=== PATIENT | female | born 1940 | race Caucasian/White ===

== ENCOUNTER → 2019-07-26 09:55 | Outpatient (BNVA) | payer MEDICARE, OTHER, SELFPAY | PROVIDERS: Family Provider Nurse Practitioner; PCP Nurse Practitioner; Visit Provider Internal Medicine Cardiovascular Disease | DX: I10 Essential (primary) hypertension (principal); E78.2 Mixed hyperlipidemia; Z95.0 Presence of cardiac pacemaker; M05.741 Rheumatoid arthritis with rheumatoid factor of right hand without organ or systems involvement; M05.742 Rheumatoid arthritis with rheumatoid factor of left hand without organ or systems involvement; G31.84 Mild cognitive impairment of uncertain or unknown etiology | CPT/HCPCS: 80061 ==

== ENCOUNTER → 2019-08-13 09:13 | Outpatient (BNVA) | payer MEDICARE, OTHER, SELFPAY | PROVIDERS: Family Provider Nurse Practitioner; PCP Nurse Practitioner; Visit Provider Nurse Practitioner | DX: I10 Essential (primary) hypertension (principal); E55.9 Vitamin D deficiency, unspecified; G31.84 Mild cognitive impairment of uncertain or unknown etiology; E78.5 Hyperlipidemia, unspecified; F32.9 Major depressive disorder, single episode, unspecified | CPT/HCPCS: 80053; 80061; 81001; 82306; 82607; 83735; 84443; 85025 ==

== ENCOUNTER 2019-09-01 06:00 | Outpatient (CLI) | payer MEDICARE, OTHER, SELFPAY ==
[2019-09-02 15:06] LABS: Add Urine Microscopic? NO
[2019-09-02 15:37] LABS: Urine Appearance Clear (CLEAR); Urine Color Straw (Yellow)
[2019-09-02 15:38] LABS: Bilirubin Urine Neg (NEGATIVE); Blood Urine Neg (Negative); Glucose Urine UA Norm (Normal); Ketones Urine Negative (Negative); Leukocyte Esterase Urine Negative (Negative); Nitrate Urine Negative (Negative); Protein Urine Neg (Negative); Urobilinogen Urine Norm (Negative); pH Urine 6.5 (5-7)
== END 2019-09-01 06:01 | disposition home or self-care (01) ==
LOC: LAB 09-02 15:06
PROVIDERS: Family Provider Nurse Practitioner; PCP Nurse Practitioner; Visit Provider Nurse Practitioner
DX: R30.0 Dysuria (principal)
CPT/HCPCS: 81003

== ENCOUNTER → 2019-09-01 09:02 | Outpatient (BNVA) | payer MEDICARE, OTHER, SELFPAY | PROVIDERS: Family Provider Nurse Practitioner; PCP Nurse Practitioner; Referring Provider Internal Medicine Medical Oncology; Visit Provider Specialist | DX: G47.52 REM sleep behavior disorder (principal); R41.3 Other amnesia; R20.0 Anesthesia of skin; R19.7 Diarrhea, unspecified; Z98.890 Other specified postprocedural states; F03.90 Unspecified dementia, unspecified severity, without behavioral disturbance, psychotic disturbance, mood disturbance, and anxiety | CPT/HCPCS: 96116; 99215 ==

== ENCOUNTER 2019-09-01 10:59 | Outpatient (CLI) | payer MEDICARE, OTHER, SELFPAY ==
[2019-09-01 12:20] LABS: Vitamin B12 467 pg/mL (232-1245)
[2019-09-01 12:55] LABS: Folate Level 19.3 ng/mL (4.8-37.3)
== END 2019-09-01 11:00 | disposition home or self-care (01) ==
LOC: ONCMED 11:05
PROVIDERS: Family Provider Nurse Practitioner; PCP Nurse Practitioner; Visit Provider Specialist
DX: R41.3 Other amnesia (principal)
CPT/HCPCS: 82607; 82746

== ENCOUNTER 2019-09-09 09:18 | Outpatient (CLI) | payer MEDICARE, OTHER, SELFPAY ==
--- NOTE | 2019-09-09 09:30 | CT_ITS ---
WS: [id number] CT CHEST, ABDOMEN, AND PELVIS TECHNIQUE: Contrast-enhanced CT of the chest, abdomen, and pelvis with coronal and sagittal reformatt ed images. CLINICAL INFORMATION: COLON CANCER COMPARISON: Prior CTs including August 03, 2018, December 10, 2017, DLP: 1048.[address] scans at [facility] use at least one of these dose optimization techniques: automat ed exposure control; mA and/or kV adjustment per patient size (includes targeted exams where dose is matched to clinical indication); or iterative reconstruction. CT CHEST: Moderate chronic emphysematous changes. No acute pulmonary infiltrates. Slight atelectasis in the nasir gula and right lower lobe. 4 mm left lower lobe noncalcified pulmonary nodule is unchanged. No new pu lmonary parenchymal abnormalities. No acute pulmonary infiltrates. Normal caliber thoracic aorta. Vas cular calcification including coronary. No mediastinal or hilar lymphadenopathy. No axillary lymphade nopathy. CT ABDOMEN AND PELVIS: Prior cholecystectomy. Mild intrahepatic biliary ductal dilatation unchanged. This is likely physiolo gic postcholecystectomy. Normal spleen. Normal GE junction. Fatty atrophy of the pancreas. Normal laurent iber abdominal aorta. Adrenal glands are normal. Normal renal parenchymal enhancement. No hydronephro sis. No adenopathy in the abdomen or pelvis. No inguinal lymphadenopathy. Lumbar scoliosis. CT/CT chest abd pel w con* IMPRESSION: 1. No evidence of progressed metastatic disease in the chest abdomen or pelvis . 2. Stable tiny 4 mm pulmonary nodule left lower lobe is unchanged. 3. No mediastinal or hilar lymphadenopathy. 4. No adenopathy abdomen or pelvis. 5. Prior cholecystectomy.
[2019-09-09 10:09] LABS: Basophils % 0.5 %; Eosinophils # 0.2 10^3/uL (0.0-0.8); Eosinophils % 4.6 %; Hemoglobin 12.2 g/dL (11.5-15.3); Lymphocytes # 1.6 10^3/uL (0.8-4.8); Lymphocytes % 37.6 %; Mean Corpuscular HGB Conc 33.9 g/dL (30.0-36.0); Mean Corpuscular Hemoglobin 37.1 pg (28.0-34.0); Mean Corpuscular Volume 109.4 fL (81-99); Mean Platelet Volume 10.6 fL (7.4-10.4); Monocytes # 0.4 10^3/uL (0.2-0.9); Monocytes % 8.8 %; Neutrophils # 2.1 10^3/uL (1.8-7.7); Neutrophils % 48.5 %; Nucleated Red Blood Cells % 0 %; Platelet Count 142 10^3/cmm (130-400); Red Blood Count 3.29 10^6/uL (4.1-5.3); Red Cell Distribution Width 12.6 % (12.1-15.1); White Blood Count 4.3 10^3/uL (4.0-10.0)
[2019-09-09 10:40] LABS: Carcinoembryonic Antigen 6.8 ng/mL (0.0-4.7)
[2019-09-09 10:51] LABS: Alanine Aminotransferase 15 U/L (0-33); Albumin Level 4.2 g/dL (3.5-5.2); Alkaline Phosphatase 50 IU/L (35-105); Aspartate Amino Transferase 23 U/L (0-32); Blood Urea Nitrogen 10 mg/dL (8-23); Calcium 9.9 mg/dL (8.5-10.5); Carbon Dioxide 24 mmol/L (22-29); Chloride 97 mmol/L (98-107); Globulin 3.4 g/dL (1.3-4.6); Glucose 110 mg/dL (65-115); Sodium 138 mmol/L (136-145); Total Bilirubin 1.3 mg/dL (0.15-1.2); Total Protein 7.6 g/dL (6.6-8.7)
[2019-09-09] MEDS: iohexol 300 mg/mL 100 mL Btl IV (11:25)
[2019-09-09] MEDS: iohexol 300 mg/mL 50 mL Btl PO (11:29)
== END 2019-09-09 09:19 | disposition home or self-care (01) ==
LOC: ONCMED 09:20
PROVIDERS: Family Provider Nurse Practitioner; PCP Nurse Practitioner; Visit Provider Internal Medicine Medical Oncology
DX: Z85.038 Personal history of other malignant neoplasm of large intestine (principal); R91.1 Solitary pulmonary nodule; Z90.49 Acquired absence of other specified parts of digestive tract
CPT/HCPCS: 36415; 71260; 74177; 80053; 82378; 85025; Q9967

== ENCOUNTER 2019-09-13 15:05 | Outpatient (CLI) | payer MEDICARE, OTHER, SELFPAY ==
--- NOTE | 2019-09-13 19:57 | ONC FU_ITS ---
Dr. Rausch Patient Follow-Up Note Patient: Katherin Silva Unit #: [id number]: 1940 Dicatated By: Musa Rausch M.D.Date of Visit:Sep 13, 2019 Onc Med Follow-up/Prog Note Chief Complaint: Colon cancer. History of Present Illness: This is a 79 year-old woman with stage III colon cancer. She also is known to have sarcoidosis. Her colon cancer was initially diagnosed in 2005. She had treatment with Dr. Enedina Palm in [place]. I do have some but not complete records available. The primary tumor apparently was in the left side of the colon. She reportedly underwent hemicolectomy, but those details were not stated in any of the reports. Her preoperative staging evaluation apparently showed multiple lymph nodes in the neck, supraclavicular and axillary areas, mediastinum, and retroperitoneal areas, and she also was noted to have enlarged spleen. Axillary lymph node biopsy was consistent with sarcoidosis. She was given postoperative adjuvant chemotherapy with 12 cycles of FOLFOX, completed in June 2006. On her follow-up visit there in September 2016 she was found to be mildly anemic. A specific cause for that was not determined. An abdominal ultrasound done here on 08/22/2016 showed abnormal echogenicity involving the superior right lobe of the liver. Infiltrating neoplasm was not excluded, but it was noted to possibly be due to artifact. Spleen was noted to be normal at that time. She had a negative surveillance colonoscopy in March 2016. Her other medical illnesses include hypertension, osteoporosis, and degenerative arthritis. She has a history of anxiety/depression. In August 2014 she underwent placement of permanent pacemaker for complete heart block. She is a nonsmoker. She was seen here on 12/04/2017 because she had been having weak spells and she had been falling. During the preceding 4 months she had experienced 3 episodes in which she had fallen. With the first 2 episodes, she had lost balance and fell backwards off the porch. With the most recent episode, which was just 2 or 3 days prior to the visit, she was attempting to open the door of their camper. She had started getting lightheaded and the next thing she knew she was on the ground. She had apparently fallen backward again and hit the back of her head. She hadn't actually blacked out, though. During this time she also had been having more problems with her memory, and her indicated that he had noticed some change in her personality. In reviewing her record in [employer], I noted that she had seen Dr. Gonzalez in September 2014. At that time she had experienced some syncopal episodes related to the complete heart block. She was having some ataxia, and she had some depression. A noncontrast head CT was unremarkable. Her laboratory studies from 12/04/2017 included CBC showing hemoglobin 13.4 g, white blood cell count 4000, and platelet count 160,000. The red cell indices were mildly macrocytic. The reticulocyte count was 1.8%. Sedimentation rate was normal at 18 mm/hour. Comprehensive metabolic profile was unremarkable. LDH was normal at 177 U/L. TSH was normal at 2.330 mIU/mL. Her B12 level was elevated at 3571 pg/mL. Her CEA level was borderline at 4.9 ng/mL. A CT angiogram of the head/neck on 12/05/2017 showed moderate bilateral carotid bulb calcification extending into the ICA with right ICA stenosis of 56.8% and left ICA stenosis of 53.8%. There was evidence of left dominant vertebral artery with just a tiny hypoplastic right vertebral artery ending in PICA. Also noted was mild central canal stenosis due to disc osteophyte complexes at C5-C6 and C6-C7. There was mild chronic appearing compression of the superior endplates at T1 and T3. CT scans of the chest, abdomen, and pelvis on 12/10/2017 showed a subcentimeter left lower lobe subpleural noncalcified nodule, felt to be nonspecific. There were no definite findings of metastatic disease or disease progression in the chest and there was no evidence of metastatic disease in the abdomen/pelvis. In the absence of any evidence of recurrence/progression of her colon cancer she continued on observation/expectant management. A repeat chest CT on 08/03/2018 showed no evidence of disease progression in the chest. There was a similar sized left lower lobe posterior segment nodule noted, and a 6-month interval follow-up study was recommended. At that point her CEA was slightly higher at 5.3 ng/mL and by January 2019 it had further increased to 6.6 ng/mL. In the absence of any clinical evidence of malignancy, she continued on observation/expectant management. However, with continued decline in her cognitive function, I did have her return to see Dr. Gonzalez. Surveillance CT scans on 09/09/2019 showed no evidence of metastatic disease in the chest, abdomen, or pelvis. A 4 mm pulmonary nodule in the left lower lobe appeared unchanged. She is seen for a follow-up visit. She complains that she has no energy. She has been under a lot of stress, as she had decided to finally quit working for good. She had been employed at the [employer] in [place] for more than 50 years. She is able to do some light work at home. ECOG score is 1. She has good appetite, but she has lost a little weight. She thinks that is probably stress related. She has not had fever, hot flashes, or night sweating. She complained that she is cold all the time. She has no shortness of breath, cough, or chest pain. She has no GI/ complaints other than her bowel function is so-so . She tends to have 2 or 3 loose stools which sometimes are difficult to control, but her bowels generally move just every other day. She has arthritis in her right thumb. She does not complain of headache or dizziness. She has no other joint or bone pain. She has some numbness/tingling in her feet. She has started taking donepezil for the cognitive dysfunction. Medications: Ascorbic Acid 1 Tablet (of 500 mg) Oral daily, Atorvastatin Calcium 1 Tablet (of 10 mg) Oral daily, [employer] Fish Oil 1 Capsule (of 1000 mg) Oral daily, Donepezil HCl 1 Tablet (of 5 mg) Oral daily, Folic Acid 1 Tablet (of 800 mcg) Oral daily, Lisinopril 1 Tablet (of 5 mg) Oral daily, Metoprolol Tartrate 3 Tablet (of 25 mg) Oral b.i.d., Venlafaxine HCl ER 1 Capsule (of 37.5 mg) Capsule SR 24 HR Oral daily, Vitamin D2 1 Tablet (of 49972 Units) Oral q 30 days Allergies: Aspirin and Penicillins. Review of Systems: Constitutional - Her energy is low. She does very light work at home. Her appetite is good and her weight is down almost 10 pounds since her last visit. No fever, chills, hot flashes, or night sweats. ECOG score is 1, ENMT - She has mild sinus congestion/drainage. No mouth sores. No sore throat or difficulty swallowing, Hematologic/Lymphatic - No abnormal bruising or bleeding, Respiratory - No shortness of breath. No cough. No pleuritic pain or hemoptysis, Cardiovascular - No angina pain. No palpitations, Gastrointestinal - No nausea or vomiting. No heartburn or acid reflux. She is having more frequent loose stools. She has some trouble controlling her bowels. No blood in the stool or black stools, Genitourinary (F) - No dysuria or hematuria. No urinary frequency. No urgency or incontinence, Musculoskeletal - She has pain in her thumbs, Integumentary - No skin complications, Neurologic - No headache or dizziness. She has numbness and tingling in her feet, Psychiatric - She has some stress and anxiety. No insomnia. Vital Signs: Performed on Sep 13, 2019 15:14 Height - 66.00 in Weight - 126.2 lbs (LOW) BSA - 1.64 sq.m BMI - 20.37 Temperature - 97.8 F (LOW) Pulse - 78 /min Respiration - 18 /min BP - 140/84 mm(hg) O2 Sat - 100 % Pain - 0 Physical Examination: Constitutional - She looks pretty good generally, Eyes - Sclerae nonicteric. Conjunctivae clear, ENMT - No lesions noted in the oral cavity, Hematologic/Lymphatic - No cervical, clavicular, or axillary adenopathy, Respiratory - Lungs are clear with some decrease in air movement bilaterally, Cardiovascular - Heart rhythm is regular. There is a II/ systolic murmur. There is no gallop or rub noted, Abdomen - Soft. Liver and spleen are not enlarged. There is no abdominal mass or ascites noted and there is no inguinal adenopathy, Extremities - No edema, Neurologic - No focal neurologic deficits noted. Lab/Imaging: CBC shows hemoglobin 12.2 g, white blood cell count 4300, and platelet count 142,000. Comprehensive metabolic profile is unremarkable except for slightly elevated total bilirubin at 1.3 mg/dL, similar to prior studies. CEA is stable at 6.8 ng/mL. Impression: 1. Patient with stage III colon cancer treated with hemicolectomy followed by adjuvant chemotherapy with 12 cycles of FOLFOX, completed in June 2006. To date there has been no documented recurrence. 2. She has additional history of sarcoidosis, confirmed by axillary lymph node biopsy in 2005. She has had no specific treatment for it. 3. She has complaints of recent falls, which appear to be related to dysequilibrium. 4. She has additional complaints of memory loss, for which she recently started treatment with donepezil. 5. She has been mildly anemic. Her other medical illnesses include: 6. Osteoporosis. 7. Degenerative arthritis. 8. Anxiety/depression. In November 2017 she was seen with complaints of having weak spells and falls. The description was somewhat suspicious for syncope, though her evaluation was unrevealing. In particular, there was no evidence of recurrence of the colon cancer. She continued on observation/expectant management, and her symptoms improved. During subsequent follow-up there was a gradual slight increase in her CEA level. She had some decline in her memory and her cognitive function, for which she has seen Dr. Gonzalez. She has otherwise been stable clinically. There has been no evidence of malignancy on her surveillance CT scans and her CEA level has now stabilized. Plan: She remains on observation/expectant management for the colon cancer. With negative CT scans and with her CEA level now stable, she can continue observation/expectant management for the colon cancer. At this point she will continue her regular follow-up at [facility]. I would recommend rechecking the CEA level at least yearly. I would not recommend any further surveillance CT scanning unless she has indications for it clinically. I will see her again only as needed. Signed By: Musa Rausch M.D. <<Signature on File>>
== END 2019-09-13 15:06 | disposition home or self-care (01) ==
LOC: ONCMED 15:05
PROVIDERS: Family Provider Nurse Practitioner; PCP Nurse Practitioner; Visit Provider Internal Medicine Medical Oncology
DX: Z08 Encounter for follow-up examination after completed treatment for malignant neoplasm (principal); Z85.038 Personal history of other malignant neoplasm of large intestine; D86.9 Sarcoidosis, unspecified; R42 Dizziness and giddiness; R41.3 Other amnesia; D64.9 Anemia, unspecified; M81.0 Age-related osteoporosis without current pathological fracture; M19.90 Unspecified osteoarthritis, unspecified site; F41.8 Other specified anxiety disorders; Z91.81 History of falling; Z92.21 Personal history of antineoplastic chemotherapy; Z90.49 Acquired absence of other specified parts of digestive tract
CPT/HCPCS: G0463

== ENCOUNTER → 2020-01-11 16:19 | Outpatient (BNVA) | payer MEDICARE, OTHER, SELFPAY | PROVIDERS: Family Provider Nurse Practitioner; PCP Nurse Practitioner; Visit Provider Nurse Practitioner | DX: I10 Essential (primary) hypertension (principal); E78.5 Hyperlipidemia, unspecified; F32.9 Major depressive disorder, single episode, unspecified; E78.2 Mixed hyperlipidemia; Z85.038 Personal history of other malignant neoplasm of large intestine; Z95.0 Presence of cardiac pacemaker | CPT/HCPCS: 80053; 80061; 81003; 82378; 85025 ==

== ENCOUNTER → 2020-02-29 12:59 | Outpatient (BNVA) | payer MEDICARE, OTHER, SELFPAY | PROVIDERS: Family Provider Nurse Practitioner; PCP Nurse Practitioner; Visit Provider Specialist | DX: G30.8 Other Alzheimer's disease (principal); F02.80 Dementia in other diseases classified elsewhere, unspecified severity, without behavioral disturbance, psychotic disturbance, mood disturbance, and anxiety; R41.3 Other amnesia; G31.84 Mild cognitive impairment of uncertain or unknown etiology | CPT/HCPCS: 96116; 99213 ==

== ENCOUNTER → 2020-04-21 10:54 | Outpatient (BNVA) | payer MEDICARE, OTHER, SELFPAY | PROVIDERS: Family Provider Nurse Practitioner; PCP Nurse Practitioner; Visit Provider Nurse Practitioner | DX: I10 Essential (primary) hypertension (principal) | CPT/HCPCS: 80053; 85025 ==

== ENCOUNTER → 2020-04-26 14:05 | Outpatient (BNVA) | payer MEDICARE, OTHER, SELFPAY | PROVIDERS: Family Provider Nurse Practitioner; PCP Nurse Practitioner; Visit Provider Nurse Practitioner | DX: M79.10 Myalgia, unspecified site (principal); M47.892 Other spondylosis, cervical region; M47.896 Other spondylosis, lumbar region | CPT/HCPCS: 71101; 72040; 72072; 72100 ==

== ENCOUNTER → 2020-05-05 16:15 | Outpatient (BNVA) | payer MEDICARE, SELFPAY | PROVIDERS: Family Provider Nurse Practitioner; PCP Nurse Practitioner; Visit Provider Nurse Practitioner Family | DX: Z11.59 Encounter for screening for other viral diseases (principal) | CPT/HCPCS: 87635 ==

== ENCOUNTER 2020-05-07 05:21 | Inpatient (IN) | payer MEDICARE, OTHER, SELFPAY ==
[2020-05-07] VITALS (13 sets, daily range): BP systolic 114–174; BP diastolic 52–95; PULSE 65–87; RESP 16–22; TEMP 36.6–38.7; O2SAT 92–100; BMI 23.1
--- NOTE | 2020-05-07 05:43 | XRR_ITS ---
PROCEDURE INFORMATION: Exam: XR Chest, 1 View Exam date and time: 05/07/2020 6:35 AM Age: 79 years old Clinical indication: Fever; Prior surgery; Surgery type: Pacemaker, breast; Additional info: Fever, n/v, weakness TECHNIQUE: Imaging protocol: XR of the chest Views: Frontal portable upright view of the chest. COMPARISON: CR XR ribs RT mn 3V w CXR1V [id number] 04/26/2020 2:04 PM FINDINGS: Tubes, catheters and devices: EKG leads are present overlying the chest. Lungs: Mild left lateral basilar subsegmental atelectasis. The pulmonary vasculature is stable. Pleural space: Minimal bilateral pleural effusions. No pneumothorax. Heart/Mediastinum: The heart is normal in size and contour. Vasculature: A dual lead left subclavian permanent pacemaker is present. The right atrial and right ventricular leads appear to be in good position. Moderate aortic arch atherosclerotic calcification without ectasia. Diaphragm: The right hemidiaphragm remains moderately elevated. Bones/joints: Diffuse osteopenia. Organs: The gallbladder is likely surgically absent, with metallic clips overlying the gallbladder fossa. XR/XR chest 1V portable [id number] IMPRESSION: 1. Mild left lateral basilar subsegmental atelectasis. 2. Minimal bilateral pleural effusions, new. 3. Prior cholecystectomy.
--- NOTE | 2020-05-07 05:45 | ECG_ITS ---
[facility] Test Date: 2020-05-07 Pat Name: Katherin Silva Department: Room: Gender: Female [place]ns: : 1940 Requested By: Gamaliel Duran Order Number: [id number] Saeid MD: Marta Vasques M.D. Measurements Intervals [place] Rate: 81 P: 60 MO: 162 QRS: -25 QRSD: 148 T: 83 QT: 407 QTc: 473 Interpretive Statements SINUS RHYTHM POSSIBLE LEFT ATRIAL ENLARGEMENT [-0.1mV P WAVE IN V1/V2] LEFT BUNDLE BRANCH BLOCK [120+ ms QRS DURATION, 80+ ms Q/S IN V1/V2, 85+ ms R IN I/aVL/V5/V6] Compared to ECG 09/25/2014 10:45:12 No significant changes Electronically Signed On 05-07-2020 19:46:06 CDT by Marta Vasques M.D. [email or web address]
--- NOTE | 2020-05-07 05:48 | W.ED.COVID ---
Documented by User: Gamaliel Lombardo, 05/07/20 06:45 HPI - COVID General: Chief Complaint: COVID symptoms Stated Complaint: GENERALIZED WEAKNESS/ N/V/ TEMP Time Seen by Provider: 05/07/20 05:31 Triage information: Has fever, cough or shortness of breath. No known COVID + exposure last 14 days History of Present Illness: HPI Narrative: 79-year-old female complains of a couple of days of fever, generalized belly pain, diarrhea, and vomiting. She states that she has not been able to hold down liquids the past 24 hours. She has become increasingly generally weak as well. She was tested for COVID-19 2 days ago, and the result came back nondetected. She has no known exposure. No blood in the stool or vomitus. Prior covid testing: yes, results known COVID 19 common symptoms: positive fever(s), chills, cough, nausea, vomiting and diarrhea; negative dyspnea or headache(s) COVID 19 other sytmptoms: positive lethargy; negative chest pressure or chest pain Onset (ago): day(s) Severity: moderate COVID Results: SARS-CoV-2 Antigen (Rapid) Negative (Negative) 05/07/20 06:28 05/07/20 SARS-CoV-2 RNA (RT-PCR) Not detected (NOT DETECTED) 05/05/20 16:15 05/05/20 Nasal/Oral Coronavirus 2019 PCR Negative 05/07/20 07:45 05/07/20 Review of Systems Const: Reports: fever(s) and chills Eyes: Denies: change in vision ENMT: Denies: odynophagia, swelling of lips/tongue or sinus pain Card: Denies: chest pain, palpitations or irregular heart rhythm Resp: Denies: dyspnea GI: Reports: nausea, vomiting and diarrhea : Denies: dysuria or hematuria Musc: Denies: neck pain or joint warmth Skin/Breast: Denies: rash or erythema Neuro: Denies: headache(s), dizziness or vertigo Psych: Denies: anxiety PFSH ED PFSH: Medical History (Updated 05/09/20 @ 14:38 by Shen Ley MD) Anxiety Carpal tunnel syndrome Depression Essential hypertension History of colon cancer Hyperlipidemia Insomnia Joint pain Mild cognitive impairment Osteoporosis Pacemaker Postconcussive syndrome Rheumatoid arthritis Sarcoidosis Syncope Vitamin A deficiency Surgical History History of colonoscopy 2019 History of hemicolectomy History of left breast biopsy S/P cholecystectomy Family History Other Arthritis Cancer Diabetes Stroke Denies family history of Anesthesia complication Bleeding disorder Social History Smoking and tobacco status: never smoked Second hand smoke exposure: No Smoking risk assessment/counseling performed?: No Alcohol intake: current Alcohol intake frequency: 3 or more drinks per day Alcohol type: beer Desire information about alcohol rehabilitation?: No Counseling given: Yes Desire information about substance/drug rehabilitation?: No Counseling given: No Caregiver/support person: No Lives independently: Yes Household members: spouse Housing: House Marital status: Number of children: 0 service: No Current occupational status: retired Pets and animals: Yes Pets & animals: cat(s) and dog(s) History of recent travel: No Current gender identity: Female Physical Exam Const: GENERAL APPEARANCE: cooperative, ill appearing and frail appearing ORIENTATION/CONSCIOUSNESS: Yes oriented to person, Yes oriented to place and Yes oriented to time HENMT: COMMON NORMALS: normocephalic, external ears normal and Normal external nose present HEAD & SCALP: normocephalic FACE & SINUS: normal facial exam NOSE: Normal external nose present and No nasal discharge present EXTERNAL EAR: Yes external ears normal Eye: COMMON NORMALS: Equal, round and reactive pupils present, EOMs intact bilaterally and conjunctivae normal EYELID: eyelids normal CONJUNCTIVA: Yes conjunctivae normal PUPIL: Yes Equal, round and reactive pupils present Neck/C-Spine: GENERAL: No tracheal deviation Chest: COMMONS NORMALS: normal inspection of the chest CHEST: No tenderness Resp: COMMON NORMALS: clear to auscultation bilaterally EFFORT & INSPECTION: No tachypneic, No respiratory distress, No retractions, No uses accessory muscles and No tracheal deviation AUSCULTATION: clear to auscultation bilaterally, no rhonchi, no wheezes and lung sounds not diminished Cardio: COMMON NORMALS: regular rhythm RATE: tachycardic RHYTHM: regular rhythm HEART SOUNDS: no murmurs PERIPHERAL PULSES: radial pulses present GI: INSPECTION: Yes abdominal distension AUSCULTATION: No Hyperactive bowel sounds present and No Hypoactive bowel sounds present PALPATION: Yes Tenderness to palpation present (GI) (Diffuse) and No Rigid due to palpation PERCUSSION: no dullness to percussion and no tympanic to percussion Neuro: SENSORIUM/ORIENTATION: Yes oriented to person, Yes oriented to place and Yes oriented to time Psych: COMMON NORMALS: mental status grossly normal Skin: COMMON NORMALS: no rashes or lesions noted GENERAL SKIN EXAM: no rashes or lesions noted Course ED course: Labs and CT are pending. Patient checked out to Dr. Boucher at shift change. Vital Signs: Vital signs: Vital Signs Temperature 98.5 F 05/09/20 19:51 Pulse Rate 80 05/09/20 19:51 Respiratory Rate 16 05/09/20 16:00 Blood Pressure 122/63 05/09/20 19:51 Pulse Oximetry 95 05/09/20 19:51 MDM - COVID Lab Data Result diagrams: 05/09/20 18:00 05/09/20 02:06 Labs: Lab Results 05/07/20 05/07/20 05/07/20 Range/Units 05:59 05:59 05:59 WBC 6.4 (4.0-10.0) 10^3/uL RBC 2.97 L (4.1-5.3) 10^6/uL Hgb 10.3 L (11.5-15.3) g/dL Hct 30.0 L (37.0-47.0) % MCV 101.0 H (81-99) fL MCH 34.7 H (28.0-34.0) pg MCHC 34.3 (30.0-36.0) g/dL RDW 12.0 L (12.1-15.1) % Plt Count 175 (130-400) 10^3/cmm MPV 10.3 (7.4-10.4) fL Neut % (Auto) 89.7 % Lymph % (Auto) 3.4 % [place] % (Auto) 5.9 % Eos % (Auto) 0.2 % Baso % (Auto) 0.3 % Neut # (Auto) 5.73 (1.8-7.7) 10^3/uL Lymph # (Auto) 0.2 L (0.8-4.8) 10^3/uL [place] # (Auto) 0.4 (0.2-0.9) 10^3/uL Eos # (Auto) 0.0 (0.0-0.8) 10^3/uL Baso # (Auto) 0.0 (0.0-0.1) 10^3/uL Nucleated RBC % (auto) 0 % Nucleated RBCs # 0.0 /100WBC D-Dimer 14.63 H (0-0.59) ug/mIFEU Sodium 128 L (136-145) mmol/L Potassium 3.0 L (3.5-5.1) mmol/L Chloride 95 L (98-107) mmol/L Carbon Dioxide 24 (22-29) mmol/L Anion Gap 12.0 (5-19) BUN 14 (8-23) mg/dL Creatinine 0.7 (0.5-0.9) mg/dL GFR Calculation Not Reportable Glucose 146 H (65-115) mg/dL Calculated Osmolality 269 L (285-295) mOsm/kg Lactate (0.5-2.2) mmol/L Calcium 8.4 L (8.5-10.5) mg/dL Iron (37-145) ug/dL TIBC mcg/dl % Saturation (20-50) % Unsat Iron Binding (112-347) ug/dL Total Bilirubin 0.5 (0.15-1.2) mg/dL AST 43 H (0-32) U/L ALT 29 (0-33) U/L Alkaline Phosphatase 59 (35-105) IU/L Creatine Kinase 23 L (26-192) U/L C-Reactive Protein 86.2 H (0.0-4.9) mg/L NT-Pro-B Natriuret Pep (0-450) pg/mL Total Protein 6.1 L (6.6-8.7) g/dL Albumin 3.0 L (3.5-5.2) g/dL Globulin 3.1 (1.3-4.6) g/dL Lipase 13 (13-60) U/L Vitamin B12 (232-1245) pg/mL Folate (4.8-37.3) ng/mL Procalcitonin 0.33 (0-0.5) ng/mL TSH (0.27-4.20) uIU/mL Urine Color (Yellow) Urine Appearance (CLEAR) Urine pH (5-7) Ur Specific [place] (1.005-1.030) Urine Protein (Negative) Urine Glucose (UA) (Normal) Urine Ketones (Negative) Urine Blood (Negative) Urine Nitrate (Negative) Urine Bilirubin (Negative) Urine Urobilinogen (Negative) mg/dL Ur Leukocyte Esterase (Negative) Nasal/Oral COVID-19 PCR Influenza Type A Ag (Negative) Influenza Type B Ag (Negative) SARS-CoV-2 Ag (Rapid) (Negative) 05/07/20 05/07/20 05/07/20 Range/Units 05:59 05:59 05:59 WBC (4.0-10.0) 10^3/uL RBC (4.1-5.3) 10^6/uL Hgb (11.5-15.3) g/dL Hct (37.0-47.0) % MCV (81-99) fL MCH (28.0-34.0) pg MCHC (30.0-36.0) g/dL RDW (12.1-15.1) % Plt Count (130-400) 10^3/cmm MPV (7.4-10.4) fL Neut % (Auto) % Lymph % (Auto) % [place] % (Auto) % Eos % (Auto) % Baso % (Auto) % Neut # (Auto) (1.8-7.7) 10^3/uL Lymph # (Auto) (0.8-4.8) 10^3/uL [place] # (Auto) (0.2-0.9) 10^3/uL Eos # (Auto) (0.0-0.8) 10^3/uL Baso # (Auto) (0.0-0.1) 10^3/uL Nucleated RBC % (auto) % Nucleated RBCs # /100WBC D-Dimer (0-0.59) ug/mIFEU Sodium (136-145) mmol/L Potassium (3.5-5.1) mmol/L Chloride (98-107) mmol/L Carbon Dioxide (22-29) mmol/L Anion Gap (5-19) BUN (8-23) mg/dL Creatinine (0.5-0.9) mg/dL GFR Calculation Glucose (65-115) mg/dL Calculated Osmolality (285-295) mOsm/kg Lactate 0.7 (0.5-2.2) mmol/L Calcium (8.5-10.5) mg/dL Iron 34 L (37-145) ug/dL TIBC 127 mcg/dl % Saturation 26.7 (20-50) % Unsat Iron Binding 93 L (112-347) ug/dL Total Bilirubin (0.15-1.2) mg/dL AST (0-32) U/L ALT (0-33) U/L Alkaline Phosphatase (35-105) IU/L Creatine Kinase (26-192) U/L C-Reactive Protein (0.0-4.9) mg/L NT-Pro-B Natriuret Pep 3093 H (0-450) pg/mL Total Protein (6.6-8.7) g/dL Albumin (3.5-5.2) g/dL Globulin (1.3-4.6) g/dL Lipase (13-60) U/L Vitamin B12 (232-1245) pg/mL Folate (4.8-37.3) ng/mL Procalcitonin Cancelled (0-0.5) ng/mL TSH (0.27-4.20) uIU/mL Urine Color Yellow (Yellow) Urine Appearance Clear (CLEAR) Urine pH 6 (5-7) Ur Specific [place] 1.020 (1.005-1.030) Urine Protein Neg (Negative) Urine Glucose (UA) Norm (Normal) Urine Ketones 1+ H (Negative) Urine Blood Neg (Negative) Urine Nitrate Negative (Negative) Urine Bilirubin Neg (Negative) Urine Urobilinogen 4 H (Negative) mg/dL Ur Leukocyte Esterase Negative (Negative) Nasal/Oral COVID-19 PCR Influenza Type A Ag (Negative) Influenza Type B Ag (Negative) SARS-CoV-2 Ag (Rapid) (Negative) 05/07/20 05/07/20 05/07/20 Range/Units 05:59 05:59 05:59 WBC (4.0-10.0) 10^3/uL RBC (4.1-5.3) 10^6/uL Hgb (11.5-15.3) g/dL Hct (37.0-47.0) % MCV (81-99) fL MCH (28.0-34.0) pg MCHC (30.0-36.0) g/dL RDW (12.1-15.1) % Plt Count (130-400) 10^3/cmm MPV (7.4-10.4) fL Neut % (Auto) % Lymph % (Auto) % [place] % (Auto) % Eos % (Auto) % Baso % (Auto) % Neut # (Auto) (1.8-7.7) 10^3/uL Lymph # (Auto) (0.8-4.8) 10^3/uL [place] # (Auto) (0.2-0.9) 10^3/uL Eos # (Auto) (0.0-0.8) 10^3/uL Baso # (Auto) (0.0-0.1) 10^3/uL Nucleated RBC % (auto) % Nucleated RBCs # /100WBC D-Dimer (0-0.59) ug/mIFEU Sodium (136-145) mmol/L Potassium (3.5-5.1) mmol/L Chloride (98-107) mmol/L Carbon Dioxide (22-29) mmol/L Anion Gap (5-19) BUN (8-23) mg/dL Creatinine (0.5-0.9) mg/dL GFR Calculation Glucose (65-115) mg/dL Calculated Osmolality (285-295) mOsm/kg Lactate (0.5-2.2) mmol/L Calcium (8.5-10.5) mg/dL Iron (37-145) ug/dL TIBC mcg/dl % Saturation (20-50) % Unsat Iron Binding (112-347) ug/dL Total Bilirubin (0.15-1.2) mg/dL AST (0-32) U/L ALT (0-33) U/L Alkaline Phosphatase (35-105) IU/L Creatine Kinase (26-192) U/L C-Reactive Protein (0.0-4.9) mg/L NT-Pro-B Natriuret Pep (0-450) pg/mL Total Protein (6.6-8.7) g/dL Albumin (3.5-5.2) g/dL Globulin (1.3-4.6) g/dL Lipase (13-60) U/L Vitamin B12 > 2000 H (232-1245) pg/mL Folate > 20.0 (4.8-37.3) ng/mL Procalcitonin (0-0.5) ng/mL TSH 1.81 (0.27-4.20) uIU/mL Urine Color (Yellow) Urine Appearance (CLEAR) Urine pH (5-7) Ur Specific [place] (1.005-1.030) Urine Protein (Negative) Urine Glucose (UA) (Normal) Urine Ketones (Negative) Urine Blood (Negative) Urine Nitrate (Negative) Urine Bilirubin (Negative) Urine Urobilinogen (Negative) mg/dL Ur Leukocyte Esterase (Negative) Nasal/Oral COVID-19 PCR Influenza Type A Ag (Negative) Influenza Type B Ag (Negative) SARS-CoV-2 Ag (Rapid) (Negative) 05/07/20 05/07/20 05/07/20 Range/Units 06:28 07:45 09:30 WBC (4.0-10.0) 10^3/uL RBC (4.1-5.3) 10^6/uL Hgb (11.5-15.3) g/dL Hct (37.0-47.0) % MCV (81-99) fL MCH (28.0-34.0) pg MCHC (30.0-36.0) g/dL RDW (12.1-15.1) % Plt Count (130-400) 10^3/cmm MPV (7.4-10.4) fL Neut % (Auto) % Lymph % (Auto) % [place] % (Auto) % Eos % (Auto) % Baso % (Auto) % Neut # (Auto) (1.8-7.7) 10^3/uL Lymph # (Auto) (0.8-4.8) 10^3/uL [place] # (Auto) (0.2-0.9) 10^3/uL Eos # (Auto) (0.0-0.8) 10^3/uL Baso # (Auto) (0.0-0.1) 10^3/uL Nucleated RBC % (auto) % Nucleated RBCs # /100WBC D-Dimer (0-0.59) ug/mIFEU Sodium (136-145) mmol/L Potassium (3.5-5.1) mmol/L Chloride (98-107) mmol/L Carbon Dioxide (22-29) mmol/L Anion Gap (5-19) BUN (8-23) mg/dL Creatinine (0.5-0.9) mg/dL GFR Calculation Glucose (65-115) mg/dL Calculated Osmolality (285-295) mOsm/kg Lactate (0.5-2.2) mmol/L Calcium (8.5-10.5) mg/dL Iron (37-145) ug/dL TIBC mcg/dl % Saturation (20-50) % Unsat Iron Binding (112-347) ug/dL Total Bilirubin (0.15-1.2) mg/dL AST (0-32) U/L ALT (0-33) U/L Alkaline Phosphatase (35-105) IU/L Creatine Kinase (26-192) U/L C-Reactive Protein (0.0-4.9) mg/L NT-Pro-B Natriuret Pep (0-450) pg/mL Total Protein (6.6-8.7) g/dL Albumin (3.5-5.2) g/dL Globulin (1.3-4.6) g/dL Lipase (13-60) U/L Vitamin B12 (232-1245) pg/mL Folate (4.8-37.3) ng/mL Procalcitonin (0-0.5) ng/mL TSH (0.27-4.20) uIU/mL Urine Color (Yellow) Urine Appearance (CLEAR) Urine pH (5-7) Ur Specific [place] (1.005-1.030) Urine Protein (Negative) Urine Glucose (UA) (Normal) Urine Ketones (Negative) Urine Blood (Negative) Urine Nitrate (Negative) Urine Bilirubin (Negative) Urine Urobilinogen (Negative) mg/dL Ur Leukocyte Esterase (Negative) Nasal/Oral COVID-19 PCR Negative Influenza Type A Ag Negative (Negative) Influenza Type B Ag Negative (Negative) SARS-CoV-2 Ag (Rapid) Negative (Negative) COVID Results: SARS-CoV-2 Antigen (Rapid) Negative (Negative) 05/07/20 06:28 05/07/20 SARS-CoV-2 RNA (RT-PCR) Not detected (NOT DETECTED) 05/05/20 16:15 05/05/20 Nasal/Oral Coronavirus 2019 PCR Negative 05/07/20 07:45 05/07/20 Discharge Plan Discharge Patient Disposition: Placed in Observation Admit Provider: Son Quiros Clinical Impression: Celiac artery stenosis Pneumonia Qualifiers: Pneumonia type: due to unspecified organism Laterality: unspecified laterality Lung location: unspecified part of lung Qualified Code(s): J18.9 - Pneumonia, unspecified organism Condition: Stable Referrals: Jeromy Moralez, COMPUTER SYSTEMS SECURITY ANALYST-C [Primary Care Provider] - Discharge Date/Time: 05/07/20 11:14 Coding Level of Care Code ED [facility] for Chg Fwd Exam Comprehensive Documented by User: Shelby Boucher MD 05/09/20 21:48 HPI - COVID General: Chief Complaint: COVID symptoms Stated Complaint: GENERALIZED WEAKNESS/ N/V/ TEMP Time Seen by Provider: 05/07/20 05:31 COVID Results: SARS-CoV-2 Antigen (Rapid) Negative (Negative) 05/07/20 06:28 05/07/20 SARS-CoV-2 RNA (RT-PCR) Not detected (NOT DETECTED) 05/05/20 16:15 05/05/20 Nasal/Oral Coronavirus 2019 PCR Negative 05/07/20 07:45 05/07/20 [facility] [place] ED PFSH: Medical History (Updated 05/09/20 @ 14:38 by Shen Ley MD) Anxiety Carpal tunnel syndrome Depression Essential hypertension History of colon cancer Hyperlipidemia Insomnia Joint pain Mild cognitive impairment Osteoporosis Pacemaker Postconcussive syndrome Rheumatoid arthritis Sarcoidosis Syncope Vitamin A deficiency Surgical History History of colonoscopy 2019 History of hemicolectomy History of left breast biopsy S/P cholecystectomy Family History Other Arthritis Cancer Diabetes Stroke Denies family history of Anesthesia complication Bleeding disorder Social History Smoking and tobacco status: never smoked Second hand smoke exposure: No Smoking risk assessment/counseling performed?: No Alcohol intake: current Alcohol intake frequency: 3 or more drinks per day Alcohol type: beer Desire information about alcohol rehabilitation?: No Counseling given: Yes Desire information about substance/drug rehabilitation?: No Counseling given: No Caregiver/support person: No Lives independently: Yes Household members: spouse Housing: House Marital status: Number of children: 0 service: No Current occupational status: retired Pets and animals: Yes Pets & animals: cat(s) and dog(s) History of recent travel: No Current gender identity: Female Course ED course: I assumed care of this patient from Dr. Lombardo. She is resting comfortably. Sats are 100% on 2 L. Fever came down after some Tylenol. Her labs show a negative Covid test however she had some concerning inflammatory markers and a low lymphocyte count. So at this point I have kept her on Covid precautions. CT of her chest showed no pulmonary embolism. She did have a small pneumonia that appeared more bacterial than Covid. On CT of her abdomen she had a celiac stenosis which was rated as severe. There is mild poststenotic dilatation. The radiologist, Dr. Greenfield, told me in a phone conversation that the appearance of this was similar to a CT she had in August. Her lactate is 0.7. Her abdomen was benign on my reexamination. She has some mild anemia but no dramatic drop in her blood counts. I spoke to Dr. Corea for admission here and he felt that with the celiac artery findings she needed to be transferred where there was interventional radiology. He also thought she should be on a heparin drip. I called [facility] and spoke to Dr. Beasley who is on-call for the vascular service. We discussed the patient's clinical picture and I reviewed the CT report with him. He feels this is a chronic finding that would not require any intervention. He said this was a patient he would typically see as an outpatient and consider stenting. Currently we have no beds at [facility] and I will wait to hear a final word on whether we do have beds or not. If we do then she probably can be admitted here. If we do not then she still needs to be admitted somewhere for her pneumonia and will require transfer. Vital Signs: Vital signs: Vital Signs Temperature 98.5 F 05/09/20 19:51 Pulse Rate 80 05/09/20 19:51 Respiratory Rate 16 05/09/20 16:00 Blood Pressure 122/63 05/09/20 19:51 Pulse Oximetry 95 05/09/20 19:51 MDM - COVID Lab Data Result diagrams: 05/09/20 18:00 05/09/20 02:06 Labs: Lab Results 05/07/20 05/07/20 05/07/20 Range/Units 05:59 05:59 05:59 WBC 6.4 (4.0-10.0) 10^3/uL RBC 2.97 L (4.1-5.3) 10^6/uL Hgb 10.3 L (11.5-15.3) g/dL Hct 30.0 L (37.0-47.0) % MCV 101.0 H (81-99) fL MCH 34.7 H (28.0-34.0) pg MCHC 34.3 (30.0-36.0) g/dL RDW 12.0 L (12.1-15.1) % Plt Count 175 (130-400) 10^3/cmm MPV 10.3 (7.4-10.4) fL Neut % (Auto) 89.7 % Lymph % (Auto) 3.4 % [place] % (Auto) 5.9 % Eos % (Auto) 0.2 % Baso % (Auto) 0.3 % Neut # (Auto) 5.73 (1.8-7.7) 10^3/uL Lymph # (Auto) 0.2 L (0.8-4.8) 10^3/uL [place] # (Auto) 0.4 (0.2-0.9) 10^3/uL Eos # (Auto) 0.0 (0.0-0.8) 10^3/uL Baso # (Auto) 0.0 (0.0-0.1) 10^3/uL Nucleated RBC % (auto) 0 % Nucleated RBCs # 0.0 /100WBC D-Dimer 14.63 H (0-0.59) ug/mIFEU Sodium 128 L (136-145) mmol/L Potassium 3.0 L (3.5-5.1) mmol/L Chloride 95 L (98-107) mmol/L Carbon Dioxide 24 (22-29) mmol/L Anion Gap 12.0 (5-19) BUN 14 (8-23) mg/dL Creatinine 0.7 (0.5-0.9) mg/dL GFR Calculation Not Reportable Glucose 146 H (65-115) mg/dL Calculated Osmolality 269 L (285-295) mOsm/kg Lactate (0.5-2.2) mmol/L Calcium 8.4 L (8.5-10.5) mg/dL Iron (37-145) ug/dL TIBC mcg/dl % Saturation (20-50) % Unsat Iron Binding (112-347) ug/dL Total Bilirubin 0.5 (0.15-1.2) mg/dL AST 43 H (0-32) U/L ALT 29 (0-33) U/L Alkaline Phosphatase 59 (35-105) IU/L Creatine Kinase 23 L (26-192) U/L C-Reactive Protein 86.2 H (0.0-4.9) mg/L NT-Pro-B Natriuret Pep (0-450) pg/mL Total Protein 6.1 L (6.6-8.7) g/dL Albumin 3.0 L (3.5-5.2) g/dL Globulin 3.1 (1.3-4.6) g/dL Lipase 13 (13-60) U/L Vitamin B12 (232-1245) pg/mL Folate (4.8-37.3) ng/mL Procalcitonin 0.33 (0-0.5) ng/mL TSH (0.27-4.20) uIU/mL Urine Color (Yellow) Urine Appearance (CLEAR) Urine pH (5-7) Ur Specific [place] (1.005-1.030) Urine Protein (Negative) Urine Glucose (UA) (Normal) Urine Ketones (Negative) Urine Blood (Negative) Urine Nitrate (Negative) Urine Bilirubin (Negative) Urine Urobilinogen (Negative) mg/dL Ur Leukocyte Esterase (Negative) Nasal/Oral COVID-19 PCR Influenza Type A Ag (Negative) Influenza Type B Ag (Negative) SARS-CoV-2 Ag (Rapid) (Negative) 05/07/20 05/07/20 05/07/20 Range/Units 05:59 05:59 05:59 WBC (4.0-10.0) 10^3/uL RBC (4.1-5.3) 10^6/uL Hgb (11.5-15.3) g/dL Hct (37.0-47.0) % MCV (81-99) fL MCH (28.0-34.0) pg MCHC (30.0-36.0) g/dL RDW (12.1-15.1) % Plt Count (130-400) 10^3/cmm MPV (7.4-10.4) fL Neut % (Auto) % Lymph % (Auto) % [place] % (Auto) % Eos % (Auto) % Baso % (Auto) % Neut # (Auto) (1.8-7.7) 10^3/uL Lymph # (Auto) (0.8-4.8) 10^3/uL [place] # (Auto) (0.2-0.9) 10^3/uL Eos # (Auto) (0.0-0.8) 10^3/uL Baso # (Auto) (0.0-0.1) 10^3/uL Nucleated RBC % (auto) % Nucleated RBCs # /100WBC D-Dimer (0-0.59) ug/mIFEU Sodium (136-145) mmol/L Potassium (3.5-5.1) mmol/L Chloride (98-107) mmol/L Carbon Dioxide (22-29) mmol/L Anion Gap (5-19) BUN (8-23) mg/dL Creatinine (0.5-0.9) mg/dL GFR Calculation Glucose (65-115) mg/dL Calculated Osmolality (285-295) mOsm/kg Lactate 0.7 (0.5-2.2) mmol/L Calcium (8.5-10.5) mg/dL Iron 34 L (37-145) ug/dL TIBC 127 mcg/dl % Saturation 26.7 (20-50) % Unsat Iron Binding 93 L (112-347) ug/dL Total Bilirubin (0.15-1.2) mg/dL AST (0-32) U/L ALT (0-33) U/L Alkaline Phosphatase (35-105) IU/L Creatine Kinase (26-192) U/L C-Reactive Protein (0.0-4.9) mg/L NT-Pro-B Natriuret Pep 3093 H (0-450) pg/mL Total Protein (6.6-8.7) g/dL Albumin (3.5-5.2) g/dL Globulin (1.3-4.6) g/dL Lipase (13-60) U/L Vitamin B12 (232-1245) pg/mL Folate (4.8-37.3) ng/mL Procalcitonin Cancelled (0-0.5) ng/mL TSH (0.27-4.20) uIU/mL Urine Color Yellow (Yellow) Urine Appearance Clear (CLEAR) Urine pH 6 (5-7) Ur Specific [place] 1.020 (1.005-1.030) Urine Protein Neg (Negative) Urine Glucose (UA) Norm (Normal) Urine Ketones 1+ H (Negative) Urine Blood Neg (Negative) Urine Nitrate Negative (Negative) Urine Bilirubin Neg (Negative) Urine Urobilinogen 4 H (Negative) mg/dL Ur Leukocyte Esterase Negative (Negative) Nasal/Oral COVID-19 PCR Influenza Type A Ag (Negative) Influenza Type B Ag (Negative) SARS-CoV-2 Ag (Rapid) (Negative) 05/07/20 05/07/20 05/07/20 Range/Units 05:59 05:59 05:59 WBC (4.0-10.0) 10^3/uL RBC (4.1-5.3) 10^6/uL Hgb (11.5-15.3) g/dL Hct (37.0-47.0) % MCV (81-99) fL MCH (28.0-34.0) pg MCHC (30.0-36.0) g/dL RDW (12.1-15.1) % Plt Count (130-400) 10^3/cmm MPV (7.4-10.4) fL Neut % (Auto) % Lymph % (Auto) % [place] % (Auto) % Eos % (Auto) % Baso % (Auto) % Neut # (Auto) (1.8-7.7) 10^3/uL Lymph # (Auto) (0.8-4.8) 10^3/uL [place] # (Auto) (0.2-0.9) 10^3/uL Eos # (Auto) (0.0-0.8) 10^3/uL Baso # (Auto) (0.0-0.1) 10^3/uL Nucleated RBC % (auto) % Nucleated RBCs # /100WBC D-Dimer (0-0.59) ug/mIFEU Sodium (136-145) mmol/L Potassium (3.5-5.1) mmol/L Chloride (98-107) mmol/L Carbon Dioxide (22-29) mmol/L Anion Gap (5-19) BUN (8-23) mg/dL Creatinine (0.5-0.9) mg/dL GFR Calculation Glucose (65-115) mg/dL Calculated Osmolality (285-295) mOsm/kg Lactate (0.5-2.2) mmol/L Calcium (8.5-10.5) mg/dL Iron (37-145) ug/dL TIBC mcg/dl % Saturation (20-50) % Unsat Iron Binding (112-347) ug/dL Total Bilirubin (0.15-1.2) mg/dL AST (0-32) U/L ALT (0-33) U/L Alkaline Phosphatase (35-105) IU/L Creatine Kinase (26-192) U/L C-Reactive Protein (0.0-4.9) mg/L NT-Pro-B Natriuret Pep (0-450) pg/mL Total Protein (6.6-8.7) g/dL Albumin (3.5-5.2) g/dL Globulin (1.3-4.6) g/dL Lipase (13-60) U/L Vitamin B12 > 2000 H (232-1245) pg/mL Folate > 20.0 (4.8-37.3) ng/mL Procalcitonin (0-0.5) ng/mL TSH 1.81 (0.27-4.20) uIU/mL Urine Color (Yellow) Urine Appearance (CLEAR) Urine pH (5-7) Ur Specific [place] (1.005-1.030) Urine Protein (Negative) Urine Glucose (UA) (Normal) Urine Ketones (Negative) Urine Blood (Negative) Urine Nitrate (Negative) Urine Bilirubin (Negative) Urine Urobilinogen (Negative) mg/dL Ur Leukocyte Esterase (Negative) Nasal/Oral COVID-19 PCR Influenza Type A Ag (Negative) Influenza Type B Ag (Negative) SARS-CoV-2 Ag (Rapid) (Negative) 05/07/20 05/07/20 05/07/20 Range/Units 06:28 07:45 09:30 WBC (4.0-10.0) 10^3/uL RBC (4.1-5.3) 10^6/uL Hgb (11.5-15.3) g/dL Hct (37.0-47.0) % MCV (81-99) fL MCH (28.0-34.0) pg MCHC (30.0-36.0) g/dL RDW (12.1-15.1) % Plt Count (130-400) 10^3/cmm MPV (7.4-10.4) fL Neut % (Auto) % Lymph % (Auto) % [place] % (Auto) % Eos % (Auto) % Baso % (Auto) % Neut # (Auto) (1.8-7.7) 10^3/uL Lymph # (Auto) (0.8-4.8) 10^3/uL [place] # (Auto) (0.2-0.9) 10^3/uL Eos # (Auto) (0.0-0.8) 10^3/uL Baso # (Auto) (0.0-0.1) 10^3/uL Nucleated RBC % (auto) % Nucleated RBCs # /100WBC D-Dimer (0-0.59) ug/mIFEU Sodium (136-145) mmol/L Potassium (3.5-5.1) mmol/L Chloride (98-107) mmol/L Carbon Dioxide (22-29) mmol/L Anion Gap (5-19) BUN (8-23) mg/dL Creatinine (0.5-0.9) mg/dL GFR Calculation Glucose (65-115) mg/dL Calculated Osmolality (285-295) mOsm/kg Lactate (0.5-2.2) mmol/L Calcium (8.5-10.5) mg/dL Iron (37-145) ug/dL TIBC mcg/dl % Saturation (20-50) % Unsat Iron Binding (112-347) ug/dL Total Bilirubin (0.15-1.2) mg/dL AST (0-32) U/L ALT (0-33) U/L Alkaline Phosphatase (35-105) IU/L Creatine Kinase (26-192) U/L C-Reactive Protein (0.0-4.9) mg/L NT-Pro-B Natriuret Pep (0-450) pg/mL Total Protein (6.6-8.7) g/dL Albumin (3.5-5.2) g/dL Globulin (1.3-4.6) g/dL Lipase (13-60) U/L Vitamin B12 (232-1245) pg/mL Folate (4.8-37.3) ng/mL Procalcitonin (0-0.5) ng/mL TSH (0.27-4.20) uIU/mL Urine Color (Yellow) Urine Appearance (CLEAR) Urine pH (5-7) Ur Specific [place] (1.005-1.030) Urine Protein (Negative) Urine Glucose (UA) (Normal) Urine Ketones (Negative) Urine Blood (Negative) Urine Nitrate (Negative) Urine Bilirubin (Negative) Urine Urobilinogen (Negative) mg/dL Ur Leukocyte Esterase (Negative) Nasal/Oral COVID-19 PCR Negative Influenza Type A Ag Negative (Negative) Influenza Type B Ag Negative (Negative) SARS-CoV-2 Ag (Rapid) Negative (Negative) COVID Results: SARS-CoV-2 Antigen (Rapid) Negative (Negative) 05/07/20 06:28 05/07/20 SARS-CoV-2 RNA (RT-PCR) Not detected (NOT DETECTED) 05/05/20 16:15 05/05/20 Nasal/Oral Coronavirus 2019 PCR Negative 05/07/20 07:45 05/07/20 Discharge Plan Discharge Patient Disposition: Placed in Observation Admit Provider: Son Quiros Clinical Impression: Celiac artery stenosis Pneumonia Qualifiers: Pneumonia type: due to unspecified organism Laterality: unspecified laterality Lung location: unspecified part of lung Qualified Code(s): J18.9 - Pneumonia, unspecified organism Condition: Stable Referrals: Jeromy Moralez, [employer] ANALYSTDuyenC [Primary Care Provider] - Discharge Date/Time: 05/07/20 11:14 Coding Level of Care Code ED [facility] for [facility] Fwd Exam Comprehensive
[2020-05-07] MEDS: sodium chloride 0.9% 1,000 ML 999 ML IV (05:51)
[2020-05-07] MEDS: acetaminophen 325 mg Tablet 650 MG PO (06:32)
[2020-05-07 06:52] LABS: Add Urine Microscopic? NO
[2020-05-07 07:00] LABS: Basophils % 0.3 %; Eosinophils % 0.2 %; Hemoglobin 10.3 g/dL (11.5-15.3); Lymphocytes # 0.2 10^3/uL (0.8-4.8); Lymphocytes % 3.4 %; Mean Corpuscular HGB Conc 34.3 g/dL (30.0-36.0); Mean Corpuscular Hemoglobin 34.7 pg (28.0-34.0); Mean Platelet Volume 10.3 fL (7.4-10.4); Monocytes # 0.4 10^3/uL (0.2-0.9); Monocytes % 5.9 %; Neutrophils # 5.73 10^3/uL (1.8-7.7); Neutrophils % 89.7 %; Nucleated Red Blood Cells % 0 %; Platelet Count 175 10^3/cmm (130-400); Red Blood Count 2.97 10^6/uL (4.1-5.3); White Blood Count 6.4 10^3/uL (4.0-10.0)
[2020-05-07 07:20] LABS: SARS Covid-2 Antigen Negative (Negative)
[2020-05-07 07:23] LABS: D Dimer 14.63 ug/mIFEU (0-0.59)
[2020-05-07 07:26] LABS: Alanine Aminotransferase 29 U/L (0-33); Alkaline Phosphatase 59 IU/L (35-105); Aspartate Amino Transferase 43 U/L (0-32); Blood Urea Nitrogen 14 mg/dL (8-23); Calcium 8.4 mg/dL (8.5-10.5); Carbon Dioxide 24 mmol/L (22-29); Chloride 95 mmol/L (98-107); Creatine Phosphokinase 23 U/L (26-192); Globulin 3.1 g/dL (1.3-4.6); Glucose 146 mg/dL (65-115); Lipase 13 U/L (13-60); Osmolality Calculated 269 mOsm/kg (285-295); Sodium 128 mmol/L (136-145); Total Bilirubin 0.5 mg/dL (0.15-1.2); Total Protein 6.1 g/dL (6.6-8.7)
[2020-05-07 07:27] LABS: Lactate (Lactic Acid level) 0.7 mmol/L (0.5-2.2)
[2020-05-07 07:28] LABS: Bilirubin Urine Neg (Negative); Blood Urine Neg (Negative); Glucose Urine UA Norm (Normal); Ketones Urine 1+ (Negative); Leukocyte Esterase Urine Negative (Negative); Nitrate Urine Negative (Negative); Protein Urine Neg (Negative); Urine Appearance Clear (CLEAR); Urine Color Yellow (Yellow); Urobilinogen Urine 4 mg/dL (Negative); pH Urine 6 (5-7)
--- NOTE | 2020-05-07 07:31 | CTR_ITS ---
PROCEDURE INFORMATION: Exam: CT Angiography Chest With Contrast Exam date and time: 05/07/2020 7:40 AM Age: 79 years old Clinical indication: Fever and nausea and other: Weakness; Prior surgery; Surgery date: 6+ months; Surgery type: Pacemaker, colon resection, gb; Patient HX: HX of colon cancer; Additional info: R/O covid, abd pain TECHNIQUE: Imaging protocol: Computed tomographic angiography of the chest with intravenous contrast. 3D rendering (Not supervised by radiologist): MIP and/or 3D reconstructed images were created by the technologist. Radiation optimization: All CT scans at this facility use at least one of these dose optimization techniques: automated exposure control; mA and/or kV adjustment per patient size (includes targeted exams where dose is matched to clinical indication); or iterative reconstruction. Contrast material: OMNIPAQUE 350; Contrast volume: 95 ml; Contrast route: INTRAVENOUS (IV); COMPARISON: CT chest abd pel w con* 09/09/2019 11:34 AM RADIATION DOSE METRICS: Total DLP (mGy-cm): 1011.5 FINDINGS: Tubes, catheters and devices: A dual lead left subclavian permanent pacemaker is present. The right atrial and right ventricular leads appear to be in good position. Pulmonary arteries: Normal. No pulmonary emboli. Aorta: Mild aortic arch, branch, and descending thoracic aortic atherosclerotic calcification without ectasia. Lungs: Tree in bud density is present in the right upper lobe anterior segment. Lateral right lower lobe and lingular pulmonary subsegmental scarring, stable. Bilateral posterior pulmonary partial passive atelectasis. Right lower lobe calcified pulmonary parenchymal granuloma. Bilateral upper lobe calcified pulmonary parenchymal granulomas. Pleural space: Small right pleural effusion. Minimal left pleural effusion. No pneumothorax. Heart: Normal. No pericardial effusion. Lymph nodes: Aorticopulmonary window lymph nodes, largest 6 mm short axis. Retrocaval/pretracheal lymph nodes, largest 8.8 mm short axis. Right paratracheal lymph nodes, largest 8.3 mm short axis. Subcarinal lymph node, 9.6 mm short axis. Bones/joints: Posterolateral healed left 4th through 8th rib fractures. Diffuse osteopenia. Mild chronic T3 vertebral body compression deformity, stable. Soft tissues: Benign bilateral breast macro calcifications. IMPRESSION: 1. Tree in bud density right upper lobe anterior segment. The finding is atypical/uncommonly reported for COVID-19 pneumonia. Alternative diagnoses such as early bacterial pneumonitis should be considered. 2. Small right pleural effusion. 3. Minimal left pleural effusion. 4. Please see the abdomen/pelvis CT report of the same date for additional findings. PROCEDURE INFORMATION: Exam: CT Abdomen And Pelvis With Contrast Exam date and time: 05/07/2020 7:40 AM Age: 79 years old Clinical indication: Fever and nausea and other: Weakness; Prior surgery; Surgery date: 6+ months; Surgery type: Pacemaker, colon resection, gb; Patient HX: HX of colon cancer; Additional info: R/O covid, abd pain TECHNIQUE: Imaging protocol: Computed tomography of the abdomen and pelvis with intravenous contrast. Radiation optimization: All CT scans at this facility use at least one of these dose optimization techniques: automated exposure control; mA and/or kV adjustment per patient size (includes targeted exams where dose is matched to clinical indication); or iterative reconstruction. Contrast material: OMNIPAQUE 350; Contrast volume: 95 ml; Contrast route: INTRAVENOUS (IV); COMPARISON: CT chest abd pel w con* 09/09/2019 11:34 AM RADIATION DOSE METRICS: Total DLP (mGy-cm): 1011.65 FINDINGS: Liver: Mild central intrahepatic biliary ductal dilatation. Gallbladder and bile ducts: The gallbladder is surgically absent, with metallic clips in the gallbladder fossa. The extrahepatic bile ducts are mildly dilated for age, measuring 9.3 mm, tapering distally. No ductal calculus. Pancreas: The pancreas is normal. No pancreatic mass or ductal dilatation identified. Severe pancreatic atrophy. Spleen: Normal. No splenomegaly. Adrenals: Normal. No mass. Kidneys and ureters: Normal. No hydronephrosis. Stomach and bowel: Proximal transverse colonic diverticula are present without evidence of diverticulitis. Appendix: The vermiform appendix is not identified on this examination. There is, however, no pericecal abnormality to suggest appendicitis. Intraperitoneal space: Unremarkable. No free air. No significant fluid collection. Vasculature: Moderate aortic atherosclerotic calcification without aneurysm. The iliac arteries show moderate bilateral atherosclerotic calcifications without evidence of aneurysm. Calcified phleboliths are present in the lower pelvis bilaterally. Severe celiac artery stenoses with mild posterior not dilatation. Lymph nodes: No enlarged lymph nodes. Urinary bladder: Unremarkable as visualized. Reproductive: 2.4 cm enhancing left uterine corporal leiomyoma. Bones/joints: Diffuse osteopenia. Bilateral lower lumbar facet primary osteoarthritis. L2-L3 slight retrolisthesis, mild spondylosis. Degenerative disc disease at L2-L3 lumbar spine disk level, with mild dextroscoliosis. Soft tissues: Unremarkable. CT/CT angio chest w abd pel w con IMPRESSION: 1. Post cholecystectomy with mild and relatively stable intrahepatic and extrahepatic biliary ductal dilatation. No ductal calculus identified. 2. Uterine leiomyoma. 3. Diverticulosis. 4. Severe celiac artery stenoses with mild posterior not dilatation. 5. Please see the CT chest report of the same date for additional findings. Radiation Dose CTDIVOL = (mGy): DLP = 1011.5~1011.65 (mGy-cm)
[2020-05-07] MEDS: iohexol 350 mg/mL 100 mL Btl IV (07:59)
[2020-05-07 08:13] LABS: Procalcitonin 0.33 ng/mL (0-0.5)
[2020-05-07 08:23] LABS: C Reactive Protein 86.2 mg/L (0.0-4.9)
[2020-05-07] MEDS: cefTRIAXone 1,000 MG in sodium chloride 0.9% (plus) 50 ML 100 MG IV (08:55)
[2020-05-07] MEDS: azithromycin 500 MG in sodium chloride 0.9% 250 ML 250 MG IV (09:34)
[2020-05-07 10:36] LABS: Influenza A by IFA Negative (Negative); Influenza B by IFA Negative (Negative)
--- NOTE | 2020-05-07 13:13 | USCV_ITS ---
Katherin Silva Age: 79 Gender: F : 1940 Exam Date: 05/07/2020 14:00 Ordering Phys: Son Quiros MD Technologist: Blossom Butler Exam Location: [facility] [place] Indication: History of pulmonary hypertension and diastolic dysfunction BP: 134 / 70 HR: 67 Rhythm: Sinus Technical Quality: Adequate MEASUREMENTS (Male / Female) Normal Values 2D ECHO LV Diastolic Diameter PLAX 3.5 cm 4.2 - 5.9 / 3.9 - 5.3 cm LV Systolic Diameter PLAX 2.9 cm LV Chamber Size 3.9 cm IVS Diastolic Thickness 1.1 cm 0.6 - 1.0 / 0.6 - 0.9 cm IVS Systolic Thickness 1.7 cm LVPW Diastolic Thickness 1.1 cm 0.6 - 1.0 / 0.6 - 0.9 cm LVPW Systolic Thickness 1.2 cm RV Chamber Size 2.0 cm LVOT Diameter 1.8 cm LV Ejection Fraction 2D Teich 40.1 % LV Ejection Fraction MOD 2C 77.0 % LV Ejection Fraction 2C AL 76.5 % LA Diameter 3.4 cm LA Width 3.2 cm LA Height 6.0 cm RA Width 2.3 cm RA Height 4.7 cm Aorta at Sinotubular Diameter 2.7 cm M-MODE LV Diastolic Diameter MM 5.4 cm 4.2 - 5.9 / 3.9 - 5.3 cm LV Systolic Diameter MM 3.8 cm LV Ejection Fraction MM Teich 57.3 % IVS Diastolic Thickness MM 1.4 cm 0.6 - 1.0 / 0.6 - 0.9 cm IVS Systolic Thickness MM 1.9 cm LVPW Diastolic Thickness MM 1.3 cm 0.6 - 1.0 / 0.6 - 0.9 cm LVPW Systolic Thickness MM 1.8 cm RV Diastolic Diameter MM 0.9 cm Aortic Annulus Diameter 2.6 cm LA Ao Ratio MM 1.4 MV E Point Septal Separation 0.4 cm DOPPLER AV Peak Velocity 133.3 cm/s LVOT Peak Velocity 100.0 cm/s AV Area Cont Eq vti 1.9 cm squared AV Area Cont Eq pk 1.9 cm squared MV Area PHT 3.7 cm squared Mitral E to A Ratio 0.8 MV E' Velocity 45.0 cm/s Mitral E to MV E' Ratio 14.4 Mitral E to LV E' Lateral Ratio 16.7 Mitral E to LV E' Septal Ratio 12.7 TR Peak Velocity 238.0 cm/s TR Peak Gradient 22.7 mmHg TV Peak E Velocity 46.0 cm/s Right Atrial Pressure 15.0 mmHg Pulmonary Artery Systolic Pressu 37.7 mmHg PV Peak Velocity 62.0 cm/s RV Acceleration Time 0.1 s RV Ejection Time 0.3 s RV AcT/ET 0.2 FINDINGS Left Ventricle Mild concentric left ventricular hypertrophy.normal left ventricular size and systolic function, EF 75 %. Grade I/IV diastolic dysfunction (abnormal relaxation filling pattern), normal to mildly elevated filling pressures. Right Ventricle Catheter/pacemaker wire in the right ventricular cavity. Normal right ventricular size and systolic function. Right Atrium Pacemaker wire in the right atrium Left Atrium Mildly increased left atrial size. Mitral Valve Moderate to heavy mitral annular calcification. Thickened mitral valves. Mild to moderate mitral valve regurgitation. Aortic Valve Thickened aortic valve. Trace aortic valve regurgitation. Tricuspid Valve Could not be visualized well. Trace of tricuspid regurgitation Pulmonic Valve Pulmonic valve not well visualized. Pericardium No pericardial effusion. Aorta Normal aortic annulus size. CONCLUSIONS Normal left ventricular size and systolic function, EF 75 %. Grade I/IV diastolic dysfunction (abnormal relaxation filling pattern), normal to mildly elevated filling pressures. Mild concentric left ventricular hypertrophy. Mildly increased left atrial size. Moderate to heavy mitral annular calcification. Thickened mitral valves. Mild to moderate mitral valve regurgitation. Thickened aortic valve. Trace aortic valve regurgitation. Pacemaker wire in the right ear right ventricle Trace of tricuspid regurgitation Estimated pulmonary artery peak systolic pressure 38 mmHg. This could be an underestimation because of the poor Doppler signals There is no pericardial effusion. There are no intracardiac masses. Compared to the previous study from 09/02/2014, possibly no significant change Dr Marta Vasques MD [facility] (Electronically Signed) Final Date: 07 May 2020 19:17 S
--- NOTE | 2020-05-07 13:14 | USCV_ITS ---
Katherin Silva Age: 79 Gender: F : 1940 Exam Date: 05/07/2020 14:01 Ordering Phys: Son Quiros MD Technologist: Blossom Butler Exam Location: [facility] [place] Indication: r/o DVT PROCEDURES: Comparison: none available. Venous duplex imaging was performed in bilateral lower extremities. The following venous structures were evaluated: common femoral vein, profunda vein, proximal portion of the greater saphenous vein, superficial femoral vein, and the popliteal vein. In addition, the posterior tibial and peroneal trunk were evaluated. Serial compression, augmentation maneuvers, and spectral Doppler flow evaluation were performed. FINDINGS: No evidence of DVT seen in any vessel visualized at this time. CONCLUSIONS No evidence of DVT in the above-mentioned identifiable veins. Dr Marta Vasques MD [facility] (Electronically Signed) Final Date: 07 May 2020 19:36 S
[2020-05-07 13:53] LABS: NT Pro B Type Natriuretic Pept 3093 pg/mL (0-450)
[2020-05-07 13:54] LABS: Thyroid Stimulating Hormone 1.81 uIU/mL (0.27-4.20)
[2020-05-07 14:05] LABS: Percent Saturation 26.7 % (20-50); Total Iron Binding Capacity 127 mcg/dl
[2020-05-07 14:15] LABS: Lactic Sepsis W/Reflex 0.7 mmol/L (0.5-2.2)
[2020-05-07 14:31] LABS: Iron 34 ug/dL (37-145); Unsaturated Iron Binding 93 ug/dL (112-347)
--- NOTE | 2020-05-07 14:53 | P.HP_ITS ---
Providers/Chief Complaint Admitting Physician: Son Quiros MD Primary Care Provider: Jeromy Moralez, GYNECOLOGY TEACHER-C Chief Complaint: GENERALIZED WEAKNESS/ N/V/ TEMP History of Present Illness Katherin Silva is a 79 year old female with past medical history of hypertension, osteoporosis, degenerative arthritis, anxiety/depression, pacemaker implantation for complete heart block in 2014, stage III colon cancer post resection, sarcoidosis, Alzheimer's disease who was recently tested for COVID-19 on May 05 and was negative COVID-19 PCR who presented to the ER today after having ongoing nausea after eating for the last 1 month but having vomiting for last 3 days after eating and not able to keep anything down. She states she has been having occasional cough and some postnasal drip along with severe back pain and muscle aches for which she has been taking more pain medications including Aleve and ibuprofen for last 7 to 10 days after which her nausea got worse but since l ast 3 days she has not taken any pain medications because of vomiting. She denies of having any fever, headache, dizziness, loss of sensation of smell or taste, diarrhea, dysuria, abdominal pain. He states her bowel movements are irregular since he was treated for colon cancer with surgery and her last bowel movement was 2 days ago and was normal formed without any blood. She states she has been getting more and more weak and at 3 PM last night she was not able to get out of bed so they decided to call the EMS. Her states she has been getting more and more forgetful for last couple of months and getting progressively worse. 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 Review of Systems General: Reports: 10 or more systems reviewed and unremarkable except in HPI and below Const: Denies: fever(s), chills, body aches, change in appetite, change in weight, malaise, night sweats, diaphoresis, change in sleep pattern, daytime sleepiness or snoring Eyes: Denies: change in vision, blurry vision, photophobia, eye discomfort or eye discharge ENMT: Denies: throat pain, enlarged tonsils, hoarseness, mouth pain, oral sores, dry mouth, tinnitus, nasal congestion or post nasal drip Card: Denies: chest pain, palpitations, irregular heart rhythm, edema, swelling of feet/ankles, lightheadedness, syncope, pre-syncope, dyspnea on exertion, orthopnea, leg pain with exertion or acrocyanosis Resp: Denies: dyspnea, productive cough, non-productive cough, wheezing, stridor, pain on inspiration, change in phlegm color, hemoptysis or chest congestion GI: Denies: abdominal pain, nausea, vomiting, hematemesis, coffee ground emesis, dysphagia, heartburn, diarrhea, constipation, bloating, GI cramping, change in bowel habits, pain on defecation, hematochezia or melena : Denies: flank pain, dysuria, urinary frequency, urinary urgency, urinary hesitancy, nocturia or hematuria Musc: Denies: neck pain, back pain, extremity pain, joint pain, joint swelling, joint redness, joint stiffness or limited range of motion Neuro: Denies: headache(s), numbness in extremities, weakness in extremities, sensory changes, lack of coordination, difficulty walking, frequent falls, dizziness, vertigo, confusion, Slurred speech present, difficulty communicating thoughts or seizure-like activity Psych: Denies: anxiety, depression, mood swings, panic attacks, hopelessness or irritability Endo: Denies: polyuria, polydipsia, tired all the time, cold intolerance, excessive sweating, flushing or heat intolerance Akhil/Lymph: Denies: easy bruising or easy bleeding All/Imm: Denies: tongue swelling, facial swelling or acute wheezing Medications/Allergies Home Medications Medication Instructions Recorded Confirmed Last Taken Type ascorbate calcium (vitamin C) 500 500 mg PO DAILY tab 07/20/19 05/07/20 Unknown History mg tablet cyanocobalamin (vitamin B-12) 5,000 mcg PO DAILY cap 07/20/19 05/07/20 Unknown History 5,000 mcg capsule ergocalciferol (vitamin D2) 50,000 50,000 unit PO Q30D tab 07/20/19 05/07/20 Unknown History unit tablet folic acid 800 mcg tablet 800 mcg PO DAILY tab 07/20/19 05/07/20 Unknown History omega-3 fatty acids 1,000 mg 1,000 mg PO BID 07/20/19 05/07/20 Unknown History capsule atorvastatin 10 mg tablet 10 mg PO DAILY #90 tab 01/11/20 05/07/20 Unknown Rx metoprolol tartrate 25 mg tablet 75 mg PO BID #540 tab 01/11/20 05/07/20 Unknown Rx memantine 10 mg tablet 10 mg PO BID #60 tab 04/21/20 05/07/20 Unknown Rx venlafaxine 75 mg PO DAILY 05/07/20 05/07/20 Unknown History Allergies Allergy/AdvReac Type Severity Reaction Status Date / Time aspirin Allergy Unknown rash Verified 05/05/20 13:47 Penicillins Allergy Unknown rash Verified 05/05/20 13:47 PFSH Acute PFSH: Medical History Anxiety Carpal tunnel syndrome Depression Essential hypertension History of colon cancer Hyperlipidemia Insomnia Joint pain Mild cognitive impairment Osteoporosis Pacemaker Postconcussive syndrome Rheumatoid arthritis Syncope Vitamin A deficiency Surgical History History of colonoscopy 2019 History of hemicolectomy History of left breast biopsy S/P cholecystectomy Family History Other Arthritis Cancer Diabetes Stroke Denies family history of Anesthesia complication Bleeding disorder Social History Smoking and tobacco status: never smoked Second hand smoke exposure: No Smoking risk assessment/counseling performed?: No Alcohol intake: current Alcohol intake frequency: 3 or more drinks per day Alcohol type: beer Desire information about alcohol rehabilitation?: No Counseling given: Yes Desire information about substance/drug rehabilitation?: No Counseling given: No Caregiver/support person: No Lives independently: Yes Household members: spouse Housing: House Marital status: Number of children: 0 service: No Current occupational status: retired Pets and animals: Yes Pets & animals: cat(s) and dog(s) History of recent travel: No Current gender identity: Female Vitals/I&O/Wt Last Vital Signs Temp 97.8 F 05/07/20 12:36 Pulse 67 05/07/20 12:36 Resp 17 05/07/20 12:36 BP 134/70 05/07/20 12:36 Pulse Ox 94 05/07/20 11:00 05/06/20 05/07/20 05/07/20 22:59 06:59 14:59 Intake Total 1420 / 1420 Balance 1420 / 1420 Weight last 48 hrs Weight 63.049 kg Physical Exam Narrative: EXAM NARRATIVE: General: No acute distress,, AO x2-3, forgetful, frail, mildly pale HEENT: PERRLA, pupils bilaterally equal and reactive Chest: Bilateral bronchial breath sounds, occasional rhonchi ,equal good air entry bilaterally CVS: S1-S2 regular, no murmurs, no tachycardia, no gallops, no rubs Abdomen: Soft, nontender, no organomegaly, bowel sounds present Neuro: No focal deficits, no facial deformity, AO x3, power 5/5 in all limbs Data : 05/07/20 05:59 05/07/20 05:59 Micro: Microbiology 05/07/20 05:59 Bacterial Antigens - Final Urine Kidney 05/07/20 05:59 Legionella Urinary Antigen - Final Urethra 05/07/20 05:59 Blood Culture - Preliminary Blood SPECIMEN COLLECTED 05/07/20 05:59 Blood Culture - Preliminary Blood SPECIMEN COLLECTED A&P Assessment and plan (1) Weakness: Status: Acute (2) Nausea and vomiting: Status: Acute (3) Celiac artery stenosis: Status: Acute (4) Hypoxia: Status: Acute (5) Hyponatremia: Status: Acute (6) Hypokalemia: Status: Acute (7) Essential hypertension: Status: Chronic (8) Pacemaker: Status: Chronic (9) Depression: Status: Chronic (10) Dementia: Status: Chronic Qualifiers: Dementia type: Alzheimer's disease Alzheimer's disease onset: other onset Dementia behavioral disturbance: without behavioral disturbance Qualified Code(s): G30.8 - Other Alzheimer's disease; F02.80 - Dementia in other diseases classified elsewhere without behavioral disturbance (11) Elevated d-dimer: Status: Acute Additional A&P Information 71-year-old female with past medical history of colon cancer, advanced age, dementia, sarcoidosis presented to the ER today because of symptoms of cough and myalgia going on for last 3 to 4 weeks was tested negative for COVID-19 2 days ago. She states she has been taking more pain medications for back pain and myalgia recently for last 2 to 3 weeks side having nausea and vomiting for 3 d ays so she presented to the ER. Nausea and vomiting: CT abdomen pelvis with contrast done in the ER negative for any liver or gallbladder pathology. 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 Patient does not have any epigastric or right upper quadrant tenderness. Lipase within normal limits. Patient is post cholecystectomy. Liver enzymes within normal limit other than mildly elevated AST. Symptoms most likely secondary to gastritis from more pain medications. GI soft diet. Advance as tolerated. Zofran as needed. Protonix IV 40 daily for now. If she does not improve can plan to do MRCP to rule out postcholecystectomy syndrome. Weakness: Most likely secondary to hyponatremia and hypokalemia but could be secondary to viral prodrome as well. Electrolyte abnormality because of vomiting and decreased oral intake. Sodium 128. Start patient on normal saline with 20 mEq of potassium at 50 cc/h while monitoring for fluid overload. Check BMP daily for now. Replete potassium with 80 mEq orally as well. Physical therapy evaluation and treat. Hypoxia: Patient does not have any signs of consolidation on chest imaging. Requiring minimal oxygen to keep saturation over 90% for now. Patient did have a fever up to 101 Fahrenheit in the ER. COVID-19 PCR has been repeated again in the ER. Continue with isolation precautions for now. Check procalcitonin, proBNP, MRSA swab, sputum culture, blood culture, urine Legionella, bacterial antigen for now. Already started on ceftriaxone and azithromycin in the ER. For now we will continue and de-escalate antibiotics if patient does not spike any more fever in the next 24 to 48 hours. Spiriva, Advair for now. Elevated D-dimer: Most likely because of celiac artery stenosis. CTA negative for PE. Will do lower limb Dopplers as well. Celiac artery stenosis: Patient does not give any signs of mesenteric ischemia or peritonitis at present. On further discussion about the CT abdomen pelvis with Dr. Greenfield from [facility] states that the occlusion seems more chronic and was also evident on CT done in August. Lactate negative in the ER. For now we will treat conservatively. Check lipid panel, A1c. We will also check stool studies. We will repeat lactate with reflex right now and then in the morning. If patient has any diarrhea or lactate going up we will start patient on a heparin drip. Patient's case also discussed with vascular surgeon at [facility]. He states he would like to treat patient conservatively for now and then follow-up as an outpatient for possible revascularization. Hypertension: Goal blood pressure less than 140/90 mmHg. Continue with home dose of metoprolol. No signs of fluid overload at present. We will repeat echocardiogram. Last echocardiogram in 2015 showed an EF of 64% with grade 1 diastolic dysfunction. Continue other chronic medications like ascorbic acid, atorvastatin, folic acid, Namenda, venlafaxine. PT/OT evaluation. CODE STATUS: Discussed in detail with patient's . They would want to be full code for now. GI soft diet. Protonix for PUD prophylaxis Heparin for DVT prophylaxis. Attestations Medical Necessity Statement*: Patient will need admission for more than 2 midnights for treatment of hyponatremia, hypoxia for COVID-19 rule out for celiac artery stenosis for treatment of weakness Time Spent in Patient Care: Greater than 35 minutes (>than 50% of time spent in counselling and/or direct pt care on unit) . Coding Level of Care Code Acute Mat Machine Operator for [facility] Fwd Diagnoses Weakness R53.1 Nausea and vomiting R11.2 Celiac artery stenosis I77.4 Hypoxia R09.02 Hyponatremia E87.1 Hypokalemia E87.6 Essential hypertension I10 Pacemaker Z95.0 Depression F32.9 Dementia G30.8; F02.80 Dementia type: Alzheimer's disease Alzheimer's disease onset: other onset Dementia behavioral disturbance: without behavioral disturbance Elevated d-dimer R79.89
[2020-05-07] MEDS: metroNIDAZOLE 500 MG Tablet PO ×2 (15:15→21:57)
[2020-05-07] MEDS: sodium chloride 0.9% 1,000 ML 50 ML IV (15:15)
[2020-05-07] MEDS: sodium chlor 0.9% + KCl 20 mEq 20 MEQ/1,000 ML BAG 50 MEQ IV (15:33)
[2020-05-07] MEDS: pantoprazole 40 mg SDV IVP (15:41)
[2020-05-07] MEDS: potassium chloride ER 10 mEq Tablet 80 MEQ PO (15:41)
[2020-05-07] MEDS: heparin 5,000 unit/mL INJ 1 mL 5000 UNIT SUBCUT (15:41)
[2020-05-07] MEDS: ondansetron 2 mg/ML SDV 2 mL 4 MG IVP (16:08)
[2020-05-07] MEDS: ferrous gluconate 324 mg Tablet PO (17:21)
[2020-05-07] MEDS: omega-3 fatty acids 1,000 mg Capsule 1000 MG PO (17:21)
[2020-05-07] MEDS: memantine 5 mg tablet 10 MG PO (17:21)
[2020-05-07] MEDS: metoprolol tartrate 50 mg Tablet 75 MG PO (17:22)
[2020-05-07 17:52] LABS: Vitamin B12 > 2000 pg/mL (232-1245)
--- NOTE | 2020-05-07 19:42 | PC.NURSE ---
MOVED PATIENT DR. SINGH ASKED TO MOVE THIS PATIENT OUT OF THE COVID ROOM TO A REGULAR ROOM DUE TO HER CANCER DIAGNOSIS. PATIENT STILL ON COVID PRECAUTIONS.
[2020-05-08] VITALS: BP 146/60; PULSE 74; RESP 16; TEMP 37; O2SAT 91
[2020-05-08] MEDS: heparin 5,000 unit/mL INJ 1 mL 5000 UNIT SUBCUT ×3 (00:01→18:30)
[2020-05-08 03:26] VITALS: BP 148/65; PULSE 72; RESP 14; TEMP 36.8; O2SAT 95
[2020-05-08 05:46] LABS: Basophils % 0.3 %; Eosinophils % 0.6 %; Hematocrit 25.3 % (37.0-47.0); Hemoglobin 8.5 g/dL (11.5-15.3); Lymphocytes # 0.4 10^3/uL (0.8-4.8); Lymphocytes % 11.3 %; Mean Corpuscular HGB Conc 33.6 g/dL (30.0-36.0); Mean Corpuscular Volume 104.1 fL (81-99); Mean Platelet Volume 10.1 fL (7.4-10.4); Monocytes # 0.3 10^3/uL (0.2-0.9); Monocytes % 8.7 %; Neutrophils # 2.71 10^3/uL (1.8-7.7); Neutrophils % 78.5 %; Nucleated Red Blood Cells % 0 %; Platelet Count 177 10^3/cmm (130-400); Red Blood Count 2.43 10^6/uL (4.1-5.3); Red Cell Distribution Width 12.4 % (12.1-15.1); White Blood Count 3.5 10^3/uL (4.0-10.0)
[2020-05-08 06:02] LABS: INR 1.13 (0.8-1.2)
[2020-05-08 06:06] LABS: Folate Level > 20.0 ng/mL (4.8-37.3)
[2020-05-08 06:13] LABS: Magnesium 1.7 mg/dL (1.7-2.3)
[2020-05-08 06:14] LABS: Alanine Aminotransferase 29 U/L (0-33); Albumin Level 2.8 g/dL (3.5-5.2); Alkaline Phosphatase 61 IU/L (35-105); Anion Gap 12.3 (5-19); Aspartate Amino Transferase 47 U/L (0-32); Blood Urea Nitrogen 15 mg/dL (8-23); Calcium 8.6 mg/dL (8.5-10.5); Carbon Dioxide 23 mmol/L (22-29); Chloride 105 mmol/L (98-107); Globulin 3.3 g/dL (1.3-4.6); Glucose 117 mg/dL (65-115); Osmolality Calculated 284 mOsm/kg (285-295); Potassium 4.3 mmol/L (3.5-5.1); Sodium 136 mmol/L (136-145); Total Bilirubin 0.5 mg/dL (0.15-1.2); Total Protein 6.1 g/dL (6.6-8.7)
[2020-05-08 06:17] LABS: Lactic Sepsis W/Reflex 0.8 mmol/L (0.5-2.2)
[2020-05-08 08:00] VITALS: BP 171/72; PULSE 77; RESP 18; TEMP 37.4; O2SAT 93
[2020-05-08] MEDS: omega-3 fatty acids 1,000 mg Capsule 1000 MG PO ×2 (08:55→18:30)
[2020-05-08] MEDS: folic acid 1 mg Tablet PO (08:55)
[2020-05-08] MEDS: zinc gluconate 50 mg Tablet PO (08:55)
[2020-05-08] MEDS: ferrous gluconate 324 mg Tablet PO ×2 (08:55→18:31)
[2020-05-08] MEDS: ascorbic acid 500 mg Tablet PO (08:55)
[2020-05-08] MEDS: metoprolol tartrate 50 mg Tablet 75 MG PO ×2 (08:56→18:31)
[2020-05-08] MEDS: venlafaxine ER (24HR) 75 mg Capsule PO (08:56)
[2020-05-08] MEDS: atorvastatin 40 mg Tablet 10 MG PO (08:57)
[2020-05-08] MEDS: cyanocobalamin 1,000 mcg Tablet 1000 MCG PO (08:57)
[2020-05-08] MEDS: memantine 5 mg tablet 10 MG PO ×2 (08:57→18:30)
[2020-05-08] MEDS: cefTRIAXone 1,000 MG in sodium chloride 0.9% (plus) 50 ML 100 MG IV (08:58)
[2020-05-08] MEDS: metroNIDAZOLE 500 MG Tablet PO (09:15)
[2020-05-08] MEDS: ondansetron 2 mg/ML SDV 2 mL 4 MG IVP (10:05)
--- NOTE | 2020-05-08 10:12 | PC.CHAP ---
Pastoral Care Encounter/Spiritual Assessment Type of Contact [] Declined solar energy sales specialist visit [] Patient/Family/Request visit [] Outpatient visit [] Follow-up visit [] Physician referral [] Code/Alert [] Routine visit [] Staff referral [] Actively dying [] Patient sleeping [] Family support [] [] Out of room [] Palliative care [] [] Receiving care in room [] Pre-surgical visit [] Trauma [] Long length of stay [] ICU visit [x] Other: quarantine Relational/Emotional Strength [] Patient feels connected with others/family/visitors/staff [] Distress [] Loneliness/isolation [] Abandonment Spirituality of Patient [] Person of Abigail [] Attends Protestant of their Abigail [] Believes in Prayer [] Reads Bible or Pentecostal materials [] There are Spiritual issues to be addressed Schedule Clerk Interventions [x] Prayer [] Active listening [] Non-anxious presence [] Spiritual/emotional support [] Crisis/trauma care [] Spiritual counseling [] Bereavement support [] Provided bereavement packet [] Provided Bible/devotional materials [] Provided toy/stuffed animal, coloring book to patient or family member [] Provided Communion [] Anointing/Constable [] Salvation [x] Completed spiritual assessment [] Other: Impact on Illness or Injury [] Angry [] Fearful [] Anxious [] Often cries [] Exhaustion [] Unable to work [] Unable to attend oriental orthodox [] Unable to walk/stand [] Unable to read [] Unable to drive [] Unable to eat/drink [] Unable to sleep [] Unable to be with family [] Patient intubated [] Other: Summary Time spent with patient
[2020-05-08 10:41] LABS: C Reactive Protein 93.2 mg/L (0.0-4.9)
--- NOTE | 2020-05-08 10:49 | P.PN_ITS ---
Subjective Subjective: Interval history: This morning patient was examined, she is still in isolation for COVID-19 precautions, her PCR still pending, patient tells me that what brought her into the hospital was profound weakness and fatigue for the last 2 weeks, she has been having multiple joint aches and pain, neck pain, back pain, shoulder pain. No joint swelling, erythema or tenderness. She is also had sinus symptoms, sinus congestion, cough. Patient denies any abdominal pain, states that she has not had a bowel movement in 2 days, but this is not unusual for her, given her history of colon cancer, no known fevers, or chills. Has a poor appetite. She denies any bloody or black stools. Vitals/I&O/Wt Last Vital Signs Temp 99.4 F 05/08/20 08:00 Pulse 77 05/08/20 08:00 Resp 18 05/08/20 08:00 BP 171/72 05/08/20 08:00 Pulse Ox 93 05/08/20 08:00 05/07/20 05/08/20 05/08/20 22:59 06:59 14:59 Intake Total 240 / 1660 250 / 1910 410 / 410 Output Total 550 / 550 200 / 750 Balance -310 / 1110 50 / 1160 410 / 410 Weight last 48 hrs Weight 60.526 kg Weight 63.049 kg Physical Exam Const: COMMON NORMALS: no acute distress and patient oriented x3 HENMT: COMMON NORMALS: normocephalic HEAD & SCALP: normocephalic Neck/C-Spine: COMMON NORMALS: no JVD Resp: COMMON NORMALS: normal respiratory effort, No retractions, No use of accessory muscles and clear to auscultation bilaterally AUSCULTATION: clear to auscultation bilaterally Cardio: COMMON NORMALS: no JVD, regular rate, regular rhythm, S1 normal heart sound present and S2 normal heart sound present RATE: regular rate RHYTHM: regular rhythm HEART SOUNDS: S1 normal heart sound present and S2 normal heart sound present GI: COMMON NORMALS: Normal to inspection, nondistended, normoactive bowel sounds present, Soft to palpation, non-tender, No hepatosplenomegaly present, no masses and no bruits PALPATION: Yes Soft to palpation and Yes No hepatosplenomegaly present Extremity: COMMON NORMALS: capillary refill normal, no clubbing, cyanosis or edema, no calf tenderness and no pedal edema Neuro: COMMON NORMALS: patient oriented x3 Psych: COMMON NORMALS: mental status grossly normal Data : 05/08/20 05:34 05/08/20 05:34 Micro: Microbiology 05/07/20 05:59 Blood Culture - Preliminary Blood NEGATIVE TO DATE 05/07/20 05:59 Blood Culture - Preliminary Blood NEGATIVE TO DATE 05/07/20 22:00 Gram Stain - Final Sputum - Expectorated Sputum 05/07/20 05:59 Bacterial Antigens - Final Urine Kidney 05/07/20 05:59 Legionella Urinary Antigen - Final Urethra A&P Assessment and plan (1) Weakness: Status: Acute (2) Nausea and vomiting: Status: Acute (3) Celiac artery stenosis: Status: Acute (4) Hypoxia: Status: Acute (5) Hyponatremia: Status: Acute (6) Hypokalemia: Status: Acute (7) Essential hypertension: Status: Chronic (8) Pacemaker: Status: Chronic (9) Depression: Status: Chronic (10) Dementia: Status: Chronic Qualifiers: Dementia type: Alzheimer's disease Alzheimer's disease onset: other onset Dementia behavioral disturbance: without behavioral disturbance Qualified Code(s): G30.8 - Other Alzheimer's disease; F02.80 - Dementia in other diseases classified elsewhere without behavioral disturbance (11) Elevated d-dimer: Status: Acute Additional A&P Information 71-year-old female with past medical history of colon cancer, advanced age, dementia, sarcoidosis presented to the ER because of symptoms of weakness, fatigue, cough and myalgia going on for last 3 to 4 weeks was tested negative for COVID-19 2 days ago. Nausea, vomiting, poor appetite -Likely secondary to gastritis from ibuprofen use -Patient admits to ibuprofen use, for multiple joint pains -Nausea and vomiting: CT abdomen pelvis with contrast done in the ER negative for any liver or gallbladder pathology. 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 - Lipase within normal limits. Patient is post cholecystectomy. Liver enzymes within normal limit other than mildly elevated AST. GI soft diet. Advance as tolerated. Zofran as needed. Protonix IV 40 daily for now. Acute on chronic anemia, iron is low, B12 folate within essie -History of colon cancer status post colon resection -Has had surveillance colonoscopies, last one a few years ago according to patient, nothing abnormal -Has had an EGD according to patient in the past, within normal limits -Does admit to ibuprofen use as above -Possibly a slow GI bleed related to ibuprofen use -Hemoglobin currently 8.5, ferritin pending -Monitor hemoglobin lactic acid closely, transfuse if hemoglobin less than 7 -Monitor hemodynamics, stool studies Weakness: Most likely secondary to hyponatremia and hypokalemia likely secondary to dehydration, and viral prodrome as well. Electrolyte abnormality because of vomiting and decreased oral intake. Sodium 128, currently 136. on normal saline with 20 mEq of potassium at 50 cc/h while monitoring for fluid overload. Check BMP daily for now. Physical therapy evaluation and treat. Hypoxia secondary to community-acquired pneumonia: Patient does not have any signs of consolidation on chest imaging. Saturating high 90s on room air Patient did have a fever up to 101 Fahrenheit in the ER -Currently lymphopenia, white blood cell count 3.5, CT angiogram of the chest shows tree in bud density in the right upper anterior segment, could be aspirati on component and/or COVID-19 possibly, COVID-19 PCR pending, does have exposure COVID-19, patient's neighbors COVID-19 PCR has been repeated again in the ER. Continue with isolation precautions for now -Pro-Sam within normal limits, CRP elevated 93.2, -Follow MRSA swab, sputum culture, blood culture, urine Legionella, bacterial antigen for now. -Continue azithromycin and Rocephin -Spiriva, Advair for now. -Elevated D-dimer: Most likely because of celiac artery stenosis. CTA negative for PE. Will do lower limb Dopplers as well. Celiac artery stenosis: Patient does not give any signs of mesenteric ischemia or peritonitis at present. -Patient has celiac artery stenting back in 2005 -discussion about the CT abdomen pelvis with Dr. Greenfield from [facility] states that the occlusion seems more chronic and was also evident on CT done in August. -Lactate negative in the ER. -No abdominal complaints, abdomen is nontender, nondistended, no guarding, no rebound, no rigidity -For now we will treat conservatively. We will also check stool studies. -Monitor lactic acids hemoglobin closely -Patient's case also discussed with vascular surgeon at [facility]. He states he would like to treat patient conservatively for now and then follow-up as an outpatient for possible revascularization. Hypertension: Goal blood pressure less than 140/90 mmHg. Continue with home dose of metoprolol. No signs of fluid overload at present. We will repeat echocardiogram. Last echocardiogram in 2015 showed an EF of 64% with grade 1 diastolic dysfunction. Continue other chronic medications like ascorbic acid, atorvastatin, folic acid, Namenda, venlafaxine. PT/OT evaluation. CODE STATUS: Discussed in detail with patient's . They would want to be full code for now. GI soft diet. Protonix for PUD prophylaxis Heparin for DVT prophylaxis. Attestations Medical Necessity Statement*: Patient requires hospitalization due to community-acquired pneumonia, Coding Level of Care Code Acute Tow Car Driver for [facility] Fwd Diagnoses Weakness R53.1 Nausea and vomiting R11.2 Celiac artery stenosis I77.4 Hypoxia R09.02 Hyponatremia E87.1 Hypokalemia E87.6 Essential hypertension I10 Pacemaker Z95.0 Depression F32.9 Dementia G30.8; F02.80 Dementia type: Alzheimer's disease Alzheimer's disease onset: other onset Dementia behavioral disturbance: without behavioral disturbance Elevated d-dimer R79.89
[2020-05-08 11:37] VITALS: BP 161/71; PULSE 75; RESP 18; TEMP 37.2; O2SAT 93
[2020-05-08] MEDS: azithromycin 250 mg Tablet PO (12:53)
[2020-05-08] MEDS: sodium chloride 0.9% 1,000 ML 50 ML IV (12:54)
--- NOTE | 2020-05-08 13:00 | PC.NURSE ---
Patient had a moderate liquid bowel movement. I was unable to send a stool sample because patient had thrown her morning medications in the bedside commode and then how a bowel movement on them. Asked patient why she had thrown her pills in the bedside commode and patient states, I did not want to take them they make my stomach hurt. Stool flushed along with morning medications.
[2020-05-08 13:12] LABS: Hematocrit 25.6 % (37.0-47.0); Hemoglobin 8.2 g/dL (11.5-15.3)
[2020-05-08 13:26] LABS: Lactate (Lactic Acid level) 1.1 mmol/L (0.5-2.2)
[2020-05-08 13:47] LABS: LAB Peripheral Smear Sent for Review
[2020-05-08 13:56] LABS: Erythrocyte Sedimentation Rate 73 mm/hr (0-15)
[2020-05-08 16:00] VITALS: BP 132/68; PULSE 70; RESP 18; TEMP 37.1; O2SAT 96
[2020-05-08] MEDS: pantoprazole 40 mg SDV IVP (18:30)
--- NOTE | 2020-05-08 19:17 | PC.NURSE ---
Report to Mireille TOVAR
[2020-05-08 19:31] LABS: Hematocrit 26.1 % (37.0-47.0); Hemoglobin 8.4 g/dL (11.5-15.3)
[2020-05-08 19:45] VITALS: BP 126/67; PULSE 75; RESP 20; TEMP 37.2; O2SAT 88
[2020-05-08 19:56] LABS: Lactate (Lactic Acid level) 1.1 mmol/L (0.5-2.2)
[2020-05-08 20:12] LABS: Hepatitis A Antibody IgM Non-Reactive (Nonreactive); Hepatitis B Core IgM Non-Reactive (Nonreactive); Hepatitis B Surface Antigen Non-Reactive (Nonreactive); Hepatitis C Virus Antibody Reactive (Nonreactive)
[2020-05-09] VITALS (7 sets, daily range): BP systolic 115–162; BP diastolic 63–75; PULSE 65–82; RESP 14–18; TEMP 36.6–39.1; O2SAT 88–98
--- NOTE | 2020-05-09 00:03 | PC.NURSE ---
Nurse was called to patient's room after aide found patient on the floor, sitting up beside her bed. She stated she was trying to use the restroom. She is unsure if she hit her head or not, no visible redness or bruising to her knees or head. Able to follow commands. Vital signs obtained. BP 162/75, HR 82. O2 saturation 85% on room air. Applied 2L of O2 via nasal cannula. Temp 102.4. Notified Dr. Cooper via phone. No new orders received. Will administer tylenol for her fever. Bed alarm set.
[2020-05-09] MEDS: heparin 5,000 unit/mL INJ 1 mL 5000 UNIT SUBCUT (00:13)
[2020-05-09] MEDS: acetaminophen 325 mg Tablet 650 MG PO ×3 (00:14→21:52)
[2020-05-09 02:14] LABS: Hematocrit 23.4 % (37.0-47.0); Hemoglobin 7.7 g/dL (11.5-15.3)
[2020-05-09 02:36] LABS: Lactate (Lactic Acid level) 0.6 mmol/L (0.5-2.2)
[2020-05-09 02:38] LABS: Basophils % 0.4 %; Eosinophils % 0.6 %; Hematocrit 23.3 % (37.0-47.0); Hemoglobin 7.7 g/dL (11.5-15.3); Lymphocytes # 0.3 10^3/uL (0.8-4.8); Lymphocytes % 6.4 %; Mean Corpuscular Hemoglobin 34.4 pg (28.0-34.0); Mean Platelet Volume 10.7 fL (7.4-10.4); Monocytes # 0.4 10^3/uL (0.2-0.9); Monocytes % 7.2 %; Neutrophils # 4.11 10^3/uL (1.8-7.7); Neutrophils % 84.8 %; Nucleated Red Blood Cells % 0 %; Platelet Count 152 10^3/cmm (130-400); Red Blood Count 2.24 10^6/uL (4.1-5.3); Red Cell Distribution Width 12.5 % (12.1-15.1); White Blood Count 4.9 10^3/uL (4.0-10.0)
[2020-05-09 02:48] LABS: Alanine Aminotransferase 27 U/L (0-33); Albumin Level 2.8 g/dL (3.5-5.2); Alkaline Phosphatase 56 IU/L (35-105); Anion Gap 13.3 (5-19); Aspartate Amino Transferase 59 U/L (0-32); Blood Urea Nitrogen 18 mg/dL (8-23); Calcium 8.1 mg/dL (8.5-10.5); Carbon Dioxide 22 mmol/L (22-29); Chloride 100 mmol/L (98-107); Globulin 2.9 g/dL (1.3-4.6); Glucose 128 mg/dL (65-115); Magnesium 1.6 mg/dL (1.7-2.3); Osmolality Calculated 278 mOsm/kg (285-295); Phosphorus 2.3 mg/dL (2.5-4.5); Potassium 3.3 mmol/L (3.5-5.1); Sodium 132 mmol/L (136-145); Total Bilirubin 0.4 mg/dL (0.15-1.2); Total Protein 5.7 g/dL (6.6-8.7)
[2020-05-09 06:28] LABS: Hematocrit 24.3 % (37.0-47.0); Hemoglobin 7.7 g/dL (11.5-15.3)
[2020-05-09] MEDS: pantoprazole 40 mg SDV IVP ×2 (06:30→18:29)
[2020-05-09] MEDS: sodium chloride 0.9% 1,000 ML 50 ML IV (06:30)
[2020-05-09 06:50] LABS: Lactate (Lactic Acid level) 0.7 mmol/L (0.5-2.2)
[2020-05-09 09:16] LABS: Coronavirus Lab Test PTC Negative
[2020-05-09 09:17] LABS: HIV 1 & 2 Antibody Non-Reactive (Non-Reactiv); HIV 1 & 2 Antigen Non-Reactive (Non-Reactiv)
[2020-05-09 09:20] LABS: Procalcitonin 0.59 ng/mL (0-0.5)
[2020-05-09 09:31] LABS: C Reactive Protein 71.8 mg/L (0.0-4.9)
[2020-05-09] MEDS: azithromycin 500 MG in sodium chloride 0.9% 250 ML 250 MG IV (10:19)
[2020-05-09] MEDS: cefTRIAXone 1,000 MG in sodium chloride 0.9% (plus) 50 ML 100 MG IV (10:19)
[2020-05-09] MEDS: cyanocobalamin 1,000 mcg Tablet 1000 MCG PO (10:19)
[2020-05-09] MEDS: atorvastatin 40 mg Tablet 20 MG PO (10:20)
[2020-05-09] MEDS: omega-3 fatty acids 1,000 mg Capsule 1000 MG PO ×2 (10:20→18:30)
[2020-05-09] MEDS: memantine 5 mg tablet 10 MG PO ×2 (10:20→18:30)
[2020-05-09] MEDS: ascorbic acid 500 mg Tablet PO (10:20)
[2020-05-09] MEDS: ferrous gluconate 324 mg Tablet PO ×2 (10:20→18:31)
[2020-05-09] MEDS: folic acid 1 mg Tablet PO (10:21)
[2020-05-09] MEDS: venlafaxine ER (24HR) 75 mg Capsule PO (10:21)
[2020-05-09] MEDS: metoprolol tartrate 50 mg Tablet 75 MG PO ×2 (10:21→18:30)
[2020-05-09] MEDS: zinc gluconate 50 mg Tablet PO (10:21)
--- NOTE | 2020-05-09 10:48 | CTR_ITS ---
PROCEDURE INFORMATION: Exam: CT Cervical Spine Without Contrast Exam date and time: 05/09/2020 2:47 PM Age: 79 years old Clinical indication: Other: Fever; Prior surgery; Surgery type: Pacemaker; Additional info: Persistent fevre R/O osteomyeliitis TECHNIQUE: Imaging protocol: Computed tomography images of the cervical spine without contrast. Radiation optimization: All CT scans at this facility use at least one of these dose optimization techniques: automated exposure control; mA and/or kV adjustment per patient size (includes targeted exams where dose is matched to clinical indication); or iterative reconstruction. COMPARISON: CR XR cervical spine 3V* [id number] 04/26/2020 2:04 PM RADIATION DOSE METRICS: Total DLP (mGy-cm): 400.53 FINDINGS: Vertebrae: Osteopenia and moderate facet degenerative changes are noted. There is 2.5 mm degenerative anterolisthesis of C 4 on C5. Severe facet degenerative changes are noted. No acute fracture or bony destruction such is discitis or osteomyelitis. There is mild height loss of the superior endplate of T3 compatible with probable old fracture. Discs/Spinal canal/Neural foramina: There is marked disc space narrowing and endplate degenerative changes at C5-C6 and C6-C7. Small disc bulges and endplate osteophytes are noted at C5-C6 and C6-C7 without critical stenosis. Soft tissues: Unremarkable. Mastoid air cells: There is patchy opacification the right mastoid air cells compatible with mastoiditis without bony destruction. The left mastoid air cells are clear. Lungs: Lung apices are normal. Pleural space: There are small bilateral pleural effusions right greater than left. Other findings: The visualized sinuses are clear. CT/CT cervical spin wo con* [id number] IMPRESSION: 1. Degenerative changes especially in the lower cervical spine. No bony destruction or osteomyelitis. 2. Right mastoiditis without bony destruction. 3. Bilateral pleural effusions right greater than left. Radiation Dose CTDIVOL = (mGy): DLP = 400.53 (mGy-cm)
--- NOTE | 2020-05-09 10:48 | CTR_ITS ---
PROCEDURE INFORMATION: Exam: CT Lumbar Spine Without Contrast Exam date and time: 05/09/2020 2:47 PM Age: 79 years old Clinical indication: Other: Persistant fever; Prior surgery; Surgery type: Pacemaker; Patient HX: HX of colon cancer; Additional info: Persistent fevre R/O osteomyeliitis TECHNIQUE: Imaging protocol: Computed tomography images of the lumbar spine without contrast. Radiation optimization: All CT scans at this facility use at least one of these dose optimization techniques: automated exposure control; mA and/or kV adjustment per patient size (includes targeted exams where dose is matched to clinical indication); or iterative reconstruction. COMPARISON: CR XR lumbar spine 2-3V* [id number] 04/26/2020 2:04 PM RADIATION DOSE METRICS: Total DLP (mGy-cm): 1581.46 FINDINGS: Vertebrae: There is dextroscoliosis. Moderate to severe facet degenerative changes are noted in the lower lumbar spine. No aggressive bony destruction. No subluxation. Discs/Spinal canal/Neural foramina: There is marked disc space narrowing and endplate degenerative changes at L2-L3. There is a small right paracentral disc bulge at L3-L4 and especially L4-L5 without critical stenosis. There is mild right foraminal narrowing at these levels. Pleural space: There are bilateral pleural effusions. Vasculature: The aorta demonstrates moderate atherosclerotic calcification. Soft tissues: Unremarkable. Other findings: No discitis or osteomyelitis. CT/CT lumbar spine wo con* [id number] IMPRESSION: Degenerative changes. No acute bony abnormality. Disc bulges and right foraminal narrowing are noted especially at L4-L5. Radiation Dose CTDIVOL = (mGy): DLP = 1581.46 (mGy-cm)
--- NOTE | 2020-05-09 10:48 | CTR_ITS ---
PROCEDURE INFORMATION: Exam: CT Thoracic Spine Without Contrast Exam date and time: 05/09/2020 2:47 PM Age: 79 years old Clinical indication: Other: Fever; Prior surgery; Surgery type: Pacemaker; Patient HX: HX of colon cancer; Additional info: Persistent fevre R/O osteomyeliitis TECHNIQUE: Imaging protocol: Computed tomography images of the thoracic spine without contrast. Radiation optimization: All CT scans at this facility use at least one of these dose optimization techniques: automated exposure control; mA and/or kV adjustment per patient size (includes targeted exams where dose is matched to clinical indication); or iterative reconstruction. COMPARISON: CR XR thoracic spine 3V* [id number] 04/26/2020 2:04 PM RADIATION DOSE METRICS: Total DLP (mGy-cm): 821.4 FINDINGS: Vertebrae: There is height loss of the superior endplate of T3 compatible with probable chronic anterior column fracture. No acute fracture or subluxation. No bony destruction, discitis or osteomyelitis. Discs/Spinal canal/Neural foramina: No significant disc protrusion. No severe spinal canal stenosis. No significant neural foraminal narrowing. Soft tissues: Unremarkable. Lungs: Nonspecific bibasilar ground-glass opacity is present, consistent with atelectasis, edema, or pneumonia. Pleural space: There are small bilateral pleural effusions right greater than left. CT/CT thoracic spin wo con* [id number] IMPRESSION: 1. Chronic mild anterior column fracture of T3. Otherwise no acute bony abnormality. No discitis or osteomyelitis. 2. Nonspecific bibasilar ground-glass opacity is present, consistent with atelectasis, edema, or pneumonia. There are bilateral pleural effusions. Radiation Dose CTDIVOL = (mGy): DLP = 821.4 (mGy-cm)
[2020-05-09 13:01] LABS: Hematocrit 27.4 % (37.0-47.0); Hemoglobin 8.8 g/dL (11.5-15.3)
[2020-05-09 13:21] LABS: Lactate (Lactic Acid level) 1.2 mmol/L (0.5-2.2)
--- NOTE | 2020-05-09 13:45 | PC.NURSE ---
unable to collect urine thus far in shift due to patient having stool and urine mixed.
--- NOTE | 2020-05-09 14:32 | P.PN_ITS ---
Subjective Subjective: Interval history: Patient was examined this morning, she sitting up to the edge of the bed, working with physical therapy, she did have a significant temperature of 102.4 last night, she is currently on 2 L nasal cannula, denying any shortness of breath, last night patient did not get up to use the bathroom, and slid off the bed, no significant head trauma, no headache, no blurry vision, no significant new joint aches or pains. Patient's initial rapid Covid is negative. Blood cultures have remained unremarkable. Denies any shortness of breath or any chest pain, or any dysuria. 3 weeks ago she did say that she had neck pain, radiating into the left shoulder, which was unusual for her, it was an aching-like pain, but it resolved, currently not having any pain. No neck pain, back pain, lower lumbar pain currently. Vitals/I&O/Wt Last Vital Signs Temp 98.4 F 05/09/20 12:00 Pulse 65 05/09/20 12:00 Resp 14 05/09/20 12:00 BP 115/63 05/09/20 12:00 Pulse Ox 95 05/09/20 12:00 05/08/20 05/09/20 05/09/20 22:59 06:59 14:59 Intake Total 240 / 1650 880 / 2530 240 / 240 Output Total 200 / 200 Balance 240 / 1650 680 / 2330 240 / 240 Weight last 48 hrs Weight 59.676 kg Weight 60.526 kg Physical Exam Const: COMMON NORMALS: no acute distress and patient oriented x3 HENMT: COMMON NORMALS: normocephalic HEAD & SCALP: normocephalic Neck/C-Spine: COMMON NORMALS: no JVD Resp: COMMON NORMALS: normal respiratory effort, No retractions, No use of accessory muscles and clear to auscultation bilaterally AUSCULTATION: clear to auscultation bilaterally Cardio: COMMON NORMALS: no JVD, regular rate, regular rhythm, S1 normal heart sound present and S2 normal heart sound present RATE: regular rate RHYTHM: regular rhythm HEART SOUNDS: S1 normal heart sound present and S2 normal heart sound present GI: COMMON NORMALS: Normal to inspection, nondistended, normoactive bowel sounds present, Soft to palpation, non-tender, No hepatosplenomegaly present, no masses and no bruits PALPATION: Yes Soft to palpation and Yes No hepatosplenomegaly present Extremity: COMMON NORMALS: capillary refill normal, no clubbing, cyanosis or edema, no calf tenderness and no pedal edema Neuro: COMMON NORMALS: patient oriented x3 Psych: COMMON NORMALS: mental status grossly normal Data : 05/09/20 12:48 05/09/20 02:06 Micro: Microbiology 05/07/20 22:00 Gram Stain - Final Sputum - Expectorated Sputum Sputum Culture - Preliminary 05/09/20 12:52 Blood Culture - Preliminary Blood SPECIMEN COLLECTED 05/09/20 12:48 Blood Culture - Preliminary Blood SPECIMEN COLLECTED 05/08/20 16:00 Stool Lactoferrin - Final Stool C.difficile Toxin B Gene (PCR) - Final Occult Blood (FIT) - Final 05/07/20 16:40 MRSA Culture - Final Nose A&P Assessment and plan (1) Weakness: Status: Acute (2) Nausea and vomiting: Status: Acute (3) Celiac artery stenosis: Status: Acute (4) Hypoxia: Status: Acute (5) Hyponatremia: Status: Acute (6) Hypokalemia: Status: Acute (7) Essential hypertension: Status: Chronic (8) Pacemaker: Status: Chronic (9) Depression: Status: Chronic (10) Dementia: Status: Chronic Qualifiers: Dementia type: Alzheimer's disease Alzheimer's disease onset: other onset Dementia behavioral disturbance: without behavioral disturbance Qualified Code(s): G30.8 - Other Alzheimer's disease; F02.80 - Dementia in other diseases classified elsewhere without behavioral disturbance (11) Elevated d-dimer: Status: Acute (12) Pneumonia: Status: Acute Qualifiers: Laterality: unspecified laterality Lung location: unspecified part of lung Pneumonia type: due to unspecified organism Qualified Code(s): J18.9 - Pneumonia, unspecified organism (13) Persistent fever: Status: Acute (14) Anemia: Status: Acute Additional A&P Information 71-year-old female with past medical history of colon cancer, advanced age, dementia, sarcoidosis presented to the ER because of symptoms of weakness, fatigue, cough and myalgia going on for last 3 to 4 weeks was tested negative for COVID-19 2 days ago. Nausea, vomiting, poor appetite -Slowly improving -Likely secondary to gastritis from ibuprofen use -Patient admits to ibuprofen use, for multiple joint pains -Nausea and vomiting: CT abdomen pelvis with contrast done in the ER negative for any liver or gallbladder pathology. 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 -Lipase within normal limits. Patient is post cholecystectomy. Liver enzymes within normal limit other than mildly elevated AST. GI soft diet. Advance as tolerated. Zofran as needed. Protonix IV 40 daily for now. 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 difficile negative Acute on chronic anemia, iron is low, ferritin is quite high, B12 folate within normal -History of colon cancer status post colon resection -Has had surveillance colonoscopies, last one a few years ago according to patient, nothing abnormal -Has had an EGD according to patient in the past, within normal limits -Does admit to ibuprofen use as above -Possibly a slow GI bleed related to ibuprofen use -Hemoglobin currently 8.8, ferritin is quite high -Monitor hemoglobin lactic , transfuse if hemoglobin less than 7 -Monitor hemodynamics, stool studies Weakness: Most likely secondary to hyponatremia and hypokalemia likely secondary to dehydration, and viral prodrome as well. Electrolyte abnormality because of vomiting and decreased oral intake. Sodium 128, currently 132. on normal saline with 20 mEq of potassium at 50 cc/h while monitoring for fluid overload. Check BMP daily for now. Physical therapy evaluation and treat. Hypoxia secondary to community-acquired pneumonia: Patient does not have any s igns of consolidation on chest imaging. Saturating high 90s on room air Patient did have a fever up to 101 Fahrenheit in the ER -Currently lymphopenia, resolved, CT angiogram of the chest shows tree in bud density in the right upper anterior segment, could be aspiration component and/or COVID-19 possibly, COVID-19 PCR pending, does have exposure COVID-19, patient's neighbors COVID-19 PCR was negative, but given patient's elevated inflammatory markers, ferritin, D-dimer, pro-Sam, I am still suspicious for 6 Covid, will repeat Covid testing, await to negatives to take her off isolation Continue with isolation precautions for now -Pro-Sam w 0.59, CRP elevated 93.2, -Follow MRSA swab, sputum culture, blood culture, urine Legionella, bacterial antigen for now. -Continue azithromycin and Rocephin -Spiriva, Advair for now. Patient has persistent fevers: Has been on antibiotics last 48 hours -Repeat blood cultures, sputum cultures, urine cultures -Given neck pain, will do CT of the neck, thorax, lumbar spine to evaluate for epidural abscess or vertebral osteomyelitis -Cardiac echocardiogram showed moderate to heavy mitral annular calcifications, thickened mitral valves, mild to moderate mitral valve regurg, thickened aortic valve, trace aortic valve regurg, pacer wire in the right ear right ventricle, trace tricuspid regurg -Elevated D-dimer: Most likely because of celiac artery stenosis. CTA negative for PE. Will do lower limb Dopplers as well. Celiac artery stenosis: Patient does not give any signs of mesenteric ischemia or peritonitis at present. -Patient has celiac artery stenting back in 2005 -discussion about the CT abdomen pelvis with Dr. Greenfield from [facility] states that the occlusion seems more chronic and was also evident on CT done in August. -Lactate negative in the ER. -No abdominal complaints, abdomen is nontender, nondistended, no guarding, no rebound, no rigidity -For now we will treat conservatively. We will also check stool studies. -Monitor hemoglobin closely, no abdominal pain -Patient's case also discussed with vascular surgeon at [facility]. He states he would like to treat patient conservatively for now and then follow-up as an outpatient for possible revascularization. Hypertension: Goal blood pressure less than 140/90 mmHg. Continue with home dose of metoprolol. No signs of fluid overload at present. We will repeat echocardiogram. Last echocardiogram in 2016 showed an EF of 64% with grade 1 diastolic dysfunction. Continue other chronic medications like ascorbic acid, atorvastatin, folic acid, Namenda, venlafaxine. PT/OT evaluation. CODE STATUS: Discussed in detail with patient's . They would want to be full code for now. GI soft diet. Protonix for PUD prophylaxis Heparin for DVT prophylaxis. Attestations Medical Necessity Statement*: Patient requires hospitalization due to pneumonia, persistent fevers, anemia Coding Level of Care Code Acute [employer] for [facility] Fwd Diagnoses Weakness R53.1 Nausea and vomiting R11.2 Celiac artery stenosis I77.4 Hypoxia R09.02 Hyponatremia E87.1 Hypokalemia E87.6 Essential hypertension I10 Pacemaker Z95.0 Depression F32.9 Dementia G30.8; F02.80 Dementia type: Alzheimer's disease Alzheimer's disease onset: other onset Dementia behavioral disturbance: without behavioral disturbance Elevated d-dimer R79.89 Pneumonia J18.9 Laterality: unspecified laterality Lung location: unspecified part of lung Pneumonia type: due to unspecified organism Persistent fever R50.9 Anemia D64.9
[2020-05-09 18:25] LABS: Hematocrit 27.3 % (37.0-47.0); Hemoglobin 8.7 g/dL (11.5-15.3)
[2020-05-09] MEDS: potassium chloride ER 10 mEq Tablet 40 MEQ PO (18:30)
[2020-05-09] MEDS: FUROsemide 10 mg/mL SDV 4mL 40 MG IVP (18:30)
[2020-05-09 18:42] LABS: Lactate (Lactic Acid level) 2.6 mmol/L (0.5-2.2)
[2020-05-10] VITALS (12 sets, daily range): BP systolic 130–158; BP diastolic 63–82; PULSE 63–107; RESP 14–18; TEMP 36.5–37.9; O2SAT 93–100
[2020-05-10 00:59] LABS: Hematocrit 23.5 % (37.0-47.0); Hemoglobin 7.8 g/dL (11.5-15.3)
[2020-05-10 01:19] LABS: Lactate (Lactic Acid level) 0.7 mmol/L (0.5-2.2)
[2020-05-10 05:45] LABS: Hematocrit 25.4 % (37.0-47.0); Hemoglobin 8.4 g/dL (11.5-15.3); Mean Corpuscular HGB Conc 33.1 g/dL (30.0-36.0); Mean Corpuscular Hemoglobin 34.3 pg (28.0-34.0); Mean Corpuscular Volume 103.7 fL (81-99); Mean Platelet Volume 11.3 fL (7.4-10.4); Platelet Count 137 10^3/cmm (130-400); Red Blood Count 2.45 10^6/uL (4.1-5.3); Red Cell Distribution Width 12.6 % (12.1-15.1); White Blood Count 3.4 10^3/uL (4.0-10.0)
[2020-05-10 06:08] LABS: Alanine Aminotransferase 99 U/L (0-33); Albumin Level 2.8 g/dL (3.5-5.2); Alkaline Phosphatase 64 IU/L (35-105); Anion Gap 10.2 (5-19); Aspartate Amino Transferase 222 U/L (0-32); Blood Urea Nitrogen 14 mg/dL (8-23); Calcium 8.6 mg/dL (8.5-10.5); Carbon Dioxide 29 mmol/L (22-29); Chloride 99 mmol/L (98-107); Globulin 2.8 g/dL (1.3-4.6); Glucose 128 mg/dL (65-115); Magnesium 1.6 mg/dL (1.7-2.3); Osmolality Calculated 282 mOsm/kg (285-295); Phosphorus 3.6 mg/dL (2.5-4.5); Potassium 3.2 mmol/L (3.5-5.1); Sodium 135 mmol/L (136-145); Total Bilirubin 0.5 mg/dL (0.15-1.2); Total Protein 5.6 g/dL (6.6-8.7)
[2020-05-10 06:25] LABS: Slide Review Slide Review Perform
[2020-05-10 06:30] LABS: Absolute Eosinophils 0.1 10^3/cmm (0.0-0.7); Absolute Neutrophil 2.9 10^3/cmm (1.4-6.5); Absolute Segmented Neutrophil 1.6 10/cmm (1.6-7.1); Band Neutrophils Absolute 1.4 10^3/cmm (0.0-1.2); Eosinophils 3 %; Lymphocytes 9 %; Monocytes Absolute 0.1 10^3/cmm (0.1-0.6); Platelet Estimate Normal (Normal); Segmented Neutrophils 46 %; Total Cells Counted 100 (0-100)
[2020-05-10] MEDS: pantoprazole 40 mg SDV IVP ×2 (06:50→17:56)
[2020-05-10] MEDS: zinc gluconate 50 mg Tablet PO (08:05)
[2020-05-10] MEDS: cyanocobalamin 1,000 mcg Tablet 1000 MCG PO (08:05)
[2020-05-10] MEDS: atorvastatin 40 mg Tablet 20 MG PO (08:05)
[2020-05-10] MEDS: ascorbic acid 500 mg Tablet PO (08:05)
[2020-05-10] MEDS: ferrous gluconate 324 mg Tablet PO ×2 (08:05→17:55)
[2020-05-10] MEDS: metoprolol tartrate 50 mg Tablet 75 MG PO ×2 (08:05→17:56)
[2020-05-10] MEDS: memantine 5 mg tablet 10 MG PO ×2 (08:05→17:55)
[2020-05-10] MEDS: venlafaxine ER (24HR) 75 mg Capsule PO (08:05)
[2020-05-10] MEDS: omega-3 fatty acids 1,000 mg Capsule 1000 MG PO ×2 (08:05→17:56)
[2020-05-10] MEDS: folic acid 1 mg Tablet PO (08:05)
[2020-05-10] MEDS: azithromycin 500 MG in sodium chloride 0.9% 250 ML 250 MG IV (08:06)
[2020-05-10] MEDS: cefTRIAXone 1,000 MG in sodium chloride 0.9% (plus) 50 ML 100 MG IV (08:06)
--- NOTE | 2020-05-10 09:20 | PC.SOCIAL ---
Pg 2 IMM Explained to pt Pg 2 IMM via phone. No questions voiced. Signed, dated, & timed a copy & placed in chart.
[2020-05-10] MEDS: potassium chloride ER 10 mEq Tablet 40 MEQ PO ×2 (10:59→21:57)
[2020-05-10] MEDS: FUROsemide 10 mg/mL SDV 4mL 40 MG IVP ×2 (10:59→21:57)
[2020-05-10 11:29] LABS: Coronavirus Lab Test PTC Negative
[2020-05-10 12:17] LABS: EBV IGM TEST <36.00 U/mL; EBV Nuclear AG >600.00 U/mL
--- NOTE | 2020-05-10 12:56 | US_ITS ---
WS: [id number] ULTRASOUND THYROID TECHNIQUE: Ultrasound of the thyroid. CLINICAL INFORMATION: nodule COMPARISON: None. FINDINGS: Thyroid: Right and left thyroid lobes are normal in size and echotexture. 2 subcentimeter cystic lesions right thyroid the largest measuring 4.4 x 2.5 x 3.3 mm compatible with incidental cysts/colloid cysts Solid hypoechoic nodule left thyroid lobe measuring 7.2 x 3.1 x 5.7 mm. Right thyroid lobe: 3.7 cm x 1.1 cm x 1.3 cm Left thyroid lobe: 2.8 cm x 0.9 cm x 1.0 cm. Isthmus: 0.2 mm. Cervical lymphadenopathy: None. US/US thyroid [id number] IMPRESSION: 1. Solid hypoechoic nodule left thyroid lobe measuring 7.2 x 5.7 mm. Recommend 12 month follow-up. 2. Incidental cystic lesions right thyroid.
--- NOTE | 2020-05-10 14:41 | P.PN_ITS ---
Subjective Subjective: Interval history: This morning patient states that she still feels weak, fatigued, which has not improved, no lightheadedness, no dizziness, no nausea, no vomiting, no fevers, no chills Patient did have a temperature of 102.2 overnight, no shortness of breath, no abdominal pain, no dysuria, no hematuria, just feels weak and fatigued, no new murmur on exam Vitals/I&O/Wt Last Vital Signs Temp 98.1 F 05/10/20 14:39 Pulse 74 05/10/20 14:39 Resp 16 05/10/20 14:39 BP 130/66 05/10/20 14:39 Pulse Ox 96 05/10/20 14:39 05/09/20 05/10/20 05/10/20 22:59 06:59 14:59 Intake Total 0 / 0 Output Total 1300 / 1300 500 / 1800 1300 / 1300 Balance -1300 / -760 -500 / -1260 -1300 / -1300 Weight last 48 hrs Weight 58.287 kg Weight 59.676 kg Physical Exam 2 Const: COMMON NORMALS: no acute distress and patient oriented x3 HENMT: COMMON NORMALS: normocephalic HEAD & SCALP: normocephalic Neck/C-Spine: COMMON NORMALS: no JVD Resp: COMMON NORMALS: normal respiratory effort, No retractions, No use of accessory muscles and clear to auscultation bilaterally AUSCULTATION: clear to auscultation bilaterally Cardio: COMMON NORMALS: no JVD, regular rate, regular rhythm, S1 normal heart sound present and S2 normal heart sound present RATE: regular rate RHYTHM: regular rhythm HEART SOUNDS: S1 normal heart sound present and S2 normal heart sound present GI: COMMON NORMALS: Normal to inspection, nondistended, normoactive bowel sounds present, Soft to palpation, non-tender, No hepatosplenomegaly present, no masses and no bruits PALPATION: Yes Soft to palpation and Yes No hepatosplenomegaly present Extremity: COMMON NORMALS: capillary refill normal, no clubbing, cyanosis or edema, no calf tenderness and no pedal edema Neuro: COMMON NORMALS: patient oriented x3 Psych: COMMON NORMALS: mental status grossly normal Data : 05/10/20 04:40 05/10/20 04:40 Micro: Microbiology 05/09/20 12:52 Blood Culture - Preliminary Blood NEGATIVE TO DATE 05/09/20 12:48 Blood Culture - Preliminary Blood NEGATIVE TO DATE 05/07/20 22:00 Gram Stain - Final Sputum - Expectorated Sputum Sputum Culture - Final 05/08/20 16:00 Stool Lactoferrin - Final Stool Enteric Pathogens (PCR) - Final Parasite Antigen Panel - Final C.difficile Toxin B Gene (PCR) - Final Occult Blood (FIT) - Final A&P Assessment and plan (1) Weakness: Status: Acute (2) Nausea and vomiting: Status: Acute (3) Celiac artery stenosis: Status: Acute (4) Hypoxia: Status: Acute (5) Hyponatremia: Status: Acute (6) Hypokalemia: Status: Acute (7) Essential hypertension: Status: Chronic (8) Pacemaker: Status: Chronic (9) Depression: Status: Chronic (10) Dementia: Status: Chronic Qualifiers: Dementia type: Alzheimer's disease Alzheimer's disease onset: other onset Dementia behavioral disturbance: without behavioral disturbance Qualified Code(s): G30.8 - Other Alzheimer's disease; F02.80 - Dementia in other diseases classified elsewhere without behavioral disturbance (11) Elevated d-dimer: Status: Acute (12) Pneumonia: Status: Acute Qualifiers: Laterality: unspecified laterality Lung location: unspecified part of lung Pneumonia type: due to unspecified organism Qualified Code(s): J18.9 - Pneumonia, unspecified organism (13) Persistent fever: Status: Acute (14) Anemia: Status: Acute Additional A&P Information 71-year-old female with past medical history of colon cancer, advanced age, dementia, sarcoidosis presented to the ER because of symptoms of weakness, fatigue, cough and myalgia going on for last 3 to 4 weeks was tested negative for COVID-19 2 days ago. Nausea, vomiting, poor appetite -Slowly improving -Likely secondary to gastritis from ibuprofen use -Patient admits to ibuprofen use, for multiple joint pains -Nausea and vomiting: CT abdomen pelvis with contrast done in the ER negative for any liver or gallbladder pathology. 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 -Lipase within normal limits. Patient is post cholecystectomy. Liver enzymes within normal limit other than mildly elevated AST. GI soft diet. Advance as tolerated. Zofran as needed. Protonix IV 40 daily for now. 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 difficile negative Acute on chronic anemia, iron is low, ferritin is quite high, B12 folate within normal -History of colon cancer status post colon resection -Has had surveillance colonoscopies, last one a few years ago according to patient, nothing abnormal -Has had an EGD according to patient in the past, within normal limits -Does admit to ibuprofen use as above -Possibly a slow GI bleed related to ibuprofen use -Hemoglobin currently 7-8, ferritin is quite high -We will transfuse 1 unit PRBC, monitor hemoglobin -Monitor hemodynamics, stool studies Weakness: Likely secondary to viral prodrome, anemia, electrolyte abnormalities have resolved Sodium 128, currently 135. on normal saline with 20 mEq of potassium at 50 cc/h while monitoring for fluid overload. Check BMP daily for now. Physical therapy evaluation and treat. Hypoxia secondary to community-acquired pneumonia, atypical pneumonia, viral prodrome: Patient does not have any signs of consolidation on chest imaging. Saturating high 90s on room air Patient did have a fever up to 101 Fahrenheit in the ER -Currently lymphopenia, , CT angiogram of the chest shows tree in bud density in the right upper anterior segment, could be aspiration component and/or COVID-19 possibly, first Covid 19 PCR negative, still suspicious ordered another one COVID-19 PCR pending, does have exposure COVID-19, patient's neighbors COVID-19 PCR was negative, -await to negatives to take her off isolation Continue with isolation precautions for now -ESR is elevated, CRP is elevated -Follow MRSA swab, sputum culture, blood culture, urine Legionella, bacterial antigen for now., Which are all negative for now, repeat blood cultures are negative -Continue azithromycin and Rocephin -Spiriva, Advair for now. -We will give patient a dose of Lasix today to help with fluid overload Patient has persistent fevers: Has been on antibiotics last 48 hours -Repeat blood cultures, sputum cultures, urine cultures are all negative -Given neck pain, CT imaging of the cervical, thoracic, lumbar spine unremarkable for osteomyelitis or epidural abscess -Cardiac echocardiogram showed moderate to heavy mitral annular calcifications, thickened mitral v vance, mild to moderate mitral valve regurg, thickened aortic valve, trace aortic valve regurg, pacer wire in the right ear right ventricle, trace tricuspid regurg. I reviewed echocardiogram with Dr. Anderson, no significant findings of a vegetation -Patient tells me that she has a history of sarcoidosis in the past, she was found to have elevated serum MARIBEL levels, it is not uncommon to have reactivation of sarcoidosis after colon cancer -I reviewed patient's imaging with Dr. Mcbride, it does seem she has aortic pulmonary window lymph nodes, retrocaval/pretracheal enlarged lymph nodes, subcarinal lymph nodes, given history of colon cancer she will need a biopsy, likely as outpatient -I reviewed the case with Dr. Rausch, he tells me that she has a history of chronic anemia, there has been concerns for myelodysplastic syndrome, and she will likely need a bone marrow biopsy PLAN: -Persistent fevers could be multifactorial related to community-acquired pneumonia as above, viral prodrome -Awaiting second COVID-19 testing -Other possibilities include sarcoidosis, serum MARIBEL level pending -She will need a biopsy of her chest lymph nodes to rule out malignancy and could be a reason for recurrent fevers -She will need a bone marrow biopsy to evaluate for myelodysplastic syndrome, and could be a reason for recurrent fevers -Viral panel pending -Elevated D-dimer: Most likely because of celiac artery stenosis. CTA negative for PE. Celiac artery stenosis: Patient does not give any signs of mesenteric ischemia or peritonitis at present. -Patient has celiac artery stenting back in 2005 -discussion about the CT abdomen pelvis with Dr. Greenfield from [facility] states that the occlusion seems more chronic and was also evident on CT done in August. -Lactate negative in the ER. -No abdominal complaints, abdomen is nontender, nondistended, no guarding, no rebound, no rigidity -For now we will treat conservatively. We will also check stool studies. -Monitor hemoglobin closely, no abdominal pain -Patient's case also discussed with vascular surgeon at [facility]. He states he would like to treat patient conservatively for now and then follow-up as an outpatient for possible revascularization. Hypertension: Goal blood pressure less than 140/90 mmHg. Continue with home dose of metoprolol. No signs of fluid overload at present. Continue other chronic medications like ascorbic acid, atorvastatin, folic acid, Namenda, venlafaxine. PT/OT evaluation. CODE STATUS: Discussed in detail with patient's . They would want to be full code for now. GI soft diet. Protonix for PUD prophylaxis Heparin for DVT prophylaxis. Attestations Medical Necessity Statement*: Patient requires hospitalization for recurrent fevers, hypoxia secondary to pneumonia, weakness Coding Level of Care Code Acute Director Trading for [facility] Diagnoses Weakness R53.1 Nausea and vomiting R11.2 Celiac artery stenosis I77.4 Hypoxia R09.02 Hyponatremia E87.1 Hypokalemia E87.6 Essential hypertension I10 Pacemaker Z95.0 Depression F32.9 Dementia G30.8; F02.80 Dementia type: Alzheimer's disease Alzheimer's disease onset: other onset Dementia behavioral disturbance: without behavioral disturbance Elevated d-dimer R79.89 Pneumonia J18.9 Laterality: unspecified laterality Lung location: unspecified part of lung Pneumonia type: due to unspecified organism Persistent fever R50.9 Anemia D64.9
[2020-05-10] MEDS: sodium chloride 0.9% (100 ml) 100 ML 10 ML (14:43)
[2020-05-10] MEDS: acetaminophen 325 mg Tablet 650 MG PO (15:15)
[2020-05-10] MEDS: diphenhydrAMINE 25 mg Capsule PO (15:16)
--- NOTE | 2020-05-10 16:15 | PC.NURSE ---
TRANSFUSION REACTION THIS NURSE ADMINISTERED BLOOD TO PATIENT FOR AROUND 20 MINUTES. TEMPERATURE WENT FROM 98.[address] QUEZADA NOTIFIED. ORDER WAS GIVEN TO STOP BLOOD TRANSFUSION, ADMINISTER BENEDRYL AND TYLENOL. BLOOD WAS THEN TAKEN TO LAB AND A UA WELL BLOOD DRAW WAS DONE.
--- NOTE | 2020-05-10 18:30 | PC.NURSE ---
SHIFT SUMMARY PATIENT HAS BEEN UP AND DOWN ALL DAY TODAY. PATIENT HAS HAD GREAT URINE OUTPUT. NO COMPLAINTS OF PAIN. THIS NURSE STARTED A BLOOD TRANSFUSION THIS AFTERNOON. PATIENT HAD A FEVER OF 100.3. DR. QUEZADA NOTIFIED. TRANSFUSION DISCONTINUED AND PROTOCOL FOLLOWED. PATIENT'S COVID TEST CAME BACK NEGATIVE. WAS ABLE TO VISIT TODAY. PATIENT HAD BETTER APPETITE TODAY. CURRENTLY RESTING IN BED.
[2020-05-11] VITALS (11 sets, daily range): BP systolic 88–154; BP diastolic 53–71; PULSE 61–74; RESP 15–18; TEMP 36.3–37.1; O2SAT 97–100
[2020-05-11] MEDS: pantoprazole 40 mg SDV IVP ×2 (05:29→20:00)
[2020-05-11 05:42] LABS: Alanine Aminotransferase 316 U/L (0-33); Albumin Level 3.2 g/dL (3.5-5.2); Alkaline Phosphatase 94 IU/L (35-105); Blood Urea Nitrogen 14 mg/dL (8-23); Carbon Dioxide 30 mmol/L (22-29); Chloride 91 mmol/L (98-107); Globulin 3.2 g/dL (1.3-4.6); Glucose 120 mg/dL (65-115); Magnesium 1.3 mg/dL (1.7-2.3); Osmolality Calculated 280 mOsm/kg (285-295); Phosphorus 2.9 mg/dL (2.5-4.5); Sodium 134 mmol/L (136-145); Total Bilirubin 0.9 mg/dL (0.15-1.2); Total Protein 6.4 g/dL (6.6-8.7)
[2020-05-11 05:48] LABS: Anion Gap 16.2 (5-19); Aspartate Amino Transferase 652 U/L (0-32); Potassium 3.2 mmol/L (3.5-5.1)
[2020-05-11 05:58] LABS: Hematocrit 27.7 % (37.0-47.0); Hemoglobin 9.2 g/dL (11.5-15.3); Mean Corpuscular HGB Conc 33.2 g/dL (30.0-36.0); Mean Corpuscular Hemoglobin 33.1 pg (28.0-34.0); Mean Corpuscular Volume 99.6 fL (81-99); Platelet Count 132 10^3/cmm (130-400); Red Blood Count 2.78 10^6/uL (4.1-5.3); Red Cell Distribution Width 12.9 % (12.1-15.1); White Blood Count 3.6 10^3/uL (4.0-10.0)
--- NOTE | 2020-05-11 05:59 | PC.NURSE ---
Patient had a good night, mainly slept. Patient had no complaints throughout the night.
[2020-05-11 06:14] LABS: Slide Review Slide Review Perform
[2020-05-11 06:20] LABS: Absolute Eosinophils 0.1 10^3/cmm (0.0-0.7); Absolute Segmented Neutrophil 3.2 10/cmm (1.6-7.1); Eosinophils 4 %; Lymphocytes 8 %; Segmented Neutrophils 88 %; Total Cells Counted 100 (0-100)
[2020-05-11 06:22] LABS: Absolute Neutrophil 3.2 10^3/cmm (1.4-6.5); Anisocytosis Trace; Hypochromasia 1+; Macrocytosis Trace; Platelet Estimate Normal (Normal)
[2020-05-11] MEDS: cefTRIAXone 1,000 MG in sodium chloride 0.9% (plus) 50 ML 100 MG IV (09:45)
[2020-05-11] MEDS: potassium chloride ER 10 mEq Tablet 40 MEQ PO (09:46)
[2020-05-11] MEDS: azithromycin 500 MG in sodium chloride 0.9% 250 ML 250 MG IV (09:46)
[2020-05-11] MEDS: folic acid 1 mg Tablet PO (09:47)
[2020-05-11] MEDS: ferrous gluconate 324 mg Tablet PO ×2 (09:47→18:02)
[2020-05-11] MEDS: magnesium sulfate premix 2 GM/50 ML PIGGYBACK IV (09:47)
[2020-05-11] MEDS: metoprolol tartrate 50 mg Tablet 75 MG PO ×2 (09:48→18:02)
[2020-05-11] MEDS: venlafaxine ER (24HR) 75 mg Capsule PO (09:48)
[2020-05-11] MEDS: zinc gluconate 50 mg Tablet PO (09:48)
[2020-05-11] MEDS: ascorbic acid 500 mg Tablet PO (09:49)
[2020-05-11] MEDS: cyanocobalamin 1,000 mcg Tablet 1000 MCG PO (09:49)
[2020-05-11] MEDS: omega-3 fatty acids 1,000 mg Capsule 1000 MG PO ×2 (09:49→18:03)
[2020-05-11] MEDS: atorvastatin 40 mg Tablet 20 MG PO (09:49)
[2020-05-11] MEDS: memantine 5 mg tablet 10 MG PO ×2 (09:49→18:03)
--- NOTE | 2020-05-11 11:08 | PC.OT ---
OT note: Attempted OT eval, pt requested hold at this time due to not feeling well. Will attempt again later as able.
[2020-05-11 14:06] LABS: Acetaminophen < 5.0 ug/mL (10-30)
[2020-05-11 14:12] LABS: Lactate Dehydrogenase 1163 U/L (135-214)
[2020-05-11 14:38] LABS: Angiotensin Converting Enzyme 21 U/L (9-67)
--- NOTE | 2020-05-11 15:18 | P.PN_ITS ---
Subjective Subjective: Interval history: This morning patient was moved to a different room, overnight she did have a T-max of 100.3, she stills says that she feels weak, she feels unsafe to go home given her weakness, has a poor appetite, no nausea, no vomiting, no lightheadedness, no dizziness, no chest pain, shortness of breath, remains normotensive, currently on 2 L Vitals/I&O/Wt Last Vital Signs Temp 97.5 F L 05/11/20 12:00 Pulse 67 05/11/20 12:00 Resp 15 05/11/20 12:00 BP 116/60 05/11/20 12:00 Pulse Ox 100 05/11/20 12:00 05/11/20 05/11/20 05/11/20 06:59 14:59 22:59 Intake Total 100 / 100 Output Total 100 / 2600 Balance -100 / -2275 100 / 100 Weight last 48 hrs Weight 53.433 kg Weight 58.287 kg Physical Exam Const: COMMON NORMALS: no acute distress and patient oriented x3 HENMT: COMMON NORMALS: normocephalic HEAD & SCALP: normocephalic Neck/C-Spine: COMMON NORMALS: no JVD Resp: COMMON NORMALS: normal respiratory effort, No retractions, No use of accessory muscles and clear to auscultation bilaterally AUSCULTATION: clear to auscultation bilaterally Cardio: COMMON NORMALS: no JVD, regular rate, regular rhythm, S1 normal heart sound present and S2 normal heart sound present RATE: regular rate RHYTHM: regular rhythm HEART SOUNDS: S1 normal heart sound present and S2 normal heart sound present GI: COMMON NORMALS: Normal to inspection, nondistended, normoactive bowel sounds present, Soft to palpation, non-tender, No hepatosplenomegaly present, no masses and no bruits PALPATION: Yes Soft to palpation and Yes No hepatosplenomegaly present Extremity: COMMON NORMALS: capillary refill normal, no clubbing, cyanosis or edema, no calf tenderness and no pedal edema Neuro: COMMON NORMALS: patient oriented x3 Psych: COMMON NORMALS: mental status grossly normal Data : 05/11/20 05:53 05/11/20 04:41 Micro: Microbiology 05/09/20 17:27 Urine Culture - Final Urine,Voided 05/10/20 11:29 Gram Stain - Final Sputum - Expectorated Sputum 05/09/20 12:52 Blood Culture - Preliminary Blood NEGATIVE TO DATE 05/09/20 12:48 Blood Culture - Preliminary Blood NEGATIVE TO DATE 05/07/20 22:00 Gram Stain - Final Sputum - Expectorated Sputum Sputum Culture - Final A&P Assessment and plan (1) Weakness: Status: Acute (2) Nausea and vomiting: Status: Acute (3) Celiac artery stenosis: Status: Acute (4) Hypoxia: Status: Acute (5) Hyponatremia: Status: Acute (6) Hypokalemia: Status: Acute (7) Essential hypertension: Status: Chronic (8) Pacemaker: Status: Chronic (9) Depression: Status: Chronic (10) Dementia: Status: Chronic Qualifiers: Dementia type: Alzheimer's disease Alzheimer's disease onset: other onset Dementia behavioral disturbance: without behavioral disturbance Qualified Code(s): G30.8 - Other Alzheimer's disease; F02.80 - Dementia in other diseases classified elsewhere without behavioral disturbance (11) Elevated d-dimer: Status: Acute (12) Pneumonia: Status: Acute Qualifiers: Laterality: unspecified laterality Lung location: unspecified part of lung Pneumonia type: due to unspecified organism Qualified Code(s): J18.9 - Pneumonia, unspecified organism (13) Persistent fever: Status: Acute (14) Anemia: Status: Acute Additional A&P Information 71-year-old female with past medical history of colon cancer, advanced age, d ementia, sarcoidosis presented to the ER because of symptoms of weakness, fatigue, cough and myalgia going on for last 3 to 4 weeks was tested negative for COVID-19 2 days ago. Nausea, vomiting, poor appetite -Nausea and vomiting has resolved, poor appetite has not improved over the last few days, encourage p.o. intake -Likely secondary to gastritis from ibuprofen use -Patient admits to ibuprofen use, for multiple joint pains -Nausea and vomiting: CT abdomen pelvis with contrast done in the ER negative for any liver or gallbladder pathology. 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 -Lipase within normal limits. Patient is post cholecystectomy. Liver enzymes within normal limit other than mildly elevated AST. GI soft diet. Advance as tolerated. Zofran as needed. Protonix IV 40 daily for now. 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 difficile negative Acute on chronic anemia, iron is low, ferritin is quite high, B12 folate within normal -History of colon cancer status post colon resection -Has had surveillance colonoscopies, last one a few years ago according to patient, nothing abnormal -Has had an EGD according to patient in the past, within normal limits -Does admit to ibuprofen use as above -Possibly a slow GI bleed related to ibuprofen use -Hemoglobin currently 9, ferritin is quite high -Patient had a 102 fever 20 minutes into getting her IV transfusion of blood, blood was stopped, received Benadryl, transfusion reaction panel was negative -Monitor hemodynamics -Patient will require a bone marrow biopsy, I spoke to Dr. Rausch he agrees that she will need a bone marrow biopsy, likely next week Weakness: Likely secondary to viral prodrome, anemia, electrolyte abnormalities have resolved Sodium 128, currently 134, off fluids Check BMP daily for now Weakness, deconditioning:physical therapy evaluation and treat. I discussed going to [facility] if she continues to feel weak, or home health care Hypoxia secondary to community-acquired pneumonia, atypical pneumonia, viral prodrome: Patient does not have any signs of consolidation on chest imaging. Saturating high 90s on 2 L Patient did have a fever up to 100.3 -Currently lymphopenia, , CT angiogram of the chest shows tree in bud density in the right upper anterior segment, could be aspiration component and/or COVID-19 possibly, first Covid 19 PCR negative, repeat Covid negative, viral PCR pending CMV, protein electrophoresis, EBV studies pending Patient hepatitis C antibody is positive, no known exposure, was negative in 2017, she is not sure about blood transfusions, does have developing transaminitis, no alk phos elevation, no T bili elevation, chronicity of hep C unknown, acute versus chronic. We will currently will hold off on treating hepatitis C Take off isolation -ESR is elevated, CRP is elevated -Follow MRSA swab, sputum culture, blood culture, urine Legionella, bacterial antigen for now., Which are all negative for now, repeat blood cultures are negative -I have de-escalate antibiotics to doxycycline as I am concerned for possible drug fevers and transaminitis associated with azithromycin and Rocephin -Spiriva, Advair for now. -Hold Lasix for today Patient has persistent fevers: Has been on antibiotics last 48 hours -Repeat blood cultures, sputum cultures, urine cultures are all negative -Given neck pain, CT imaging of the cervical, thoracic, lumbar spine unremarkable for osteomyelitis or epidural abscess -Cardiac echocardiogram showed moderate to heavy mitral annular calcifications, thickened mitral v vance, mild to moderate mitral valve regurg, thickened aortic valve, trace aortic valve regurg, pacer wire in the right ear right ventricle, trace tricuspid regurg. I reviewed echocardiogram with Dr. Anderson, no significant findings of a vegetation -Patient tells me that she has a history of sarcoidosis in the past, she was found to have elevated serum MARIBEL levels, it is not uncommon to have reactivation of sarcoidosis after colon cancer -I reviewed patient's imaging with Dr. Mcbride, it does seem she has aortic pulmonary window lymph nodes, retrocaval/pretracheal enlarged lymph nodes, subcarinal lymph nodes, given history of colon cancer she will need a biopsy, likely as outpatient -I reviewed the case with Dr. Rausch, he tells me that she has a history of chronic anemia, there has been concerns for myelodysplastic syndrome, and she will likely need a bone marrow biopsy PLAN: -Persistent fevers could be multifactorial related to community-acquired pneumonia as above, viral prodrome -Other possibilities include sarcoidosis, serum MARIBEL level pending -She will need a biopsy of her chest lymph nodes to rule out malignancy and could be a reason for recurrent fevers -She will need a bone marrow biopsy to evaluate for myelodysplastic syndrome, and could be a reason for recurrent fevers -Viral panel pending, DUANE panel pending, CMV pending, electrophoresis pending, hep C genotype RNA pending, peripheral smear pending -Elevated D-dimer: Most likely because of celiac artery stenosis. CTA negative for PE. Celiac artery stenosis: Patient does not give any signs of mesenteric ischemia or peritonitis at present. -Patient has celiac artery stenting back in 2005 -discussion about the CT abdomen pelvis with Dr. Greenfield from [facility] states that the occlusion seems more chronic and was also evident on CT done in August. -Lactate negative in the ER. -No abdominal complaints, abdomen is nontender, nondistended, no guarding, no rebound, no rigidity -For now we will treat conservatively. We will also check stool studies. -Monitor hemoglobin closely, no abdominal pain -Patient's case also discussed with vascular surgeon at [facility]. He states he would like to treat patient conservatively for now and then follow-up as an outpatient for possible revascularization. Hypertension: Goal blood pressure less than 140/90 mmHg. Continue with home dose of metoprolol. No signs of fluid overload at present. Continue other chronic medications like ascorbic acid, atorvastatin, folic acid, Namenda, venlafaxine. PT/OT evaluation. CODE STATUS: Discussed in detail with patient's . They would want to be full code for now. GI soft diet. Protonix for PUD prophylaxis Heparin for DVT prophylaxis. Attestations Medical Necessity Statement*: She requires hospitalization for recurrent fevers, pneumonia, deconditioning Coding Level of Care Code Acute [employer] Collector for [facility] F[facility] Diagnoses Weakness R53.1 Nausea and vomiting R11.2 Celiac artery stenosis I77.4 Hypoxia R09.02 Hyponatremia E87.1 Hypokalemia E87.6 Essential hypertension I10 Pacemaker Z95.0 Depression F32.9 Dementia G30.8; F02.80 Dementia type: Alzheimer's disease Alzheimer's disease onset: other onset Dementia behavioral disturbance: without behavioral disturbance Elevated d-dimer R79.89 Pneumonia J18.9 Laterality: unspecified laterality Lung location: unspecified part of lung Pneumonia type: due to unspecified organism Persistent fever R50.9 Anemia D64.9
[2020-05-11 15:26] LABS: Erythrocyte Sedimentation Rate 26 mm/hr (0-15)
--- NOTE | 2020-05-11 16:58 | PC.NURSE ---
pt's here during visitation hours. pt and pt request to take all of pt belongings (clothes, home medications) home.
[2020-05-11 17:01] LABS: INR 1.08 (0.8-1.2)
[2020-05-11 17:02] LABS: Partial Thromboplastin Time 29.7 SECONDS (23.9-36.7)
[2020-05-11 17:08] LABS: Fibrinogen 160 mg/dL (174-498)
[2020-05-11 17:12] LABS: D Dimer 18.06 ug/mIFEU (0-0.59)
[2020-05-11] MEDS: doxycycline 100 mg Tablet PO (19:38)
[2020-05-11 20:21] LABS: LAB Peripheral Smear Sent for Review
[2020-05-12] VITALS (13 sets, daily range): BP systolic 83–165; BP diastolic 50–78; PULSE 63–74; RESP 16–18; TEMP 36.3–37.2; O2SAT 90–98
[2020-05-12 05:30] LABS: Hematocrit 26.5 % (37.0-47.0); Hemoglobin 8.8 g/dL (11.5-15.3); Mean Corpuscular HGB Conc 33.2 g/dL (30.0-36.0); Mean Corpuscular Hemoglobin 33.3 pg (28.0-34.0); Mean Corpuscular Volume 100.4 fL (81-99); Mean Platelet Volume 11.3 fL (7.4-10.4); Platelet Count 129 10^3/cmm (130-400); Red Blood Count 2.64 10^6/uL (4.1-5.3); Red Cell Distribution Width 13.1 % (12.1-15.1)
[2020-05-12 06:08] LABS: Slide Review Slide Review Perform
[2020-05-12 06:11] LABS: Alanine Aminotransferase 385 U/L (0-33); Albumin Level 2.9 g/dL (3.5-5.2); Alkaline Phosphatase 101 IU/L (35-105); Anion Gap 12.1 (5-19); Aspartate Amino Transferase 674 U/L (0-32); Blood Urea Nitrogen 19 mg/dL (8-23); Calcium 8.5 mg/dL (8.5-10.5); Carbon Dioxide 31 mmol/L (22-29); Chloride 94 mmol/L (98-107); Globulin 3.2 g/dL (1.3-4.6); Glucose 105 mg/dL (65-115); Osmolality Calculated 281 mOsm/kg (285-295); Potassium 3.1 mmol/L (3.5-5.1); Sodium 134 mmol/L (136-145); Total Bilirubin 0.8 mg/dL (0.15-1.2); Total Protein 6.1 g/dL (6.6-8.7)
--- NOTE | 2020-05-12 06:11 | PC.NURSE ---
Patient incontinent of bladder brief soaked with a moderate amount.
[2020-05-12 06:23] LABS: Chol HDL Ratio 5.24 mg/dL (0.0-4.40); Cholesterol 89 mg/dL (0-200); HDL Cholesterol 17 mg/dL (60-100); LDL Cholesterol Calculated 29 mg/dL (50-129); LDL HDL Ratio 1.71 RATIO (0.00-3.22); Triglycerides 216 mg/dL (0-150)
[2020-05-12] MEDS: pantoprazole 40 mg SDV IVP (06:23)
[2020-05-12 07:40] LABS: Absolute Eosinophils 0.3 10^3/cmm (0.0-0.7); Absolute Neutrophil 2.7 10^3/cmm (1.4-6.5); Absolute Segmented Neutrophil 1.2 10/cmm (1.6-7.1); Anisocytosis 1+; Band Neutrophils Absolute 1.5 10^3/cmm (0.0-1.2); Eosinophils 8 %; Lymphocytes 17 %; Monocytes Absolute 0.3 10^3/cmm (0.1-0.6); Platelet Estimate Decreased (Normal); Polychromasia Trace; Segmented Neutrophils 31 %; Total Cells Counted 100 (0-100)
[2020-05-12 08:28] LABS: PROTEIN, TOTAL 6.3 g/dL (6.1-8.1)
[2020-05-12] MEDS: ferrous gluconate 324 mg Tablet PO ×2 (08:42→17:44)
[2020-05-12] MEDS: zinc gluconate 50 mg Tablet PO (08:43)
[2020-05-12] MEDS: cyanocobalamin 1,000 mcg Tablet 1000 MCG PO (08:44)
[2020-05-12] MEDS: ascorbic acid 500 mg Tablet PO (08:45)
[2020-05-12] MEDS: memantine 5 mg tablet 10 MG PO ×2 (08:48→17:44)
[2020-05-12] MEDS: omega-3 fatty acids 1,000 mg Capsule 1000 MG PO ×2 (08:48→17:44)
[2020-05-12] MEDS: folic acid 1 mg Tablet PO (08:50)
[2020-05-12] MEDS: atorvastatin 40 mg Tablet 20 MG PO (08:54)
[2020-05-12] MEDS: venlafaxine ER (24HR) 75 mg Capsule PO (08:56)
--- NOTE | 2020-05-12 08:57 | US_ITS ---
WS: [id number] ULTRASOUND ABDOMEN LIMITED CLINICAL INFORMATION: transamniis, hep c COMPARISON: None. FINDINGS: Liver Size: Normal. Craniocaudal length: 12.0 cm. Echogenicity: Coarse Surface nodularity: None. Mass (size and location): None. Bile ducts Intrahepatic ducts: Normal. Common bile duct diameter: 0.9 cm. Gallbladder Cholecystectomy Pancreas Normal as visualized. Right kidney: Normal. Hydronephrosis: None. Size: 9.6 cm x 3.8 cm x 5.0 cm. Abdominal aorta and IVC Visualized portions are normal. Small amount of perihepatic fluid. US/US liver [id number] IMPRESSION: 1. Coarse hepatic echogenicity suspicious for hepatocellular disease. Small am ount of perihepatic fluid. Recommend correlation with liver function studies 2. Prior cholecystectomy. 3. No hydronephrosis in the right kidney.
[2020-05-12] MEDS: metoprolol tartrate 50 mg Tablet 75 MG PO ×2 (08:58→17:44)
[2020-05-12] MEDS: doxycycline 100 mg Tablet PO ×2 (09:00→19:28)
--- NOTE | 2020-05-12 09:30 | PC.NURSE ---
Dr. Ley notified of manufacturing shift supervisor nursing report that patient had positive orthostatic blood pressure reading last night with significant dizziness and fainting with transfers to bedside commode. PT also reported positive orthostatic blood pressure readings to this nurse. New orders received for orthostatic blood pressure Q8 hours, start IV fluids at a low rate and stay in hospital until orthostatic blood pressures are negative. Reinforced with patient of fall risk, bed alarm active and call light in reach. Patient verbalizes understanding and is aware of limitations.
--- NOTE | 2020-05-12 09:59 | PC.SOCIAL ---
IMM Update Pg. 2 of IMM updated and copy provided to patient.
[2020-05-12] MEDS: sodium chloride 0.9% 1,000 ML 75 ML IV (10:05)
[2020-05-12 12:33] LABS: ABNORMAL PROTEIN BAND 1 0.1 g/dL (NONE DETECTED); ALBUMIN 2.9 g/dL (3.8-4.8); ALPHA 1 GLOBULIN 0.6 g/dL (0.2-0.3); ALPHA 2 GLOBULIN 0.5 g/dL (0.5-0.9); BETA 1 GLOBULIN 0.3 g/dL (0.4-0.6); BETA 2 GLOBULIN 0.4 g/dL (0.2-0.5); GAMMA GLOBULIN 1.5 g/dL (0.8-1.7)
[2020-05-12 13:04] LABS: COMPLEMENT COMPONENT C3C 126 mg/dL (83-193); COMPLEMENT COMPONENT C4C 46 mg/dL (15-57)
[2020-05-12 13:33] LABS: Beta-2-Microglobulin 11.37 mg/L (< OR = 2.51); COMPLEMENT, TOTAL (CH50) >60 U/mL (31-60); Cytomegalovirus Antibody (IGM) <30.00 AU/mL
[2020-05-12 13:33] LABS: Lyme AB Screen <0.90 index
--- NOTE | 2020-05-12 14:10 | PM.PN ---
Subjective Subjective: Interval history: This morning patient was examined, overnight she did have episodes of orthostatic hypotension, and passed out, this morning she was able to stand into a chair, no passing out spells, no chest pain, no palpitations, no strokelike symptoms, alert oriented x3, neurologically intact, no seizure-like episodes, continues to have a poor appetite, no nausea, no vomiting has chronic diarrhea, no chest pain, no shortness of breath, remains afebrile for the last 48 hours, Vitals/I&O/Wt Last Vital Signs Temp 97.3 F L 05/12/20 11:18 Pulse 63 05/12/20 11:18 Resp 16 05/12/20 11:18 BP 120/53 05/12/20 11:18 Pulse Ox 90 05/12/20 11:18 05/11/20 05/12/20 05/12/20 22:59 06:59 14:59 Intake Total 720 / 820 120 / 940 Output Total 100 / 100 150 / 250 Balance 620 / 720 -30 / 690 Weight last 48 hrs Weight 56.155 kg Weight 53.433 kg Physical Exam Const: COMMON NORMALS: no acute distress and patient oriented x3 HENMT: COMMON NORMALS: normocephalic HEAD & SCALP: normocephalic Neck/C-Spine: COMMON NORMALS: no JVD Resp: COMMON NORMALS: normal respiratory effort, No retractions, No use of accessory muscles and clear to auscultation bilaterally AUSCULTATION: clear to auscultation bilaterally Cardio: COMMON NORMALS: no JVD, regular rate, regular rhythm, S1 normal heart sound present and S2 normal heart sound present RATE: regular rate RHYTHM: regular rhythm HEART SOUNDS: S1 normal heart sound present and S2 normal heart sound present GI: COMMON NORMALS: Normal to inspection, nondistended, normoactive bowel sounds present, Soft to palpation, non-tender, No hepatosplenomegaly present, no masses and no bruits PALPATION: Yes Soft to palpation and Yes No hepatosplenomegaly present Extremity: COMMON NORMALS: capillary refill normal, no clubbing, cyanosis or edema, no calf tenderness and no pedal edema Neuro: COMMON NORMALS: patient oriented x3, CN's II-XII intact bilaterally, moves all extremities, no focal motor deficits and no sensory deficits noted Psych: COMMON NORMALS: mental status grossly normal Data : 05/12/20 05:07 05/12/20 05:07 Micro: Microbiology 05/10/20 11:29 Gram Stain - Final Sputum - Expectorated Sputum Sputum Culture - Final 05/07/20 05:59 Blood Culture - Final Blood NO GROWTH AFTER 5 DAYS 05/07/20 05:59 Blood Culture - Final Blood NO GROWTH AFTER 5 DAYS 05/09/20 17:27 Urine Culture - Final Urine,Voided A&P Assessment and plan (1) Weakness: Status: Acute (2) Nausea and vomiting: Status: Acute (3) Celiac artery stenosis: Status: Acute (4) Hypoxia: Status: Acute (5) Hyponatremia: Status: Acute (6) Hypokalemia: Status: Acute (7) Essential hypertension: Status: Chronic (8) Pacemaker: Status: Chronic (9) Depression: Status: Chronic (10) Dementia: Status: Chronic Qualifiers: Dementia type: Alzheimer's disease Alzheimer's disease onset: other onset Dementia behavioral disturbance: without behavioral disturbance Qualified Code(s): G30.8 - Other Alzheimer's disease; F02.80 - Dementia in other diseases classified elsewhere without behavioral disturbance (11) Elevated d-dimer: Status: Acute (12) Pneumonia: Status: Acute Qualifiers: Laterality: unspecified laterality Lung location: unspecified part of lung Pneumonia type: due to unspecified organism Qualified Code(s): J18.9 - Pneumonia, unspecified organism (13) Persistent fever: Status: Acute (14) Anemia: Status: Acute (15) Vasovagal syncope: Status: Acute (16) Orthostatic hypotension: Status: Acute (17) Hepatitis C infection: Status: Acute (18) Transaminitis: Status: Acute Additional A&P Information 71-year-old female with past medical history of colon cancer, advanced age, dementia, sarcoidosis presented to the ER because of symptoms of weakness, fatigue, cough and myalgia going on for last 3 to 4 weeks was tested negative for COVID-19 2 days ago. Vasovagal syncope: -No strokelike symptoms, no seizure-like episodes -Orthostats were positive -Start gentle IV hydration 75 cc an hour -Closely monitor for fluid overload -Repeat orthostats every 8 hours -Ambulate with nursing help -Encourage p.o. intake Nausea, vomiting, poor appetite -Nausea and vomiting has resolved, poor appetite has not improved over the last few days, encourage p.o. intake -Likely secondary to gastritis from ibuprofen use -Patient admits to ibuprofen use, for multiple joint pains -Nausea and vomiting: CT abdomen pelvis with contrast done in the ER negative for any liver or gallbladder pathology. 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 -Lipase within normal limits. Patient is post cholecystectomy. Liver enzymes within normal limit other than mildly elevated AST. GI soft diet. Advance as tolerated. Zofran as needed. Protonix 40 p.o. 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 difficile negative Acute on chronic anemia, iron is low, ferritin is quite high, B12 folate within normal -History of colon cancer status post colon resection -Has had surveillance colonoscopies, last one a few years ago according to patient, nothing abnormal -Has had an EGD according to patient in the past, within normal limits -Does admit to ibuprofen use as above -Possibly a slow GI bleed related to ibuprofen use -Hemoglobin currently 9, ferritin is quite high -Patient had a 102 fever 20 minutes into getting her IV transfusion of blood, blood was stopped, received Benadryl, transfusion reaction panel was negative -Monitor hemodynamics -Patient will require a bone marrow biopsy, I spoke to Dr. Rausch he agrees that she will need a bone marrow biopsy, likely next week Weakness: Likely secondary to viral prodrome, anemia, electrolyte abnormalities which have resolved, deconditioning Sodium 128, currently 134, will start on gentle IV hydration Check BMP daily for now Weakness, deconditioning:physical therapy evaluation and treat. I discussed going to [facility] if she continues to feel weak, or home health care, anticipate discharge likely 4 hours Hypoxia secondary to community-acquired pneumonia, atypical pneumonia, viral prodrome: Patient does not have any signs of consolidation on chest imaging. Saturating high 90s on room air Patient has remained afebrile for the last 48 hours -Currently lymphopenia, , CT angiogram of the chest shows tree in bud density in the right upper anterior segment, could be aspiration component and/or COVID-19 possibly, first Covid 19 PCR negative, repeat Covid negative, viral PCR pending CMV, protein electrophoresis, EBV studies pending Patient hepatitis C antibody is positive, no known exposure, was negative in 2017, she is not sure about blood transfusions, does have developing transaminitis, no alk phos elevation, no T bili elevation, chronicity of hep C unknown, acute versus chronic. I spoke to infectious disease, currently no need to treat hep C we will currently will hold off on treating hepatitis C Taken off isolation -ESR is elevated, CRP is elevated -Follow MRSA swab, sputum culture, blood culture, urine Legionella, bacterial antigen for now., Which are all negative for now, repeat blood cultures are negative -I have de-escalate antibiotics to doxycycline as I am concerned for possible drug fevers and transaminitis associated with azithromycin and Rocephin -LDH is high, however CT of the chest did not have significant evidence of PCP pneumonia -Spiriva, Advair for now. -Hold Lasix for today Transaminitis, AST 634, ALT 385 -CT scan showed hepatic echogenicity suspicious for hepatocellular disease -Small amount of perihepatic pleural fluid, I think the likelihood of spontaneous bacterial peritonitis is fairly unlikely -Likely related to hepatitis C, chronic -Will need to continue to monitor Patient has persistent fevers: Has been on antibiotics last 48 hours -Repeat blood cultures, sputum cultures, urine cultures are all negative -Given neck pain, CT imaging of the cervical, thoracic, lumbar spine unremarkable for osteomyelitis or epidural abscess -Cardiac echocardiogram showed moderate to heavy mitral annular calcifications, thickened mitral v vance, mild to moderate mitral valve regurg, thickened aortic valve, trace aortic valve regurg, pacer wire in the right ear right ventricle, trace tricuspid regurg. I reviewed echocardiogram with Dr. Anderson, no significant findings of a vegetation -Highly doubtful that pacer wires are infected as negative blood cultures -Patient tells me that she has a history of sarcoidosis in the past, she was found to have elevated serum MARIBEL levels, it is not uncommon to have reactivation of sarcoidosis after colon cancer -I reviewed patient's imaging with Dr. Mcbride, it does seem she has aortic pulmonary window lymph nodes, retrocaval/pretracheal enlarged lymph nodes, subcarinal lymph nodes, given history of colon cancer she will need a biopsy, likely as outpatient -I reviewed the case with Dr. Rausch, he tells me that she has a history of chronic anemia, there has been concerns for myelodysplastic syndrome, and she will likely need a bone marrow biopsy PLAN: -Persistent fevers could be multifactorial related to community-acquired pneumonia as above, viral prodrome -Other possibilities include sarcoidosis, serum MARIBEL level pending -She will need a biopsy of her chest lymph nodes to rule out malignancy and could be a reason for recurrent fevers -She will need a bone marrow biopsy to evaluate for myelodysplastic syndrome, and could be a reason for recurrent fevers -Viral panel pending, DUANE panel pending, CMV pending, electrophoresis pending, hep C genotype RNA pending, peripheral smear pending -Elevated D-dimer: Most likely because of celiac artery stenosis. CTA negative for PE. Celiac artery stenosis: Patient does not give any signs of mesenteric ischemia or peritonitis at present. -Patient has celiac artery stenting back in 2005 -discussion about the CT abdomen pelvis with Dr. Greenfield from [facility] states that the occlusion seems more chronic and was also evident on CT done in August. -Lactate negative in the ER. -No abdominal complaints, abdomen is nontender, nondistended, no guarding, no rebound, no rigidity -For now we will treat conservatively. We will also check stool studies. -Monitor hemoglobin closely, no abdominal pain -Patient's case also discussed with vascular surgeon at [facility]. He states he would like to treat patient conservatively for now and then follow-up as an outpatient for possible revascularization. Hypertension: Goal blood pressure less than 140/90 mmHg. Continue with home dose of metoprolol. No signs of fluid overload at present. Continue other chronic medications like ascorbic acid, atorvastatin, folic acid, Namenda, venlafaxine. PT/OT evaluation. CODE STATUS: Discussed in detail with patient's . They would want to be full code for now. GI soft diet. Protonix for PUD prophylaxis Heparin for DVT prophylaxis. Attestations Medical Necessity Statement*: Patient requires hospitalization for pneumonia, orthostatic hypotension, dehydration Coding Level of Care Code Acute [employer] for [facility] [employer] Diagnoses Weakness R53.1 Nausea and vomiting R11.2 Celiac artery stenosis I77.4 Hypoxia R09.02 Hyponatremia E87.1 Hypokalemia E87.6 Essential hypertension I10 Pacemaker Z95.0 Depression F32.9 Dementia G30.8; F02.80 Dementia type: Alzheimer's disease Alzheimer's disease onset: other onset Dementia behavioral disturbance: without behavioral disturbance Elevated d-dimer R79.89 Pneumonia J18.9 Laterality: unspecified laterality Lung location: unspecified part of lung Pneumonia type: due to unspecified organism Persistent fever R50.9 Anemia D64.9 Vasovagal syncope R55 Orthostatic hypotension I95.1 Hepatitis C infection B19.20 Transaminitis R74.01
[2020-05-12] MEDS: potassium chloride ER 10 mEq Tablet 40 MEQ PO (14:23)
[2020-05-12] MEDS: methylphenidate 10 mg Tablet 5 MG PO (14:23)
[2020-05-12 15:32] LABS: THYROID PEROXIDASE ANTIBODIES <1 IU/mL (<9)
[2020-05-12 16:32] LABS: KAPPA LIGHT CHAIN, FREE, SERUM 117.9 mg/L (3.3-19.4); LAMBDA LIGHT CHAIN, FREE, SERU 65.4 mg/L (5.7-26.3)
[2020-05-12 16:32] LABS: Creatinine, Random Urine 102 mg/dL (20-275); Protein, Total, Random 129 mg/dL (5-24); Protein/Creatinine Ratio 1.265 (0.021-0.161); Protein/Creatinine Ratio 1265 mg/g creat (21-161)
[2020-05-12] MEDS: pantoprazole DR 40 mg Tablet PO (17:44)
[2020-05-12 18:33] LABS: Adenovirus Not Detected (Not Detected); Human Metapneumovirus Not Detected (Not Detected); Human Parainflu Virus 1 Not Detected (Not Detected); Human Parainflu Virus 2 Not Detected (Not Detected); Human Parainflu Virus 3 Not Detected (Not Detected); Human Rsv A Not Detected (Not Detected); Influenza A Not Detected (Not Detected); Influenza B Not Detected (Not Detected); Rhinovirus/Enterovirus Not Detected (Not Detected)
--- NOTE | 2020-05-12 18:38 | PC.NURSE ---
Dr. Ley notified of orthostatic bp results as charted, new order received to decrease IVF to 50mL/hr.
[2020-05-13] VITALS (8 sets, daily range): BP systolic 111–176; BP diastolic 58–82; PULSE 66–74; RESP 16–18; TEMP 36.3–36.9; O2SAT 91–97
[2020-05-13] MEDS: sodium chloride 0.9% 1,000 ML 50 ML IV (02:37)
[2020-05-13 05:49] LABS: Basophils % 0.7 %; Eosinophils # 0.3 10^3/uL (0.0-0.8); Eosinophils % 6.5 %; Hematocrit 24.7 % (37.0-47.0); Hemoglobin 8.1 g/dL (11.5-15.3); Lymphocytes % 22.1 %; Mean Corpuscular HGB Conc 32.8 g/dL (30.0-36.0); Mean Corpuscular Hemoglobin 33.6 pg (28.0-34.0); Mean Corpuscular Volume 102.5 fL (81-99); Mean Platelet Volume 11.2 fL (7.4-10.4); Monocytes # 0.3 10^3/uL (0.2-0.9); Monocytes % 7.8 %; Neutrophils # 2.71 10^3/uL (1.8-7.7); Neutrophils % 62.4 %; Nucleated Red Blood Cells % 0 %; Platelet Count 116 10^3/cmm (130-400); Red Blood Count 2.41 10^6/uL (4.1-5.3); Red Cell Distribution Width 13.2 % (12.1-15.1); White Blood Count 4.3 10^3/uL (4.0-10.0)
[2020-05-13 06:19] LABS: Alanine Aminotransferase 396 U/L (0-33); Albumin Level 2.8 g/dL (3.5-5.2); Alkaline Phosphatase 111 IU/L (35-105); Anion Gap 13.3 (5-19); Aspartate Amino Transferase 583 U/L (0-32); Blood Urea Nitrogen 16 mg/dL (8-23); Calcium 8.3 mg/dL (8.5-10.5); Carbon Dioxide 27 mmol/L (22-29); Chloride 98 mmol/L (98-107); Globulin 2.9 g/dL (1.3-4.6); Glucose 95 mg/dL (65-115); Osmolality Calculated 281 mOsm/kg (285-295); Potassium 3.3 mmol/L (3.5-5.1); Sodium 135 mmol/L (136-145); Total Bilirubin 0.9 mg/dL (0.15-1.2); Total Protein 5.7 g/dL (6.6-8.7)
[2020-05-13] MEDS: venlafaxine ER (24HR) 75 mg Capsule PO (08:37)
[2020-05-13] MEDS: memantine 5 mg tablet 10 MG PO (08:37)
[2020-05-13] MEDS: doxycycline 100 mg Tablet PO (08:37)
[2020-05-13] MEDS: cyanocobalamin 1,000 mcg Tablet 1000 MCG PO (08:37)
[2020-05-13] MEDS: omega-3 fatty acids 1,000 mg Capsule 1000 MG PO (08:38)
[2020-05-13] MEDS: metoprolol tartrate 50 mg Tablet 75 MG PO (08:38)
[2020-05-13] MEDS: zinc gluconate 50 mg Tablet PO (08:38)
[2020-05-13] MEDS: folic acid 1 mg Tablet PO (08:38)
[2020-05-13] MEDS: ascorbic acid 500 mg Tablet PO (08:38)
[2020-05-13] MEDS: atorvastatin 40 mg Tablet 20 MG PO (08:38)
[2020-05-13] MEDS: pantoprazole DR 40 mg Tablet PO (08:38)
[2020-05-13] MEDS: ferrous gluconate 324 mg Tablet PO (08:38)
--- NOTE | 2020-05-13 08:42 | PC.NURSE ---
With assistance to bedside commode this morning patient has much less dizziness than yesterday and is able to transfer quicker than yesterday although still pausing after sit from laying and intermittently with transfers. Bed alarm activated, discussed plan of care, verbalized understanding, denies further questions or concerns, ate banana for breakfast today. Call light in reach, side rails up X2.
--- NOTE | 2020-05-13 11:09 | P.DS_ITS ---
Discharge Providers Date of Admission: 05/07/20 10:30 Date of Discharge: May 13, 2020 Attending Provider at Admission: Son Quiros MD Attending Provider at Discharge: Shen Ley MD Primary Care Provider: NARCISO Olivera Diagnoses at Discharge Discharge Diagnosis (1) Weakness: Status: Acute (2) Nausea and vomiting: Status: Acute (3) Celiac artery stenosis: Status: Acute (4) Hypoxia: Status: Acute (5) Hyponatremia: Status: Acute (6) Hypokalemia: Status: Acute (7) Essential hypertension: Status: Chronic (8) Pacemaker: Status: Chronic (9) Depression: Status: Chronic (10) Dementia: Status: Chronic Qualifiers: Alzheimer's disease onset: other onset Dementia behavioral disturbance: without behavioral disturbance Dementia type: Alzheimer's disease Qualified Code(s): G30.8 - Other Alzheimer's disease; F02.80 - Dementia in other diseases classified elsewhere without behavioral disturbance (11) Elevated d-dimer: Status: Acute (12) Pneumonia: Status: Acute Qualifiers: Laterality: unspecified laterality Lung location: unspecified part of lung Pneumonia type: due to unspecified organism Qualified Code(s): J18.9 - Pneumonia, unspecified organism (13) Persistent fever: Status: Acute (14) Anemia: Status: Acute (15) Vasovagal syncope: Status: Acute (16) Orthostatic hypotension: Status: Acute (17) Hepatitis C infection: Status: Acute (18) Transaminitis: Status: Acute Reason for Visit Reason for Visit: GENERALIZED WEAKNESS/ N/V/ TEMP Hospital Course Discharge Summary: This is a 71-year-old female with past medical history of chronic anemia, hypertension, osteoporosis, degenerative arthritis, anxiety and depression, pacemaker implantation for complete heart block in 2014, stage III colon cancer status post resection, Alzheimer's disease who presents to [facility] due to nausea, vomiting, poor appetite, fevers Patient was admitted to [facility] for nausea, vomiting, poor appetite, fevers multifactorial related to atypical pneumonia, dehydration, hyponatremia, hypokalemia, anemia For atypical pneumonia, patient was on oxygen at one-point up to 2 L, weaned off oxygen, on broad-spectrum antibiotics, wean to doxycycline, clinically improved, discharged on a total of 14 days of antibiotics for coverage of pneumonia and tickborne illness as below. Some of patient's respiratory symptoms seem a lot like a viral prodrome, Covid was negative twice, respiratory PCR pending. For Nausea, vomiting, -Nausea and vomiting has resolved through admission -Likely secondary to gastritis from ibuprofen use -Patient admits to ibuprofen use, for multiple joint pains -Nausea and vomiting: CT abdomen pelvis with contrast done in the ER negative for any liver or gallbladder pathology. 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 -Lipase within normal limits. Patient is post cholecystectomy. Liver enzymes within normal limit other than mildly elevated AST. -Discharged with Zofran for nausea, advised to abstain from ibuprofen use Weakness: Likely secondary to viral prodrome, anemia, electrolyte abnormalities, deconditioning For her poor appetite, etiology unclear? improved to some degree with Ritalin, prescribed low-dose 2.5 mg daily, advised to monitor for chest pain, changes in her behavior, if so stop the medication. Advised to drink plenty of electrolyte balance fluids, such as Gatorade, general diet For Chronic diarrhea related to colon cancer status post resection, this is unchanged, stool studies are unremarkable, so far Hemoccult negative, C. difficile negative For Acute on chronic anemia, iron is borderline, ferritin is quite high, B12 folate within normal, indicating the possibility of myelodysplastic syndrome and possible slow GI bleed -History of colon cancer status post colon resection -Has had surveillance colonoscopies, last one a few years ago according to patient, nothing abnormal -Has had an EGD according to patient in the past, within normal limits -Does admit to ibuprofen use as above -Possibly a slow GI bleed related to ibuprofen use -Hemoglobin 8-9, ferritin is quite high -Hemodynamics within normal limits -Patient will require a bone marrow biopsy, I spoke to Dr. Rausch he agrees that she will need a bone marrow biopsy, likely next week, will set up appointment early next week Transaminitis, AST 634, ALT 385 -CT scan showed hepatic echogenicity suspicious for hepatocellular disease -Small amount of perihepatic pleural fluid, I think the likelihood of spontaneous bacterial peritonitis is fairly unlikely -Likely related to hepatitis C, acute versus chronic, decided that there is low clinical suspicion for acute infection, -Will need to continue to monitor -Hepatitis C viral PCR sent, needs to follow-up with primary care for treatment Patient had persistent fevers despite being on antibiotics -Repeat blood cultures, sputum cultures, urine cultures are all negative -Given neck pain, CT imaging of the cervical, thoracic, lumbar spine unremarkable for osteomyelitis or epidural abscess -Cardiac echocardiogram showed moderate to heavy mitral annular calcifications, thickened mitral v vance, mild to moderate mitral valve regurg, thickened aortic valve, trace aortic valve regurg, pacer wire in the right ear right ventricle, trace tricuspid regurg. I reviewed echocardiogram with Dr. Anderson, no significant findings of a vegetation -Highly doubtful that pacer wires are infected as negative blood cultures -Patient tells me that she has a history of sarcoidosis in the past, she was found to have elevated serum MARIBEL levels, it is not uncommon to have reactivation of sarcoidosis after colon cancer, serum MARIBEL levels pending -I reviewed patient's imaging with Dr. Mcbride, it does seem she has aortic pulmonary window lymph nodes, retrocaval/pretracheal enlarged lymph nodes, subcarinal lymph nodes, given history of colon cancer she will need a biopsy, likely as outpatient -I reviewed the case with Dr. Rausch, he tells me that she has a history of chronic anemia, there has been concerns for myelodysplastic syndrome, and she will likely need a bone marrow biopsy -LDH was high, no CT scan evidence of PCP pneumonia - PLAN: -Persistent fevers could be multifactorial related to community-acquired pneumonia as above, viral prodrome -Other possibilities include sarcoidosis, serum MARIBEL level pending, underlying malignancy -She will need a biopsy of her chest lymph nodes to rule out malignancy and could be a reason for recurrent fevers -She will need a bone marrow biopsy to evaluate for myelodysplastic syndrome, and could be a reason for recurrent fevers -Viral panel pending, DUANE panel pending, CMV pending, electrophoresis pending, hep C genotype RNA pending, peripheral smear pending, tick panel Celiac artery stenosis: Incidentally found on imaging of the abdomen, patient does not give any signs of mesenteric ischemia or peritonitis at present. -Patient has celiac artery stenting back in 2005 -discussion about the CT abdomen pelvis with Dr. Greenfield from [facility] states that the occlusion seems more chronic and was also evident on CT done in August. -Lactate negative. -No abdominal complaints, abdomen is nontender, nondistended, no guarding, no rebound, no rigidity -For now we will treat conservatively. Full-sized negative -Monitor hemoglobin closely as outpatient, no abdominal pain -Patient's case also discussed with vascular surgeon at [facility]. He states he would like to treat patient conservatively for now and then follow-up as an outpatient for possible revascularization. -We will have patient follow-up with vascular surgery as outpatient - Physical Exam Const: COMMON NORMALS: no acute distress and patient oriented x3 HENMT: COMMON NORMALS: normocephalic HEAD & SCALP: normocephalic Neck/C-Spine: COMMON NORMALS: no JVD Resp: COMMON NORMALS: normal respiratory effort, No retractions, No use of accessory muscles and clear to auscultation bilaterally AUSCULTATION: clear to auscultation bilaterally Cardio: COMMON NORMALS: no JVD, regular rate, regular rhythm, S1 normal heart sound present and S2 normal heart sound present RATE: regular rate RHYTHM: regular rhythm HEART SOUNDS: S1 normal heart sound present and S2 normal heart sound present GI: COMMON NORMALS: Normal to inspection, nondistended, normoactive bowel sounds present, Soft to palpation, non-tender, No hepatosplenomegaly present, no masses and no bruits PALPATION: Yes Soft to palpation and Yes No hepatosplenomegaly present Extremity: COMMON NORMALS: capillary refill normal, no clubbing, cyanosis or edema, no calf tenderness and no pedal edema Neuro: COMMON NORMALS: patient oriented x3 Psych: COMMON NORMALS: mental status grossly normal Discharge Data Data Completed and Pending: Completed Studies During Hospitalization Category Date Time Status CT angio chest w abd pel w con Urge nt Cat Scan 05/07/20 07:[address] cervical spin wo con* 30500 Rout ine Cat Scan 05/09/20 10:[address] lumbar spine w o con* [id number] Routi ne Cat Scan 05/09/20 10:[address] thoracic spin wo con* [id number] Rout ine Cat Scan 05/09/20 10:48 Completed XR chest 1V ashlie ble [id number] Urgent Exams 05/07/20 05:43 Completed CV echo complete* [id number] Routine Ultrasound 05/07/20 13:13 [place] [id number] Urgent Ultrasound 05/07/20 13:14 Completed US liver [id number] Ro utine Ultrasound 05/12/20 08:57 Completed US thyroid 74630 Routine Ultrasound 05/10/20 12:56 Completed Pending at discharge Category Date Time Status EDWIN Profile Rheum atology Stat Lab 05/11/20 13:15 Results Blood Culture Sta t Lab 05/09/20 12:52 Results Complete Blood Co unt w/Auto AM LABS Lab 05/14/20 04:00 Ordered Comprehensive Met abolic Panel AM LA BS Lab 05/14/20 04:00 Ordered Hepatitis C Genot ype RNA Stat Lab 05/11/20 05:45 Received Hepatitis C RNA V iral Load Qnt Stat Lab 05/11/20 05:45 Received [place] Free Light Chains Urine Stat Lab 05/11/20 11:20 Received Tick Panel Stat Lab 05/11/20 16:35 Results Urine Protein Areli ctrop Random Stat Lab 05/11/20 11:20 Results Labs from last 24 hours 05/13/20 05/13/20 05/11/20 05:18 05:18 16:35 WBC 4.3 RBC 2.41 L Hgb 8.1 L Hct 24.7 L MCV 102.5 H MCH 33.6 MCHC 32.8 RDW 13.2 Plt Count 116 L MPV 11.2 H Neut % (Auto) 62.4 Lymph % (Auto) 22.1 [place] % (Auto) 7.8 Eos % (Auto) 6.5 Baso % (Auto) 0.7 Neut # (Auto) 2.71 Lymph # (Auto) 1.0 [place] # (Auto) 0.3 Eos # (Auto) 0.3 Baso # (Auto) 0.0 Nucleated RBC % (a uto) 0 Nucleated RBCs # 0.0 Sodium 135 L Potassium 3.3 L Chloride 98 Carbon Dioxide 27 Anion Gap 13.3 BUN 16 Creatinine 0.7 GFR Calculation Not Reportable Glucose 95 Calculated Osmolal ity 281 L Calcium 8.3 L Total Bilirubin 0.9 AST 583 H ALT 396 H Alkaline Phosphata se 111 H Total Protein 5.7 L Albumin 2.8 L Globulin 2.9 Gjxrr-6-Lnmcfozif Wtcjs-4-Mjwdhshqp Eqsn-6-Jyffgntm Kxyv-9-Pczgcvkx Pthv-5-Mlxxjunjuzu in Gamma Globulins Abnorm Protein Ban d 1 Ur Random Creatini ne U Random Total Pro tein Protein/Creatinin Ratio Protein/Creat Rati o 24h U Abnormal Prot Ba nd 2 U Abnormal Prot Ba nd 3 RSV Nasal Swab RSV Nasal Swab Int Cntl Pro Electrophoresi s Int Thyroid Peroxidase Ab Complement C3c Complement C4c CH50 Classical Pat [place]way Free [place] Light C hains Free Lambda Light Chain Free [place]/Lambda Ratio Adenovirus (PCR) Lyme Ab (Western B lot) <0.90 CMV IgG Ab CMV IgM Ab Human Metapneumovi r PCR Influenza A (RT-PC R) Influenza A (H1) P CR Influenza A (H3) P CR Influenza B (RT-PC R) Parainfluenzae Typ e 1 Parainfluenzae Typ e 2 Parainfluenzae Typ e 3 RSV Ab Comment Rhinovirus (PCR) 05/11/20 05/11/20 05/11/20 13:15 13:15 13:15 WBC RBC Hgb Hct MCV MCH MCHC RDW Plt Count MPV Neut % (Auto) Lymph % (Auto) [place] % (Auto) Eos % (Auto) Baso % (Auto) Neut # (Auto) Lymph # (Auto) [place] # (Auto) Eos # (Auto) Baso # (Auto) Nucleated RBC % (a uto) Nucleated RBCs # Sodium Potassium Chloride Carbon Dioxide Anion Gap BUN Creatinine GFR Calculation Glucose Calculated Osmolal ity Calcium Total Bilirubin AST ALT Alkaline Phosphata se Total Protein Albumin Globulin Zfzca-6-Evtaciyrn Wfihf-4-Wekbiiixl Nytg-1-Ikptvcjc Qanq-5-Uqeafqxe Hjwl-7-Mnljovnlhtd in 11.37 H Gamma Globulins Abnorm Protein Ban d 1 Ur Random Creatini ne U Random Total Pro tein Protein/Creatinin Ratio Protein/Creat Rati o 24h U Abnormal Prot Ba nd 2 U Abnormal Prot Ba nd 3 RSV Nasal Swab RSV Nasal Swab Int Cntl Pro Electrophoresi s Int Thyroid Peroxidase Ab <1 Complement C3c 126 Complement C4c 46 CH50 Classical [place]way >60 H Free [place] Light C hains Free Lambda Light Chain Free [place]/Lambda Ratio Adenovirus (PCR) Lyme Ab (Western B lot) CMV IgG Ab 8.50 H CMV IgM Ab <30.00 Human Metapneumovi r PCR Influenza A (RT-PC R) Influenza A (H1) P CR Influenza A (H3) P CR Influenza B (RT-PC R) Parainfluenzae Typ e 1 Parainfluenzae Typ e 2 Parainfluenzae Typ e 3 RSV Ab Comment Rhinovirus (PCR) 05/11/20 05/11/20 05/11/20 13:15 13:15 11:20 WBC RBC Hgb Hct MCV MCH MCHC RDW Plt Count MPV Neut % (Auto) Lymph % (Auto) [place] % (Auto) Eos % (Auto) Baso % (Auto) Neut # (Auto) Lymph # (Auto) [place] # (Auto) Eos # (Auto) Baso # (Auto) Nucleated RBC % (a uto) Nucleated RBCs # Sodium Potassium Chloride Carbon Dioxide Anion Gap BUN Creatinine GFR Calculation Glucose Calculated Osmolal ity Calcium Total Bilirubin AST ALT Alkaline Phosphata se Total Protein Albumin 2.9 L Globulin Ymphq-6-Mcyukjvqx 0.6 [address]-5-Zxjvosauc 0.5 Scdx-2-Mtlnpkrn 0.3 L Bkoe-2-Phxepbpi 0.4 Xqxb-4-Umclhtmydvt in Gamma Globulins 1.5 Abnorm Protein Ban d 1 0.1 H Ur Random Creatini ne 102 U Random Total Pro tein 129 H Protein/Creatinin Ratio 1265 H Protein/Creat Rati o 24h 1.265 H U Abnormal Prot Ba nd 2 Not Reportable U Abnormal Prot Ba nd 3 Not Reportable RSV Nasal Swab RSV Nasal Swab Int Cntl Pro Electrophoresi s Int See note Thyroid Peroxidase Ab Complement C3c Complement C4c CH50 Classical Pat [place]way Free [place] Light C hains 117.9 H Free Lambda Light Chain 65.4 H Free [place]/Lambda Ratio 1.80 H Adenovirus (PCR) Lyme Ab (Western B lot) CMV IgG Ab CMV IgM Ab Human Metapneumovi r PCR Influenza A (RT-PC R) Influenza A (H1) P CR Influenza A (H3) P CR Influenza B (RT-PC R) Parainfluenzae Typ e 1 Parainfluenzae Typ e 2 Parainfluenzae Typ e 3 RSV Ab Comment Rhinovirus (PCR) 05/09/20 08:14 WBC RBC Hgb Hct MCV MCH MCHC RDW Plt Count MPV Neut % (Auto) Lymph % (Auto) [place] % (Auto) Eos % (Auto) Baso % (Auto) Neut # (Auto) Lymph # (Auto) [place] # (Auto) Eos # (Auto) Baso # (Auto) Nucleated RBC % (a uto) Nucleated RBCs # Sodium Potassium Chloride Carbon Dioxide Anion Gap BUN Creatinine GFR Calculation Glucose Calculated Osmolal ity Calcium Total Bilirubin AST ALT Alkaline Phosphata se Total Protein Albumin Globulin Wjoek-0-Jrdtkhafm Pjwcu-8-Soghfrsue Ihim-5-Taxwannf Xjga-7-Nflsuncn Mgpf-8-Snrjcrwqcoh in Gamma Globulins Abnorm Protein Ban d 1 Ur Random Creatini ne U Random Total Pro tein Protein/Creatinin Ratio Protein/Creat Rati o 24h U Abnormal Prot Ba nd 2 U Abnormal Prot Ba nd 3 RSV Nasal Swab Not detected RSV Nasal Swab Int Cntl Not detected Pro Electrophoresi s Int Thyroid Peroxidase Ab Complement C3c Complement C4c CH50 Classical [place] Free [place] Light C hains Free Lambda Light Chain Free [place]/Lambda Ratio Adenovirus (PCR) Not detected Lyme Ab (Western B lot) CMV IgG Ab CMV IgM Ab Human Metapneumovi r PCR Not detected Influenza A (RT-PC R) Not detected Influenza A (H1) P CR Not detected Influenza A (H3) P CR Not detected Influenza B (RT-PC R) Not detected Parainfluenzae Typ e 1 Not detected Parainfluenzae Typ e 2 Not detected Parainfluenzae Typ e 3 Not detected RSV Ab Comment see note Rhinovirus (PCR) Not detected Vitals: Last Vital Signs Temp 98.2 F 05/13/20 07:28 Pulse 74 05/13/20 07:28 Resp 18 05/13/20 07:28 BP 176/82 05/13/20 07:28 Pulse Ox 91 05/13/20 07:28 Discharge Plan Discharge Patient Disposition: Home Health Service Condition: Stable Prescriptions: New Advair Diskus 250-50 mcg/dose Blister With Device 1 ea inhalation BID.RESPIRATORY Qty: 60 RF: 0 doxycycline monohydrate 100 mg Tablet 100 mg PO Q12H 14 Days Qty: 28 RF: 0 ferrous gluconate 324 mg (37.5 mg iron) Tablet 324 mg PO BIDWM 30 Days Qty: 60 RF: 0 pantoprazole 40 mg Tablet,Delayed Release (Dr/Ec) 40 mg PO BID 30 Days Qty: 60 RF: 0 Spiriva with HandiHaler 18 mcg Capsule, W/Inhalation Device 18 mcg inhalation DAILY.RESPIRATORY Qty: 30 RF: 0 Ritalin 5 mg tablet 2.5 mg PO DAILY 30 Days Qty: 15 RF: 0 Klor-Con M20 20 mEq tablet,ER particles/crystals 20 meq PO DAILY 30 Days Qty: 30 RF: 0 Zofran 4 mg tablet 4 mg PO Q8H PRN (Reason: nausea and vomiting) 15 Days Qty: 30 RF: 0 Continued ergocalciferol (vitamin D2) 50,000 unit tablet 50,000 unit PO Q30D RF: 0 omega-3 fatty acids [Fish Oil Concentrate] 1,000 mg capsule 1,000 mg PO BID RF: 0 folic acid 800 mcg tablet 800 mcg PO DAILY RF: 0 ascorbate calcium (vitamin C) 500 mg tablet 500 mg PO DAILY RF: 0 cyanocobalamin (vitamin B-12) 5,000 mcg capsule 5,000 mcg PO DAILY RF: 0 metoprolol tartrate 25 mg tablet 75 mg PO BID Qty: 540 RF: 1 atorvastatin [Lipitor] 10 mg tablet 10 mg PO DAILY Qty: 90 RF: 1 memantine [Namenda] 10 mg tablet 10 mg PO BID Qty: 60 RF: 5 venlafaxine 37.5 mg capsule,extended release 24hr 75 mg PO DAILY RF: 0 Discharge Orders: Discharge Order (Routine); Ordered 05/13/20 Ordered By: Shen Ley Other Ambulatory Orders: DME: Walker (Order) Location: None Selected Ordered By: Shen Ley Referrals: [facility] [Other] [facility] [Outside] Jeromy Moralez, PRODUCTION CHECKER-C [Primary Care Provider] - (Louisa Moralez's office should call you Friday with an appointment. If you don't hear from them please call [phone]) Ralph Mcbride MD [Physician] - 7-10 days (for aortcaval lymphadenopathy [facility] Pulmonology should call you Friday with an appointment. If you don't hear from them please call [phone].) Jasvir Leonard [Referring] - 2 weeks (vascular [facility]) Greg Galloway MD [Staff Physician] - 1-3 days (for BM biopsy [facility] should call you Friday with an appointment. If you don't hear from them please call [phone]) Discharge Diet: Regular Discharge Activity: Resume usual activity Patient Instructions: Hepatitis C, Dehydration (DC), Syncope (DC), Community- acquired Pneumonia (GEN), Anemia (DC) Activity Restrictions/Additional Instructions: -Please follow-up with Dr. Galloway, hopefully on Friday or Friday for bone marrow biopsy, case was discussed with Dr. Rausch, Dr. Rausch does not to bone marrow biopsies, Dr. Galloway will be back in the office on Friday. If you do not hear from us, please call Dr. Galloway's office -Please follow-up with Dr. Mcbride for chest lymphadenopathy, in 7 to 10 days -Please follow-up for vascular surgery, in [place] in 1 month for celiac artery stenosis -For pneumonia please use Advair, Spiriva, doxycycline as prescribed -For dehydration and vasovagal syncope, please drink plenty of electrolyte balance fluids daily -I have prescribed an appetite stimulant, if it causes chest pain, changes in your mood or behavior please stop Ritalin -If you have lightheadedness, dizziness, worsening nausea, vomiting, chest pain, shortness of breath, or fevers go to the emergency room Discharge Attestations Time Spent in Discharge Care*: less than 30 min Quality Metrics Clinical Quality Measures During this hospital stay, did patient experience: None Coding Level of Care Code Acute Radiation Officer for g Fwd Exam Comprehensive Diagnoses Weakness R53.1 Nausea and vomiting R11.2 Celiac artery stenosis I77.4 Hypoxia R09.02 Hyponatremia E87.1 Hypokalemia E87.6 Essential hypertension I10 Pacemaker Z95.0 Depression F32.9 Dementia G30.8; F02.80 Alzheimer's disease onset: other onset Dementia behavioral disturbance: without behavioral disturbance Dementia type: Alzheimer's disease Elevated d-dimer R79.89 Pneumonia J18.9 Laterality: unspecified laterality Lung location: unspecified part of lung Pneumonia type: due to unspecified organism Persistent fever R50.9 Anemia D64.9 Vasovagal syncope R55 Orthostatic hypotension I95.1 Hepatitis C infection B19.20 Transaminitis R74.01
--- NOTE | 2020-05-13 11:57 | PC.NURSE ---
discharge instructions reviewed with patient verbalized understanding
[2020-05-15 12:13] LABS: HEP C RNA Viral Load Quant <1.18 NOT DETECTED Log IU/mL (NOT DETECTED); HEP C RNA Viral Load Quant <15 NOT DETECTED IU/mL (NOT DETECTED)
[2020-05-15 13:43] LABS: ANA SCREEN, IFA NEGATIVE (NEGATIVE)
[2020-05-15 14:13] LABS: CENTROMERE B ANTIBODY <1.0 NEG AI (<1.0 NEG); JO-1 ANTIBODY <1.0 NEG AI (<1.0 NEG); RNP ANTIBODY <1.0 NEG AI (<1.0 NEG); SCL-70 ANTIBODY <1.0 NEG AI (<1.0 NEG); SJOGREN'S ANTIBODY (SS-A) <1.0 NEG AI (<1.0 NEG); SM ANTIBODY <1.0 NEG AI (<1.0 NEG)
[2020-05-15 15:13] LABS: Albumin,Urine Random 17 %; Alpha-1-Globulins Urine Random 6 %; Alpha-2-Globulins Urine Random 15 %; Beta-Globulin,Urine Random 38 %; Gamma Globulin,Urine Random 24 %
[2020-05-15 16:42] LABS: E. Chaffeensis AB IGG <1:64; E. Chaffeensis AB IGM <1:20
[2020-05-17 00:52] LABS: DNA AB (DS) CRITHIDIA,IFA NEGATIVE (NEGATIVE)
--- NOTE | 2020-05-17 09:51 | PC.SOCIAL ---
Addendum entered by Nasra Gibson, RN 05/17/20 15:03: verified by phone and gave order to switch inhalers to those mentioned below and on formulary. Updated pharmacy. Original Note: Called by pharmacy on inhalers to notify they are not covered by insurance. Attempted to call insurance to see if Advair can be switched to Incruse Ellipta 62.5mcg one inhalation daily and if can switch the Spiriva to formulary covered med Breo Ellipta 100mcg/25mcg one inhalation daily. Await return call from Dr Ley.
[2020-05-17 15:18] LABS: RMSF IGG DETECTED; RMSF IGM NOT DETECTED
[2020-05-18 02:13] LABS: Hepatitis C Genotype RNA NOT DETECTED
== END 2020-05-13 14:25 | disposition home health service (06) | DRG 640 ==
LOC: ER 10:35 → MEDSURG 12:52
PROVIDERS: Emergency Medicine; Admitting Provider Student in an Organized Health Care Education/Training Program; PCP Nurse Practitioner; Visit Provider Family Medicine
DX: E87.1 Hypo-osmolality and hyponatremia (principal); J18.9 Pneumonia, unspecified organism; I77.4 Celiac artery compression syndrome; J90 Pleural effusion, not elsewhere classified; E86.0 Dehydration; K29.70 Gastritis, unspecified, without bleeding; T39.315A Adverse effect of propionic acid derivatives, initial encounter; I10 Essential (primary) hypertension; M81.0 Age-related osteoporosis without current pathological fracture; M06.9 Rheumatoid arthritis, unspecified; F41.8 Other specified anxiety disorders; Z95.0 Presence of cardiac pacemaker; Z85.038 Personal history of other malignant neoplasm of large intestine; G30.9 Alzheimer's disease, unspecified; F02.80 Dementia in other diseases classified elsewhere, unspecified severity, without behavioral disturbance, psychotic disturbance, mood disturbance, and anxiety; E78.5 Hyperlipidemia, unspecified; G47.00 Insomnia, unspecified; Z90.49 Acquired absence of other specified parts of digestive tract; E87.6 Hypokalemia; R09.02 Hypoxemia; M79.10 Myalgia, unspecified site; R59.0 Localized enlarged lymph nodes; K52.89 Other specified noninfective gastroenteritis and colitis; B19.20 Unspecified viral hepatitis C without hepatic coma; R55 Syncope and collapse; I95.9 Hypotension, unspecified; I08.3 Combined rheumatic disorders of mitral, aortic and tricuspid valves; E04.1 Nontoxic single thyroid nodule; M51.26 Other intervertebral disc displacement, lumbar region; H70.91 Unspecified mastoiditis, right ear; M50.30 Other cervical disc degeneration, unspecified cervical region; D50.9 Iron deficiency anemia, unspecified
CPT/HCPCS: 12345; 36415; 36430; 71045; 71275; 72125; 72128; 72131; 74177; 76536; 76705; 80053; 80061; 80074; 80307; 80500; 81003; 82164; 82232; 82274; 82550; 82607; 82728; 82746; 83010; 83540; 83550; 83605; 83615; 83630; 83690; 83735; 83880; 83883; 84100; 84145; 84155; 84156; 84165; 84443; 85007; 85014; 85018; 85025; 85362; 85378; 85384; 85610; 85651; 85730; 86140; 86335; 86403; 86431; 86618; 86665; 86666; 86757; 86850; 86900; 86920; 87040; 87070; 87086; 87205; 87426; 87449; 87493; 87506; 87522; 87635; 87641; 87804; 87806; 87902; 93005; 93306; 93970; 94640; 94664; 96372; 96375; 97110; 97116; 97161; 97166; 97530; 97535; 99284; C9113; J0456; J0696; J1644; J1940; J2405; J3475; J7030; J7050; P9016; Q0144; Q9967

== ENCOUNTER → 2020-05-23 15:10 | Outpatient (BNVA) | payer MEDICARE, OTHER, SELFPAY | PROVIDERS: PCP Nurse Practitioner; Visit Provider Internal Medicine Critical Care Medicine | DX: R74.01 Elevation of levels of liver transaminase levels (principal); R79.89 Other specified abnormal findings of blood chemistry; D64.9 Anemia, unspecified; R59.0 Localized enlarged lymph nodes | CPT/HCPCS: 80053; 82728; 83615; 85025 ==

== ENCOUNTER → 2020-05-27 11:11 | Outpatient (BNVA) | payer MEDICARE, OTHER, SELFPAY | PROVIDERS: PCP Nurse Practitioner; Visit Provider Internal Medicine Medical Oncology | DX: Z01.812 Encounter for preprocedural laboratory examination (principal); Z20.828 Contact with and (suspected) exposure to other viral communicable diseases | CPT/HCPCS: 87635 ==

== ENCOUNTER 2020-06-01 09:49 | Day surgery (SDC) | payer MEDICARE, OTHER, SELFPAY ==
[2020-05-30 12:57] VITALS: BMI 21.6
[2020-06-01 10:27] VITALS: BP 173/75; PULSE 66; RESP 18; TEMP 36.1; O2SAT 99
[2020-06-01 10:38] LABS: Eosinophils # 0.2 10^3/uL (0.0-0.8); Eosinophils % 5.9 %; Lymphocytes # 0.8 10^3/uL (0.8-4.8); Lymphocytes % 19.2 %; Mean Corpuscular HGB Conc 32.3 g/dL (30.0-36.0); Mean Corpuscular Hemoglobin 33.1 pg (28.0-34.0); Mean Corpuscular Volume 102.6 fL (81-99); Mean Platelet Volume 9.8 fL (7.4-10.4); Monocytes # 0.5 10^3/uL (0.2-0.9); Monocytes % 11.5 %; Neutrophils # 2.43 10^3/uL (1.8-7.7); Neutrophils % 62.1 %; Nucleated Red Blood Cells % 0 %; Platelet Count 172 10^3/cmm (130-400); Red Blood Count 3.02 10^6/uL (4.1-5.3); Red Cell Distribution Width 15.7 % (12.1-15.1); White Blood Count 3.9 10^3/uL (4.0-10.0)
[2020-06-01] MEDS: sodium chloride 0.9% 1,000 ML 30 ML IV (10:38)
--- NOTE | 2020-06-01 10:42 | ANES.PREANE2 ---
Pre-Anesthetic Assessment Pre-Anesthetic Assessment: Height/Weight: Height 1.65 m Weight 58.967 kg Temp Pulse Resp BP Pulse Ox 97.0 F L 66 18 173/75 99 06/01/20 10:27 06/01/20 10:27 06/01/20 10:27 06/01/20 10:27 06/01/20 10:27 Preop Diagnosis: colon cancer Proposed Procedure: Operation Date: 06/01/20 11:00 Proposed Procedures p Bone Marrow Biopsy With Aspiration(Not Applicable) - Greg Galloway MD Familial anesthetic complications: None Was Beta Mandeep taken within 24 hours: Yes Last intake: Intake Last Liquid Date 05/31/20 Last Liquid Time 22:30 Last Solid Date 05/31/20 Last Solid Time 19:00 Social: Social History: Alcohol Comment: 2 beers daily Exam: Pre-Anes Outpt Exam: alert, oriented x 3, clear to auscultation bilaterally and regular rate & rhythm Airway: Cervical ROM: WNL MP: 3 Dentition: False and Partials Pulmonary: Comments: sarcoidosis CV/HEM: Comments: pacemaker for heart block echo EF 75%, grade I diastolic dysfunction, mild LVH Hepatic: Hepatic: Hepatitis (C) Musc/skel: Musc/skel: RA Anesthetic Plan: ASA status: 3 Anesthesia: MAC Risk of > 500 ml blood loss (7ml/kg in children): No Meds/Allergies Current Medications: Current Medications Generic Name Dose Route Start Last Admin Trade Name Freq PRN Reason Stop Dose Admin Sodium Chloride 1,000 mls @ 30 ml s/hr 06/01/20 10:00 06/01/20 10:38 Sodium Chloride 0.9% IV 06/02/20 09:59 30 mls/hr .Q24H JUSTINA Administration PFSH Anesthesia PFSH: Medical History (Updated 05/23/20 @ 15:33 by Ralph Mcbride MD) Anxiety Carpal tunnel syndrome Depression Essential hypertension History of colon cancer Hyperlipidemia Insomnia Joint pain Mild cognitive impairment Osteoporosis Pacemaker Postconcussive syndrome Rheumatoid arthritis Sarcoidosis Syncope Vitamin A deficiency Surgical History History of colonoscopy 2019 History of hemicolectomy History of left breast biopsy S/P cholecystectomy Family History Other Arthritis Cancer Diabetes Stroke Denies family history of Anesthesia complication Bleeding disorder Social History Smoking and tobacco status: never smoked Second hand smoke exposure: Yes Smoking risk assessment/counseling performed?: No Alcohol intake: current Alcohol intake frequency: 3 or more drinks per day Alcohol type: beer Desire information about alcohol rehabilitation?: No Counseling given: Yes Desire information about substance/drug rehabilitation?: No Counseling given: No Lives independently: Yes Household members: spouse Housing: House Marital status: Number of children: 0 service: No Current occupational status: retired Pets and animals: Yes Pets & animals: cat(s) and dog(s) History of recent travel: No Current gender identity: Female Data Anesthesia CBC & Chem 7: 06/01/20 10:32 Other Labs: Laboratory Results - last 48 hr 06/01/20 10:32 WBC 3.9 L RBC 3.02 L Hgb 10.0 L Hct 31.0 L MCV 102.6 H MCH 33.1 MCHC 32.3 RDW 15.7 H Plt Count 172 MPV 9.8 Neut % (Auto) 62.1 Lymph % (Auto) 19.2 [place] % (Auto) 11.5 Eos % (Auto) 5.9 Baso % (Auto) 1.0 Neut # (Auto) 2.43 Lymph # (Auto) 0.8 [place] # (Auto) 0.5 Eos # (Auto) 0.2 Baso # (Auto) 0.0 Nucleated RBC % (auto) 0 Nucleated RBCs # 0.0 Cardiac Studies: No Data to Display
[2020-06-01 12:10] VITALS: BP 146/66; PULSE 65; RESP 16; TEMP 36.3; O2SAT 98
[2020-06-01 12:31] VITALS: BP 143/87; PULSE 66; RESP 18; O2SAT 100
--- NOTE | 2020-06-01 12:40 | P.PCN_ITS ---
Bone Marrow Biopsy Bone Marrow Biopsy: I was consulted by [] office regarding bone marrow biopsy on Katherin erica[]. Briefly, the patient is a 79[] year old Female with [Anemia, abnormal SPEP]. In the Outpatient Services Department, with nursing staff and laboratory technologists in attendance, the procedure was discussed with the patient. Appropriate consent form had been signed. Appropriate alternatives, benefits and risks of procedure were discussed with the patient and she was pre- operatively assessed with a history and physical by myself and cleared for the biopsy procedure. The patient did request IV sedation and that was provided by the Anesthesia Department. Under sedation, posterior Superioriliac Area was cleaned and prepped, local anesthesia was given, about 15 mL of bone marrow aspirate and core biopsy was obtained patient tolerated procedure well, specimen was sent for routine histopathology, MDS panel and myeloma panel. Postprocedure nursing Instructions were given. Thank you for allowing me to participate in this patient's care and diagnosis. Coding Level of Care Code Acute Automatic Bow Maker Machine Tender for Phuong Landers
--- NOTE | 2020-06-01 20:17 | ANE.PACU2 ---
Inpatient post-anesthesia follow up: Airway intact: Yes Vital signs: Temperature 97.4 F Pulse Rate 66 Respiratory Rate 18 Blood Pressure 143/87 Pulse Oximetry 100 Oxygen Delivery Me thod Room Air Oxygen Flow Rate 2 Fraction of Inspir ed Oxygen Hydration adequate: Yes Nausea and vomiting: No Pain level: 2 Mental status: Baseline
[2020-06-05 11:24] LABS: Miscellaneous Test See Scanned Lab Rpt
[2020-07-05 09:14] LABS: Miscellaneous Test See Scanned Lab Rpt
== END 2020-06-01 12:44 | disposition home or self-care (01) ==
PROVIDERS: PCP Nurse Practitioner; Visit Provider Internal Medicine Hematology & Oncology
PROC: (CPT 38221; principal; 2020-06-01 11:00)
DX: D64.9 Anemia, unspecified (principal); D86.9 Sarcoidosis, unspecified; Z85.038 Personal history of other malignant neoplasm of large intestine; I10 Essential (primary) hypertension; E78.5 Hyperlipidemia, unspecified; B19.20 Unspecified viral hepatitis C without hepatic coma; I51.9 Heart disease, unspecified; Z95.0 Presence of cardiac pacemaker; Z90.49 Acquired absence of other specified parts of digestive tract
CPT/HCPCS: 12345; 36415; 38222; 85025; 88305; J2704; J7030

== ENCOUNTER → 2020-06-02 15:24 | Outpatient (BNVA) | payer MEDICARE, OTHER, SELFPAY | PROVIDERS: PCP Nurse Practitioner; Visit Provider Nurse Practitioner | DX: B37.0 Candidal stomatitis (principal); D64.9 Anemia, unspecified; R74.01 Elevation of levels of liver transaminase levels; B19.20 Unspecified viral hepatitis C without hepatic coma; R59.0 Localized enlarged lymph nodes | CPT/HCPCS: 80053; 85025 ==

== ENCOUNTER 2020-07-11 14:01 | Outpatient (CLI) | payer MEDICARE, OTHER, SELFPAY ==
--- NOTE | 2020-07-11 14:15 | USCV_ITS ---
Katherin Silva Age: 80 Gender: F : 1940 Exam Date: 07/11/2020 13:59 Ordering Phys: Marta Vasques MD ([email or web address]) Technologist: Mar Morocho [place]am [place] [facility] [place]: Stenosis Risk Factors: Previous Vascular Surgery: None Right Brachial BP: / Left Brachial BP: / Right Left Velocity (cm/s) Spectral Plaque Velocity (cm/s) Spectral Plaque Syst/Diast Broadening Syst/Diast Broadening 73.00/ 13.50 Prox CCA 68.60 / 9.50 64.30/ 14.30 Mid CCA 74.00 / 11.80 66.00/ 14.90 Distal CCA 58.70 / 13.10 96.95/ 20.25 Prox ICA 76.90 / 17.80 87.60/ 19.30 Mid ICA 96.60 / 22.50 92.90/ 20.10 Distal ICA 80.70 / 21.80 91.60 ECA 58.10 1.41 ICA/CCA 1.37 Antegrade Vertebral Antegrade 42.00/ 5.60 cm/s 45.40/ 10.10 cm/s Bi Subclavian Bi 151.5 111.2 0 0 FINDINGS Lt ICA appears to be tortuous Mild to moderate dense irregular plaques at the bifurcations and proximal internal carotid arteries bilaterally. Antegrade flow in the vertebral arteries bilaterally. Normal Doppler flow velocities in the external carotid arteries bilaterally Intimal thickening in the common carotid arteries bilaterally CONCLUSIONS Mild to moderate dense irregular plaques at the bifurcations and proximal internal carotid arteries bilaterallywith velocity elevation consistent with 16-49% stenosis. Intimal thickening in the common carotid arteries bilaterally No previous studies are available for comparison. Dr Marta Vasques MD [facility] (Electronically Signed) Final Date: 12 July 2020 19:44 S
== END 2020-07-11 14:02 | disposition home or self-care (01) ==
LOC: US 14:03
PROVIDERS: PCP Nurse Practitioner; Visit Provider Internal Medicine Cardiovascular Disease
DX: I65.23 Occlusion and stenosis of bilateral carotid arteries (principal)
CPT/HCPCS: 93880

== ENCOUNTER → 2020-08-07 16:51 | Outpatient (BNVA) | payer MEDICARE, OTHER, SELFPAY | PROVIDERS: PCP Nurse Practitioner; Visit Provider Nurse Practitioner Family | DX: M25.551 Pain in right hip (principal) | CPT/HCPCS: 73502 ==

== ENCOUNTER 2020-08-14 11:18 | Outpatient (CLI) | payer MEDICARE, OTHER, SELFPAY ==
[2020-08-14 12:10] LABS: Basophils % 0.9 %; Eosinophils # 0.1 10^3/uL (0.0-0.8); Hematocrit 34.7 % (37.0-47.0); Hemoglobin 11.4 g/dL (11.5-15.3); Lymphocytes % 22.1 %; Mean Corpuscular HGB Conc 32.9 g/dL (30.0-36.0); Mean Corpuscular Hemoglobin 34.3 pg (28.0-34.0); Mean Corpuscular Volume 104.5 fL (81-99); Mean Platelet Volume 10.6 fL (7.4-10.4); Monocytes # 0.4 10^3/uL (0.2-0.9); Monocytes % 7.7 %; Neutrophils # 3.11 10^3/uL (1.8-7.7); Neutrophils % 66.1 %; Nucleated Red Blood Cells % 0 %; Platelet Count 186 10^3/cmm (130-400); Red Blood Count 3.32 10^6/uL (4.1-5.3); White Blood Count 4.7 10^3/uL (4.0-10.0)
[2020-08-14 12:34] LABS: Alanine Aminotransferase 25 U/L (0-33); Albumin Level 4.4 g/dL (3.5-5.2); Alkaline Phosphatase 99 IU/L (35-105); Blood Urea Nitrogen 12 mg/dL (8-23); Calcium 9.5 mg/dL (8.5-10.5); Carbon Dioxide 29 mmol/L (22-29); Glucose 137 mg/dL (65-115); Total Bilirubin 0.7 mg/dL (0.15-1.2)
[2020-08-14 12:35] LABS: Aspartate Amino Transferase 28 U/L (0-32); Lactate Dehydrogenase 293 U/L (135-214); Potassium 3.4 mmol/L (3.5-5.1)
[2020-08-14 12:57] LABS: Erythrocyte Sedimentation Rate 41 mm/hr (0-15)
[2020-08-14 13:18] LABS: Anion Gap 11.4 (5-19); Chloride 99 mmol/L (98-107); Osmolality Calculated 284 mOsm/kg (285-295); Sodium 136 mmol/L (136-145)
[2020-08-14 13:19] LABS: Globulin 3.2 g/dL (1.3-4.6); Total Protein 7.6 g/dL (6.6-8.7)
--- NOTE | 2020-08-14 19:34 | ONC FU_ITS ---
Dr. Rausch Patient Follow-Up Note Patient: Katherin Silva Unit #: [id number]: 1940 Dicatated By: Musa Rausch M.D.Date of Visit:Aug 14, 2020 Onc Med Follow-up/Prog Note Chief Complaint: Colon cancer/hip pain. History of Present Illness: This is a 80 year-old woman with stage III colon cancer. She also is known to have sarcoidosis. She is seen today because of right hip pain. She underwent surgical resection for the colon cancer in 2005. She was given postoperative adjuvant chemotherapy with 12 cycles of modified FOLFOX, completed in June 2006. She had evidence of lymphadenopathy on her prestaging evaluation, and axillary lymph node biopsy was consistent with sarcoidosis. She has not received any specific treatment for it. During follow-up there has been no evidence of recurrence of the colon cancer. Her surveillance CT scans of the chest, abdomen, and pelvis in August 2019 showed no evidence of recurrent or metastatic disease. Her other medical illnesses include hypertension, osteoporosis, and degenerative arthritis. She has a history of anxiety/depression. She has been seeing Dr. Gonzalez for dementia. In August 2014 she underwent placement of permanent pacemaker for complete heart block. She is a nonsmoker. She is seen today for an unplanned visit. She had been admitted to the hospital back in April with weakness and falling. She was noted to be moderately anemic. She ultimately did undergo evaluation with bone marrow aspiration/biopsy on 06/01/2020. It did show a slight increase in plasma cells, but there was no evidence of myeloma and there were no other diagnostic findings on the bone marrow. In the meantime, she has had another recent fall which she sustained an injury to her right hip. X-rays of the pelvis and right hip on 08/07/2020 showed degenerative changes within the hips, there is no acute process noted. Since then she has continued to complain of pain in her low back and right hip. She is able to ambulate with a walker, she has very limited activity. Her ECOG score is 3. Her appetite is been okay. She has not had fever or night sweats. She does not complain of shortness of breath, cough, or chest pain. She has no GI or complaints. She does not complain of headache. She does have difficulty with balance and with memory. She has no focal neurologic symptoms. She appears to be having some issues with depression. Her says she just sits around and cries. Medications: Ascorbic Acid 1 Tablet (of 500 mg) Oral daily, Atorvastatin Calcium 1 Tablet (of 10 mg) Oral daily, [facility] Fish Oil 1 Capsule (of 1000 mg) Oral daily, Donepezil HCl 1 Tablet (of 5 mg) Oral daily, Folic Acid 1 Tablet (of 800 mcg) Oral daily, Lisinopril 1 Tablet (of 5 mg) Oral daily, Metoprolol Tartrate 3 Tablet (of 25 mg) Oral b.i.d., Venlafaxine HCl ER 1 Capsule (of 37.5 mg) Capsule SR 24 HR Oral daily, Vitamin D2 1 Tablet (of 14296 Units) Oral q 30 days Allergies: Aspirin and Penicillins. Vital Signs: Performed on Aug 14, 2020 11:58 Height - 66.00 in Weight - 123.4 lbs (LOW) BSA - 1.63 sq.m BMI - 19.92 Temperature - 97.2 F (LOW) Pulse - 65 /min Respiration - 18 /min BP - 155/68 mm(hg) (HIGH) O2 Sat - 100 % Pain - 8 Fatigue - 2 Physical Examination: Constitutional - She appears generally weak and frail, Eyes - Sclerae nonicteric. Conjunctivae clear, ENMT - No lesions noted in the oral cavity, Hematologic/Lymphatic - No cervical, clavicular, or axillary adenopathy, Respiratory - Lungs are clear with some decrease in air movement bilaterally, Cardiovascular - Heart rhythm is regular. There is no murmur, gallop, or rub noted, Abdomen - Soft. Liver and spleen are not enlarged. There is no abdominal mass or ascites noted and there is no inguinal adenopathy, Extremities - No edema, Neurologic - No focal neurologic deficits noted. Problem List: 1. History of stage III colon cancer treated with hemicolectomy followed by adjuvant chemotherapy with 12 cycles of FOLFOX, completed in June 2006. To date there has been no documented recurrence. 2. She has additional history of sarcoidosis, confirmed by axillary lymph node biopsy in 2005. She has had no specific treatment for it. 3. She has complaints of recent falls, which appear to be related to dysequilibrium. 4. She has additional complaints of memory loss, for which she is on treatment with donepezil. 5. She has been mildly anemic. 6. Osteoporosis. 7. Degenerative arthritis. 8. Anxiety/depression. Problems Addressed with this Encounter and Plan: Patient with history of colon cancer and sarcoidosis. She also has been treated for dementia. She has been showing progressive decline in performance status. To what extent this may be due to the underlying dementia is uncertain. However, she also had recently become anemic and in reviewing her records in [facility], her serum ferritin level was also markedly elevated, though with serum iron studies showing normal transferrin saturation. As such, I suspect this was due to underlying inflammatory disease. She has had multiple falls attributable to episodic weakness. She now complains of persistent pain in the right hip area, though with negative x-rays. With her known history of malignancy and recent anemia, she will have additional laboratory studies today I will schedule her for bone scan. She will have further evaluation as indicated. In the meantime, I will have her start meloxicam 7.5 mg daily and she will be given a prescription for hydrocodone 5/APAP to take as needed. She is advised not to take Tylenol with the pain medication. Signed By: Musa Rausch M.D. <<Signature on File>>
[2020-08-15 09:10] LABS: Ferritin 719 ng/mL (15-150); Iron 66 ug/dL (37-145)
[2020-08-15 15:27] LABS: Carcinoembryonic Antigen 5.5 ng/mL (0.0-4.7)
[2020-08-15 15:32] LABS: Percent Saturation 28.3 % (20-50); Total Iron Binding Capacity 233 mcg/dl; Unsaturated Iron Binding 167 ug/dL (112-347)
== END 2020-08-14 11:19 | disposition home or self-care (01) ==
LOC: ONCMED 11:21
PROVIDERS: PCP Nurse Practitioner; Visit Provider Internal Medicine Medical Oncology
DX: M25.551 Pain in right hip (principal); D64.9 Anemia, unspecified; D86.1 Sarcoidosis of lymph nodes; Z85.038 Personal history of other malignant neoplasm of large intestine; R53.1 Weakness; R29.6 Repeated falls; F03.90 Unspecified dementia, unspecified severity, without behavioral disturbance, psychotic disturbance, mood disturbance, and anxiety; Z90.49 Acquired absence of other specified parts of digestive tract; Z92.21 Personal history of antineoplastic chemotherapy; Z79.891 Long term (current) use of opiate analgesic
CPT/HCPCS: 36415; 80053; 82378; 82728; 83540; 83550; 83615; 85025; 85651; 99214

== ENCOUNTER 2020-08-17 11:02 | Emergency (ER) | payer MEDICARE, OTHER, SELFPAY ==
[2020-08-17 11:02] VITALS: BP 152/113; PULSE 74; RESP 14; O2SAT 97; BMI 20.5
--- NOTE | 2020-08-17 11:15 | ED_ITS ---
HPI - Weakness General: Chief complaint: Weakness Stated complaint: WEAKNESS/ UNABLE TO AMBULATE Time Seen by Provider: 08/17/20 11:04 History of Present Illness: HPI Narrative: 80-year-old female presents emergency room with complaint of falls. She is weak and has difficulty ambulating. She last fell 1 week ago. She denies striking her head did not lose consciousness she has had pain it initially began more in the lower buttock and has become more proximal into the right SI joint. She does not have any cancer but she has been seeing Dr. Rausch for this evidently this is been going on for several years. MD Complaint: generalized weakness, lack of energy and difficulty walking Onset (ago): year(s) (2) Duration: constant Location: RLE (buttocks and R SI joint) Severity: moderate Quality: aching Relieving factors: rest Exacerbating factors: movement and exertion Associated symptoms: Reports myalgias; Denies chest pain, chills, confusion, melena, decreased appetite, diaphoresis, dysuria, easy bruising, fever(s), headache(s), nausea, rash, short of breath, syncope or vomiting Review of Systems Const: Denies: fever(s), chills or diaphoresis ENMT: Denies: throat pain, ear or mastoid pain, nasal discharge or nasal congestion Card: Denies: chest pain or syncope Resp: Denies: dyspnea, productive cough or non-productive cough GI: Denies: nausea, vomiting or melena : Denies: dysuria Skin/Breast: Denies: rash or pruritus Neuro: Denies: headache(s) or confusion Akhil/Lymph: Denies: easy bruising PFSH ED PFSH: Medical History Anxiety Carotid stenosis Carpal tunnel syndrome Depression Essential hypertension History of colon cancer Hyperlipidemia Insomnia Joint pain Mild cognitive impairment Osteoporosis Pacemaker Postconcussive syndrome Rheumatoid arthritis Sarcoidosis Syncope Vitamin A deficiency Surgical History History of colonoscopy 2019 History of hemicolectomy History of left breast biopsy S/P cholecystectomy Family History Other Arthritis Cancer Diabetes Stroke Denies family history of Anesthesia complication Bleeding disorder Social History Smoking and tobacco status: never smoked Second hand smoke exposure: Yes Smoking risk assessment/counseling performed?: No Alcohol intake: current Alcohol intake frequency: 3 or more drinks per day Alcohol type: beer Desire information about alcohol rehabilitation?: No Counseling given: Yes Desire information about substance/drug rehabilitation?: No Counseling given: No Lives independently: Yes Household members: spouse Housing: House Marital status: Number of children: 0 service: No Current occupational status: retired Pets and animals: Yes Pets & animals: cat(s) and dog(s) History of recent travel: No Current gender identity: Female Physical Exam Const: COMMON NORMALS: no acute distress GENERAL APPEARANCE: cooperative and comfortable ORIENTATION/CONSCIOUSNESS: Yes awake, Yes oriented to person, Yes oriented to place and Yes oriented to time HENMT: COMMON NORMALS: normocephalic, atraumatic, hearing grossly normal bilaterally, external ears normal, EAC's normal, TM's normal bilaterally, Normal nasal mucous membranes and turbinates present, moist oral mucous membranes and oropharynx normal HEAD & SCALP: normocephalic and atraumatic NOSE: Normal nasal mucous membranes and turbinates present EXTERNAL EAR: Yes external ears normal EXTERNAL AUDITORY CANAL: EAC's normal TYMPANIC MEMBRANE: TM's normal bilaterally Eye: COMMON NORMALS: Equal, round and reactive pupils present, EOMs intact bilaterally, conjunctivae normal and no scleral icterus CONJUNCTIVA: Yes conjunctivae normal PUPIL: Yes Equal, round and reactive pupils present Neck/C-Spine: COMMON NORMALS: full ROM, no lymphadenopathy, supple and no JVD Lymph: LYMPHATIC: no lymphadenopathy noted and no lymphedema noted Resp: COMMON NORMALS: normal respiratory effort, No retractions, No use of accessory muscles and clear to auscultation bilaterally AUSCULTATION: clear to auscultation bilaterally Cardio: COMMON NORMALS: no JVD, regular rate, regular rhythm and No murmurs present (Cardio) RATE: regular rate RHYTHM: regular rhythm GI: COMMON NORMALS: Soft to palpation and No hepatosplenomegaly present AUSCULTATION: Yes normoactive bowel sounds PALPATION: Yes Soft to palpation, No Tenderness to palpation present (GI), No Guarding due to palpation present (GI) and Yes No hepatosplenomegaly present Extremity: COMMON NORMALS: normal to inspection, capillary refill normal, no clubbing, cyanosis or edema, no calf tenderness and no pedal edema Neuro: SENSORIUM/ORIENTATION: Yes oriented to person, Yes oriented to place and Yes oriented to time Skin: COMMON NORMALS: no rashes or lesions noted GENERAL SKIN EXAM: no rashes or lesions noted Course Vital Signs: Vital signs: Vital Signs Pulse Rate 63 08/17/20 13:24 Respiratory Rate 18 08/17/20 11:49 Blood Pressure 176/79 08/17/20 13:24 Pulse Oximetry 97 08/17/20 13:24 MDM - Weakness MDM Narrative: Medical decision making narrative: CT shows compression fractures. Patient is ambulatory still. Discussed her ability to go home she would like to go home she has a walker to use there. We will go ahead and get her set up to see Dr. Brown for kyphoplasty. She has an upcoming nuclear medicine bone scan which will probably not be needed at this point I called and discussed Dr. Rausch he agreed and plan to cancel it. Advised patient if pain is uncontrollable return. Lab Data: Labs: Lab Results 08/17/20 08/17/20 08/17/20 Range/Units 11:45 11:45 11:45 WBC 3.7 L (4.0-10.0) 10^3/ uL RBC 3.28 L (4.1-5.3) 10^6/u L Hgb 11.1 L (11.5-15.3) g/dL Hct 33.5 L (37.0-47.0) % MCV 102.1 H (81-99) fL MCH 33.8 (28.0-34.0) pg MCHC 33.1 (30.0-36.0) g/dL RDW 13.6 (12.1-15.1) % Plt Count 150 (130-400) 10^3/c mm MPV 9.9 (7.4-10.4) fL Neut % (Auto) 65.6 % Lymph % (Auto) 21.5 % [place] % (Auto) 7.4 % Eos % (Auto) 4.9 % Baso % (Auto) 0.3 % Neut # (Auto) 2.41 (1.8-7.7) 10^3/u L Lymph # (Auto) 0.8 (0.8-4.8) 10^3/u L [place] # (Auto) 0.3 (0.2-0.9) 10^3/u L Eos # (Auto) 0.2 (0.0-0.8) 10^3/u L Baso # (Auto) 0.0 (0.0-0.1) 10^3/u L Nucleated RBC % (a uto) 0 % Nucleated RBCs # 0.0 /100WBC Sodium 139 (136-145) mmol/L Potassium 4.2 (3.5-5.1) mmol/L Chloride 102 (98-107) mmol/L Carbon Dioxide 31 H (22-29) mmol/L Anion Gap 10.2 (5-19) BUN 13 (8-23) mg/dL Creatinine 0.7 (0.5-0.9) mg/dL GFR Calculation Not Reportable Glucose 141 H (65-115) mg/dL Calculated Osmolal ity 290 (285-295) mOsm/k g Calcium 9.2 (8.5-10.5) mg/dL Total Bilirubin 0.5 (0.15-1.2) mg/dL AST 19 (0-32) U/L ALT 20 (0-33) U/L Alkaline Phosphata se 86 (35-105) IU/L Creatine Kinase 29 (26-192) U/L Total Protein 6.4 L (6.6-8.7) g/dL Albumin 3.5 (3.5-5.2) g/dL Globulin 2.9 (1.3-4.6) g/dL Urine Color Straw (Yellow) Urine Appearance Clear (CLEAR) Urine pH 7.0 (5-7) Ur Specific Gravit y 1.005 (1.005-1.030) Urine Protein Neg (Negative) Urine Glucose (UA) Norm (Normal) Urine Ketones Negative (Negative) Urine Blood Neg (Negative) Urine Nitrate Negative (Negative) Urine Bilirubin Neg (Negative) Urine Urobilinogen Norm (Negative) mg/dL Ur Leukocyte Vashti ase Negative (Negative) Discharge Plan Discharge Patient Disposition: Home Clinical Impression: Compression fracture of lumbar vertebra, Radicular pain of lower extremity Condition: Stable Prescriptions: No Action omega-3 fatty acids [Fish Oil Concentrate] 1,000 mg capsule 1,000 mg PO BID@0900,1800 RF: 0 ascorbate calcium (vitamin C) 500 mg tablet 500 mg PO DAILY@1800 RF: 0 cyanocobalamin (vitamin B-12) 5,000 mcg capsule 5,000 mcg PO DAILY@1800 RF: 0 Vitamin D2 1,250 mcg (50,000 unit) Capsule 1,250 mcg PO DAILY@1800 RF: 0 Lipitor 10 mg tablet 10 mg PO DAILY@0900 RF: 0 metoprolol tartrate 100 mg tablet 100 mg PO Q12H RF: 0 venlafaxine 37.5 mg tablet 37.5 mg PO BID@0900,1800 RF: 0 Namenda 10 mg tablet 10 mg PO BID@0900,1800 RF: 0 hydrocodone-acetaminophen 5-325 mg tablet 1 - 2 tab PO Q6H PRN (Reason: Pain) RF: 0 meloxicam 7.5 mg tablet 7.5 mg PO DAILY@0900 RF: 0 Discharge Orders: Discharge ED (Routine); Ordered 08/17/20 Ordered By: Mikey Hart Referrals: Jeromy Moralez, [facility] RECOATER[facility] [Primary Care Provider] - Discharge Diet: Usual diet Discharge Activity: Limit activity as instructed Activity Restrictions/Additional Instructions: No lifting greater than 10 pounds avoid stooping and bending. Use walker when ambulatory. Case management will call with an appointment for Dr. Brown for kyphoplasty. Coding Level of Care Code ED Respiratory Medicine Physician for Phuong Landers Exam Comprehensive
--- NOTE | 2020-08-17 11:25 | XR_ITS ---
WS: [id number] Exam: XR sacrum coccyx min 2V 33303 Date/Time of Exam: 08/17/2020 11:25 AM Reason For Exam: pain No fracture or dislocation. DJD of the SI joints. Marked osteopenia. XR/XR sacrum coccyx min 2V [id number] IMPRESSION: 1. No fracture or dislocation. SI joint DJD.
--- NOTE | 2020-08-17 11:25 | CT_ITS ---
WS: [id number] CT LUMBAR SPINE TECHNIQUE: Noncontrast CT of the lumbar spine with coronal and sagittal reformatted images. CLINICAL INFORMATION: pain COMPARISON: CT May 09, 2020 DLP: 1220.[address] scans at [facility] use at least one of these dose optimization techniques: automat ed exposure control; mA and/or kV adjustment per patient size (includes targeted exams where dose is matched to clinical indication); or iterative reconstruction. FINDINGS: Lumbar scoliosis. Acute compression fracture superior endplate L4 is new compared to April 2020. Lo ss of approximately 30% vertebral body height. Mild retropulsion of the posterior superior cortex wit h mild central canal stenosis and slight narrowing of the subarticular recess bilaterally. No high-gr briseyda central canal stenosis. The L4 pedicles appear intact. L1-L2: Normal. L2-L3: Left eccentric disc bulging. Mild left and no significant right foraminal narrowing. Slight na rrowing of the left subarticular recess. Mild facet arthropathy. L3-L4: Vacuum disc phenomenon. Mild disc bulging with osteophytic ridging. Mild left foraminal narrow ing. Mild central canal stenosis. Mild facet arthropathy. L4-L5: Mild annular bulging with impingement on the right subarticular recess and traversing right L5 nerve root. Mild right foraminal narrowing. Moderate facet arthropathy. L5-S1: No significant disc bulging. Moderate facet arthropathy. Spinal canal and foramen are patent. Visualized pelvic bony structures: Normal. Paravertebral soft tissues: Normal. CT/CT lumbar spine wo con* [id number] IMPRESSION: 1. Acute compression fracture superior endplate L4 with loss of approximately 30% vertebral body height. Mild retropulsion of the posterior superior cortex w ith mild central canal stenosis. Impingement on the subarticular recess bilater ally. 2. Mild disc bulging L4-5 eccentric to the right with mild central canal steno sis and impingement traversing right L5 nerve root. Mild right L4-5 foraminal n arrowing. Notified Mikey Hart DO at 08/17/2020 12:42 PM.
[2020-08-17 11:37] VITALS: O2SAT 98
[2020-08-17 11:49] VITALS: BP 161/82; PULSE 66; RESP 18; O2SAT 97
[2020-08-17 11:52] LABS: Add Urine Microscopic? NO
[2020-08-17 11:55] LABS: Basophils % 0.3 %; Eosinophils # 0.2 10^3/uL (0.0-0.8); Eosinophils % 4.9 %; Hematocrit 33.5 % (37.0-47.0); Hemoglobin 11.1 g/dL (11.5-15.3); Lymphocytes # 0.8 10^3/uL (0.8-4.8); Lymphocytes % 21.5 %; Mean Corpuscular HGB Conc 33.1 g/dL (30.0-36.0); Mean Corpuscular Hemoglobin 33.8 pg (28.0-34.0); Mean Corpuscular Volume 102.1 fL (81-99); Mean Platelet Volume 9.9 fL (7.4-10.4); Monocytes # 0.3 10^3/uL (0.2-0.9); Monocytes % 7.4 %; Neutrophils # 2.41 10^3/uL (1.8-7.7); Neutrophils % 65.6 %; Nucleated Red Blood Cells % 0 %; Platelet Count 150 10^3/cmm (130-400); Red Blood Count 3.28 10^6/uL (4.1-5.3); Red Cell Distribution Width 13.6 % (12.1-15.1); White Blood Count 3.7 10^3/uL (4.0-10.0)
[2020-08-17 12:00] LABS: Bilirubin Urine Neg (Negative); Blood Urine Neg (Negative); Glucose Urine UA Norm (Normal); Ketones Urine Negative (Negative); Leukocyte Esterase Urine Negative (Negative); Nitrate Urine Negative (Negative); Protein Urine Neg (Negative); Specific Gravity, Urine 1.005 (1.005-1.030); Urine Appearance Clear (CLEAR); Urine Color Straw (Yellow); Urobilinogen Urine Norm (Negative)
[2020-08-17 12:10] LABS: Alanine Aminotransferase 20 U/L (0-33); Albumin Level 3.5 g/dL (3.5-5.2); Alkaline Phosphatase 86 IU/L (35-105); Anion Gap 10.2 (5-19); Aspartate Amino Transferase 19 U/L (0-32); Blood Urea Nitrogen 13 mg/dL (8-23); Calcium 9.2 mg/dL (8.5-10.5); Carbon Dioxide 31 mmol/L (22-29); Chloride 102 mmol/L (98-107); Creatine Phosphokinase 29 U/L (26-192); Globulin 2.9 g/dL (1.3-4.6); Glucose 141 mg/dL (65-115); Osmolality Calculated 290 mOsm/kg (285-295); Potassium 4.2 mmol/L (3.5-5.1); Sodium 139 mmol/L (136-145); Total Bilirubin 0.5 mg/dL (0.15-1.2); Total Protein 6.4 g/dL (6.6-8.7)
[2020-08-17 13:24] VITALS: BP 176/79; PULSE 63; O2SAT 97
--- NOTE | 2020-08-17 13:58 | DCPLANNER ---
customer account manager was asked to schedule a follow up appointment for patient with ortho, Dr. Brown. customer account manager called the ortho clinic, spoke with Dina, gave clinic patients information. customer account manager was told that patients information would be printed and reviewed. Clinic will call patient with appointment information.
--- NOTE | 2020-08-22 12:59 | DCPLANNER ---
Patient had a follow up appointment scheduled for 08.22.20 with ortho - patient did attend appointment.
== END 2020-08-17 13:28 | disposition home or self-care (01) ==
PROVIDERS: Emergency Provider Family Medicine; PCP Nurse Practitioner
DX: S32.040A Wedge compression fracture of fourth lumbar vertebra, initial encounter for closed fracture (principal); M54.10 Radiculopathy, site unspecified; I10 Essential (primary) hypertension; E78.5 Hyperlipidemia, unspecified; Z85.038 Personal history of other malignant neoplasm of large intestine; Z95.0 Presence of cardiac pacemaker; Z77.22 Contact with and (suspected) exposure to environmental tobacco smoke (acute) (chronic); W19.XXXA Unspecified fall, initial encounter
CPT/HCPCS: 12345; 72131; 72220; 80053; 81003; 82550; 85025; 99283

== ENCOUNTER 2020-08-25 08:54 | Outpatient (CLI) | payer MEDICARE, OTHER, SELFPAY ==
--- NOTE | 2020-08-25 08:56 | NM_ITS ---
WS: [id number] THREE-PHASE BONE SCAN HISTORY: COLON CANCER, RIGHT HIP PAIN COMPARISON: 08/07/[address] lumbar spine 08/17/2020 Patient is is injected with 25.9 mCi Tc99m HDP intravenously. Immediate angiographic phase imaging is performed over the area of concern. Static blood pool imaging also performed. Two-hour whole-body sc intigrams performed in anterior and posterior projections. Additional large field of view imaging sub mitted as necessary. 3 phase bone scan is performed over the hips/pelvis. Angiographic and blood pool imaging is normal over the hips. No increased uptake at the hips or withi n the pelvis to suggest an acute or recent fracture. There is increased uptake in the L4 vertebral body from the known acute compression fracture involvin g the superior endplate of L4. Mild RIGHT convex curvature of the lumbar spine. Normal soft tissue uptake. NM/NM bone 3 phase 32028 IMPRESSION: 1. No acute RIGHT hip or pelvic fracture. 2. Known acute L4 compression fracture. Similar to the CT of 08/17/2020. 3. No metastatic bone disease.
== END 2020-08-25 08:55 | disposition home or self-care (01) ==
LOC: US 08:55
PROVIDERS: PCP Nurse Practitioner; Visit Provider Internal Medicine Medical Oncology
DX: M25.551 Pain in right hip (principal); D64.9 Anemia, unspecified; D86.1 Sarcoidosis of lymph nodes; Z85.038 Personal history of other malignant neoplasm of large intestine; M48.56XA Collapsed vertebra, not elsewhere classified, lumbar region, initial encounter for fracture
CPT/HCPCS: 78315; A9561

== ENCOUNTER 2020-08-29 05:53 | Outpatient (CLI) | payer MEDICARE, OTHER, SELFPAY ==
--- NOTE | 2020-08-29 18:53 | ONC FU_ITS ---
Dr. Rausch Patient Follow-Up Note Patient: Katherin Silva Unit #: [id number]: 1940 Dicatated By: Musa Rausch M.D.Date of Visit:Aug 29, 2020 Onc Med Follow-up/Prog Note Chief Complaint: Colon cancer/hip pain. History of Present Illness: This is an 80 year-old woman with stage III colon cancer. She also is known to have sarcoidosis. She is seen today because of right hip pain. She underwent surgical resection for the colon cancer in 2005. She was given postoperative adjuvant chemotherapy with 12 cycles of modified FOLFOX, completed in June 2006. She had evidence of lymphadenopathy on her prestaging evaluation, and axillary lymph node biopsy was consistent with sarcoidosis. She has not received any specific treatment for it. During follow-up there has been no evidence of recurrence of the colon cancer. Her surveillance CT scans of the chest, abdomen, and pelvis in August 2019 showed no evidence of recurrent or metastatic disease. Her other medical illnesses include hypertension, osteoporosis, and degenerative arthritis. She has a history of anxiety/depression. She has been seeing Dr. Gonzalez for dementia. In August 2014 she underwent placement of permanent pacemaker for complete heart block. She is a nonsmoker. INTERIM HISTORY: She had been admitted to the hospital back in April with weakness and falling. She was noted to be moderately anemic. She ultimately did undergo evaluation with bone marrow aspiration/biopsy on 06/01/2020. It did show a slight increase in plasma cells, but there was no evidence of myeloma and there were no other diagnostic findings on the bone marrow. In the meantime, she then had another fall in which she sustained an injury to her right hip. X-rays of the pelvis and right hip on 08/07/2020 showed degenerative changes within the hips, but there is no acute process noted. I had seen her for a follow-up visit on 08/14/2020. She continued to complain of pain in her low back and right hip. She was able to ambulate with a walker, but she had very limited activity. She also was having difficulty with balance and with memory. She was given a prescription for hydrocodone 5/APAP 325 for the pain. She was not able to tolerate it because of [employer]ER side effects. She was then seen in the emergency room on 08/17/2020 with pain in her back and right hip. Her CT of the lumbar spine showed an acute compression fracture involving the superior endplate of L4 with loss of approximately 30% of vertebral body height. There was mild retropulsion of the posterior superior cortex with mild central canal stenosis. There was impingement on the subarticular recess bilaterally. Also noted was mild disc bulging at L4-5 which was eccentric to the right with mild central canal stenosis and with impingement traversing the right L5 nerve root. Her pain medication was then changed to oxycodone 5/APAP 325, which she has tolerated much better. She had further evaluation with bone scan on 08/25/2020. It showed uptake in the L4 vertebral body associated with the known acute compression fracture. There were no significant abnormalities noted in the right hip or pelvis and there was no evidence of metastatic disease. She is seen for a follow-up visit. She still has very limited activity. ECOG score is 3. She does not have good appetite. She does not have fever or night sweats. Her pain does seem to be controlled pretty well with the oxycodone/APAP. She still reports having occasional episodes in which she gets weak and falls down. She does not complain of shortness of breath, cough, or chest pain. She has been having some constipation. She has no other GI or complaints. She does not complain of headache. She has ongoing problems with balance and with memory. She complains that her nerves are shot. Medications: Ascorbic Acid 1 Tablet (of 500 mg) Oral daily, Atorvastatin Calcium 1 Tablet (of 10 mg) Oral daily, [facility] Fish Oil 1 Capsule (of 1000 mg) Oral daily, Donepezil HCl 1 Tablet (of 5 mg) Oral daily, Folic Acid 1 Tablet (of 800 mcg) Oral daily, Lisinopril 1 Tablet (of 5 mg) Oral daily, Metoprolol Tartrate 3 Tablet (of 25 mg) Oral b.i.d., Venlafaxine HCl ER 1 Capsule (of 37.5 mg) Capsule SR 24 HR Oral daily, Vitamin D2 1 Tablet (of 64029 Units) Oral q 30 days Allergies: Aspirin, HYDROcodone-Acetaminophen, and Penicillins. Vital Signs: Performed on Aug 29, 2020 09:04 Height - 66.00 in Weight - 122 lbs (LOW) BSA - 1.62 sq.m BMI - 19.69 Temperature - 97.4 F (LOW) Pulse - 92 /min Respiration - 17 /min BP - 106/60 mm(hg) O2 Sat - 100 % Pain - 0 Physical Examination: Constitutional - She appears generally weak, Eyes - Sclerae nonicteric. Conjunctivae clear, ENMT - No lesions noted in the oral cavity, Hematologic/Lymphatic - No cervical, clavicular, or axillary adenopathy, Respiratory - Lungs are clear with some decrease in air movement bilaterally, Cardiovascular - Heart rhythm is regular. There is no murmur, gallop, or rub noted, Abdomen - Soft. Liver and spleen are not enlarged. There is no abdominal mass or ascites noted and there is no inguinal adenopathy, Extremities - No edema, Neurologic - No focal neurologic deficits noted. Lab/Imaging: Test performed on Aug 14, 2020 11:40 Ferritin 719 ng/mL Iron 66 mcg/dL LDH (Total) 293 U/L Sodium 136 mmol/L Iron Binding Capacity (TIBC) 233 mcg/dl Potassium 3.4 mmol/L % Iron Saturation 28.3 % Chloride 99 mmol/L CO2 29 mmol/L UIBC 167 mcg/dL Anion Gap 11.4 BUN 12 mg/dL Creatinine 0.7 mg/dL Cr Clearance (Est) 57.5800 mL/min Glucose 137 mg/dL Osmolality - Calculated 284 mOsm/kg Calcium 9.5 mg/dL Protein, Total 7.6 g/dL Albumin 4.4 g/dL Globulin 3.2 g/dL Bilirubin, Total 0.7 mg/dL ALT (SGPT) 25 U/L AST (SGOT) 28 U/L Alkaline Phosphatase 99 IU/L ESR (Sed Rate) 41 mm/hr WBC 4.7 10 3/uL RBC 3.32 10 6/uL HGB 11.4 g/dL HCT 34.7 % MCV 104.5 fL MCH 34.3 pg MCHC 32.9 g/dL RDW 14.0 % Platelet Count 186 10 3/cmm MPV 10.6 fL Neutrophils 3.11 10 3/uL Lymphocytes 1.0 10 3/uL Monocytes 0.4 10 3/uL Eosinophils 0.1 10 3/uL Basophils 0.0 10 3/uL Neutrophil % 66.1 % Lymphocyte % 22.1 % Monocyte % 7.7 % Eosinophil % 3.0 % Basophils % 0.9 % NRBC % 0 % CEA 5.5 ng/mL Problem List: 1. History of stage III colon cancer treated with hemicolectomy followed by adjuvant chemotherapy with 12 cycles of FOLFOX, completed in June 2006. To date there has been no documented recurrence. 2. She has additional history of sarcoidosis, confirmed by axillary lymph node biopsy in 2005. She has had no specific treatment for it. 3. She has complaints of recent falls, which appear to be related to dysequilibrium. 4. She has additional complaints of memory loss, for which she is on treatment with donepezil. 5. She has been mildly anemic. 6. Hypertension. 7. Osteoporosis. 8. Degenerative arthritis. 9. Anxiety/depression. Problems Addressed with this Encounter and Plan: 1. Patient with history of colon cancer and sarcoidosis. She also has been treated for dementia. She has been showing progressive decline in performance status. For the past couple of months she has been having pain in her back and right hip area. She has been found to have an acute vertebral compression fracture at L4. Her CT scan also showed degenerative changes which include some nerve root compression at L4-L5. This would appear to be the most likely source for her pain. At the present time it is being managed adequately with oxycodone/APAP. She is scheduled to have further evaluation with Dr. Brown. In the meantime, she will be given a refill for the pain medication and she is given instructions for bowel regimen with senna/docusate. 2. She has anxiety/depression, which is not being adequately managed with her venlafaxine 37.5 mg daily. As such, the dosage will now be increased to 75 mg daily. 3. Hypertension. She had been taking lisinopril, but previously discontinued. She is currently taking 100 mg of metoprolol twice daily, and she has relatively low blood pressure. As such, the dosage will be reduced to 50 mg twice daily. Her will continue to monitor her blood pressure at home. Signed By: Musa Rausch M.D. <<Signature on File>>
== END 2020-08-29 05:54 | disposition home or self-care (01) ==
LOC: ONCMED 05:55
PROVIDERS: PCP Nurse Practitioner; Visit Provider Internal Medicine Medical Oncology
DX: D86.1 Sarcoidosis of lymph nodes (principal); R29.6 Repeated falls; D64.9 Anemia, unspecified; I10 Essential (primary) hypertension; R41.3 Other amnesia; M81.0 Age-related osteoporosis without current pathological fracture; F41.8 Other specified anxiety disorders
CPT/HCPCS: 99214

== ENCOUNTER 2020-09-26 10:48 | Outpatient (CLI) | payer MEDICARE, OTHER, SELFPAY ==
--- NOTE | 2020-10-08 15:37 | ONC FU_ITS ---
[facility] Patient Note Patient: Katherin Silva Unit #: [id number]: 1940 Dictated By: Ratna ThorneDate of Visit: Sep 26, 2020 Onc MED Follow-Up/Prog Note Chief Complaint: Colon cancer/hip pain. History of Present Illness: Ms Silva is an 80 year-old woman with stage III colon cancer. She also is known to have sarcoidosis. She underwent surgical resection for the colon cancer in 2005. She was given postoperative adjuvant chemotherapy with 12 cycles of modified FOLFOX, completed in June 2006. She had evidence of lymphadenopathy on her prestaging evaluation, and axillary lymph node biopsy was consistent with sarcoidosis. She has not received any specific treatment for it. During follow-up there has been no evidence of recurrence of the colon cancer. Her surveillance CT scans of the chest, abdomen, and pelvis in August 2019 showed no evidence of recurrent or metastatic disease. Her other medical illnesses include hypertension, osteoporosis, and degenerative arthritis. She has a history of anxiety/depression. She has been seeing Dr. Gonzalez for dementia. In August 2014 she underwent placement of permanent pacemaker for complete heart block. She is a nonsmoker. INTERIM HISTORY: She had been admitted to the hospital back in April with weakness and falling. She was noted to be moderately anemic. She ultimately did undergo evaluation with bone marrow aspiration/biopsy on 06/01/2020. It did show a slight increase in plasma cells, but there was no evidence of myeloma and there were no other diagnostic findings on the bone marrow. In the meantime, she then had another fall in which she sustained an injury to her right hip. X-rays of the pelvis and right hip on 08/07/2020 showed degenerative changes within the hips, but there is no acute process noted. Dr Rausch had seen her for a follow-up visit on 08/14/2020. She continued to complain of pain in her low back and right hip. She was able to ambulate with a walker, but she had very limited activity. She also was having difficulty with balance and with memory. She was given a prescription for hydrocodone 5/APAP 325 for the pain. She was not able to tolerate it because of [employer]ANT side effects. She was then seen in the emergency room on 08/17/2020 with pain in her back and right hip. Her CT of the lumbar spine showed an acute compression fracture involving the superior endplate of L4 with loss of approximately 30% of vertebral body height. There was mild retropulsion of the posterior superior cortex with mild central canal stenosis. There was impingement on the subarticular recess bilaterally. Also noted was mild disc bulging at L4-5 which was eccentric to the right with mild central canal stenosis and with impingement traversing the right L5 nerve root. Her pain medication was then changed to oxycodone 5/APAP 325, which she has tolerated much better. She had further evaluation with bone scan on 08/25/2020. It showed uptake in the L4 vertebral body associated with the known acute compression fracture. There were no significant abnormalities noted in the right hip or pelvis and there was no evidence of metastatic disease. Ms. Silva is here today for follow-up. She states that she has been released from Dr. Brown. She states overall her back pain is better than when she found out she had the compression fracture however she feels her pain was much better managed with oxycodone/Tylenol???Percocet and the current prescription of just plain oxycodone. She states she has not added any Tylenol to the current prescription of oxycodone because the pharmacist told us adamantly multiple times and not to take any Tylenol with the oxycodone . She states other than her pain she feels pretty good. Her appetite is fair. She still has limited mobility due to the back pain. She denies any shortness of breath orthopnea. She denies fever or chills. She denies any diarrhea or constipation. She still requires mobility assistance with a walker and a wheelchair intermittently but states she is getting stronger every day and feels better in general. Her ECOG remains at 2. Past Medical History: Colon cancer Complete heart block Degenerative arthritis Hypertension Osteoporosis Sarcoidosis Past Surgical History: Cholecystectomy Placement and subsequent removal of Port-A-Cath venous access device Placement of permanent pacemaker in 2014 Hysterectomy in 2005 Left hemicolectomy in 2005 Allergies: Aspirin, HYDROcodone-Acetaminophen, and Penicillins. Medications: Atorvastatin Calcium 1 Tablet (of 10 mg) Oral daily [facility] Fish Oil 1 Capsule (of 1000 mg) Oral daily Donepezil HCl 1 Tablet (of 5 mg) Oral daily Folic Acid 1 Tablet (of 800 mcg) Oral daily Metoprolol Tartrate 3 Tablet (of 25 mg) Oral b.i.d. Venlafaxine HCl ER 1 Capsule (of 37.5 mg) Capsule SR 24 HR Oral daily Vitamin D2 1 Tablet ([place] 79130 Units) Oral q 30 days Family History: Ms. Silva's mother at age 60: colon cancer. Ms. Silva's father at age 67: stroke. Father of stroke at age 67 and mother of colon cancer at age 60. A paternal aunt also had colon cancer. Social History: Ms. Silva is and she is retired. Ms. Silva has never smoked. She drinks daily. She consumes 3 drinks/day. She is a nonsmoker. She has had moderate alcohol use, estimated at 2-3 beers daily. Review Of Symptoms: Constitutional Denies fevers, chills, night sweats, excessive fatigue or weight loss. Last fall was on 09/11/2020. Allergic/Immunologic No reactions. Eyes Denies significant visual changes. No diplopia. No amaurosis. ENMT Denies changes in hearing, sore throat, mouth sores, difficulty or changes in swallowing ability, and/or sinus drainage. Endocrine No diabetes, thyroid disease or hormone replacement. Denies hot flashes or night sweats. Hematologic/Lymphatic Denies easy bruising or bleeding. The patient denies any tender or palpable lymph nodes. Respiratory Denies dyspnea on exertion, chest pain, cough or hemoptysis. Denies orthopnea. Cardiovascular Denies anginal chest pain, palpitations or orthopnea. Gastrointestinal Denies nausea, vomiting, diarrhea, GI bleeding, or constipation. Denies change in bowel habits and/or stool color, no heartburn or early satiety. Genitourinary (F) No hematuria, hesitancy, incontinence, vaginal bleeding, discharge or other problems with urination. Musculoskeletal lower back pain but states she thinks it is better overall. Integumentary Denies chronic rashes, inflammation, ulcerations or skin changes. Neurologic Denies headache, blurred vision, and no areas of focal weakness or numbness. weak/unsteady gait. No sensory problems. Psychiatric Denies insomnia, depression, milena or mood swings. Vital Signs: Performed on Sep 26, 2020 11:14 Height - 66.00 in Temperature - 97.8 F (LOW) Pulse - 87 /min Respiration - 18 /min BP - 146/82 mm(hg) (HIGH) O2 Sat - 98 % Pain - 0,2 - Ambulatory/capable of all self-care, unable to perform any work activities. Up and about more than 50% of waking hours. (ECOG) Physical Examination: Constitutional Alert, oriented, no acute distress. Skin pink, warm and dry. Head Normocephalic; atraumatic. Eyes Conjunctivae and sclerae are clear and without icterus. Pupils are reactive and equal. Abdomen Non-tender, non-distended, no masses or ascites. Back/Spine Non-tender to palpation. Extremities No visible deformities, no cyanosis, clubbing or edema. Musculoskeletal No tenderness or swelling, normal range of motion without obvious weakness. Integumentary No rashes or lesions. Neurologic No sensory or motor deficits, normal cerebellar function, assisted gait with wheeled walker.. Psychiatric Alert and oriented times three. Coherent speech. Verbalizes understanding of our discussions today. Laboratory:Test performed on Aug 14, 2020 11:40 Ferritin 719 ng/mL Iron 66 mcg/dL LDH (Total) 293 U/L Sodium 136 mmol/L Iron Binding Capacity (TIBC) 233 mcg/dl Potassium 3.4 mmol/L % Iron Saturation 28.3 % Chloride 99 mmol/L CO2 29 mmol/L UIBC 167 mcg/dL Anion Gap 11.4 BUN 12 mg/dL Creatinine 0.7 mg/dL Cr Clearance (Est) 57.5800 mL/min Glucose 137 mg/dL Osmolality - Calculated 284 mOsm/kg Calcium 9.5 mg/dL Protein, Total 7.6 g/dL Albumin 4.4 g/dL Globulin 3.2 g/dL Bilirubin, Total 0.7 mg/dL ALT (SGPT) 25 U/L AST (SGOT) 28 U/L Alkaline Phosphatase 99 IU/L ESR (Sed Rate) 41 mm/hr WBC 4.7 10 3/uL RBC 3.32 10 6/uL HGB 11.4 g/dL HCT 34.7 % MCV 104.5 fL MCH 34.3 pg MCHC 32.9 g/dL RDW 14.0 % Platelet Count 186 10 3/cmm MPV 10.6 fL Neutrophils 3.11 10 3/uL Lymphocytes 1.0 10 3/uL Monocytes 0.4 10 3/uL Eosinophils 0.1 10 3/uL Basophils 0.0 10 3/uL Neutrophil % 66.1 % Lymphocyte % 22.1 % Monocyte % 7.7 % Eosinophil % 3.0 % Basophils % 0.9 % NRBC % 0 % CEA 5.5 ng/mL Impression: 1. History of stage III colon cancer treated with hemicolectomy followed by adjuvant chemotherapy with 12 cycles of FOLFOX, completed in June 2006. To date there has been no documented recurrence. 2. She has additional history of sarcoidosis, confirmed by axillary lymph node biopsy in 2005. She has had no specific treatment for it. 3. She has complaints of recent falls, which appear to be related to dysequilibrium. 4. She has additional complaints of memory loss, for which she is on treatment with donepezil. 5. She has been mildly anemic. 6. Hypertension. 7. Osteoporosis. 8. Degenerative arthritis. 9. Anxiety/depression. Plan: 1. Patient with history of colon cancer and sarcoidosis. She also has been treated for dementia. She has been showing progressive decline in performance status. For the past couple of months she has been having pain in her back and right hip area. She has been found to have an acute vertebral compression fracture at L4. Her CT scan also showed degenerative changes which include some nerve root compression at L4-L5. This would appear to be the most likely source for her pain. She was evaluated by Dr. Brown on 08/29/2020 reported to him at that time she was feeling better. Her pain medication she states was changed to just plain oxycodone and she does not feel it works as well. She states that the pharmacist told her not to take any Tylenol with the oxycodone due to concerns of overdose. She and her both are adamant that the pharmacist informed them not to take the Tylenol. She feels her pain was better with the Percocet. As her pain was improved when she saw Dr. Stephanie healy, her follow-up is as needed as she was not interested in pursuing any surgical interventions at that time of consult. She still wants to just watch and see how she does with time. 2. She has anxiety/depression, which is not being adequately managed with her venlafaxine 75 mg daily. 3. Hypertension. She had been taking lisinopril, but previously discontinued. She is currently taking 100 mg of metoprolol twice daily, and she has relatively low blood pressure. As such, the dosage will be reduced to 25 mg twice daily. Her will continue to monitor her blood pressure at home. Have been instructed to call us if her blood pressure consistently runs greater than 100 diastolically. 4. Pain management A. I has a long discussion with Mrs. Silva and her as well as Dr. Rausch about her pain medication. We have opted to change her pain medication back to oxycodone with Tylenol. She is advised she cannot take extra Tylenol with the current prescription of the Percocet as it does have Tylenol in it. Her oxycodone prescription does not have Tylenol in it and therefore she could add Tylenol to it to use of the prescription if she wanted. They do verbalized understanding. She states she will just add Tylenol to the current oxycodone prescription she has now-which is 5 mg she takes 1/2 to 1 tablet up to 4 times daily as needed for pain. B. We will ask for physical therapy evaluation at home through [facility]. I have asked that they contact Dr. Brown's office for any input he may have with physical therapy. 5. Followup plan /A. As far as her regular follow-up we will plan to see her back in 1 m 4 to 6 weeks with CBC CMP. B. 55 minutes was spent in review of patient's records prior to the visit, answering question discussing current plan of care and formulating plan of care for pain management as well as post visit documentation. Signed By: Ratna Thorne-, CNP Musa Rausch MD <<Signature on File>>
== END 2020-09-26 10:49 | disposition home or self-care (01) ==
PROVIDERS: PCP Nurse Practitioner; Visit Provider Nurse Practitioner
DX: Z08 Encounter for follow-up examination after completed treatment for malignant neoplasm (principal); Z85.038 Personal history of other malignant neoplasm of large intestine; D86.1 Sarcoidosis of lymph nodes; M48.56XD Collapsed vertebra, not elsewhere classified, lumbar region, subsequent encounter for fracture with routine healing; I10 Essential (primary) hypertension; F41.8 Other specified anxiety disorders; Z90.49 Acquired absence of other specified parts of digestive tract; Z79.891 Long term (current) use of opiate analgesic
CPT/HCPCS: 99215

== ENCOUNTER 2020-10-30 13:21 | Outpatient (CLI) | payer MEDICARE, OTHER, SELFPAY ==
[2020-10-30 13:45] LABS: Basophils % 0.6 %; Eosinophils # 0.2 10^3/uL (0.0-0.8); Eosinophils % 4.2 %; Hematocrit 31.1 % (37.0-47.0); Hemoglobin 10.4 g/dL (11.5-15.3); Lymphocytes # 1.3 10^3/uL (0.8-4.8); Lymphocytes % 36.2 %; Mean Corpuscular HGB Conc 33.4 g/dL (30.0-36.0); Mean Corpuscular Hemoglobin 36.1 pg (28.0-34.0); Mean Platelet Volume 9.9 fL (7.4-10.4); Monocytes # 0.3 10^3/uL (0.2-0.9); Monocytes % 8.8 %; Neutrophils # 1.77 10^3/uL (1.8-7.7); Neutrophils % 49.9 %; Nucleated Red Blood Cells % 0 %; Platelet Count 139 10^3/cmm (130-400); Red Blood Count 2.88 10^6/uL (4.1-5.3); Red Cell Distribution Width 13.2 % (12.1-15.1); White Blood Count 3.5 10^3/uL (4.0-10.0)
[2020-10-30 14:00] LABS: Alanine Aminotransferase 13 U/L (0-33); Albumin Level 4.2 g/dL (3.5-5.2); Alkaline Phosphatase 54 IU/L (35-105); Anion Gap 9.9 (5-19); Aspartate Amino Transferase 15 U/L (0-32); Blood Urea Nitrogen 20 mg/dL (8-23); Calcium 8.9 mg/dL (8.5-10.5); Carbon Dioxide 28 mmol/L (22-29); Chloride 101 mmol/L (98-107); Globulin 2.7 g/dL (1.3-4.6); Glucose 107 mg/dL (65-115); Osmolality Calculated 283 mOsm/kg (285-295); Potassium 3.9 mmol/L (3.5-5.1); Sodium 135 mmol/L (136-145); Total Bilirubin 0.6 mg/dL (0.15-1.2); Total Protein 6.9 g/dL (6.6-8.7)
--- NOTE | 2020-11-01 06:54 | ONC FU_ITS ---
Dr. Rausch Patient Follow-Up Note Patient: Katherin Silva Unit #: [id number]: 1940 Dicatated By: Musa Rausch M.D.Date of Visit:Oct 30, 2020 Onc Med Follow-up/Prog Note Chief Complaint: Colon cancer/hip pain. History of Present Illness: This is an 80 year-old woman with stage III colon cancer. She also is known to have sarcoidosis. She is seen today because of right hip pain. She underwent surgical resection for the colon cancer in 2005. She was given postoperative adjuvant chemotherapy with 12 cycles of modified FOLFOX, completed in June 2006. She had evidence of lymphadenopathy on her prestaging evaluation, and axillary lymph node biopsy was consistent with sarcoidosis. She has not received any specific treatment for it. During follow-up there has been no evidence of recurrence of the colon cancer. Her surveillance CT scans of the chest, abdomen, and pelvis in August 2019 showed no evidence of recurrent or metastatic disease. Her other medical illnesses include hypertension, osteoporosis, and degenerative arthritis. She has a history of anxiety/depression. She has been seeing Dr. Gonzalez for dementia. In August 2014 she underwent placement of permanent pacemaker for complete heart block. She is a nonsmoker. INTERIM HISTORY: She had been admitted to the hospital back in April with weakness and falling. She was noted to be moderately anemic. She ultimately did undergo evaluation with bone marrow aspiration/biopsy on 06/01/2020. It did show a slight increase in plasma cells, but there was no evidence of myeloma and there were no other diagnostic findings in the bone marrow. In the meantime, she then had another fall in which she sustained an injury to her right hip. X-rays of the pelvis and right hip on 08/07/2020 showed degenerative changes within the hips, but there was no acute process noted. I had seen her for a follow-up visit on 08/14/2020. She continued to complain of pain in her low back and right hip. She was able to ambulate with a walker, but she had very limited activity. She also was having difficulty with balance and with memory. She was given a prescription for hydrocodone 5/APAP 325 for the pain. She was not able to tolerate it because of [employer] REPRESENTATIVE side effects. She was then seen in the emergency room on 08/17/2020 with pain in her back and right hip. Her CT of the lumbar spine showed an acute compression fracture involving the superior endplate of L4 with loss of approximately 30% of vertebral body height. There was mild retropulsion of the posterior superior cortex with mild central canal stenosis. There was impingement on the subarticular recess bilaterally. Also noted was mild disc bulging at L4-5 which was eccentric to the right with mild central canal stenosis and with impingement traversing the right L5 nerve root. Her pain medication was then changed to oxycodone 5/APAP 325, which she tolerated much better. She had further evaluation with bone scan on 08/25/2020. It showed uptake in the L4 vertebral body associated with the known acute compression fracture. There were no significant abnormalities noted in the right hip or pelvis and there was no evidence of metastatic disease. She is seen for a follow-up visit. She has not been feeling good. Her main complaint is that she cannot stand up for 3 or 4 minutes without getting weak and lightheaded. She feels okay as long as she is sitting down. She has very limited activity. ECOG score is 3. Her appetite has been okay, but her weight is down 4 pounds. She does not have fever or night sweats. She does not complain of shortness of breath, cough, or chest pain. She has no GI or complaints. She still has back pain when she is riding in the car. She is otherwise not having pain except her hips still bother her at night if she lies on one side too long. She does not complain of headache. She sometimes has numbness in her feet. She is still having some ongoing problems with depression. Medications: Atorvastatin Calcium 1 Tablet (of 10 mg) Oral daily, [facility] Fish Oil 1 Capsule (of 1000 mg) Oral daily, Donepezil HCl 1 Tablet (of 5 mg) Oral daily, Folic Acid 1 Tablet (of 800 mcg) Oral daily, Metoprolol Tartrate 3 Tablet (of 25 mg) Oral b.i.d., Venlafaxine HCl ER 1 Capsule (of 75 mg) Capsule SR 24 HR Oral daily, Vitamin D2 1 Tablet (of 91722 Units) Oral q 30 days Allergies: Aspirin, HYDROcodone-Acetaminophen, and Penicillins. Vital Signs: Performed on Oct 30, 2020 15:08 Height - 66.00 in Weight - 118 lbs (LOW) BSA - 1.60 sq.m BMI - 19.05 Temperature - 97.9 F (LOW) Pulse - 94 /min Respiration - 18 /min BP - 134/82 mm(hg) O2 Sat - 99 % Pain - 0 Fatigue - 9 Physical Examination: Constitutional - She appears somewhat frail generally, but not acutely ill, Eyes - Sclerae nonicteric. Conjunctivae clear, ENMT - No lesions noted in the oral cavity, Hematologic/Lymphatic - No cervical, clavicular, or axillary adenopathy, Respiratory - Lungs are clear with some decrease in air movement bilaterally, Cardiovascular - Heart rhythm is regular. There is no murmur, gallop, or rub noted, Abdomen - Soft. Liver and spleen are not enlarged. There is no abdominal mass or ascites noted and there is no inguinal adenopathy, Extremities - No edema, Neurologic - No focal neurologic deficits noted. Lab/Imaging: Test performed on Oct 30, 2020 13:27 Sodium 135 mmol/L Potassium 3.9 mmol/L Chloride 101 mmol/L CO2 28 mmol/L Anion Gap 9.9 BUN 20 mg/dL Creatinine 0.8 mg/dL Cr Clearance (Est) 48.18 mL/min Glucose 107 mg/dL Osmolality - Calculated 283 mOsm/kg Calcium 8.9 mg/dL Protein, Total 6.9 g/dL Albumin 4.2 g/dL Globulin 2.7 g/dL Bilirubin, Total 0.6 mg/dL ALT (SGPT) 13 U/L AST (SGOT) 15 U/L Alkaline Phosphatase 54 IU/L WBC 3.5 10 3/uL RBC 2.88 10 6/uL HGB 10.4 g/dL HCT 31.1 % MCV 108.0 fL MCH 36.1 pg MCHC 33.4 g/dL RDW 13.2 % Platelet Count 139 10 3/cmm MPV 9.9 fL Neutrophils 1.77 10 3/uL Lymphocytes 1.3 10 3/uL Monocytes 0.3 10 3/uL Eosinophils 0.2 10 3/uL Basophils 0.0 10 3/uL Neutrophil % 49.9 % Lymphocyte % 36.2 % Monocyte % 8.8 % Eosinophil % 4.2 % Basophils % 0.6 % NRBC % 0 % Problem List: 1. History of stage III colon cancer treated with hemicolectomy followed by adjuvant chemotherapy with 12 cycles of FOLFOX, completed in June 2006. To date there has been no documented recurrence. 2. She has additional history of sarcoidosis, confirmed by axillary lymph node biopsy in 2005. She has had no specific treatment for it. 3. 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 4. She has additional complaints of memory loss, for which she is on treatment with donepezil. 5. She has been mildly anemic. 6. Hypertension. 7. Osteoporosis. 8. Degenerative arthritis. 9. Anxiety/depression. Problems Addressed with this Encounter and Plan: 1. Patient with history of colon cancer and sarcoidosis. She also has been treated for dementia, and she has been mildly anemic. A specific cause for the anemia has not been determined. Her white blood cell count now is also mildly decreased and her platelet count is borderline low, so that she does appear to have developing pancytopenia. There were no diagnostic findings on bone marrow aspiration/biopsy in May 2020. She has continued to show gradual decline in performance status. She now has symptoms of orthostatic lightheadedness. I am not certain what is causing it, as her blood pressure is normal. However, I will have her try stopping losartan. In addition, she is on a fairly high dose of venlafaxine, I will have her try cutting that back to 75 mg daily. I will see her again in 1 month. 2. She has had back and hip pain in association with an acute vertebral compression fracture at L4. Her CT scan also showed degenerative changes which include some nerve root compression at L4-L5. It has been managed adequately with meloxicam and oxycodone/APAP. Signed By: Musa Rausch M.D. <<Signature on File>>
== END 2020-10-30 13:22 | disposition home or self-care (01) ==
PROVIDERS: PCP Nurse Practitioner; Visit Provider Internal Medicine Medical Oncology
DX: Z08 Encounter for follow-up examination after completed treatment for malignant neoplasm (principal); Z85.038 Personal history of other malignant neoplasm of large intestine; D86.1 Sarcoidosis of lymph nodes; D64.9 Anemia, unspecified; D72.819 Decreased white blood cell count, unspecified; D69.6 Thrombocytopenia, unspecified; R42 Dizziness and giddiness; F03.90 Unspecified dementia, unspecified severity, without behavioral disturbance, psychotic disturbance, mood disturbance, and anxiety; G54.4 Lumbosacral root disorders, not elsewhere classified; S32.049D Unspecified fracture of fourth lumbar vertebra, subsequent encounter for fracture with routine healing; W19.XXXD Unspecified fall, subsequent encounter; Z90.49 Acquired absence of other specified parts of digestive tract; Z79.891 Long term (current) use of opiate analgesic
CPT/HCPCS: 80053; 85025; 99214

== ENCOUNTER 2020-11-30 15:45 | Outpatient (CLI) | payer MEDICARE, OTHER, SELFPAY ==
--- NOTE | 2020-12-03 10:28 | ONC FU_ITS ---
Dr. Rausch Patient Follow-Up Note Patient: Katherin Silva Unit #: [id number]: 1940 Dicatated By: Musa Rausch M.D.Date of Visit:November 30, 2020 Onc Med Follow-up/Prog Note Chief Complaint: Colon cancer/anemia. History of Present Illness: This is a 80 year-old woman with stage III colon cancer. She also has mild anemia. She underwent surgical resection for the colon cancer in 2005. She was given postoperative adjuvant chemotherapy with 12 cycles of modified FOLFOX, completed in June 2006. She had evidence of lymphadenopathy on her prestaging evaluation, and axillary lymph node biopsy was consistent with sarcoidosis. She has not received any specific treatment for it. During follow-up there has been no evidence of recurrence of the colon cancer. Her surveillance CT scans of the chest, abdomen, and pelvis in August 2019 showed no evidence of recurrent or metastatic disease. In April 2020 she had been admitted to the hospital with weakness and falling. She was noted to be moderately anemic. She ultimately did undergo evaluation with bone marrow aspiration/biopsy on 06/01/2020. It did show a slight increase in plasma cells, but there was no evidence of myeloma and there were no other diagnostic findings in the bone marrow. In the meantime, she then had another fall in which she sustained an injury to her right hip. X-rays of the pelvis and right hip on 08/07/2020 showed degenerative changes within the hips, but there was no acute process noted. I had seen her for a follow-up visit on 08/14/2020. She continued to complain of pain in her low back and right hip. She was able to ambulate with a walker, but she had very limited activity. She also was having difficulty with balance and with memory. She was given a prescription for hydrocodone 5/APAP 325 for the pain. She was not able to tolerate it because of [employer] MACHINE OPERATOR side effects. She was then seen in the emergency room on 08/17/2020 with pain in her back and right hip. Her CT of the lumbar spine showed an acute compression fracture involving the superior endplate of L4 with loss of approximately 30% of vertebral body height. There was mild retropulsion of the posterior superior cortex with mild central canal stenosis. There was impingement on the subarticular recess bilaterally. Also noted was mild disc bulging at L4-5 which was eccentric to the right with mild central canal stenosis and with impingement traversing the right L5 nerve root. Her pain medication was then changed to oxycodone 5/APAP 325, which she tolerated much better. She had further evaluation with bone scan on 08/25/2020. It showed uptake in the L4 vertebral body associated with the known acute compression fracture. There were no significant abnormalities noted in the right hip or pelvis and there was no evidence of metastatic disease. Her other medical illnesses include hypertension, osteoporosis, and degenerative arthritis. She has a history of anxiety/depression. She has been seeing Dr. Gonzalez for dementia. In August 2014 she underwent placement of permanent pacemaker for complete heart block. She is a nonsmoker. INTERIM HISTORY: She has seen for a follow-up visit. Her main complaint is that her memory has continued to get worse despite having had treatment with both donepezil and subsequently with memantine. Has of her follow-up visit with Dr. Gonzalez in May 2020 she has a further trial of therapy with rivastigmine. Her symptoms, though, have continued to worsen. She still has very limited activity, but she is able to ambulate with assistance. She has not had any more falls. Her ECOG score is 3. She has good appetite. She has no fever or night sweats. She does not complain of shortness of breath, cough, or chest pain. She has no GI or complaints. She has back pain with more prolonged standing. She has no other joint or bone pain. She has no focal neurologic symptoms. Medications: Atorvastatin Calcium 1 Tablet (of 10 mg) Oral daily, [facility] Fish Oil 1 Capsule (of 1000 mg) Oral daily, Donepezil HCl 1 Tablet (of 5 mg) Oral daily, Folic Acid 1 Tablet (of 800 mcg) Oral daily, Metoprolol Tartrate 3 Tablet (of 25 mg) Oral b.i.d., Venlafaxine HCl ER 1 Capsule (of 37.5 mg) Capsule SR 24 HR Oral b.i.d., Vitamin D2 1 Tablet (of 25707 Units) Oral q 30 days Allergies: Aspirin, HYDROcodone-Acetaminophen, and Penicillins. Vital Signs: Performed on November 30, 2020 15:57 Height - 66.00 in Weight - 120 lbs (HIGH) BSA - 1.61 sq.m BMI - 19.37 Temperature - 97.6 F (LOW) Pulse - 102 /min (HIGH) Respiration - 18 /min BP - 147/74 mm(hg) (HIGH) O2 Sat - 96 % Pain - 0 Fatigue - 0 Physical Examination: Constitutional - She appears somewhat frail generally, Eyes - Sclerae nonicteric. Conjunctivae clear, ENMT - No lesions noted in the oral cavity, Hematologic/Lymphatic - No cervical, clavicular, or axillary adenopathy, Respiratory - Lungs are clear with some decrease in air movement bilaterally, Cardiovascular - Heart rhythm is regular. There is no murmur, gallop, or rub noted, Abdomen - Soft. Liver and spleen are not enlarged. There is no abdominal mass or ascites noted and there is no inguinal adenopathy, Extremities - No edema, Neurologic - No focal neurologic deficits noted. Lab/Imaging: Test performed on Oct 30, 2020 13:27 Sodium 135 mmol/L Potassium 3.9 mmol/L Chloride 101 mmol/L CO2 28 mmol/L Anion Gap 9.9 BUN 20 mg/dL Creatinine 0.8 mg/dL Cr Clearance (Est) 48.18 mL/min Glucose 107 mg/dL Osmolality - Calculated 283 mOsm/kg Calcium 8.9 mg/dL Protein, Total 6.9 g/dL Albumin 4.2 g/dL Globulin 2.7 g/dL Bilirubin, Total 0.6 mg/dL ALT (SGPT) 13 U/L AST (SGOT) 15 U/L Alkaline Phosphatase 54 IU/L WBC 3.5 10 3/uL RBC 2.88 10 6/uL HGB 10.4 g/dL HCT 31.1 % MCV 108.0 fL MCH 36.1 pg MCHC 33.4 g/dL RDW 13.2 % Platelet Count 139 10 3/cmm MPV 9.9 fL Neutrophils 1.77 10 3/uL Lymphocytes 1.3 10 3/uL Monocytes 0.3 10 3/uL Eosinophils 0.2 10 3/uL Basophils 0.0 10 3/uL Neutrophil % 49.9 % Lymphocyte % 36.2 % Monocyte % 8.8 % Eosinophil % 4.2 % Basophils % 0.6 % NRBC % 0 % Problem List: 1. History of stage III colon cancer treated with hemicolectomy followed by adjuvant chemotherapy with 12 cycles of FOLFOX, completed in June 2006. To date there has been no documented recurrence. 2. She has additional history of sarcoidosis, confirmed by axillary lymph node biopsy in 2005. She has had no specific treatment for it. 3. 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 4. She has dementia with complaints of memory loss and cognitive dysfunction. 5. She has been mildly anemic. 6. Hypertension. 7. Osteoporosis. 8. Degenerative arthritis. 9. Anxiety/depression. Problems Addressed with this Encounter and Plan: 1. Patient with history of colon cancer. Thus far there has been no evidence of recurrence of the colon cancer following surgical resection and adjuvant chemotherapy, completed in June 2006. Her recent CEA level was mildly elevated. The significance is uncertain. She will be scheduled for follow-up visit and repeat lab studies in 1 month. 2. She has been mildly anemic since hospitalization in April 2020. A specific cause has not been determined. She had unrevealing bone marrow aspiration/biopsy in May 2020. She will have additional lab studies for the anemia with her follow-up visit in 1 month. 3. She has dementia with memory loss and cognitive dysfunction. Thus far she has had no improvement with medical interventions including donepezil, memantine, and rivastigmine. 4. She has had back and hip pain in association with an acute vertebral compression fracture at L4. Her CT scan also showed degenerative changes which include some nerve root compression at L4-L5. It has been managed adequately with meloxicam and oxycodone/APAP. Signed By: Musa Rausch M.D. <<Signature on File>>
== END 2020-11-30 15:46 | disposition home or self-care (01) ==
PROVIDERS: PCP Nurse Practitioner; Visit Provider Internal Medicine Medical Oncology
DX: Z08 Encounter for follow-up examination after completed treatment for malignant neoplasm (principal); Z85.038 Personal history of other malignant neoplasm of large intestine; D86.9 Sarcoidosis, unspecified; Z91.81 History of falling; F03.91 Unspecified dementia, unspecified severity, with behavioral disturbance; D64.9 Anemia, unspecified; I10 Essential (primary) hypertension; M81.0 Age-related osteoporosis without current pathological fracture; F41.9 Anxiety disorder, unspecified; F32.9 Major depressive disorder, single episode, unspecified; Z79.899 Other long term (current) drug therapy
CPT/HCPCS: 99214

== ENCOUNTER → 2021-01-08 12:06 | Outpatient (BNVA) | payer MEDICARE, OTHER, SELFPAY | PROVIDERS: PCP Nurse Practitioner; Visit Provider Specialist | DX: G30.9 Alzheimer's disease, unspecified (principal); F02.80 Dementia in other diseases classified elsewhere, unspecified severity, without behavioral disturbance, psychotic disturbance, mood disturbance, and anxiety | CPT/HCPCS: 96116; 99214 ==

== ENCOUNTER 2021-01-10 08:59 | Outpatient (CLI) | payer MEDICARE, OTHER, SELFPAY ==
[2021-01-10 09:45] LABS: Basophils % 0.9 %; Eosinophils # 0.2 10^3/uL (0.0-0.8); Eosinophils % 5.7 %; Hematocrit 31.5 % (37.0-47.0); Hemoglobin 10.6 g/dL (11.5-15.3); Lymphocytes # 0.9 10^3/uL (0.8-4.8); Lymphocytes % 26.7 %; Mean Corpuscular HGB Conc 33.7 g/dL (30.0-36.0); Mean Corpuscular Hemoglobin 36.8 pg (28.0-34.0); Mean Corpuscular Volume 109.4 fL (81-99); Mean Platelet Volume 10.2 fL (7.4-10.4); Monocytes # 0.4 10^3/uL (0.2-0.9); Monocytes % 11.9 %; Neutrophils # 1.74 10^3/uL (1.8-7.7); Neutrophils % 54.8 %; Nucleated Red Blood Cells % 0 %; Platelet Count 133 10^3/cmm (130-400); Red Blood Count 2.88 10^6/uL (4.1-5.3); Red Cell Distribution Width 12.5 % (12.1-15.1); White Blood Count 3.2 10^3/uL (4.0-10.0)
[2021-01-10 10:15] LABS: Alanine Aminotransferase 10 U/L (0-33); Albumin Level 3.9 g/dL (3.5-5.2); Alkaline Phosphatase 52 IU/L (35-105); Anion Gap 10.9 (5-19); Aspartate Amino Transferase 15 U/L (0-32); Blood Urea Nitrogen 15 mg/dL (8-23); Calcium 8.7 mg/dL (8.5-10.5); Carbon Dioxide 28 mmol/L (22-29); Chloride 103 mmol/L (98-107); Globulin 2.5 g/dL (1.3-4.6); Glucose 75 mg/dL (65-115); Osmolality Calculated 286 mOsm/kg (285-295); Potassium 3.9 mmol/L (3.5-5.1); Sodium 138 mmol/L (136-145); Thyroid Stimulating Hormone 2.87 uIU/mL (0.27-4.20); Total Bilirubin 0.7 mg/dL (0.15-1.2); Total Protein 6.4 g/dL (6.6-8.7)
[2021-01-10 10:41] LABS: Erythrocyte Sedimentation Rate 21 mm/hr (0-15)
[2021-01-10 11:01] LABS: Vitamin B12 > 2000 pg/mL (232-1245)
[2021-01-11 09:52] LABS: PROTEIN, TOTAL 6.3 g/dL (6.1-8.1)
[2021-01-11 12:22] LABS: KAPPA LIGHT CHAIN, FREE, SERUM 42.2 mg/L (3.3-19.4); KAPPA/LAMBDA LIGHT CHAINS FREE 1.86 (0.26-1.65); LAMBDA LIGHT CHAIN, FREE, SERU 22.7 mg/L (5.7-26.3)
[2021-01-11 15:13] LABS: ALBUMIN 3.7 g/dL (3.8-4.8); ALPHA 1 GLOBULIN 0.3 g/dL (0.2-0.3); ALPHA 2 GLOBULIN 0.5 g/dL (0.5-0.9); BETA 1 GLOBULIN 0.3 g/dL (0.4-0.6); BETA 2 GLOBULIN 0.3 g/dL (0.2-0.5); GAMMA GLOBULIN 1.1 g/dL (0.8-1.7)
== END 2021-01-10 09:00 | disposition home or self-care (01) ==
LOC: ONCMED 09:02
PROVIDERS: PCP Nurse Practitioner; Visit Provider Internal Medicine Medical Oncology
DX: D64.9 Anemia, unspecified (principal); R53.83 Other fatigue; Z85.038 Personal history of other malignant neoplasm of large intestine; D86.1 Sarcoidosis of lymph nodes
CPT/HCPCS: 36415; 80053; 82607; 83883; 84155; 84165; 84443; 85025; 85651

== ENCOUNTER 2021-01-17 06:26 | Outpatient (CLI) | payer MEDICARE, OTHER, SELFPAY ==
--- NOTE | 2021-01-17 18:16 | ONC FU_ITS ---
Dr. Rausch Patient Follow-Up Note Patient: Katherin Silva Unit #: [id number]: 1940 Dicatated By: Musa Rausch M.D.Date of Visit:Jan 17, 2021 Onc Med Follow-up/Prog Note Chief Complaint: Colon cancer/anemia. History of Present Illness: This is a 80 year-old woman with stage III colon cancer. She also has mild anemia. She underwent surgical resection for the colon cancer in 2005. She was given postoperative adjuvant chemotherapy with 12 cycles of modified FOLFOX, completed in June 2006. She had evidence of lymphadenopathy on her prestaging evaluation, and axillary lymph node biopsy was consistent with sarcoidosis. She did not received any specific treatment for it. During follow-up there has been no evidence of recurrence of the colon cancer. Her surveillance colonoscopy in March 2019 showed a 1 cm polyp at 40 cm. It was removed endoscopically. Pathology showed adenomatous polyp with moderate dysplasia. Her surveillance CT scans of the chest, abdomen, and pelvis in August 2019 showed no evidence of recurrent or metastatic disease. In April 2020 she had been admitted to the hospital with weakness and falling. She was noted to be moderately anemic. She ultimately did undergo evaluation with bone marrow aspiration/biopsy on 06/01/2020. It did show a slight increase in plasma cells, but there was no evidence of myeloma and there were no other diagnostic findings in the bone marrow. In the meantime, she then had another fall in which she sustained an injury to her right hip. X-rays of the pelvis and right hip on 08/07/2020 showed degenerative changes within the hips, but there was no acute process noted. I had seen her for a follow-up visit on 08/14/2020. Her CBC showed just mild anemia with hemoglobin 11.4 g and hematocrit 34.7%. The white blood cell count was normal at 4700 and the platelet count was normal at 186,000. She continued, though, to complain of pain in her low back and right hip. She was able to ambulate with a walker, but she had very limited activity. She also was having difficulty with balance and with memory. She was given a prescription for hydrocodone 5/APAP 325 for the pain. She was not able to tolerate it because of [employer] WORK[employer] side effects. She was then seen in the emergency room on 08/17/2020 with pain in her back and right hip. Her CT of the lumbar spine showed an acute compression fracture involving the superior endplate of L4 with loss of approximately 30% of vertebral body height. There was mild retropulsion of the posterior superior cortex with mild central canal stenosis. There was impingement on the subarticular recess bilaterally. Also noted was mild disc bulging at L4-5 which was eccentric to the right with mild central canal stenosis and with impingement traversing the right L5 nerve root. Her pain medication was then changed to oxycodone 5/APAP 325, which she tolerated much better. She had further evaluation with bone scan on 08/25/2020. It showed uptake in the L4 vertebral body associated with the known acute compression fracture. There were no significant abnormalities noted in the right hip or pelvis and there was no evidence of metastatic disease. With those findings, she continued observation/symptomatic management. Her other medical illnesses include hypertension, osteoporosis, and degenerative arthritis. She has a history of anxiety/depression. She has been seeing Dr. Gonzalez for dementia. In August 2014 she underwent placement of permanent pacemaker for complete heart block. She is a nonsmoker. INTERIM HISTORY: She is seen for a scheduled visit. She had a recent follow-up visit with Dr. Gonzalez because of worsening dementia. She was recommended to begin a trial of therapy with galantamine, initially at 4 mg twice daily. She filled the prescription, but she has not started taking it yet. She has been feeling a little better since her last visit. She still has limited activity, but she is ambulatory. Her ECOG score is 2. 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 The pain is relieved, though, with sitting or lying. She is trying to get back into physical therapy. She has good appetite. Her weight now is stable. She does not have fever or night sweats. She has no shortness of breath, cough, or chest pain. She currently has no GI or complaints. She has no other joint or bone pain. She has ongoing problems with balance, but she does not complain of headache, and she has no focal neurologic symptoms. Medications: Atorvastatin Calcium 1 Tablet (of 10 mg) Oral daily, [employer] Fish Oil 1 Capsule (of 1000 mg) Oral daily, Folic Acid 1 Tablet (of 800 mcg) Oral daily, Meloxicam 1 Tablet (of 7.5 mg) Oral daily, Memantine HCl 1 Tablet (of 10 mg) Oral daily, Metoprolol Tartrate 1 Tablet (of 25 mg) Oral b.i.d., Venlafaxine HCl ER 1 Capsule (of 37.5 mg) Capsule SR 24 HR Oral b.i.d., Vitamin D2 1 Tablet (of 04750 Units) Oral q 30 days Allergies: Aspirin, HYDROcodone-Acetaminophen, and Penicillins. Vital Signs: Performed on Jan 17, 2021 15:54 Height - 66.00 in Weight - 120.8 lbs (HIGH) BSA - 1.61 sq.m BMI - 19.50 Temperature - 97.1 F (LOW) Pulse - 97 /min Respiration - 19 /min BP - 151/79 mm(hg) (HIGH) O2 Sat - 99 % Pain - 0 Physical Examination: Constitutional - She appears somewhat weak generally, Eyes - Sclerae nonicteric. Conjunctivae clear, ENMT - No lesions noted in the oral cavity, Hematologic/Lymphatic - No cervical or clavicular adenopathy, Respiratory - Lungs are clear with diminished in air movement bilaterally, Cardiovascular - Heart rhythm is regular. There is no murmur, gallop, or rub noted, Breasts - There are no breast masses noted. There is no axillary adenopathy, Abdomen - Soft. Liver and spleen are not enlarged. There is no abdominal mass or ascites noted and there is no inguinal adenopathy, Extremities - No edema, Neurologic - She has significant postural instability. There are no focal neurologic deficits noted. Lab/Imaging: CBC shows hemoglobin 10.6 g with hematocrit 31.5%. The red cell indices are macrocytic with MCV 109 and MCH 36.8. The white blood cell count is 3200 with absolute neutrophil count 1700. Platelet count is borderline low at 133,000. Comprehensive metabolic profile is unremarkable. Serum protein electrophoresis shows no detectable monoclonal protein. Her serum free light chain assay shows elevated free kappa light chain at 42.2 mg/L, normal lambda light chain at 22.7 mg/L, and slightly elevated kappa/lambda ratio at 1.86. The B12 level is greater than 2000 pg/mL. TSH is normal at 2.87 ???IU/mL. Problem List: 1. History of stage III colon cancer treated with hemicolectomy followed by adjuvant chemotherapy with 12 cycles of FOLFOX, completed in June 2006. To date there has been no documented recurrence. 2. She has additional history of sarcoidosis, confirmed by axillary lymph node biopsy in 2005. She has had no specific treatment for it. 3. 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 4. She has dementia with complaints of memory loss and cognitive dysfunction. 5. She has been mildly anemic. 6. Hypertension. 7. Osteoporosis. 8. Degenerative arthritis. 9. Anxiety/depression. Problems Addressed with this Encounter and Plan: 1. Patient with history of colon cancer. Thus far there has been no evidence of recurrence of the colon cancer following surgical resection and adjuvant chemotherapy, completed in June 2006. Her recent CEA level was mildly elevated. The significance is uncertain. The CEA level will be repeated with her next visit, and she will have further evaluation as indicated. I reviewed the findings from her last colonoscopy with Dr. Milner, and she would otherwise be due for her surveillance colonoscopy again in 1 year. 2. She has been mildly anemic since hospitalization in April 2020. A specific cause has not been determined. She had unrevealing bone marrow aspiration/biopsy in May 2020. During follow-up she has continued to have mild anemia with macrocytic red blood cell indices, and she also has mild to moderately severe neutropenia, ANC 1700. The findings are suspicious for developing myelodysplastic syndrome. She will be scheduled for a follow-up visit with repeat lab studies in 3 months. 3. She has dementia with memory loss and cognitive dysfunction. She will now be starting a trial of therapy with galantamine, initially at 4 mg twice daily. She continues follow-up with Dr. Gonzalez. 4. She has had back and hip pain in association with an acute vertebral compression fracture at L4. Her CT scan also showed degenerative changes which include some nerve root compression at L4-L5. It has been managed adequately with meloxicam and oxycodone/APAP. She is also planning to continue some further physical therapy. Signed By: Musa Rausch M.D. <<Signature on File>>
== END 2021-01-17 06:27 | disposition home or self-care (01) ==
LOC: ONCMED 06:33
PROVIDERS: PCP Nurse Practitioner; Visit Provider Internal Medicine Medical Oncology
DX: Z08 Encounter for follow-up examination after completed treatment for malignant neoplasm (principal); Z85.038 Personal history of other malignant neoplasm of large intestine; D64.9 Anemia, unspecified; D86.9 Sarcoidosis, unspecified; R42 Dizziness and giddiness; F03.90 Unspecified dementia, unspecified severity, without behavioral disturbance, psychotic disturbance, mood disturbance, and anxiety; I10 Essential (primary) hypertension; M81.0 Age-related osteoporosis without current pathological fracture; M19.90 Unspecified osteoarthritis, unspecified site; F32.9 Major depressive disorder, single episode, unspecified; F41.9 Anxiety disorder, unspecified; Z92.21 Personal history of antineoplastic chemotherapy; Z79.899 Other long term (current) drug therapy
CPT/HCPCS: 99214

== ENCOUNTER 2021-01-25 15:12 | Outpatient (CLI) | payer MEDICARE, OTHER, SELFPAY ==
--- NOTE | 2021-01-25 15:23 | MM_ITS ---
WS: [id number] BILATERAL SCREENING DIGITAL MAMMOGRAM WITH CAD HISTORY: SCREENING COMPARISON: 05/29/2014 and 05/31/2013 Bilateral CC and MLO views submitted. Computer aided detection analyzed. Breast composition: The breasts are extremely dense, which lowers the sensitivity of mammography. No suspicious masses, microcalcifications or architectural distortion. Benign coarse calcifications and vascular calcifications in soft tissue asymmetries are present bilaterally. MM/[place] [id number] IMPRESSION: BI-RADS: 2-Benign FOLLOW UP: 1 Year Follow-up
== END 2021-01-25 15:13 | disposition home or self-care (01) ==
LOC: RADSHAW 15:23
PROVIDERS: PCP Nurse Practitioner; Visit Provider Internal Medicine Medical Oncology
DX: Z12.31 Encounter for screening mammogram for malignant neoplasm of breast (principal)
CPT/HCPCS: 77067

== ENCOUNTER → 2021-04-16 09:57 | Outpatient (BNVA) | payer MEDICARE, OTHER, SELFPAY | PROVIDERS: PCP Nurse Practitioner; Visit Provider Specialist | DX: G31.84 Mild cognitive impairment of uncertain or unknown etiology (principal) | CPT/HCPCS: 99214 ==

== ENCOUNTER 2021-04-19 14:52 | Outpatient (CLI) | payer MEDICARE, OTHER, SELFPAY ==
[2021-04-19 15:31] LABS: Basophils % 0.9 %; Eosinophils # 0.2 10^3/uL (0.0-0.8); Eosinophils % 4.9 %; Hematocrit 32.3 % (37.0-47.0); Lymphocytes # 1.1 10^3/uL (0.8-4.8); Mean Corpuscular HGB Conc 34.1 g/dL (30.0-36.0); Mean Corpuscular Hemoglobin 37.2 pg (28.0-34.0); Mean Corpuscular Volume 109.1 fl (81-99); Monocytes # 0.3 10^3/uL (0.2-0.9); Monocytes % 8.4 %; Neutrophils # 1.86 10^3/uL (1.8-7.7); Neutrophils % 53.5 %; Nucleated Red Blood Cells % 0 %; Platelet Count 127 10^3/cmm (130-400); Red Blood Count 2.96 10^6/uL (4.1-5.3); Red Cell Distribution Width 12.5 % (12.1-15.1); White Blood Count 3.5 10^3/uL (4.0-10.0)
[2021-04-19 16:19] LABS: Lactate Dehydrogenase 192 U/L (135-214)
[2021-04-20 07:22] LABS: PROTEIN, TOTAL 6.7 g/dL (6.1-8.1)
[2021-04-20 10:33] LABS: Erythrocyte Sedimentation Rate 9 mm/hr (0-15)
--- NOTE | 2021-04-20 12:41 | ONC FU_ITS ---
Dr. Rausch Patient Follow-Up Note Patient: Katherin Silva Unit #: [id number]: 1940 Dicatated By: Musa Rausch M.D.Date of Visit:Apr 19, 2021 Onc Med Follow-up/Prog Note Chief Complaint: Colon cancer/anemia. History of Present Illness: This is a 80 year-old woman with stage III colon cancer. She also has mild anemia. She underwent surgical resection for the colon cancer in 2005. She was given postoperative adjuvant chemotherapy with 12 cycles of modified FOLFOX, completed in June 2006. She had evidence of lymphadenopathy on her prestaging evaluation, and axillary lymph node biopsy was consistent with sarcoidosis. She did not received any specific treatment for it. During follow-up there has been no evidence of recurrence of the colon cancer. Her surveillance colonoscopy in March 2019 showed a 1 cm polyp at 40 cm. It was removed endoscopically. Pathology showed adenomatous polyp with moderate dysplasia. Her surveillance CT scans of the chest, abdomen, and pelvis in August 2019 showed no evidence of recurrent or metastatic disease. In April 2020 she had been admitted to the hospital with weakness and falling. She was noted to be moderately anemic. She ultimately did undergo evaluation with bone marrow aspiration/biopsy on 06/01/2020. It did show a slight increase in plasma cells, but there was no evidence of myeloma and there were no other diagnostic findings in the bone marrow. In the meantime, she then had another fall in which she sustained an injury to her right hip. X-rays of the pelvis and right hip on 08/07/2020 showed degenerative changes within the hips, but there was no acute process noted. I had seen her for a follow-up visit on 08/14/2020. Her CBC showed just mild anemia with hemoglobin 11.4 g and hematocrit 34.7%. The white blood cell count was normal at 4700 and the platelet count was normal at 186,000. She continued, though, to complain of pain in her low back and right hip. She was able to ambulate with a walker, but she had very limited activity. She also was having difficulty with balance and with memory. She was given a prescription for hydrocodone 5/APAP 325 for the pain. She was not able to tolerate it because of TOP LIFT COMPRESSOR side effects. She was then seen in the emergency room on 08/17/2020 with pain in her back and right hip. Her CT of the lumbar spine showed an acute compression fracture involving the superior endplate of L4 with loss of approximately 30% of vertebral body height. There was mild retropulsion of the posterior superior cortex with mild central canal stenosis. There was impingement on the subarticular recess bilaterally. Also noted was mild disc bulging at L4-5 which was eccentric to the right with mild central canal stenosis and with impingement traversing the right L5 nerve root. Her pain medication was then changed to oxycodone 5/APAP 325, which she tolerated much better. She had further evaluation with bone scan on 08/25/2020. It showed uptake in the L4 vertebral body associated with the known acute compression fracture. There were no significant abnormalities noted in the right hip or pelvis and there was no evidence of metastatic disease. With those findings, she continued observation/symptomatic management. Her other medical illnesses include hypertension, osteoporosis, and degenerative arthritis. She has a history of anxiety/depression. She has been seeing Dr. Gonzalez for dementia. In August 2014 she underwent placement of permanent pacemaker for complete heart block. She is a nonsmoker. INTERIM HISTORY: She has seen for a follow-up visit. She has been feeling somewhat better. She has been seen Dr. Gonzalez. She currently is on treatment with galantamine 12 mg twice daily together with memantine 10 mg daily, and on that regimen there has been some improvement in her cognitive function. She says her energy is fair now. She is able to do some light work, though her activity is limited by back pain. Her ECOG score is 1. She has good appetite. She does not have fever or night sweats. Her main complaint now is the back pain, which is in the lower back on either side. She says it does not hurt in the middle. It is associated with activity, and the pain completely resolves with sitting down. She has no other joint or bone pain. She continues to complain that she walks like she is drunk, and she also has numbness in her feet. Medications: Atorvastatin Calcium 1 Tablet (of 10 mg) Oral daily, Calcium 1 Tablet (of 500 mg) Oral daily, [employer] Fish Oil 1 Capsule (of 1000 mg) Oral daily, Folic Acid 1 Tablet (of 800 mcg) Oral daily, Galantamine Hydrobromide 1 Tablet (of 12 mg) Oral daily, Meloxicam 1 Tablet (of 7.5 mg) Oral daily, Memantine HCl 1 Tablet (of 10 mg) Oral daily, Metoprolol Tartrate 1 Tablet (of 25 mg) Oral b.i.d., Venlafaxine HCl ER 1 Capsule (of 37.5 mg) Capsule SR 24 HR Oral b.i.d., Vitamin D2 1 Tablet (of 43710 Units) Oral q 30 days Allergies: Aspirin, HYDROcodone-Acetaminophen, and Penicillins. Vital Signs: Performed on Apr 19, 2021 16:31 Height - 66.00 in Weight - 121.6 lbs (HIGH) BSA - 1.62 sq.m BMI - 19.63 Temperature - 97.5 F (LOW) Pulse - 96 /min Respiration - 18 /min BP - 131/70 mm(hg) O2 Sat - 97 % Pain - 0 Fatigue - 0 Physical Examination: Constitutional - She appears somewhat frail generally, Eyes - Sclerae nonicteric. Conjunctivae clear, ENMT - No lesions noted in the oral cavity, Hematologic/Lymphatic - No cervical, clavicular, or axillary adenopathy, Respiratory - Lungs are clear with diminished in air movement bilaterally, Cardiovascular - Heart rhythm is regular. There is a II/ systolic murmur. There is no gallop or rub noted, Abdomen - Soft. Liver and spleen are not enlarged. There is no abdominal mass or ascites noted and there is no inguinal adenopathy, Back/Spine - There is no significant bony tenderness in the spine, Extremities - No edema, Neurologic - She has postural instability. There are no focal neurologic deficits noted. Lab/Imaging: Test performed on Apr 19, 2021 15:14 LDH (Total) 192 U/L WBC 3.5 10 3/uL RBC 2.96 10 6/uL HGB 11.0 g/dL HCT 32.3 % MCV 109.1 fl MCH 37.2 pg MCHC 34.1 g/dL RDW 12.5 % Platelet Count 127 10 3/cmm MPV 10.0 fL Neutrophils 1.86 10 3/uL Lymphocytes 1.1 10 3/uL Monocytes 0.3 10 3/uL Eosinophils 0.2 10 3/uL Basophils 0.0 10 3/uL Neutrophil % 53.5 % Lymphocyte % 32.0 % Monocyte % 8.4 % Eosinophil % 4.9 % Basophils % 0.9 % NRBC % 0 % CEA 6.0 ng/mL Problem List: 1. History of stage III colon cancer treated with hemicolectomy followed by adjuvant chemotherapy with 12 cycles of FOLFOX, completed in June 2006. To date there has been no documented recurrence. 2. She has additional history of sarcoidosis, confirmed by axillary lymph node biopsy in 2005. She has had no specific treatment for it. 3. 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 4. She has dementia with complaints of memory loss and cognitive dysfunction. 5. She has been mildly anemic. 6. Hypertension. 7. Osteoporosis. 8. Degenerative arthritis. 9. Anxiety/depression. Problems Addressed with this Encounter and Plan: 1. Patient with history of colon cancer. Thus far there has been no evidence of recurrence of the colon cancer following surgical resection and adjuvant chemotherapy, completed in June 2006. During follow-up her CEA levels have been mildly elevated, but stable. She continues expectant management. 2. She was noted to have a mild, macrocytic anemia following a hospitalization in April 2020. Her bone marrow aspiration/biopsy and May 2020 showed no diagnostic findings. During follow-up she has been on to develop mild pancytopenia. A specific cause has not been determined. The findings are suspicious for developing myelodysplastic syndrome. As her blood counts currently appears stable, she will continue on expectant management. 3. She has dementia with memory loss and cognitive dysfunction. She continues follow-up with Dr. Gonzalez. 4. She has had back and hip pain in association with an acute vertebral compression fracture at L4. Her CT scan also showed degenerative changes which include some nerve root compression at L4-L5. She has been managed conservatively. At this point she is still having significant pain with activity, and she would like to pursue any nonsurgical options which might be beneficial. I will check and see if she may benefit with either physical therapy or referral to pain clinic. Signed By: Musa Rausch M.D. <<Signature on File>>
[2021-04-20 14:43] LABS: ALPHA 1 GLOBULIN 0.3 g/dL (0.2-0.3); ALPHA 2 GLOBULIN 0.6 g/dL (0.5-0.9); BETA 1 GLOBULIN 0.4 g/dL (0.4-0.6); BETA 2 GLOBULIN 0.3 g/dL (0.2-0.5); GAMMA GLOBULIN 1.2 g/dL (0.8-1.7)
[2021-04-20 14:53] LABS: KAPPA LIGHT CHAIN, FREE, SERUM 40.8 mg/L (3.3-19.4); KAPPA/LAMBDA LIGHT CHAINS FREE 1.97 (0.26-1.65); LAMBDA LIGHT CHAIN, FREE, SERU 20.7 mg/L (5.7-26.3)
== END 2021-04-19 14:53 | disposition home or self-care (01) ==
LOC: ONCMED 14:55
PROVIDERS: PCP Nurse Practitioner; Visit Provider Internal Medicine Medical Oncology
DX: Z08 Encounter for follow-up examination after completed treatment for malignant neoplasm (principal); Z85.038 Personal history of other malignant neoplasm of large intestine; D53.9 Nutritional anemia, unspecified; D61.818 Other pancytopenia; F03.90 Unspecified dementia, unspecified severity, without behavioral disturbance, psychotic disturbance, mood disturbance, and anxiety; M48.56XS Collapsed vertebra, not elsewhere classified, lumbar region, sequela of fracture; M54.9 Dorsalgia, unspecified; M25.559 Pain in unspecified hip; I10 Essential (primary) hypertension; M81.0 Age-related osteoporosis without current pathological fracture; F41.8 Other specified anxiety disorders; Z92.21 Personal history of antineoplastic chemotherapy; Z79.899 Other long term (current) drug therapy
CPT/HCPCS: 36415; 82378; 83615; 83883; 84155; 84165; 85025; 85651; 99214

== ENCOUNTER 2021-05-28 15:10 | Outpatient (CLI) | payer MEDICARE, OTHER, SELFPAY ==
--- NOTE | 2021-05-28 15:30 | CT_ITS ---
WS: [id number] CT LUMBAR SPINE TECHNIQUE: Noncontrast CT of the lumbar spine with coronal and sagittal reformatted images. CLINICAL INFORMATION: S32.040S - Wedge compression fracture of fourth lumbar ve... COMPARISON: CT August 17, 2020 DLP: 1794.[address] scans at [facility] use at least one of these dose optimization techniques: automated e xposure control; mA and/or kV adjustment per patient size (includes targeted exams where dose is matc hed to clinical indication); or iterative reconstruction. FINDINGS: Mild lumbar curve. Disc space narrowing L2-3, L3-4, L4-5 with vacuum disc phenomenon. Chronic cherise karlo of the L4 vertebral body with anterior wedging slightly progressed compared to August 17, 2020. No other new compression fractures. L1-L2: Mild annular bulging. Slight effacement of ventral thecal sac. Mild facet arthropathy. Spinal canal and foramen are patent. L2-L3: Mild disc osteophytic ridging. Slight narrowing of the left subarticular recess. Mild left for aminal narrowing. Moderate facet arthropathy. L3-L4: Disc osteophyte complex with endplate ridging. Moderate central canal stenosis and impingement traversing L4 nerve roots bilaterally. This is slightly progressed compared to previous. Mild retrop ulsion of the posterior superior cortex L4 has slightly progressed. Mild bilateral foraminal narrowin g right greater than left. Moderate facet arthropathy with ligamentum flavum flavum hypertrophy. L4-L5: Mild disc bulging with vacuum disc phenomenon progressed compared to previous. Mild central ca nal stenosis and impinges the right greater than left traversing L5 nerve roots. Right foraminal prot rusion with moderate right foraminal narrowing. This impinges the exiting right L4 nerve root. Left f oramen is patent. Moderate facet arthropathy with ligamentum flavum flavum hypertrophy. L5-S1: No significant disc bulging. Spinal canal and foramen are patent. Moderate facet arthropathy. Adrenal glands are normal. CT/CT lumbar spine wo con* [id number] IMPRESSION: 1. Mild compression anterior wedging of the L4 vertebral body is slightly prog ressed compared to August 17, 2020 with slight increased retropulsion of the p osterior superior cortex. Loss of approximately 40% vertebral body height anter iorly. 2. Moderate central canal stenosis L3-4 with impingement on the subarticular r ecess bilaterally. This is progressed compared to previous. 3. Disc desiccation L4-5 has progressed compared to previous. Mild central can al stenosis. Right foraminal protrusion impinges the exiting right L4 nerve sujit t with moderate right foraminal narrowing. 4. No other significant changes compared to previous.
== END 2021-05-28 15:11 | disposition home or self-care (01) ==
PROVIDERS: PCP Nurse Practitioner; Visit Provider Nurse Practitioner
DX: S32.040S Wedge compression fracture of fourth lumbar vertebra, sequela (principal); X58.XXXS Exposure to other specified factors, sequela; M48.061 Spinal stenosis, lumbar region without neurogenic claudication
CPT/HCPCS: 72131

== ENCOUNTER → 2021-06-26 09:50 | Outpatient (BNVA) | payer MEDICARE, OTHER, SELFPAY | PROVIDERS: PCP Nurse Practitioner; Referring Provider Orthopaedic Surgery; Visit Provider Anesthesiology Pain Medicine | DX: G89.29 Other chronic pain (principal); M51.16 Intervertebral disc disorders with radiculopathy, lumbar region; M47.816 Spondylosis without myelopathy or radiculopathy, lumbar region; S32.040S Wedge compression fracture of fourth lumbar vertebra, sequela; X58.XXXS Exposure to other specified factors, sequela | CPT/HCPCS: 99205 ==

== ENCOUNTER 2021-07-17 12:47 | Outpatient (CLI) | payer MEDICARE, OTHER, SELFPAY ==
--- NOTE | 2021-07-17 13:30 | USCV_ITS ---
Katherin Silva Age: 81 Gender: F : 1940 Exam Date: 07/17/2021 13:05 Ordering Phys: Marta Vasques MD ([email or web address]) Technologist: JOSSELIN [place] [facility] [place]: OCCLUSION AND STENOSIS OF BILATERAL CAROTID ARTERIES Risk Factors: Previous Vascular Surgery: Right Brachial BP: / Left Brachial BP: / Right Left Velocity (cm/s) Spectral Plaque Velocity (cm/s) Spectral Plaque Syst/Diast Broadening Syst/Diast Broadening 57.70/ 14.00 Prox CCA 66.90 / 13.80 63.10/ 15.80 Mid CCA 60.30 / 14.50 38.80/ 10.60 Distal CCA 57.40 / 15.30 78.60/ 20.50 Prox ICA 24.10 / 9.10 73.00/ 17.30 Mid ICA 69.50 / 20.20 83.90/ 27.50 Distal ICA 76.60 / 20.90 59.20 ECA 49.40 2.16 ICA/CCA 1.27 Antegrade Vertebral Antegrade 34.10/ 2.70 cm/s 45.30/ 11.60 cm/s Bi Subclavian Bi 88.60 84.50 FINDINGS Moderate heterogeneous plaques of the bifurcations bilaterally Intimal thickening in the common carotid arteries bilaterally Antegrade flow in the vertebral arteries bilaterally Normal Doppler flow velocities in the external carotid arteries bilaterally CONCLUSIONS Moderate heterogeneous plaques at the bifurcations bilaterally, with velocity features consistent with less than 50% stenosis. No significant stenosis in the subclavian, vertebral and external carotid arteries, based on the flow velocity measurements Compared to the study from 07/11/2020, there may not be a significant change. Dr Marta Vasques MD [facility] (Electronically Signed) Final Date: 18 July 2021 19:35 S
== END 2021-07-17 12:48 | disposition home or self-care (01) ==
PROVIDERS: PCP Nurse Practitioner; Visit Provider Internal Medicine Cardiovascular Disease
DX: I65.23 Occlusion and stenosis of bilateral carotid arteries (principal); R94.39 Abnormal result of other cardiovascular function study
CPT/HCPCS: 93880

== ENCOUNTER → 2021-08-13 13:33 | Outpatient (BNVA) | payer MEDICARE, OTHER, SELFPAY | PROVIDERS: PCP Nurse Practitioner; Visit Provider Nurse Practitioner | DX: I10 Essential (primary) hypertension (principal); M05.741 Rheumatoid arthritis with rheumatoid factor of right hand without organ or systems involvement; M05.742 Rheumatoid arthritis with rheumatoid factor of left hand without organ or systems involvement; F32.9 Major depressive disorder, single episode, unspecified; G30.9 Alzheimer's disease, unspecified; F02.80 Dementia in other diseases classified elsewhere, unspecified severity, without behavioral disturbance, psychotic disturbance, mood disturbance, and anxiety; E78.2 Mixed hyperlipidemia | CPT/HCPCS: 80053; 80061; 85025 ==

== ENCOUNTER → 2021-10-15 09:59 | Outpatient (BNVA) | payer MEDICARE, OTHER, SELFPAY | PROVIDERS: PCP Nurse Practitioner; Visit Provider Specialist | DX: G30.9 Alzheimer's disease, unspecified (principal); F02.80 Dementia in other diseases classified elsewhere, unspecified severity, without behavioral disturbance, psychotic disturbance, mood disturbance, and anxiety | CPT/HCPCS: 99213; 99214 ==

== ENCOUNTER 2021-12-20 12:07 | Outpatient (CLI) | payer MEDICARE, OTHER, SELFPAY ==
--- NOTE | 2021-12-20 14:30 | CTR_ITS ---
PROCEDURE INFORMATION: Exam: CT Abdomen And Pelvis Without Contrast Exam date and time: 12/20/2021 2:47 PM Age: 81 years old Clinical indication: Other: Bowel irregularity; Prior surgery; Patient HX: HX of colon cancer; Additional info: R19.5 - other fecal abnormalities TECHNIQUE: Imaging protocol: Computed tomography of the abdomen and pelvis without contrast. Radiation optimization: All CT scans at this facility use at least one of these dose optimization techniques: automated exposure control; mA and/or kV adjustment per patient size (includes targeted exams where dose is matched to clinical indication); or iterative reconstruction. COMPARISON: CT chest abd pel w con* 09/09/2019 11:34 AM RADIATION DOSE METRICS: Total DLP (mGy-cm): 824.4 FINDINGS: Tubes, catheters and devices: Pacemaker leads in the heart. Lungs: Right base atelectasis. Heart: Coronary artery calcifications. Mitral annulus calcifications. Liver: Normal. No mass. Gallbladder and bile ducts: Cholecystectomy. Dilatation of the extrahepatic bile ducts is consistent with reservoir effect. Pancreas: Normal. No ductal dilation. Spleen: Normal. No splenomegaly. Adrenal glands: Normal. No mass. Kidneys and ureters: Normal. No hydronephrosis. Stomach and bowel: Partial resection of the distal sigmoid colon with sutures. The remainder of the colon is unremarkable with scattered contrast material a minimal stool. No wall thickening. The stomach and small bowel are unremarkable. No wall thickening or obstruction. Appendix: The appendix is not visualized. No secondary signs of appendicitis. Intraperitoneal space: Unremarkable. No free air. No significant fluid collection. Vasculature: Arterial calcifications. No aneurysm. Lymph nodes: Unremarkable. No enlarged lymph nodes. Urinary bladder: Unremarkable as visualized. Reproductive: Unremarkable as visualized. Bones/joints: Scoliosis and degenerative changes of the lumbar spine. Moderate L4 compression fracture which is most likely chronic. Soft tissues: Unremarkable. CT/CT abdomen pelvis wo con [id number] IMPRESSION: 1. No acute finding in the abdomen or pelvis. 2. Age indeterminate, but likely chronic L4 compression fracture.
== END 2021-12-20 12:08 | disposition home or self-care (01) ==
LOC: RAD 12:09
PROVIDERS: PCP Nurse Practitioner; Visit Provider Nurse Practitioner
DX: R19.5 Other fecal abnormalities (principal); Z85.038 Personal history of other malignant neoplasm of large intestine
CPT/HCPCS: 74176

== ENCOUNTER → 2021-12-26 12:39 | Outpatient (BNVA) | payer MEDICARE, OTHER, SELFPAY | PROVIDERS: PCP Nurse Practitioner; Visit Provider Podiatrist Foot & Ankle Surgery | DX: L60.3 Nail dystrophy (principal); I73.9 Peripheral vascular disease, unspecified; M20.41 Other hammer toe(s) (acquired), right foot; M20.42 Other hammer toe(s) (acquired), left foot; M21.70 Unequal limb length (acquired), unspecified site; I65.23 Occlusion and stenosis of bilateral carotid arteries; F32.9 Major depressive disorder, single episode, unspecified; I10 Essential (primary) hypertension; E78.2 Mixed hyperlipidemia; Z95.0 Presence of cardiac pacemaker | CPT/HCPCS: 11721; 99214 ==

== ENCOUNTER 2022-01-31 11:05 | Outpatient (CLI) | payer MEDICARE, OTHER, SELFPAY ==
--- NOTE | 2022-01-31 11:17 | MM_ITS ---
WS: [email or web address] BILATERAL SCREENING DIGITAL BREAST TOMOSYNTHESIS MAMMOGRAM WITH CAD HISTORY: SCREENING COMPARISON: 01/25/2021, 06/28/2014 Bilateral CC and MLO views with tomosynthesis and synthetic mammography submitted. Computer aided det ection analyzed. Breast composition: The breasts are extremely dense, which lowers the sensitivity of mammography. No suspicious masses, microcalcifications or architectural distortion. Very dense bilateral calcificatio ns. Examination is limited and very difficult secondary to patient's physical condition. Patient is very kyphotic and was unable to be upright for this examination. MM/[place] [id number] IMPRESSION: BI-RADS: 2-Benign FOLLOW UP: 1 Year Follow-up
== END 2022-01-31 11:06 | disposition home or self-care (01) ==
PROVIDERS: PCP Nurse Practitioner; Visit Provider Internal Medicine Medical Oncology
DX: Z12.31 Encounter for screening mammogram for malignant neoplasm of breast (principal)
CPT/HCPCS: 77063; 77067

== ENCOUNTER 2022-03-04 12:16 | Oncology outpatient (recurring) (ONCR) | payer MEDICARE, OTHER, SELFPAY ==
[2022-03-04 13:23] LABS: Basophils % 0.8 %; Eosinophils # 0.1 10^3/uL (0.0-0.8); Eosinophils % 3.3 %; Hemoglobin 10.9 g/dL (11.5-15.3); Lymphocytes # 1.2 10^3/uL (0.8-4.8); Lymphocytes % 33.3 %; Mean Corpuscular Hemoglobin 36.6 pg (28.0-34.0); Mean Corpuscular Volume 110.7 fl (81-99); Mean Platelet Volume 10.4 fL (7.4-10.4); Monocytes # 0.4 10^3/uL (0.2-0.9); Monocytes % 11.6 %; Neutrophils # 1.84 10^3/uL (1.8-7.7); Neutrophils % 50.7 %; Nucleated Red Blood Cells % 0 %; Platelet Count 143 10^3/cmm (130-400); Red Blood Count 2.98 10^6/uL (4.1-5.3); Red Cell Distribution Width 12.3 % (12.1-15.1); White Blood Count 3.6 10^3/uL (4.0-10.0)
[2022-03-04 13:29] LABS: Erythrocyte Sedimentation Rate 1 mm/hr (0-15)
[2022-03-04 13:55] LABS: Alanine Aminotransferase 16 U/L (0-33); Albumin Level 4.4 g/dL (3.5-5.2); Alkaline Phosphatase 47 U/L (35-105); Anion Gap 15.2 (5-19); Aspartate Amino Transferase 20 U/L (0-32); Blood Urea Nitrogen 20 mg/dL (8-23); Calcium 9.1 mg/dL (8.5-10.5); Carbon Dioxide 24 mmol/L (22-29); Chloride 100 mmol/L (98-107); Ferritin 558 ng/mL (15-150); Globulin 2.7 g/dL (1.3-4.6); Glucose 124 mg/dL (65-115); Iron 119 ug/dL (37-145); Osmolality Calculated 284 mOsm/kg (285-295); Percent Saturation 54.5 % (20-50); Potassium 4.2 mmol/L (3.5-5.1); Sodium 135 mmol/L (136-145); Total Bilirubin 0.8 mg/dL (0.15-1.2); Total Iron Binding Capacity 218 mcg/dl; Total Protein 7.1 g/dL (6.6-8.7); Unsaturated Iron Binding 99 ug/dL (112-347)
[2022-03-04 16:25] LABS: 25 Hydroxy Vitamin D 43 ng/mL (30-100)
[2022-03-04 16:44] LABS: Vitamin B12 > 2000 pg/mL (232-1245)
== END 2022-03-20 23:59 | disposition home or self-care (01) ==
PROVIDERS: PCP Nurse Practitioner; Visit Provider Internal Medicine Medical Oncology
DX: Z87.81 Personal history of (healed) traumatic fracture; Z85.038 Personal history of other malignant neoplasm of large intestine; M54.50 Low back pain, unspecified; E55.9 Vitamin D deficiency, unspecified; D70.9 Neutropenia, unspecified; D64.9 Anemia, unspecified
CPT/HCPCS: 36415; 80053; 82306; 82607; 82728; 83540; 83550; 85025; 85651; 86140

== ENCOUNTER → 2022-03-28 12:38 | Outpatient (BNVA) | payer MEDICARE, OTHER, SELFPAY | PROVIDERS: PCP Nurse Practitioner; Visit Provider Podiatrist Foot & Ankle Surgery | DX: L60.8 Other nail disorders (principal); M20.41 Other hammer toe(s) (acquired), right foot; M20.42 Other hammer toe(s) (acquired), left foot; M21.70 Unequal limb length (acquired), unspecified site; I73.9 Peripheral vascular disease, unspecified; L60.3 Nail dystrophy | CPT/HCPCS: 11721 ==

== ENCOUNTER 2022-04-09 12:58 | Oncology outpatient (recurring) (ONCR) | payer MEDICARE, OTHER, SELFPAY ==
--- NOTE | 2022-04-09 13:06 | CT_ITS ---
WS: [email or web address] CT LUMBAR SPINE, noncontrast. HISTORY: Vertebral compression fracture; back pain and leg weakness TECHNIQUE: Contiguous 2.0 mm axial imaging are performed. Sagittal and coronal reformats are submitte d and reviewed. All CT scans at [facility] use at least one of these dose optimization techni ques: automated exposure control; mA and/or kV adjustment per patient size (includes targeted exams w here dose is matched to clinical indication); or iterative reconstruction. 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 Asymmetric disc space narrowing throughout the lumbar sp ine. Chronic anterior compression fracture at L4 of approximately 40%. Progression of the subchondral cystic changes and osteophytosis within the endplates of L4 and L5. Retropulsion of the posterior demarco perior endplate of L4 by 4 mm. Subchondral cystic changes and degenerative disc disease at L4-5 also progressed. Severe disc space narrowing at L2-3. L1-2: Mild disc bulging and osteophytic ridging. No stenosis. L2-3: Asymmetric disc bulging with asymmetric osteophytosis 6 extending to the LEFT. Mild narrowing o f the LEFT subarticular recess and LEFT foramen. No high-grade stenosis. L3-4: Posterior retropulsion of the superior endplate of L4 encroaches upon the ventral thecal sac ca using mild deformity. There is asymmetric disc space narrowing. Disc bulging and osteophytosis. Moder ate central with bilateral subarticular recess stenosis and mild foraminal stenosis. L4-5: Annular disc bulging with a large RIGHT foraminal disc protrusion causing significant RIGHT for aminal stenosis and contacting the RIGHT L4 and L5 nerve roots. Mild ligamentum flavum hypertrophy. S imilar to the prior study. L5-S1: Mild disc bulging. Bilateral facet joint arthritis. Moderate calcification in the aorta extending into the iliac arteries. CT/CT lumbar spine wo con* [id number] IMPRESSION: 1. Severe rotary scoliosis the lumbar spine with advancing degenerative disc d isease and degenerative changes involving the endplates of the vertebral bodies . 2. 40% anterior wedging of L4 is stable but progression subchondral cystic luis miguel nges involving the endplates. 3. Posterior retropulsion of the superior endplate of L4 with contact on the v entral thecal sac. Degenerative changes and retropulsion resulting in moderate central stenosis with encroachment upon the subarticular recesses. Very similar to the prior study from 05/28/2021. 4. Large RIGHT foraminal disc protrusion at L4-5 as seen on the prior examinat ion. This disc protrusion is contacting the RIGHT L4 and L5 nerve roots.
--- NOTE | 2022-04-09 13:06 | XR_ITS ---
WS: [email or web address] DEXA (DUAL ENERGY X-RAY ABSORPTIOMETRY) Bone mineral density was performed using a m2p-labs machine. HISTORY: osteopenia COMPARISON: 02/14/2016 Lumbar spine BMD (L1-L4): 1.230 g/cm2 T score: 0.4 Z score: 2.6 Total hip BMD: Left: 0.741 g/cm2. T score: -2.1 Z score: 0.1 Right: 0.706 g/cm2. T score: -2.4 Z score: -0.1 10 year probability of a major osteoporotic fracture is 21%. Compared to the prior study from 02/13/2016. Lumbar spine bone mineral density has increased by 7.0%. Bilateral hips bone mineral density has decreased by 10.1%. XR/XR DEXA axial skeleton* [id number] IMPRESSION: OSTEOPENIA based upon the WHO classification for females. Significant decrease in bone mineral density within the hips since the prior st y. The increase in bone mineral density in the lumbar spine is probably a fal se elevation due to sclerosis and increasing degenerative disc disease and oste ophytosis.
== END 2022-04-19 23:59 | disposition home or self-care (01) ==
LOC: RAD 12:59 → ONCMED 04-10 13:24
PROVIDERS: PCP Nurse Practitioner; Visit Provider Internal Medicine Medical Oncology
DX: Z78.0 Asymptomatic menopausal state (principal); S32.040S Wedge compression fracture of fourth lumbar vertebra, sequela; M51.36 Other intervertebral disc degeneration, lumbar region; M48.061 Spinal stenosis, lumbar region without neurogenic claudication; M41.86 Other forms of scoliosis, lumbar region; M85.88 Other specified disorders of bone density and structure, other site
CPT/HCPCS: 72131; 77080

== ENCOUNTER → 2022-05-02 12:58 | Outpatient (BNVA) | payer MEDICARE, OTHER, SELFPAY | PROVIDERS: PCP Nurse Practitioner; Visit Provider Orthopaedic Surgery | DX: M51.16 Intervertebral disc disorders with radiculopathy, lumbar region (principal); M47.816 Spondylosis without myelopathy or radiculopathy, lumbar region; M48.062 Spinal stenosis, lumbar region with neurogenic claudication; Z87.81 Personal history of (healed) traumatic fracture | CPT/HCPCS: 72110; 99214 ==

== ENCOUNTER 2022-05-21 12:34 | Oncology outpatient (recurring) (ONCR) | payer MEDICARE, OTHER, SELFPAY ==
[2022-05-21] MEDS: denosumab 60 mg SDV SUBCUT (13:29)
[2022-05-21 13:33] VITALS: BP 138/76; PULSE 65; RESP 17; TEMP 37.1; O2SAT 99
== END 2022-06-19 23:59 | disposition home or self-care (01) ==
PROVIDERS: PCP Nurse Practitioner; Visit Provider Internal Medicine Medical Oncology
DX: Z79.899 Other long term (current) drug therapy
CPT/HCPCS: 96372; J0897

== ENCOUNTER → 2022-07-02 12:31 | Outpatient (BNVA) | payer MEDICARE, OTHER, SELFPAY | PROVIDERS: PCP Nurse Practitioner; Visit Provider Internal Medicine Cardiovascular Disease | DX: I65.23 Occlusion and stenosis of bilateral carotid arteries (principal); D64.89 Other specified anemias; Z95.0 Presence of cardiac pacemaker; G30.9 Alzheimer's disease, unspecified; F02.80 Dementia in other diseases classified elsewhere, unspecified severity, without behavioral disturbance, psychotic disturbance, mood disturbance, and anxiety; R55 Syncope and collapse; R74.01 Elevation of levels of liver transaminase levels; I77.4 Celiac artery compression syndrome; E78.2 Mixed hyperlipidemia; I10 Essential (primary) hypertension | CPT/HCPCS: 99213 ==

== ENCOUNTER 2022-07-04 08:57 | Outpatient (CLI) | payer MEDICARE, OTHER, SELFPAY ==
--- NOTE | 2022-07-04 09:51 | CT_ITS ---
WS: [email or web address] CT CERVICAL MYELOGRAM HISTORY: compression fractures, frequent falls Technique: All CT scans at [facility] use at least one of these dose optimization techniques: automated exposure control; mA and/or kV adjustment per patient size (includes targeted exams where dose is matched to clinical indication); or iterative reconstruction. DLP: 196.07 mGy.cm COMPARISON: 05/09/2020 Very good opacification of the thecal sac. C4 anterolisthesis by 2.1 mm. Severe disc space narrowing at C5-6 and C6-7. The lateral masses of C1 and C2 are aligned. Odontoid is intact. Craniocervical lubna ction is normal. Mild concave deformity involving the superior endplates of T2 and T3. T2 concave def ormity is new since 2019. C1-C2: Negative. C2-C3: Mild disc bulging with a very small RIGHT foraminal osteophyte. No stenosis. Mild bilateral fa cet joint arthritis. C3-C4: Mild disc bulging with a central disc protrusion. Mild RIGHT and moderate LEFT facet arthritis . No high-grade stenosis. C4-C5: Mild disc bulging with a very small central disc protrusion and osteophytic ridging. Moderate bilateral facet joint arthritis. Mild bilateral foraminal stenosis. C5-C6: Moderate annular disc bulging with osteophytic ridging. Osteophytes encroach upon the ventral thecal sac with flattening and effacement. Mild central stenosis with mild to moderate bilateral fora traci stenosis. C6-C7: Diffuse osteophytic ridging with osteophytes contacting the ventral thecal sac with mild effac ement and deformity. Mild bilateral facet arthritis. Mild central with moderate bilateral foraminal s tenosis, RIGHT greater than LEFT. C7-T1: No stenosis. Heavy calcification in the cervical carotid arteries. CT/CT cervical spine w con [id number] IMPRESSION: 1. Moderate cervical spondylosis. 2. Mild central with moderate bilateral foraminal stenosis at C6-7, RIGHT grea ter than LEFT. Predominantly due to vertebral body osteophytes. 3. Mild central with [id number] bilateral foraminal stenosis at C5-6. Pr edominantly due to vertebral body osteophytes. 4. Moderate LEFT facet joint arthritis at C3-4 and mild on the RIGHT. 5. Mild bilateral foraminal stenosis at C4-5 with moderate facet joint arthrit is. 6. C4 anterolisthesis by 2.1 mm. 7. Minimal mild anterior compression deformities involving the superior endpla shirlene of T2 and T3. Minimal compression of T2 is new since 05/09/2020. T3 fractur e is remote.
[2022-07-04] MEDS: iohexol 240 mg/mL 50 mL Btl INTRATHECA (10:07)
--- NOTE | 2022-07-04 10:15 | CT_ITS ---
WS: [email or web address] CT MYELOGRAM LUMBAR SPINE HISTORY: compression fractures TECHNIQUE: Contiguous axial imaging performed from T12 through the mid sacral level. Bone and soft ti ssue windows reviewed. Sagittal and coronal reformats are submitted and reviewed. DLP: 926.[address] scans at [facility] use at least one of these dose optimization techniques: automated e xposure control; mA and/or kV adjustment per patient size (includes targeted exams where dose is matc hed to clinical indication); or iterative reconstruction. COMPARISON: 04/09/2022, 05/28/2021 Moderate S-shaped scoliosis of the lumbar spine. Severe degenerative disc disease and vacuum disc phe nomenon. L4 compression fracture by approximately 40% similar to the prior examination. There is very slight retrolisthesis by 3 mm of the posterior superior endplate. Subchondral cystic changes along t he endplates of L4-5 are progressing. No new fractures. L1-L2: Mild annular disc bulging. Mild encroachment upon the ventral thecal sac. No stenosis. L2-L3: Mild asymmetric osteophytosis and disc bulging. Moderate LEFT foraminal stenosis due to osteop hytes in the scoliosis. L3-L4: Diffuse annular disc bulging and osteophytic ridging. Moderate ligamentum flavum and facet art hritis. Moderate central and RIGHT foraminal stenosis. Mild stenosis LEFT foramen. L4-L5: Severe annular disc bulging. RIGHT foraminal disc protrusion with significant encroachment int o the foramen with stenosis. Disc also extends into the subarticular recess. Severe RIGHT subarticula r recess and foraminal stenosis with contact on the RIGHT L4 and L5 nerve roots. Mild central stenosi s. L5-S1: Mild disc bulging. Prior cholecystectomy. Moderate atherosclerosis aorta. CT/CT lumbar spine w con [id number] IMPRESSION: 1. Moderate S-shaped scoliosis lumbar spine. 2. Chronic 40% compression fracture at L4. 3. Large RIGHT foraminal and subarticular recess disc protrusion at L4-5 with significant encroachment and contact on the L4 and L5 nerve roots. Mild central stenosis at L4-5. Previously described on 04/09/2022. 4. Moderate LEFT foraminal stenosis at L2-3. 5. Moderate central and RIGHT foraminal stenosis at L3-4 with mild LEFT forami nal stenosis.
--- NOTE | 2022-07-04 10:15 | IR_ITS ---
WS: [email or web address] CERVICAL AND LUMBAR MYELOGRAMs HISTORY: compression fractures COMPARISON: Prior lumbar CT reviewed 04/09/[address] 05/09/2020 FLUOROSCOPY TIME: 1min [id number] # of spot films: 8 Procedure, risks and complications were explained to the patient. Risks including bleeding, infection , headaches, allergic reaction and seizures. Consent has been obtained. With the patient in prone position the skin over the lumbar region is cleansed with ChloraPrep and an esthetized with lidocaine. 22-gauge spinal needle is inserted into the thecal sac at the appropriate level determined by fluoroscopy. Omnipaque 240; 12 ml is injected slowly under fluoroscopy with no co mplications. Needle bevel is perpendicular to the longitudinal fibers of the dura. Stylet is reinsert ed prior to removal of the needle. Patient tolerated the procedure well. Patient will proceed to CT f or further evaluation. Uncomplicated injection into the lumbar thecal sac. There is marked S-shaped scoliosis of the lumbar spine with asymmetric disc space narrowing and osteophytosis. Very similar to the prior CT of 020. L4 compression fracture by 30-40%. Thecal sac is widely patent with mild extrinsic mass effect d ue to disc and osteophyte disease along the ventral thecal sac. Good contrast opacification of the cervical spine. C4 anterolisthesis by 5 mm. Severe disc space narr owing at C5-6. Facet joint arthritis bilaterally is at least moderate. IR/IR myelogram spine cervic/lumb IMPRESSION: 1. Uncomplicated cervical and lumbar myelograms. 2. Please refer to CT cervical and lumbar myelogram reports to follow. 3. Marked S-shaped scoliosis lumbar spine. 4. C4 anterolisthesis by 5 mm. 5. Severe disc space narrowing at C5-6. 6. Chronic L4 compression fracture by 30-40%.
== END 2022-07-04 08:58 | disposition home or self-care (01) ==
PROVIDERS: PCP Nurse Practitioner; Visit Provider Orthopaedic Surgery
DX: R29.6 Repeated falls (principal); S32.049A Unspecified fracture of fourth lumbar vertebra, initial encounter for closed fracture; X58.XXXA Exposure to other specified factors, initial encounter; M41.86 Other forms of scoliosis, lumbar region; M48.062 Spinal stenosis, lumbar region with neurogenic claudication
CPT/HCPCS: 62305; 72126; 72132; 99214; Q9966

== ENCOUNTER 2022-07-25 13:59 | Outpatient (CLI) | payer MEDICARE, OTHER, SELFPAY ==
--- NOTE | 2022-07-25 14:30 | USCV_ITS ---
Katheirn Silva Age: 82 Gender: F : 1940 Exam Date: 07/25/2022 14:16 Ordering Phys: Reji Mijares MD ([email or web address]) Technologist: ELAINA Exam Location: [facility] [place] Indication: STENOSIS Risk Factors: Previous Vascular Surgery: Right Brachial BP: / Left Brachial BP: / Right Left Velocity (cm/s) Spectral Plaque Velocity (cm/s) Spectral Plaque Syst/Diast Broadening Syst/Diast Broadening 84.90/ 14.30 Prox CCA 76.10 / 13.20 82.90/ 14.50 Mid CCA 72.20 / 17.10 57.30/ 12.00 Distal CCA 75.20 / 17.90 84.60/ 25.60 Prox ICA 77.20 / 26.50 58.10/ 19.70 Mid ICA 109.20/ 33.10 79.50/ 18.80 Distal ICA 118.00/ 32.00 64.90 ECA 67.50 1.00 ICA/CCA 1.55 Vertebral 44.70/ 7.90 cm/s 44.30/ 14.00 cm/s Subclavian 88.20 80.40 FINDINGS Comparison 2020 CONCLUSIONS Right ICA stenosis <50%. Moderate atheromatous plaque right carotid bulb/ICA. Left ICA stenosis <50%. Moderate atheromatous plaque left carotid bulb/ICA. Velocities slightly progressed compared to 2020 Normal antegrade Doppler flow noted in the right vertebral artery. Normal antegrade Doppler flow noted in the left vertebral artery. Gee Hall MD (Electronically Signed) Final Date: 25 July 2022 15:04 S
== END 2022-07-25 14:00 | disposition home or self-care (01) ==
LOC: RAD 14:04
PROVIDERS: PCP Nurse Practitioner; Visit Provider Internal Medicine Cardiovascular Disease
DX: R55 Syncope and collapse (principal); I65.23 Occlusion and stenosis of bilateral carotid arteries
CPT/HCPCS: 93880

== ENCOUNTER → 2022-07-26 11:25 | Outpatient (BNVA) | payer MEDICARE, OTHER, SELFPAY | PROVIDERS: PCP Nurse Practitioner; Visit Provider Internal Medicine Cardiovascular Disease | DX: Z45.010 Encounter for checking and testing of cardiac pacemaker pulse generator [battery] (principal) | CPT/HCPCS: 93280 ==

== ENCOUNTER → 2022-08-08 09:44 | Outpatient (BNVA) | payer MEDICARE, OTHER, SELFPAY | PROVIDERS: PCP Nurse Practitioner; Visit Provider Anesthesiology Pain Medicine | DX: M48.062 Spinal stenosis, lumbar region with neurogenic claudication (principal) | CPT/HCPCS: 99204 ==

== ENCOUNTER → 2022-09-02 13:34 | Outpatient (BNVA) | payer MEDICARE, OTHER, SELFPAY | PROVIDERS: PCP Nurse Practitioner; Visit Provider Anesthesiology Pain Medicine | DX: M54.16 Radiculopathy, lumbar region (principal); M48.062 Spinal stenosis, lumbar region with neurogenic claudication | CPT/HCPCS: 64483; 64484 ==

== ENCOUNTER → 2022-09-12 11:31 | Outpatient (BNVA) | payer MEDICARE, OTHER, SELFPAY | PROVIDERS: PCP Nurse Practitioner; Visit Provider Nurse Practitioner | DX: I10 Essential (primary) hypertension (principal) | CPT/HCPCS: 80053; 80061; 84443 ==

== ENCOUNTER → 2022-09-16 13:02 | Outpatient (BNVA) | payer MEDICARE, OTHER, SELFPAY | PROVIDERS: PCP Nurse Practitioner; Visit Provider Anesthesiology Pain Medicine | DX: M54.16 Radiculopathy, lumbar region (principal); M48.062 Spinal stenosis, lumbar region with neurogenic claudication | CPT/HCPCS: 64483; 64484; J1100; J3490 ==

== ENCOUNTER → 2022-09-17 08:31 | Outpatient (BNVA) | payer MEDICARE, OTHER, SELFPAY | PROVIDERS: PCP Nurse Practitioner; Visit Provider Nurse Practitioner | DX: R73.9 Hyperglycemia, unspecified (principal) | CPT/HCPCS: 83036 ==

== ENCOUNTER → 2022-10-08 11:31 | Outpatient (BNVA) | payer MEDICARE, OTHER, SELFPAY | PROVIDERS: PCP Nurse Practitioner; Visit Provider Anesthesiology Pain Medicine | DX: M48.062 Spinal stenosis, lumbar region with neurogenic claudication (principal) | CPT/HCPCS: 99213 ==

== ENCOUNTER → 2022-10-16 10:53 | Outpatient (BNVA) | payer MEDICARE, OTHER, SELFPAY | PROVIDERS: PCP Nurse Practitioner; Referring Provider Orthopaedic Surgery; Visit Provider Specialist | DX: G30.9 Alzheimer's disease, unspecified (principal); F02.80 Dementia in other diseases classified elsewhere, unspecified severity, without behavioral disturbance, psychotic disturbance, mood disturbance, and anxiety | CPT/HCPCS: 99214 ==

== ENCOUNTER 2022-11-18 12:40 | Oncology outpatient (recurring) (ONCR) | payer MEDICARE, OTHER, SELFPAY ==
[2022-11-18] MEDS: denosumab 60 mg SDV SUBCUT (14:03)
== END 2022-12-18 23:59 | disposition home or self-care (01) ==
PROVIDERS: PCP Nurse Practitioner; Visit Provider Internal Medicine Medical Oncology
DX: Z08 Encounter for follow-up examination after completed treatment for malignant neoplasm; Z85.038 Personal history of other malignant neoplasm of large intestine; Z90.49 Acquired absence of other specified parts of digestive tract; D64.9 Anemia, unspecified; M85.89 Other specified disorders of bone density and structure, multiple sites; M84.48XA Pathological fracture, other site, initial encounter for fracture; Z79.899 Other long term (current) drug therapy; Z92.21 Personal history of antineoplastic chemotherapy
CPT/HCPCS: 96372; 99214; J0897

== ENCOUNTER 2022-11-21 12:16 | Outpatient (CLI) | payer MEDICARE, OTHER, SELFPAY ==
[2022-11-21] MEDS: iohexol 350 mg/mL 500 mL Btl (per mL) PO (13:27)
[2022-11-21] MEDS: iohexol 350 mg/mL 500 mL Btl (per mL) IV (13:27)
--- NOTE | 2022-11-21 13:30 | CTR_ITS ---
PROCEDURE INFORMATION: Exam: CT Chest With Contrast; Diagnostic Exam date and time: 11/21/2022 2:02 PM Age: 82 years old Clinical indication: Other: Abnormal weight loss; Prior surgery; Surgery type: Gb, pacemaker, port (since removed); Patient HX: Colon CA with chemo ending 15 yrs ago; Additional info: R63.4 - abnormal weight loss TECHNIQUE: Imaging protocol: Diagnostic computed tomography of the chest with contrast. Total images: 457 Radiation optimization: All CT scans at this facility use at least one of these dose optimization techniques: automated exposure control; mA and/or kV adjustment per patient size (includes targeted exams where dose is matched to clinical indication); or iterative reconstruction. Contrast material: OMNI 350; Contrast volume: 100 ml; Contrast route: INTRAVENOUS (IV); REPORTING DATA: Count of CT and Cardiac NM exams in prior 12 months: This patient has received 4 known CTs and 0 known cardiac nuclear medicine studies in the 12 months prior to the current study. COMPARISON: CT chest abdpel w/*[id number] 09/09/2019 11:34 AM RADIATION DOSE METRICS: Total DLP (mGy-cm): 473.2 FINDINGS: Tubes, catheters and devices: A pacemaker device is present, its leads in appropriate position. Lungs: Trace scar noted in the anterior left upper lobe and right lung base. Pleural spaces: Unremarkable. No pneumothorax. No pleural effusion. Heart: Cardiomegaly. Exuberant mitral annular calcifications are noted. Lymph nodes: Unremarkable. No enlarged lymph nodes. Vasculature: Mild atherosclerotic disease is evident. Bones/joints: Unremarkable. No acute fracture. Soft tissues: Unremarkable. PROCEDURE INFORMATION: Exam: CT Abdomen And Pelvis With Contrast Exam date and time: 11/21/2022 2:02 PM Age: 82 years old Clinical indication: Other: Abnormal weight loss; Prior surgery; Surgery type: Gb, pacemaker, port (since removed); Patient HX: Colon CA with chemo ending 15 yrs ago; Additional info: R63.4 - abnormal weight loss TECHNIQUE: Imaging protocol: Computed tomography of the abdomen and pelvis with contrast. Radiation optimization: All CT scans at this facility use at least one of these dose optimization techniques: automated exposure control; mA and/or kV adjustment per patient size (includes targeted exams where dose is matched to clinical indication); or iterative reconstruction. Contrast material: OMNI 350; Contrast volume: 100 ml; Contrast route: INTRAVENOUS (IV); REPORTING DATA: Count of CT and Cardiac NM exams in prior 12 months: This patient has received 4 known CTs and 0 known cardiac nuclear medicine studies in the 12 months prior to the current study. COMPARISON: CT abdomen pelvis con [id number] 12/20/2021 2:47 PM RADIATION DOSE METRICS: Total DLP (mGy-cm): 473.2 FINDINGS: Liver: Normal. No mass. Gallbladder and bile ducts: Cholecystectomy noted with postoperative biliary ductal fullness. Pancreas: Normal. No ductal dilation. Spleen: Normal. No splenomegaly. Adrenal glands: Normal. No mass. Kidneys and ureters: Normal. No hydronephrosis. Stomach and bowel: Unremarkable. No obstruction. No mucosal thickening. Appendix: No evidence of appendicitis. Intraperitoneal space: Unremarkable. No free air. No significant fluid collection. Vasculature: Moderate atherosclerotic disease is evident. Incidental phleboliths noted. Lymph nodes: Unremarkable. No enlarged lymph nodes. Urinary bladder: Unremarkable as visualized. Reproductive: Unremarkable as visualized. Bones/joints: Multilevel degenerative disc disease is noted with vacuum phenomenon. Osteophytes are noted extending from the vertebrae. No acute spinal pathology is detected. Chronic compression fracture noted at L4. Soft tissues: Unremarkable. CT/CT chest abdpel w/*[id number] IMPRESSION: 1. Cardiomegaly. 2. Trace scar noted in the anterior left upper lobe and right lung base. 3. No evidence of metastatic disease. IMPRESSION: No evidence of metastatic disease.
== END 2022-11-21 12:17 | disposition home or self-care (01) ==
LOC: RAD 12:20
PROVIDERS: PCP Nurse Practitioner; Visit Provider Nurse Practitioner
DX: R63.4 Abnormal weight loss (principal); Z85.038 Personal history of other malignant neoplasm of large intestine; I51.7 Cardiomegaly
CPT/HCPCS: 71260; 74177; 80053; 82607; 84443; 85025; Q9967

== ENCOUNTER → 2022-12-10 11:12 | Outpatient (BNVA) | payer MEDICARE, OTHER, SELFPAY | PROVIDERS: PCP Nurse Practitioner; Visit Provider Orthopaedic Surgery | DX: M48.062 Spinal stenosis, lumbar region with neurogenic claudication (principal); M51.36 Other intervertebral disc degeneration, lumbar region; Z87.81 Personal history of (healed) traumatic fracture | CPT/HCPCS: 72100; 99214 ==

== ENCOUNTER → 2023-01-06 11:07 | Outpatient (BNVA) | payer MEDICARE, OTHER, SELFPAY | PROVIDERS: PCP Nurse Practitioner; Visit Provider Anesthesiology Pain Medicine | DX: M48.062 Spinal stenosis, lumbar region with neurogenic claudication (principal) | CPT/HCPCS: 99214 ==

== ENCOUNTER → 2023-01-29 09:16 | Outpatient (BNVA) | payer MEDICARE, OTHER, SELFPAY | PROVIDERS: PCP Nurse Practitioner; Visit Provider Specialist | DX: G30.9 Alzheimer's disease, unspecified (principal); F02.A0 Dementia in other diseases classified elsewhere, mild, without behavioral disturbance, psychotic disturbance, mood disturbance, and anxiety | CPT/HCPCS: 0346U; 36415; 99214 ==

== ENCOUNTER → 2023-03-20 14:24 | Outpatient (BNVA) | payer MEDICARE, OTHER, SELFPAY | PROVIDERS: PCP Nurse Practitioner; Visit Provider Nurse Practitioner | DX: D64.9 Anemia, unspecified (principal); E55.9 Vitamin D deficiency, unspecified | CPT/HCPCS: 80053; 82306; 82607; 84443; 85025 ==

== ENCOUNTER 2023-03-31 06:00 | Outpatient (RCR) | payer MEDICARE, OTHER, SELFPAY | END 2023-04-19 23:59 | disposition home or self-care (01) | LOC: TPT 06:00 | PROVIDERS: PCP Nurse Practitioner; Visit Provider Nurse Practitioner | DX: M48.062 Spinal stenosis, lumbar region with neurogenic claudication (principal) | CPT/HCPCS: 97110; 97163 ==

== ENCOUNTER 2023-04-20 06:00 | Outpatient (RCR) | payer MEDICARE, OTHER, SELFPAY | END 2023-05-20 23:59 | disposition home or self-care (01) | LOC: TPT 06:00 | PROVIDERS: PCP Nurse Practitioner; Visit Provider Nurse Practitioner | DX: M48.062 Spinal stenosis, lumbar region with neurogenic claudication (principal); S32.040D Wedge compression fracture of fourth lumbar vertebra, subsequent encounter for fracture with routine healing; X58.XXXD Exposure to other specified factors, subsequent encounter | CPT/HCPCS: 97110; 97116 ==

== ENCOUNTER → 2023-05-12 11:30 | Outpatient (BNVA) | payer MEDICARE, OTHER, SELFPAY | PROVIDERS: PCP Nurse Practitioner; Visit Provider Nurse Practitioner | DX: E87.1 Hypo-osmolality and hyponatremia (principal); R63.0 Anorexia; Z23 Encounter for immunization | CPT/HCPCS: 80048 ==

== ENCOUNTER → 2023-05-14 09:21 | Outpatient (BNVA) | payer MEDICARE, OTHER, SELFPAY | PROVIDERS: PCP Nurse Practitioner; Visit Provider Specialist | DX: G30.9 Alzheimer's disease, unspecified (principal); F02.80 Dementia in other diseases classified elsewhere, unspecified severity, without behavioral disturbance, psychotic disturbance, mood disturbance, and anxiety; Z95.0 Presence of cardiac pacemaker | CPT/HCPCS: 36415; 82542; 96116; 99215 ==

== ENCOUNTER 2023-05-21 06:00 | Outpatient (RCR) | payer MEDICARE, OTHER, SELFPAY | END 2023-06-16 07:37 | disposition home or self-care (01) | LOC: TPT 06:00 | PROVIDERS: PCP Nurse Practitioner; Visit Provider Nurse Practitioner | DX: M48.062 Spinal stenosis, lumbar region with neurogenic claudication (principal) | CPT/HCPCS: 97110; 97164 ==

== ENCOUNTER 2023-05-26 11:09 | Oncology outpatient (recurring) (ONCR) | payer MEDICARE, OTHER, SELFPAY ==
[2023-05-26 11:46] VITALS: BP 125/78; PULSE 92; RESP 16; TEMP 36.7; O2SAT 93
[2023-05-26 12:15] LABS: Basophils % 0.9 %; Eosinophils # 0.1 10^3/uL (0.0-0.8); Eosinophils % 3.1 %; Hematocrit 31.8 % (36-47); Lymphocytes # 1.2 10^3/uL (0.8-4.8); Lymphocytes % 33.8 %; Mean Corpuscular HGB Conc 33.6 g/dL (30-55); Mean Corpuscular Hemoglobin 36.3 pg (27-33); Mean Corpuscular Volume 107.8 fl (85-98); Mean Platelet Volume 10.5 fL (7.4-10.4); Monocytes # 0.5 10^3/uL (0.2-0.9); Monocytes % 13.4 %; Neutrophils # 1.71 10^3/uL (1.8-7.7); Neutrophils % 48.5 %; Nucleated Red Blood Cells % 0 %; Platelet Count 148 10^3/cmm (157-399); Red Blood Count 2.95 10^6/uL (3.85-5.65); Red Cell Distribution Width 13.1 % (12.1-15.1); White Blood Count 3.52 10^3/uL (3.29-11.43)
[2023-05-26 12:41] LABS: Alanine Aminotransferase 24 U/L (0-33); Albumin Level 4.3 g/dL (3.5-5.2); Alkaline Phosphatase 38 U/L (35-105); Anion Gap 14.7 (5-19); Aspartate Amino Transferase 30 U/L (0-32); Blood Urea Nitrogen 23 mg/dL (8-23); Calcium 9.9 mg/dL (8.5-10.5); Carbon Dioxide 25 mmol/L (22-29); Chloride 104 mmol/L (98-107); Globulin 2.5 g/dL (1.3-4.6); Glucose 88 mg/dL (65-115); Osmolality Calculated 291 mOsm/kg (285-295); Potassium 4.7 mmol/L (3.5-5.1); Sodium 139 mmol/L (136-145); Total Bilirubin 0.9 mg/dL (0.15-1.2); Total Protein 6.8 g/dL (6.6-8.7)
[2023-05-26 14:32] LABS: Ferritin 691 ng/mL (15-150); Iron 111 ug/dL (37-145); Total Iron Binding Capacity 222 mcg/dl; Unsaturated Iron Binding 111 ug/dL (112-347)
[2023-05-26] MEDS: denosumab 60 mg SDV SUBCUT (14:35)
[2023-05-26 18:29] LABS: NT Pro B Type Natriuretic Pept 602 pg/mL (0-450)
== END 2023-06-19 23:59 | disposition home or self-care (01) ==
PROVIDERS: Nurse Practitioner Family; PCP Nurse Practitioner; Visit Provider Internal Medicine Medical Oncology
DX: C18.6 Malignant neoplasm of descending colon; Z90.49 Acquired absence of other specified parts of digestive tract; D64.9 Anemia, unspecified; M85.89 Other specified disorders of bone density and structure, multiple sites; M84.48XA Pathological fracture, other site, initial encounter for fracture; Z79.899 Other long term (current) drug therapy; Z92.21 Personal history of antineoplastic chemotherapy; I95.1 Orthostatic hypotension
CPT/HCPCS: 36415; 80053; 82728; 83540; 83550; 83880; 85025; 99214; J0897

== ENCOUNTER 2023-05-28 12:20 | Outpatient (CLI) | payer MEDICARE, OTHER, SELFPAY ==
--- NOTE | 2023-05-28 12:30 | CT_ITS ---
WS: [email or web address] CT HEAD NONCONTRAST HISTORY: G30.9 - Alzheimer's disease, unspecified TECHNIQUE: Contiguous axial imaging performed through the brain in 2.5 mm imaging. Bone and soft tiss ue windows. Sagittal and coronal reformats reviewed. All CT scans at [facility] use at least one of these dose optimization techniques: automated exposure control; mA and/or kV adjustment per pa tient size (includes targeted exams where dose is matched to clinical indication); or iterative recon struction. DLP: 945.78 mGy.cm COMPARISON: 09/02/2014, 12/05/2017 No acute intracranial hemorrhage, midline shift or mass effect. Mild symmetric atrophy. Atrophy has mildly progressed since the study from 12/05/2017. No infarct. Royal y mild small vessel ischemic disease. Mild cerebellar atrophy. Moderate bilateral hippocampal atrophy with increased CSF surrounding the hippocampal formations. Ventricles: Normal size with no hydrocephalus. No inferior displacement of cerebellar tonsils. Paranasal sinuses: As visualized are clear. Mastoid air cells: Well pneumatized. Calvarium and scalp: Skull is intact with no soft tissue edema or swelling. LEFT vertebral artery calcification. Bilateral intracranial carotid calcified plaque. Greatest throug h the cavernous carotid arteries. IMPRESSION: 1. Mild symmetric atrophy has progressed since the study from 2017. 2. Moderate bilateral hippocampal atrophy. 3. No prior infarcts.
== END 2023-05-28 12:21 | disposition home or self-care (01) ==
LOC: RAD 12:20
PROVIDERS: PCP Nurse Practitioner; Visit Provider Specialist
DX: G30.9 Alzheimer's disease, unspecified (principal); F02.80 Dementia in other diseases classified elsewhere, unspecified severity, without behavioral disturbance, psychotic disturbance, mood disturbance, and anxiety; G31.9 Degenerative disease of nervous system, unspecified; I95.1 Orthostatic hypotension; R42 Dizziness and giddiness; I10 Essential (primary) hypertension; Z95.0 Presence of cardiac pacemaker; Z79.899 Other long term (current) drug therapy
CPT/HCPCS: 70450; 99213

== ENCOUNTER 2023-06-17 02:29 | Emergency (ER) | payer MEDICARE, OTHER, SELFPAY ==
[2023-06-17 02:34] VITALS: BP 178/85; PULSE 67; RESP 16; TEMP 37.1; O2SAT 98; BMI 16.9
--- NOTE | 2023-06-17 02:35 | CTR_ITS ---
PROCEDURE INFORMATION: Exam: CT Cervical Spine Without Contrast Exam date and time: 06/17/2023 2:43 AM Age: 83 years old Clinical indication: Injury or trauma; Patient HX: Left side neck pain; Additional info: Neck pain/fall TECHNIQUE: Imaging protocol: Computed tomography of the cervical spine without contrast. Radiation optimization: All CT scans at this facility use at least one of these dose optimization techniques: automated exposure control; mA and/or kV adjustment per patient size (includes targeted exams where dose is matched to clinical indication); or iterative reconstruction. REPORTING DATA: Count of CT and Cardiac NM exams in prior 12 months: This patient has received 4 known CTs and 0 known cardiac nuclear medicine studies in the 12 months prior to the current study. COMPARISON: CT cervical spine w con [id number] 07/04/2022 10:07 AM RADIATION DOSE METRICS: Total DLP (mGy-cm): 160.57 FINDINGS: Bones/joints: On axial CT images, no definite acute fracture is visible. Sagittal and coronal reconstructions show no acute fracture or post traumatic subluxation. Moderate to severe degenerative disc changes and facet joint arthritis at multiple levels. Most prominent degenerative disc changes are at C5-C6 and C6-C7. Mild, 1-2 mm of anterior subluxation at C4-C5 and C7-T1. No visible fracture. Prominent facet joint arthritis at these levels is the likely etiology. Suspect mild to moderate bulging/protruding discs at several levels, probably most prominent from C3 through C6. MRI could be more specific/sensitive if clinically indicated. Lungs: No significant acute finding in the upper lungs. CT/CT cervical spin wo con* [id number] IMPRESSION: 1. No definite acute fracture or post traumatic subluxation by CT. 2. Degenerative/arthritic changes as above. 3. Other findings discussed above.
--- NOTE | 2023-06-17 02:36 | W.ED.GENADLT ---
HPI - General Adult General: Chief complaint: Neck Pain/Injury Stated complaint: neck pain Time Seen by Provider: 06/17/23 02:30 Source: patient Mode of arrival: ambulatory Limitations: no limitations History of Present Illness: 83-year-old female states that she fell 2 nights ago states she is seen at [facility] states had a lumbar spine she believes she did not have as CT of her neck she states that tonight she woke up with left-sided neck pain. States pain sharp in nature worse with movement of her neck denies any midline pain she did not hit her head she has not had any headaches she rates her pain a 6 out of 10 currently Associated symptoms: Deny chest pain, dyspnea, headache(s), nausea, rash or vomiting Review of Systems Const: Denies: fever(s) or chills ENMT: Denies: throat pain or dental pain Card: Denies: chest pain Resp: Denies: dyspnea GI: Denies: abdominal pain, nausea, vomiting or diarrhea Musc: Reports: neck pain; Denies: back pain Skin/Breast: Denies: rash Neuro: Denies: headache(s) PFSH ED PFSH: Medical History Anemia Anxiety Carotid stenosis Carpal tunnel syndrome Degenerative arthritis Depression Essential hypertension History of colon cancer History of vertebral compression fracture Hyperlipidemia Insomnia Mild cognitive impairment Osteopenia Postconcussive syndrome Rheumatoid arthritis Sarcoidosis Syncope Vitamin A deficiency Surgical History History of colonoscopy 2019 History of hemicolectomy (2005) Left hemicolectomy History of hysterectomy (2005) History of left breast biopsy History of permanent cardiac pacemaker placement For complete heart block S/P cholecystectomy Family History Family/Other Cancer Diabetes Mother Cancer Father Stroke Other Arthritis Denies family history of CAD (coronary artery disease) Clotting disorder Dementia Chronic kidney disease (CKD) Suicide Anesthesia complication Bleeding disorder Lung disease Social History Smoking and tobacco/nicotine status: never used tobacco/nicotine Second hand smoke exposure: No Alcohol intake: current Alcohol intake frequency: 0-2 Drinks per Day Alcohol type: beer Substance/Drug Use: never Lives independently: Yes Household members: spouse Housing: House Marital status: Number of children: 0 service: No Current occupational status: retired Pets and animals: Yes Pets & animals: cat(s) and dog(s) Do you think of yourself as: Straight/Heterosexual Current gender identity: Female Physical Exam Const: COMMON NORMALS: no acute distress and patient oriented x3 HENMT: COMMON NORMALS: normocephalic and atraumatic HEAD & SCALP: normocephalic and atraumatic Eye: COMMON NORMALS: conjunctivae normal CONJUNCTIVA: Yes conjunctivae normal Neck/C-Spine: OTHER: Tenderness along left lateral neck no midline tenderness Chest: COMMONS NORMALS: normal inspection of the chest and normal palpation of entire chest wall Resp: COMMON NORMALS: normal respiratory effort and clear to auscultation bilaterally AUSCULTATION: clear to auscultation bilaterally Cardio: COMMON NORMALS: regular rate and regular rhythm RATE: regular rate RHYTHM: regular rhythm Back/Pelvis: COMMON NORMALS: thoracic and lumbar spine normal to inspection and no thoracic nor lumbar tenderness Extremity: COMMON NORMALS: normal to inspection Neuro: COMMON NORMALS: patient oriented x3 Psych: COMMON NORMALS: mental status grossly normal Skin: COMMON NORMALS: no rashes or lesions noted GENERAL SKIN EXAM: no rashes or lesions noted Course Vital Signs: Vital signs: Vital Signs Temperature 98.7 F 06/17/23 02:34 Pulse Rate 67 06/17/23 02:42 Respiratory Rate 16 06/17/23 02:34 Blood Pressure 199/86 06/17/23 02:58 Pulse Oximetry 98 06/17/23 02:42 Oxygen Delivery Me thod Room Air 06/17/23 02:41 MDM - General Adult Medical Decision Making Patient presents here with neck pain likely muscular in origin she is tender over left lateral neck she has no midline tenderness CT scan here is normal we will place her on Naprosyn and Robaxin at home she is to ice Medical Records I reviewed the patient's medical records. Lab Data Radiology Impressions Cervical Spine CT 06/17/23 02:35 IMPRESSION: 1. No definite acute fracture or post traumatic subluxation by CT. 2. Degenerative/arthritic changes as above. 3. Other findings discussed above. All radiology interpretation(s) finalized by discharge Discharge Plan Discharge Patient Disposition: Home Clinical Impression: Neck pain on left side Condition: Stable Prescriptions: New methocarbamol 750 mg tablet 750 mg PO Q6H PRN (Reason: spasms) Qty: 20 0RF Naprosyn 500 mg tablet 500 mg PO BID PRN (Reason: pain) Qty: 20 0RF No Action cholecalciferol (vitamin D3) 125 mcg (5,000 unit) capsule 125 mcg PO DAILY aspirin [Aspirin Childrens] 81 mg tablet,chewable 81 mg PO DAILY venlafaxine 75 mg capsule,extended release 24hr 75 mg PO .AM Qty: 30 0RF Rx Instructions: dose change Lipitor 10 mg tablet 10 mg PO .at bedtime Qty: 90 1RF galantamine 12 mg tablet 12 mg PO BID Qty: 60 5RF Rx Instructions: administer with AM and PM meal folic acid 1 mg tablet 1 mg PO DAILY mecobalamin (vitamin B12) 1,000 mcg tablet,disintegrating 1,000 mcg sublingual DAILY Rx Instructions: place tablet under tongue and allow to dissolve for at least30 secs before swallowing mirtazapine [Remeron] 15 mg tablet 15 mg PO .at supper time Qty: 30 2RF midodrine 2.5 mg tablet 2.5 mg PO BID Qty: 60 0RF Rx Instructions: do not give last dose of day after 6PM or within 4 hrs of bedtime metoprolol tartrate 25 mg tablet 25 mg PO BID Qty: 180 3RF meloxicam 7.5 mg tablet 7.5 mg PO DAILY@0900 Qty: 30 0RF Discharge Orders: Discharge ED (Routine); Ordered 06/17/23 Ordered By: Ketty Fletcher Referrals: Jeromy Moralez, ASSISTANT TO [facility]IDENT[facility] [Primary Care Provider] - 1-3 days Discharge Diet: Advance as tolerated Discharge Activity: Resume usual activity Patient Instructions: Cervical Strain (ED), Acute Neck Pain (ED) Coding Level of Care Code ED Shaving Machine Operator for Phuong Landers
[2023-06-17 02:41] VITALS: PULSE 67; O2SAT 98
[2023-06-17 02:42] VITALS: PULSE 67; O2SAT 98
[2023-06-17] MEDS: HYDROcodone-acetaminophen 5-325 mg Tablet 1 TAB PO (02:42)
[2023-06-17] MEDS: hyDRALAzine 20 mg/mL INJ 1 mL 10 MG IM (02:57)
[2023-06-17 02:58] VITALS: BP 199/86
== END 2023-06-17 11:49 | disposition home or self-care (01) ==
PROVIDERS: Emergency Provider Emergency Medicine; PCP Nurse Practitioner
DX: M54.2 Cervicalgia (principal); Z79.82 Long term (current) use of aspirin; I10 Essential (primary) hypertension; Z85.038 Personal history of other malignant neoplasm of large intestine; E78.5 Hyperlipidemia, unspecified; Z95.0 Presence of cardiac pacemaker
CPT/HCPCS: 72125; 96372; 99284; J0360

== ENCOUNTER → 2023-07-03 09:43 | Outpatient (BNVA) | payer MEDICARE, OTHER, SELFPAY | PROVIDERS: Visit Provider Anesthesiology Pain Medicine | DX: M48.062 Spinal stenosis, lumbar region with neurogenic claudication (principal) | CPT/HCPCS: 99214 ==

== ENCOUNTER 2023-07-08 06:00 | Outpatient (RCR) | payer MEDICARE, OTHER, SELFPAY | END 2023-07-20 23:59 | disposition home or self-care (01) | LOC: TPT 06:00 | PROVIDERS: Visit Provider Nurse Practitioner | DX: M51.16 Intervertebral disc disorders with radiculopathy, lumbar region (principal); R53.1 Weakness | CPT/HCPCS: 97110; 97162 ==

== ENCOUNTER 2023-07-21 06:00 | Outpatient (RCR) | payer MEDICARE, OTHER, SELFPAY | END 2023-08-20 23:59 | disposition home or self-care (01) | LOC: TPT 06:00 | PROVIDERS: Visit Provider Nurse Practitioner | DX: M51.16 Intervertebral disc disorders with radiculopathy, lumbar region (principal) | CPT/HCPCS: 97110 ==

== ENCOUNTER → 2023-07-29 10:34 | Outpatient (BNVA) | payer MEDICARE, OTHER, SELFPAY | PROVIDERS: Visit Provider Internal Medicine Cardiovascular Disease | DX: I10 Essential (primary) hypertension (principal); E78.2 Mixed hyperlipidemia; Z95.0 Presence of cardiac pacemaker; I95.1 Orthostatic hypotension; I77.4 Celiac artery compression syndrome; G30.9 Alzheimer's disease, unspecified; F02.80 Dementia in other diseases classified elsewhere, unspecified severity, without behavioral disturbance, psychotic disturbance, mood disturbance, and anxiety | CPT/HCPCS: 99214 ==

== ENCOUNTER → 2023-08-13 08:22 | Outpatient (BNVA) | payer MEDICARE, OTHER, SELFPAY | PROVIDERS: Visit Provider Specialist | DX: G30.9 Alzheimer's disease, unspecified (principal); F02.80 Dementia in other diseases classified elsewhere, unspecified severity, without behavioral disturbance, psychotic disturbance, mood disturbance, and anxiety | CPT/HCPCS: 99214 ==

== ENCOUNTER 2023-08-21 06:00 | Outpatient (RCR) | payer MEDICARE, OTHER, SELFPAY | END 2023-09-18 23:59 | disposition home or self-care (01) | LOC: TPT 06:00 | PROVIDERS: Visit Provider Nurse Practitioner | DX: M51.16 Intervertebral disc disorders with radiculopathy, lumbar region (principal); R53.1 Weakness | CPT/HCPCS: 97110 ==

== ENCOUNTER 2023-08-26 09:59 | Oncology outpatient (recurring) (ONCR) | payer MEDICARE, OTHER, SELFPAY ==
[2023-08-26 10:32] LABS: Basophils % 0.8 %; Eosinophils # 0.1 10^3/uL (0.0-0.8); Eosinophils % 2.8 %; Hematocrit 33.8 % (36-47); Lymphocytes # 1.1 10^3/uL (0.8-4.8); Lymphocytes % 29.6 %; Mean Corpuscular Hemoglobin 35.6 pg (27-33); Mean Corpuscular Volume 104.6 fl (85-98); Mean Platelet Volume 10.2 fL (7.4-10.4); Monocytes # 0.3 10^3/uL (0.2-0.9); Monocytes % 7.5 %; Neutrophils # 2.11 10^3/uL (1.8-7.7); Nucleated Red Blood Cells % 0 %; Platelet Count 151 10^3/cmm (157-399); Red Blood Count 3.23 10^6/uL (3.85-5.65); Red Cell Distribution Width 12.4 % (12.1-15.1); White Blood Count 3.58 10^3/uL (3.29-11.43)
[2023-08-26 10:52] LABS: Alanine Aminotransferase 16 U/L (0-33); Alkaline Phosphatase 31 U/L (35-105); Anion Gap 11.6 (5-19); Aspartate Amino Transferase 19 U/L (0-32); Blood Urea Nitrogen 19 mg/dL (8-23); Calcium 8.8 mg/dL (8.5-10.5); Carbon Dioxide 26 mmol/L (22-29); Chloride 100 mmol/L (98-107); Globulin 2.7 g/dL (1.3-4.6); Glucose 122 mg/dL (65-115); Osmolality Calculated 282 mOsm/kg (285-295); Potassium 3.6 mmol/L (3.5-5.1); Sodium 134 mmol/L (136-145); Total Bilirubin 0.7 mg/dL (0.15-1.2); Total Protein 6.7 g/dL (6.6-8.7)
[2023-08-26 12:40] LABS: Reticulocyte % 1.4 % (0.5-2.0)
[2023-08-26 12:54] LABS: LAB Peripheral Smear Sent for Review
[2023-08-26 13:26] LABS: Hepatitis A Antibody IgM Non-Reactive (Nonreactive); Hepatitis B Core AB, Total Non-Reactive (Nonreactive); Hepatitis B Surface AB < 3.5 (11.5-1000); Hepatitis B Surface Antigen Non-Reactive (Nonreactive); Hepatitis C Virus Antibody Non-Reactive (Nonreactive)
[2023-08-26 13:40] LABS: Lactate Dehydrogenase 196 U/L (135-214)
[2023-08-26 13:44] LABS: Folate Level > 20.0 ng/mL (4.8-37.3)
[2023-08-26 14:56] LABS: Carcinoembryonic Antigen 4.4 ng/mL (0.0-4.7); T3 Free 2.3 PG/ML (2.0-4.4); Thyroid Stimulating Hormone 3.23 uIU/mL (0.27-4.20)
[2023-08-26 15:10] LABS: Ferritin 386 ng/mL (15-150); Iron 101 ug/dL (37-145); Percent Saturation 46.1 % (20-50); Total Iron Binding Capacity 219 mcg/dl; Unsaturated Iron Binding 118 ug/dL (112-347)
[2023-08-26 15:44] LABS: Vitamin B12 > 2000 pg/mL (232-1245)
[2023-08-28 18:20] LABS: Copper Level 84 mcg/dL (70-175)
[2023-08-29 13:55] LABS: Soluble Transferrin Receptor 1.14 mg/L (0.76-1.76)
[2023-08-30 08:05] LABS: Methylmalonic Acid 157 nmol/L (87-318)
== END 2023-09-18 23:59 | disposition home or self-care (01) ==
PROVIDERS: Internal Medicine; Nurse Practitioner Family; Visit Provider Internal Medicine Medical Oncology
DX: Z90.49 Acquired absence of other specified parts of digestive tract; D64.9 Anemia, unspecified; Z79.899 Other long term (current) drug therapy; Z92.21 Personal history of antineoplastic chemotherapy; Z85.038 Personal history of other malignant neoplasm of large intestine; M85.80 Other specified disorders of bone density and structure, unspecified site; Z78.0 Asymptomatic menopausal state; Z53.9 Procedure and treatment not carried out, unspecified reason; Z11.59 Encounter for screening for other viral diseases
CPT/HCPCS: 36415; 80053; 80503; 82378; 82525; 82607; 82728; 82746; 83540; 83550; 83615; 83921; 84238; 84443; 84481; 85025; 85045; 86705; 86706; 86709; 86803; 87340; 99214

== ENCOUNTER 2023-09-19 06:00 | Outpatient (RCR) | payer MEDICARE, OTHER, SELFPAY | END 2023-10-19 23:59 | disposition home or self-care (01) | LOC: TPT 06:00 | PROVIDERS: PCP Nurse Practitioner; Visit Provider Nurse Practitioner | DX: M51.16 Intervertebral disc disorders with radiculopathy, lumbar region (principal); R53.1 Weakness | CPT/HCPCS: 97110 ==

== ENCOUNTER 2023-11-24 11:17 | Oncology outpatient (recurring) (ONCR) | payer MEDICARE, OTHER, SELFPAY ==
[2023-11-24 11:34] LABS: Basophils % 0.7 %; Eosinophils # 0.1 10^3/uL (0.0-0.8); Eosinophils % 3.1 %; Hematocrit 33.2 % (36-47); Lymphocytes # 1.1 10^3/uL (0.8-4.8); Lymphocytes % 24.8 %; Mean Corpuscular HGB Conc 34.3 g/dL (30-55); Mean Corpuscular Hemoglobin 35.7 pg (27-33); Mean Corpuscular Volume 104.1 fl (85-98); Monocytes # 0.4 10^3/uL (0.2-0.9); Monocytes % 8.9 %; Neutrophils # 2.78 10^3/uL (1.8-7.7); Neutrophils % 62.3 %; Nucleated Red Blood Cells % 0 %; Platelet Count 141 10^3/cmm (157-399); Red Blood Count 3.19 10^6/uL (3.85-5.65); Red Cell Distribution Width 12.7 % (12.1-15.1); White Blood Count 4.47 10^3/uL (3.29-11.43)
[2023-11-24 12:04] LABS: Carcinoembryonic Antigen 4.7 ng/mL (0.0-4.7)
[2023-11-24 12:15] LABS: Alanine Aminotransferase 12 U/L (0-33); Albumin Level 4.2 g/dL (3.5-5.2); Alkaline Phosphatase 37 U/L (35-105); Aspartate Amino Transferase 20 U/L (0-32); Blood Urea Nitrogen 19 mg/dL (8-23); Calcium 9.3 mg/dL (8.5-10.5); Carbon Dioxide 26 mmol/L (22-29); Chloride 100 mmol/L (98-107); Globulin 2.9 g/dL (1.3-4.6); Glucose 103 mg/dL (65-115); Osmolality Calculated 287 mOsm/kg (285-295); Sodium 137 mmol/L (136-145); Total Protein 7.1 g/dL (6.6-8.7)
[2023-11-24] MEDS: denosumab 60 mg SDV SUBCUT (13:06)
== END 2023-12-19 23:59 | disposition home or self-care (01) ==
PROVIDERS: Internal Medicine; PCP Nurse Practitioner; Visit Provider Internal Medicine Medical Oncology
DX: Z90.49 Acquired absence of other specified parts of digestive tract; Z79.899 Other long term (current) drug therapy; Z92.21 Personal history of antineoplastic chemotherapy; Z85.038 Personal history of other malignant neoplasm of large intestine; M85.80 Other specified disorders of bone density and structure, unspecified site; Z53.9 Procedure and treatment not carried out, unspecified reason; D64.89 Other specified anemias
CPT/HCPCS: 36415; 80053; 82378; 85025; 96372; 99214; J0897

== ENCOUNTER 2023-12-22 12:13 | Outpatient (CLI) | payer MEDICARE, OTHER, SELFPAY ==
[2023-12-22] MEDS: iohexol 350 mg/mL 500 mL Btl (per mL) PO (12:36)
[2023-12-22] MEDS: iohexol 350 mg/mL 500 mL Btl (per mL) IV (14:45)
--- NOTE | 2023-12-22 15:30 | CT_ITS ---
WS: [id number] CT ABDOMEN AND PELVIS WITH CONTRAST HISTORY: R32 - Unspecified urinary incontinence, history of colon cancer. TECHNIQUE: Imaging performed of the abdomen and pelvis with IV contrast. Single phase imaging of the abdomen. Coronal and sagittal reformats are submitted. All CT scans at [facility] use at [address] one of these dose optimization techniques: automated exposure control; mA and/or kV adjustment per patient size (includes targeted exams where dose is matched to clinical indication); or iterative re construction. IV CONTRAST: Omnipaque 350; 100 mL IV. Oral contrast: Yes. DLP: 236.71 mGy.cm COMPARISON: 11/21/2022 Lower thorax: Mild dependent changes at the RIGHT lung base. No pneumonia. Heart is slightly enlarged . No pericardial effusion. No hiatal hernia. Liver/biliary system: Normal size with no intrahepatic dilatation. Mild focal fatty sparing along the falciform ligament. No intrahepatic duct dilatation. Gallbladder: Prior cholecystectomy. Pancreas: Mild diffuse pancreatic atrophy. Spleen: Normal size spleen. No mass or infarct. Adrenal glands: Normal. Right kidney: Normal. Left kidney: Normal. Aorta: Mild atherosclerosis with no aneurysm. Moderate atherosclerotic plaque at the origin of the ce liac axis and SMA. Component of stenosis is likely involving the celiac axis and SMA. No complete occ lusion appreciated. Lymphadenopathy: None. Free fluid: None. GI tract: Normally distended stomach. No small bowel obstruction. No colon obstruction. Abdominal wall: Unremarkable abdominal wall. No hernia. Pelvis: No free fluid or adenopathy within the pelvis. Atrophic uterus is midline. There is mild lace like enhancement which could be due to fibroid. Very nonspecific in appearance. Bones: Severe degenerative rotary scoliosis lumbar spine. CT/CT abdomen pelvis w con* [id number] IMPRESSION: 1. No renal obstruction. 2. Negative urinary bladder. Urinary bladder is normally distended. 3. No free fluid or adenopathy. 4. Prior cholecystectomy. 5. Rotoscoliosis lumbar spine. 6. Advanced atherosclerosis aorta and mesenteric arteries. Component of celiac and SMA stenosis is present. No ischemic changes in the GI tract.
== END 2023-12-22 12:14 | disposition home or self-care (01) ==
LOC: RAD 12:13
PROVIDERS: PCP Nurse Practitioner; Visit Provider Nurse Practitioner Family
DX: R32 Unspecified urinary incontinence (principal); R15.9 Full incontinence of feces; R19.5 Other fecal abnormalities; Z85.038 Personal history of other malignant neoplasm of large intestine; R10.30 Lower abdominal pain, unspecified; N85.8 Other specified noninflammatory disorders of uterus
CPT/HCPCS: 74177; 99204; Q9967

== ENCOUNTER → 2024-01-27 10:38 | Outpatient (BNVA) | payer MEDICARE, OTHER, SELFPAY | PROVIDERS: PCP Nurse Practitioner; Visit Provider Internal Medicine Cardiovascular Disease | DX: Z95.0 Presence of cardiac pacemaker (principal); E78.2 Mixed hyperlipidemia; I10 Essential (primary) hypertension; I77.4 Celiac artery compression syndrome; I95.1 Orthostatic hypotension | CPT/HCPCS: 99214 ==

== ENCOUNTER 2024-02-11 09:34 | Day surgery (SDC) | payer MEDICARE, OTHER, SELFPAY ==
[2024-02-11 10:05] VITALS: BP 152/74; PULSE 66; RESP 16; TEMP 36.7; O2SAT 100
[2024-02-11 10:06] VITALS: BMI 20.7
[2024-02-11] MEDS: sodium chloride 0.9% 1,000 ML 30 ML IV (10:13)
--- NOTE | 2024-02-11 10:45 | ANES.PREANE2 ---
Pre-Anesthetic Assessment Height/Weight: Height 1.52 m Weight 48.081 kg Temp Pulse Resp BP Pulse Ox O2 Del Method 98.1 F 66 16 152/74 100 Room Air 02/11/24 10:05 02/11/24 10:05 02/11/24 10:05 02/11/24 10:05 02/11/24 10:05 02/11/24 10:05 Operation Date: 02/11/24 10:45 Proposed Procedures p Colonoscopy 23035, G0105, R15.9, R19.5, R10.9, Z85.038(Not Applicable) - Nabeel Harrison DO Familial anesthetic complications: none Was Beta Mandeep taken within 24 hours: Yes Was Clonidine taken within 24 hours: N/A Last intake: Intake Last Liquid Date 02/10/24 Last Liquid Time 20:00 Last Solid Date 02/09/24 Last Solid Time 16:00 Social Alcohol and No tobacco 2 beers a day Exam alert, clear to auscultation bilaterally and regular rate & rhythm states dementia History/ROS No significant history except as noted and No significant complaints Pulmonary None reported CV/HEM Hypertension None reported Hepatic None reported GI None reported Metabolic None reported Musc/skel None reported Neuropsych Anxiety Anesthetic Plan ASA status: 3 Anesthesia: MAC Risk of > 500 ml blood loss (7ml/kg in children): No Medications/Allergies Home Medications Medication Instructions Recorded Confirmed Last Taken Type cholecalciferol (vitamin D3) 125 125 mcg PO DAILY 12/26/21 02/09/24 02/10/24 History mcg (5,000 unit) capsule atorvastatin 10 mg tablet (Lipitor) 10 mg PO .at bedtime #90 tabs 08/28/23 02/09/24 02/09/24 Rx galantamine 12 mg tablet 12 mg PO BID #60 tabs 08/28/23 02/09/24 02/10/24 Rx meloxicam 7.5 mg tablet 7.5 mg PO DAILY@0900 #30 tabs 08/28/23 02/09/24 02/10/24 Rx venlafaxine 75 mg capsule,extended 75 mg PO .AM #30 caps 08/28/23 02/09/24 02/10/24 Rx release 24 hr metoprolol tartrate 75 mg tablet 75 mg PO BID #180 tabs 09/16/23 02/11/24 02/11/24 Rx 0830 mirtazapine 15 mg tablet (Remeron) 15 mg PO .at supper time #30 tabs 02/05/24 02/09/24 02/10/24 Rx cyanocobalamin (vitamin B-12) 2,500 mcg PO DAILY 02/09/24 02/09/24 02/10/24 History 2,500 mcg sublingual tablet (Vitamin B-12) folic acid 0.8 mg capsule 0.8 mg PO DAILY 02/09/24 02/09/24 02/10/24 History lactobacillus combination no.4 3 3,000 mmu cells PO DAILY 02/09/24 02/09/24 02/10/24 History billion cell capsule (Probiotic) Allergies Allergy/AdvReac Type Severity Reaction Status Date / Time Penicillins Allergy Unknown rash Verified 01/27/24 11:21 Current Medications Generic Name Dose Route Start Last Admin Trade Name Freq PRN Reason Stop Dose Admin Sodium Chloride 1,000 mls @ 30 mls/hr 02/11/24 09:45 02/11/24 10:13 Sodium Chloride 0.9% IV 02/12/24 09:44 30 mls/hr .Q24H JUSTINA Administration PFSH Anesthesia Medical History History of colon cancer History of vertebral compression fracture Degenerative arthritis Osteopenia Carotid stenosis Anemia Sarcoidosis History of colon cancer Essential hypertension Syncope Anxiety Insomnia Depression Postconcussive syndrome Hyperlipidemia Mild cognitive impairment Rheumatoid arthritis Carpal tunnel syndrome Vitamin A deficiency Surgical History History of hysterectomy (2005) History of permanent cardiac pacemaker placement For complete heart block History of colonoscopy 2019 S/P cholecystectomy History of left breast biopsy History of hemicolectomy (2005) Left hemicolectomy Family History Family/Other Cancer Diabetes Mother Cancer Father Stroke Other Arthritis Denies family history of CAD (coronary artery disease) Clotting disorder Dementia Chronic kidney disease (CKD) Suicide Anesthesia complication Bleeding disorder Lung disease Social History Smoking and tobacco/nicotine status: never used tobacco/nicotine Second hand smoke exposure: No Alcohol intake: current Alcohol intake frequency: 0-2 Drinks per Day Alcohol type: beer Substance/Drug Use: never Lives independently: Yes Household members: spouse Housing: House Marital status: Number of children: 0 service: No Current occupational status: retired Pets and animals: Yes Pets & animals: cat(s) and dog(s) Do you think of yourself as: Straight/Heterosexual Current gender identity: Female Data Anesthesia Cardiac Studies: Echocardiogram Ultrasound 05/07/20
--- NOTE | 2024-02-11 11:26 | PM.HP ---
Providers/Chief Complaint Primary Care Provider: NARCISO Olivera Chief Complaint: R19.5 History of Present Illness Katherin Silva is a 83 year old female Review of Systems General: Reports: 10 or more systems reviewed and unremarkable except in HPI and below Medications/Allergies Home Medications Medication Instructions Recorded Confirmed Last Taken Type cholecalciferol (vitamin D3) 125 125 mcg PO DAILY 12/26/21 02/09/24 02/10/24 History mcg (5,000 unit) capsule atorvastatin 10 mg tablet (Lipitor) 10 mg PO .at bedtime #90 tabs 08/28/23 02/09/24 02/09/24 Rx galantamine 12 mg tablet 12 mg PO BID #60 tabs 08/28/23 02/09/24 02/10/24 Rx meloxicam 7.5 mg tablet 7.5 mg PO DAILY@0900 #30 tabs 08/28/23 02/09/24 02/10/24 Rx venlafaxine 75 mg capsule,extended 75 mg PO .AM #30 caps 08/28/23 02/09/24 02/10/24 Rx release 24 hr metoprolol tartrate 75 mg tablet 75 mg PO BID #180 tabs 09/16/23 02/11/24 02/11/24 Rx 0830 mirtazapine 15 mg tablet (Remeron) 15 mg PO .at supper time #30 tabs 02/05/24 02/09/24 02/10/24 Rx cyanocobalamin (vitamin B-12) 2,500 mcg PO DAILY 02/09/24 02/09/24 02/10/24 History 2,500 mcg sublingual tablet (Vitamin B-12) folic acid 0.8 mg capsule 0.8 mg PO DAILY 02/09/24 02/09/24 02/10/24 History lactobacillus combination no.4 3 3,000 mmu cells PO DAILY 02/09/24 02/09/24 02/10/24 History billion cell capsule (Probiotic) Allergies Allergy/AdvReac Type Severity Reaction Status Date / Time Penicillins Allergy Unknown rash Verified 01/27/24 11:21 PFSH Acute PFSH: Medical History History of colon cancer History of vertebral compression fracture Degenerative arthritis Osteopenia Carotid stenosis Anemia Sarcoidosis History of colon cancer Essential hypertension Syncope Anxiety Insomnia Depression Postconcussive syndrome Hyperlipidemia Mild cognitive impairment Rheumatoid arthritis Carpal tunnel syndrome Vitamin A deficiency Surgical History History of hysterectomy (2005) History of permanent cardiac pacemaker placement For complete heart block History of colonoscopy 2019 S/P cholecystectomy History of left breast biopsy History of hemicolectomy (2005) Left hemicolectomy Family History Family/Other Cancer Diabetes Mother Cancer Father Stroke Other Arthritis Denies family history of CAD (coronary artery disease) Clotting disorder Dementia Chronic kidney disease (CKD) Suicide Anesthesia complication Bleeding disorder Lung disease Social History Smoking and tobacco/nicotine status: never used tobacco/nicotine Second hand smoke exposure: No Alcohol intake: current Alcohol intake frequency: 0-2 Drinks per Day Alcohol type: beer Substance/Drug Use: never Lives independently: Yes Household members: spouse Housing: House Marital status: Number of children: 0 service: No Current occupational status: retired Pets and animals: Yes Pets & animals: cat(s) and dog(s) Do you think of yourself as: Straight/Heterosexual Current gender identity: Female Vitals/I&O/Wt Last Vital Signs Temp 98.1 F 02/11/24 10:05 Pulse 66 02/11/24 10:05 Resp 16 02/11/24 10:05 BP 152/74 02/11/24 10:05 Pulse Ox 100 02/11/24 10:05 O2 Del Method Room Air 02/11/24 10:05 Weight last 48 hrs Weight 106 lb A&P Assessment and plan (1) Diarrhea following gastrointestinal surgery: (2) History of colon cancer: (3) Incontinence of feces: (4) Change in stool caliber: (5) Abdominal pain: (6) History of colon cancer: Plan Colonoscopy Attestations Medical Necessity Statement*: Home Coding Level of Care Code Acute Code for Chg Fwd Diagnoses Diarrhea following gastrointestinal surgery R19.7; Z98.890 History of colon cancer Z85.038 Incontinence of feces R15.9 Change in stool caliber R19.5 Abdominal pain R10.9
[2024-02-11 11:46] VITALS: BP 150/74; PULSE 62; RESP 14; TEMP 36.3; O2SAT 98
[2024-02-11 11:56] VITALS: BP 166/78; PULSE 62; RESP 14; O2SAT 95
--- NOTE | 2024-02-11 12:40 | ANE.PACU2 ---
Inpatient post-anesthesia follow up: Airway intact: Yes Vital signs: Temperature 97.4 F Pulse Rate 62 Respiratory Rate 14 Blood Pressure 166/78 Pulse Oximetry 95 Oxygen Delivery Me thod Room Air Oxygen Flow Rate Fraction of Inspir ed Oxygen Hydration adequate: Yes Nausea and vomiting: No Pain level: 1 Mental status: Baseline
== END 2024-02-11 12:41 | disposition home or self-care (01) ==
PROVIDERS: PCP Nurse Practitioner; Visit Provider Surgery
PROC: 0DJD8ZZ Inspection of Lower Intestinal Tract, Via Natural or Artificial Opening Endoscopic (ICD-10-PCS; CPT 45378; principal; 2024-02-11 10:45)
DX: R15.9 Full incontinence of feces (principal); R19.5 Other fecal abnormalities; R10.9 Unspecified abdominal pain; Z85.038 Personal history of other malignant neoplasm of large intestine; D12.3 Benign neoplasm of transverse colon; I10 Essential (primary) hypertension; K64.8 Other hemorrhoids
CPT/HCPCS: 45385; 88305; J2704; J7030

== ENCOUNTER 2024-02-18 09:30 | Oncology outpatient (recurring) (ONCR) | payer MEDICARE, OTHER, SELFPAY ==
[2024-02-02 14:24] LABS: Basophils % 0.4 %; Hematocrit 31.8 % (36-47); Lymphocytes # 1.5 10^3/uL (0.8-4.8); Lymphocytes % 59.4 %; Mean Corpuscular HGB Conc 33.6 g/dL (30-55); Mean Corpuscular Hemoglobin 34.4 pg (27-33); Mean Corpuscular Volume 102.3 fl (85-98); Mean Platelet Volume 9.6 fL (7.4-10.4); Monocytes # 0.4 10^3/uL (0.2-0.9); Monocytes % 15.7 %; Neutrophils % 24.1 %; Nucleated Red Blood Cells % 0 %; Platelet Count 113 10^3/cmm (157-399); Red Blood Count 3.11 10^6/uL (3.85-5.65); Red Cell Distribution Width 13.2 % (12.1-15.1); White Blood Count 2.49 10^3/uL (3.29-11.43)
[2024-02-02 14:44] LABS: Alanine Aminotransferase 17 U/L (0-33); Albumin Level 3.9 g/dL (3.5-5.2); Alkaline Phosphatase 42 U/L (35-105); Aspartate Amino Transferase 22 U/L (0-32); Blood Urea Nitrogen 23 mg/dL (8-23); Calcium 8.6 mg/dL (8.5-10.5); Carbon Dioxide 26 mmol/L (22-29); Chloride 102 mmol/L (98-107); Chol HDL Ratio 2.59 mg/dL (0.0-4.40); Cholesterol 158 mg/dL (0-200); Globulin 2.7 g/dL (1.3-4.6); Glucose 116 mg/dL (65-115); HDL Cholesterol 61 mg/dL (60-100); LDL Cholesterol Calculated 80 mg/dL (50-129); Osmolality Calculated 291 mOsm/kg (285-295); Sodium 138 mmol/L (136-145); Total Bilirubin 0.6 mg/dL (0.15-1.2); Total Protein 6.6 g/dL (6.6-8.7); Triglycerides 85 mg/dL (0-150); VLDL Cholestrol Calculation 17 mg/dL (0-30)
[2024-02-02 14:48] LABS: Anion Gap 13.8 (5-19); Potassium 3.8 mmol/L (3.5-5.1)
[2024-02-02 15:00] LABS: Slide Review Slide Review Perform
[2024-02-18 10:06] LABS: Basophils % 0.8 %; Hematocrit 34.1 % (36-47); Lymphocytes # 1.1 10^3/uL (0.8-4.8); Lymphocytes % 45.3 %; Mean Corpuscular HGB Conc 33.1 g/dL (30-55); Mean Corpuscular Hemoglobin 33.8 pg (27-33); Mean Corpuscular Volume 102.1 fl (85-98); Mean Platelet Volume 9.9 fL (7.4-10.4); Monocytes # 0.4 10^3/uL (0.2-0.9); Monocytes % 16.9 %; Nucleated Red Blood Cells % 0 %; Platelet Count 124 10^3/cmm (157-399); Red Blood Count 3.34 10^6/uL (3.85-5.65); Red Cell Distribution Width 12.9 % (12.1-15.1); White Blood Count 2.36 10^3/uL (3.29-11.43)
[2024-02-18 10:27] LABS: Alanine Aminotransferase 13 U/L (0-33); Albumin Level 4.1 g/dL (3.5-5.2); Alkaline Phosphatase 43 U/L (35-105); Anion Gap 12.2 (5-19); Aspartate Amino Transferase 17 U/L (0-32); Blood Urea Nitrogen 16 mg/dL (8-23); Calcium 9.2 mg/dL (8.5-10.5); Carbon Dioxide 26 mmol/L (22-29); Chloride 106 mmol/L (98-107); Ferritin 403 ng/mL (15-150); Glucose 68 mg/dL (65-115); Iron 86 ug/dL (37-145); Osmolality Calculated 289 mOsm/kg (285-295); Percent Saturation 40.5 % (20-50); Potassium 4.2 mmol/L (3.5-5.1); Sodium 140 mmol/L (136-145); Total Bilirubin 0.5 mg/dL (0.15-1.2); Total Iron Binding Capacity 212 mcg/dl; Total Protein 7.1 g/dL (6.6-8.7); Unsaturated Iron Binding 126 ug/dL (112-347)
[2024-02-18 10:38] LABS: Neutrophils # 0.87 10^3/uL (1.8-7.7)
[2024-02-18 10:56] LABS: Vitamin B12 > 2000 pg/mL (232-1245)
== END 2024-02-18 23:59 | disposition home or self-care (01) ==
PROVIDERS: Nurse Practitioner Family; PCP Nurse Practitioner; Visit Provider Internal Medicine Medical Oncology
DX: Z53.9 Procedure and treatment not carried out, unspecified reason; D64.89 Other specified anemias; E55.9 Vitamin D deficiency, unspecified; R79.89 Other specified abnormal findings of blood chemistry; R63.0 Anorexia; Z68.1 Body mass index [BMI] 19.9 or less, adult
CPT/HCPCS: 36415; 80053; 80061; 82607; 82728; 83540; 83550; 85025; 99214

== ENCOUNTER → 2024-05-03 09:48 | Outpatient (BNVA) | payer MEDICARE, OTHER, SELFPAY | PROVIDERS: PCP Nurse Practitioner; Visit Provider Nurse Practitioner | DX: S30.0XXA Contusion of lower back and pelvis, initial encounter (principal); Z85.038 Personal history of other malignant neoplasm of large intestine; M54.9 Dorsalgia, unspecified; Z90.49 Acquired absence of other specified parts of digestive tract; W19.XXXA Unspecified fall, initial encounter | CPT/HCPCS: 72072; 72100 ==

== ENCOUNTER → 2024-05-10 09:43 | Outpatient (BNVA) | payer MEDICARE, OTHER, SELFPAY | PROVIDERS: PCP Nurse Practitioner; Visit Provider Nurse Practitioner | DX: R93.7 Abnormal findings on diagnostic imaging of other parts of musculoskeletal system (principal); M54.2 Cervicalgia; M47.812 Spondylosis without myelopathy or radiculopathy, cervical region | CPT/HCPCS: 72040 ==

== ENCOUNTER 2024-05-11 15:15 | Oncology outpatient (recurring) (ONCR) | payer MEDICARE, OTHER, SELFPAY ==
[2024-04-26 13:00] LABS: Basophils % 0.6 %; Eosinophils % 0.6 %; Hematocrit 34.1 % (36-47); Lymphocytes # 1.4 10^3/uL (0.8-4.8); Lymphocytes % 41.6 %; Mean Corpuscular HGB Conc 34.3 g/dL (30-55); Mean Corpuscular Hemoglobin 34.6 pg (27-33); Mean Corpuscular Volume 100.9 fl (85-98); Mean Platelet Volume 9.7 fL (7.4-10.4); Monocytes # 0.5 10^3/uL (0.2-0.9); Monocytes % 14.4 %; Neutrophils # 1.42 10^3/uL (1.8-7.7); Neutrophils % 42.5 %; Nucleated Red Blood Cells % 0 %; Platelet Count 156 10^3/cmm (157-399); Red Blood Count 3.38 10^6/uL (3.85-5.65); Red Cell Distribution Width 14.1 % (12.1-15.1); White Blood Count 3.34 10^3/uL (3.29-11.43)
[2024-04-26 13:24] LABS: Carcinoembryonic Antigen 6.4 ng/mL (0.0-4.7)
[2024-04-26 13:35] LABS: Alanine Aminotransferase 10 U/L (0-33); Albumin Level 4.2 g/dL (3.5-5.2); Alkaline Phosphatase 30 U/L (35-105); Anion Gap 14.4 (5-19); Aspartate Amino Transferase 16 U/L (0-32); Blood Urea Nitrogen 28 mg/dL (8-23); Calcium 8.8 mg/dL (8.5-10.5); Carbon Dioxide 20 mmol/L (22-29); Chloride 109 mmol/L (98-107); Globulin 2.8 g/dL (1.3-4.6); Glucose 103 mg/dL (65-115); Osmolality Calculated 294 mOsm/kg (285-295); Potassium 4.4 mmol/L (3.5-5.1); Sodium 139 mmol/L (136-145); Total Bilirubin 0.6 mg/dL (0.15-1.2)
[2024-04-26 13:47] LABS: Iron 100 ug/dL (37-145); Percent Saturation 43.8 % (20-50); Total Iron Binding Capacity 228 mcg/dl; Unsaturated Iron Binding 128 ug/dL (112-347)
[2024-04-26 15:58] LABS: Vitamin B12 > 2000 pg/mL (232-1245)
== END 2024-05-20 23:59 | disposition home or self-care (01) ==
LOC: RAD 05-12 00:01 → ONCMED 05-17 10:40
PROVIDERS: Nurse Practitioner Family; PCP Nurse Practitioner; Visit Provider Internal Medicine Hematology & Oncology
DX: Z53.9 Procedure and treatment not carried out, unspecified reason (principal)
CPT/HCPCS: 36415; 80053; 82378; 82607; 83540; 83550; 85025; 99214

== ENCOUNTER → 2024-05-12 08:33 | Outpatient (BNVA) | payer MEDICARE, OTHER, SELFPAY | PROVIDERS: Visit Provider Specialist | DX: R29.90 Unspecified symptoms and signs involving the nervous system (principal); G30.9 Alzheimer's disease, unspecified; F02.80 Dementia in other diseases classified elsewhere, unspecified severity, without behavioral disturbance, psychotic disturbance, mood disturbance, and anxiety; F41.9 Anxiety disorder, unspecified | CPT/HCPCS: 99214 ==

== ENCOUNTER → 2024-05-24 15:26 | Outpatient (BNVA) | payer MEDICARE, OTHER, SELFPAY | PROVIDERS: PCP Nurse Practitioner; Visit Provider Nurse Practitioner | DX: I10 Essential (primary) hypertension (principal) | CPT/HCPCS: 81000 ==

== ENCOUNTER → 2024-05-25 10:29 | Outpatient (BNVA) | payer MEDICARE, OTHER, SELFPAY | PROVIDERS: PCP Nurse Practitioner; Visit Provider Nurse Practitioner | DX: M25.551 Pain in right hip (principal); M25.552 Pain in left hip; M16.0 Bilateral primary osteoarthritis of hip | CPT/HCPCS: 73502 ==

== ENCOUNTER → 2024-06-08 10:45 | Outpatient (BNVA) | payer MEDICARE, OTHER, SELFPAY | PROVIDERS: PCP Nurse Practitioner; Visit Provider Internal Medicine Cardiovascular Disease | DX: I25.118 Atherosclerotic heart disease of native coronary artery with other forms of angina pectoris (principal); R06.02 Shortness of breath; Z79.01 Long term (current) use of anticoagulants; I48.91 Unspecified atrial fibrillation; Z45.010 Encounter for checking and testing of cardiac pacemaker pulse generator [battery]; E78.2 Mixed hyperlipidemia; I10 Essential (primary) hypertension; I95.1 Orthostatic hypotension; I77.4 Celiac artery compression syndrome | CPT/HCPCS: 99214 ==

== ENCOUNTER 2024-06-15 07:22 | Outpatient (CLI) | payer MEDICARE, OTHER, SELFPAY ==
[2024-06-15] VITALS (9 sets, daily range): BP systolic 130–188; BP diastolic 68–92; PULSE 64–75; RESP 16–17; TEMP 36.6–37.2; O2SAT 97–99; BMI 19.8
[2024-06-15 08:03] LABS: Basophils % 0.5 %; Hematocrit 32.7 % (36-47); Lymphocytes # 1.6 10^3/uL (0.8-4.8); Lymphocytes % 42.1 %; Mean Corpuscular HGB Conc 34.9 g/dL (30-55); Mean Corpuscular Hemoglobin 35.6 pg (27-33); Mean Corpuscular Volume 102.2 fl (85-98); Mean Platelet Volume 9.6 fL (7.4-10.4); Monocytes # 0.5 10^3/uL (0.2-0.9); Monocytes % 11.7 %; Neutrophils # 1.75 10^3/uL (1.8-7.7); Neutrophils % 45.4 %; Nucleated Red Blood Cells % 0 %; Platelet Count 143 10^3/cmm (157-399); Red Cell Distribution Width 13.2 % (12.1-15.1); White Blood Count 3.85 10^3/uL (3.29-11.43)
[2024-06-15 08:19] LABS: Anion Gap 15.2 (5-19); Blood Urea Nitrogen 24 mg/dL (8-23); Calcium 9.1 mg/dL (8.5-10.5); Carbon Dioxide 20 mmol/L (22-29); Chloride 104 mmol/L (98-107); Glucose 100 mg/dL (65-115); Osmolality Calculated 284 mOsm/kg (285-295); Potassium 4.2 mmol/L (3.5-5.1); Sodium 135 mmol/L (136-145)
--- NOTE | 2024-06-15 08:26 | W.PM.OPSUD ---
Surgery/Procedure H&P Update DATE OF PROCEDURE: June 15, 2024 DATE H&P PERFORMED: 06/08/24 H&P UPDATE INFORMATION: I have reviewed H&P completed within last 30 days, I have examined patient prior to procedure and No changes to prior documentation PREOP DIAGNOSIS: Pacemaker JULIA PRIMARY INDICATION FOR PROCEDURE: Patient with symptomatic bradycardia, had a dual-chamber pacemaker implantation. Currently the device is in JULIA PLANNED PROCEDURE: Operation Date: 06/15/24 08:30 Proposed Procedures p Pacemaker Generator Change, PPM Generator Change(Not Applicable) - Marta Vasques MD PATIENT REASSESSED PRIOR TO SEDATION, WITH NO CHANGE NOTED: Yes PHYSICAL EXAM: alert, oriented x 3, clear to auscultation bilaterally and regular rate & rhythm AIRWAY EVAL/ANESTHESIA PLAN: normal airway, see other exam findings, ASA III, Monitored Anesthesia, Local Anesthesia, Risks, benefits & alternatives of sedation and/or procedure discussed and Patient agrees to continue as planned
[2024-06-15 08:31] LABS: Creatinine Clr Calc Pharmacy 31.6643
--- NOTE | 2024-06-15 09:51 | P.OP_ITS ---
Operative Report Date of procedure: June 15, 2024 Surgeon: Marta Vasques MD Procedure: PROCEDURE: PACEMAKER REVISION PREOPERATIVE DIAGNOSIS: Pacemaker elective replacement indication. POSTOPERATIVE DIAGNOSIS: Pacemaker elective replacement indication. ESTIMATED BLOOD LOSS: None COMPLICATIONS: None. BRIEF HISTORY: The patient is 84-year-old white female who had a permanent pacemaker implantation for symptomatic bradycardia. The patient was found to have elective replacement indication, during routine office followup evaluation. For further management of patient's condition for the symptomatic bradycardia, the patient required a pacemaker revision. Patient required a dual-chamber pacemaker for symptom relief and the need for AV synchrony The procedure was explained to the patient and her caregiver in detail with the risks and benefits. The risks of bleeding, hematoma, vascular injury, infection and other concomitant complications were explained in detail, which the patient understood well and consented to proceed. PROCEDURES PERFORMED: 1. Explantation of the old pacemaker generator. 2. Implantation of the new generator. The patient brought to the Cardiac Marketing And Promotions Manager. The left side of the neck and the subclavian area were cleaned and draped in a sterile fashion. 1% Xylocaine was used for local anesthetic agent. A 2 inch long incision was made just below the previous pacemaker scar. By sharp and blunt dissection, the pacemaker pocket was accessed. The old generator was delivered from the pocket. The generator was detached from the lead. The new Medtronic generator was attached to the lead. The pacemaker pocket was copiously irrigated with vancomycin solution. Complete hemostasis was achieved. The lead was positioned behind the generator and the generator was attached to the pectoralis fascia by suturing with 0 Surgilon. Sponge counts were confirmed. The pacemaker pocket was closed in layers. Skin was approximated using 4-0 Vicryl. EXPLANTED DEVICE: Pacemaker Generator: Brand: Nguyễn MONTGOMERY Model number: [id number] Serial number: [id number]. . Date of implant: 09/03/1948 IMPLANTED DEVICES: Ventricular Lead: Date of implantation: 09/03/2014 Model number: [id number] Serial number: [id number] Make: Medtronic. Atrial lead Date of implantation: 09/03/2014 Model number: [id number] Serial number: [id number] Make: Medtronic. Implanted Generator: Date of implantation : 06/15/2024 Brand: Laila Izquierdo Model number: W1 [id number] Serial number: [id number] Make: Medtronic Stimulation Threshold: The ventricular sensing was 5.3 millivolts. Ventricular lead impedance was 418 ohms and the pacing threshold was 0.75 volts at 0.4 milliseconds. The atrial sensing was 2.3 millivolts. Atrial lead impedance was 342 ohms and the pacing threshold was 0.75 volts at 0.4 milliseconds. The pacemaker was set for AAIR/DDDR mode with an upper rate of 130 and a lower rate of 60. A pressure dressing was applied over the pacemaker site. The patient was transferred back to medical floor in stable condition. Sponge counts were correct.
[2024-06-15] MEDS: sodium chloride 0.9% 1,000 ML 75 ML IV (12:13)
[2024-06-15] MEDS: metoprolol tartrate 25 mg Tablet 75 MG PO (17:00)
[2024-06-15] MEDS: mirtazapine 15 mg Tablet PO (17:00)
[2024-06-15] MEDS: VANCOMYCIN ADD-Vantage 750 MG in 0.9% NaCl ADD-Vantage 250 ML 250 MG IV (20:54)
[2024-06-15] MEDS: atorvastatin 40 mg Tablet PO (20:55)
[2024-06-16] VITALS (7 sets, daily range): BP systolic 132–190; BP diastolic 75–88; PULSE 67–70; RESP 15–18; TEMP 36.4–37.3; O2SAT 97–98
--- NOTE | 2024-06-16 06:00 | ECG_ITS ---
[facility] Test Date: 2024-06-16 Pat Name: Katherin Silva Department: Room: 254 Gender: Female Internet Architect: : 1940 Requested By: Marta Vasques Order Number: [id number] Saeid MD: Marta Vasques M.D. Measurements Intervals Frederic Rate: 68 P: 63 NH: 182 QRS: -29 QRSD: 129 T: 80 QT: 418 QTc: 447 Interpretive Statements SINUS RHYTHM LEFT BUNDLE BRANCH BLOCK [120+ ms QRS DURATION, 80+ ms Q/S IN V1/V2, 85+ ms R IN I/aVL/V5/V6] Compared to ECG 05/07/2020 06:05:44 No significant changes Electronically Signed On 06-16-2024 19:18:48 LONG LINE TEAMSTER by Marta Vasques M.D. [email or web address]
[2024-06-16] MEDS: venlafaxine ER (24HR) 75 mg Capsule PO (06:31)
[2024-06-16] MEDS: metoprolol tartrate 25 mg Tablet 75 MG PO (07:39)
[2024-06-16] MEDS: cholecalciferol (vitamin D3) 1,000 unit Tablet 2000 UNIT PO (09:28)
[2024-06-16] MEDS: meloxicam 7.5 mg tablet PO (09:28)
[2024-06-16] MEDS: lactobacillus 1 Tablet 1 TAB PO (09:28)
--- NOTE | 2024-06-16 12:31 | PC.NURSE ---
Discussed discharge medications with patient. Stated medications went to [facility] in [place], [place]. Explained follow up appointments to patient. Patient stated she could get there if they were written down. Lots of reinforcement needed upon discharge. Paperwork sent with patient. The friend here to pick patient up had left the room to go get vehicle before discharge paperwork was discussed with patient.
== END 2024-06-16 12:29 | disposition home or self-care (01) ==
LOC: CCL 07:26 → MEDSURG 06-16 07:50
PROVIDERS: PCP Nurse Practitioner; Visit Provider Internal Medicine Cardiovascular Disease
DX: Z45.010 Encounter for checking and testing of cardiac pacemaker pulse generator [battery] (principal); I10 Essential (primary) hypertension; E78.5 Hyperlipidemia, unspecified; F03.90 Unspecified dementia, unspecified severity, without behavioral disturbance, psychotic disturbance, mood disturbance, and anxiety; F41.9 Anxiety disorder, unspecified; Z79.01 Long term (current) use of anticoagulants
CPT/HCPCS: 33228; 36415; 80048; 85025; 93005; 96365; 96374; 97165; 97760; 99152; 99153; A4216; A4565; C1769; C1786; J1200; J3370; J7030; J7050

== ENCOUNTER → 2024-06-23 13:51 | Outpatient (BNVA) | payer MEDICARE, OTHER, SELFPAY | PROVIDERS: PCP Nurse Practitioner; Visit Provider Nurse Practitioner Family | DX: I45.89 Other specified conduction disorders (principal); Z95.0 Presence of cardiac pacemaker | CPT/HCPCS: 99024; 99214 ==

== ENCOUNTER 2024-06-29 10:58 | Oncology outpatient (recurring) (ONCR) | payer MEDICARE, OTHER, SELFPAY ==
[2024-06-29 11:43] LABS: Basophils % 0.4 %; Eosinophils % 0.2 %; Hematocrit 32.2 % (36-47); Lymphocytes # 1.2 10^3/uL (0.8-4.8); Mean Corpuscular HGB Conc 33.5 g/dL (30-55); Mean Corpuscular Hemoglobin 35.9 pg (27-33); Mean Platelet Volume 9.4 fL (7.4-10.4); Monocytes # 0.6 10^3/uL (0.2-0.9); Monocytes % 13.1 %; Neutrophils # 2.67 10^3/uL (1.8-7.7); Neutrophils % 59.1 %; Nucleated Red Blood Cells % 0 %; Platelet Count 159 10^3/cmm (157-399); Red Blood Count 3.01 10^6/uL (3.85-5.65); Red Cell Distribution Width 12.9 % (12.1-15.1); White Blood Count 4.52 10^3/uL (3.29-11.43)
[2024-06-29 12:02] LABS: Alanine Aminotransferase 12 U/L (0-33); Albumin Level 4.2 g/dL (3.5-5.2); Alkaline Phosphatase 40 U/L (35-105); Anion Gap 14.9 (5-19); Aspartate Amino Transferase 17 U/L (0-32); Blood Urea Nitrogen 31 mg/dL (8-23); Calcium 9.6 mg/dL (8.5-10.5); Carbon Dioxide 22 mmol/L (22-29); Chloride 105 mmol/L (98-107); Globulin 2.9 g/dL (1.3-4.6); Glucose 108 mg/dL (65-115); Iron 68 ug/dL (37-145); Osmolality Calculated 291 mOsm/kg (285-295); Percent Saturation 27.3 % (20-50); Potassium 4.9 mmol/L (3.5-5.1); Sodium 137 mmol/L (136-145); Total Bilirubin 0.6 mg/dL (0.15-1.2); Total Iron Binding Capacity 249 mcg/dl; Total Protein 7.1 g/dL (6.6-8.7); Unsaturated Iron Binding 181 ug/dL (112-347)
[2024-06-29 13:00] LABS: Carcinoembryonic Antigen 7.5 ng/mL (0.0-4.7)
[2024-06-29 13:12] LABS: Vitamin B12 > 2000 pg/mL (232-1245)
[2024-06-29 13:19] LABS: Folate Level > 20.0 ng/mL (4.8-37.3)
[2024-06-29] MEDS: denosumab 60 mg SDV SUBCUT (15:01)
== END 2024-07-20 23:59 | disposition home or self-care (01) ==
PROVIDERS: Nurse Practitioner Family; PCP Nurse Practitioner; Visit Provider Internal Medicine Medical Oncology
DX: D64.89 Other specified anemias (principal); Z85.038 Personal history of other malignant neoplasm of large intestine; R97.0 Elevated carcinoembryonic antigen [CEA]; M85.80 Other specified disorders of bone density and structure, unspecified site; E78.2 Mixed hyperlipidemia; Z79.899 Other long term (current) drug therapy
CPT/HCPCS: 36415; 80053; 82378; 82607; 82746; 83540; 83550; 85025; 96372; 99213; J0897

== ENCOUNTER → 2024-07-29 11:15 | Outpatient (BNVA) | payer MEDICARE, OTHER, SELFPAY | PROVIDERS: PCP Nurse Practitioner; Visit Provider Internal Medicine Cardiovascular Disease | DX: Z95.0 Presence of cardiac pacemaker (principal); E78.2 Mixed hyperlipidemia; I10 Essential (primary) hypertension; I95.1 Orthostatic hypotension; I77.4 Celiac artery compression syndrome | CPT/HCPCS: 99214 ==

== ENCOUNTER 2024-08-17 14:30 | Oncology outpatient (recurring) (ONCR) | payer MEDICARE, OTHER, SELFPAY ==
--- NOTE | 2024-08-02 08:30 | CT_ITS ---
WS: [id number] CT CHEST, ABDOMEN AND PELVIS WITH CONTRAST HISTORY: elevated CEA, history of colon cancer TECHNIQUE: Contiguous 5 mm axial imaging performed through the chest, abdomen and pelvis with IV cont rast, oral contrast has been provided. Coronal and sagittal reformats chest. Coronal and sagittal ref ormats through the abdomen and pelvis. All CT scans at [facility] use at least one of these d ose optimization techniques: automated exposure control; mA and/or kV adjustment per patient size (in cludes targeted exams where dose is matched to clinical indication); or iterative reconstruction. CONTRAST: Omnipaque 350; 100 mL IV. DLP: 434.33 mGy.cm COMPARISON: 12/22/2023, 11/21/[address]: Moderate elevation of the RIGHT hemidiaphragm is stable. Linear atelectasis or scar in the RIGHT lower lobe. No mass or nodule. Subtle groundglass attenuation in the lingula. Mild atherosclero sis thoracic aorta. Normal size pulmonary artery. Mild LEFT heart enlargement. No pericardial or pleu ral effusions. No mediastinal or hilar adenopathy. LEFT subclavian dual-lead cardiac pacer. Abdomen CT: Normal size liver. There are a few areas of variable echogenicity and enhancement in the liver but these were also present on 12/22/2023. Most likely due to areas of scarring with focal fatty sparing. Stable central biliary ductal dilatation. Prior cholecystectomy. Normal spleen and adrenal g lands. No pancreatic abnormality or change. There may be a tiny cyst near the pancreatic neck measuri ng 6 mm. Moderate atherosclerotic plaque abdominal aorta. 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 No renal obstruction or mass. Nondistended stomach. No small bowel obstruction. Appendix is not identified. There is no inflammator y change in the RIGHT lower quadrant. No colon obstruction. No significant diverticular disease. No m ass. Pelvic CT: Well-distended urinary bladder. No intraluminal filling defect. Hypervascular enhancement in the central uterus. This enhancement has been present since at least 2019 with minimal change. Lora ology may be a fibroid or related to the endometrium. Advanced rotoscoliosis of the lumbar spine. Lumbar spine compression fracture at L4. No destructive b one lesions. CT/CT chest abdpel w/*[id number] IMPRESSION: 1. No metastatic pulmonary nodules. 2. No significant adenopathy identified in the chest, abdomen or pelvis. 3. No ascites. 4. Reidentified is enhancement within the uterus which has been seen on prior studies. This may be related to a fibroid or endometrial mass. This can be furt her evaluated by transvaginal pelvic ultrasound or [employer] evaluation. 5. No metastatic disease identified within the liver or adrenal glands. 6. Atherosclerotic plaque aorta and mesenteric arteries. 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 7. Prior cholecystectomy.
[2024-08-02] MEDS: iohexol 350 mg/mL 500 mL Btl (per mL) IV (12:03)
[2024-08-10 14:25] LABS: Basophils % 0.4 %; Eosinophils % 0.2 %; Hematocrit 34.5 % (36-47); Lymphocytes # 1.8 10^3/uL (0.8-4.8); Lymphocytes % 36.7 %; Mean Corpuscular HGB Conc 32.8 g/dL (30-55); Mean Corpuscular Volume 103.9 fl (85-98); Mean Platelet Volume 9.9 fL (7.4-10.4); Monocytes # 0.6 10^3/uL (0.2-0.9); Monocytes % 12.5 %; Nucleated Red Blood Cells % 0 %; Platelet Count 183 10^3/cmm (157-399); Red Blood Count 3.32 10^6/uL (3.85-5.65)
[2024-08-10 14:42] LABS: Carcinoembryonic Antigen 8.6 ng/mL (0.0-4.7)
[2024-08-10 14:53] LABS: Alanine Aminotransferase 12 U/L (0-33); Albumin Level 4.1 g/dL (3.5-5.2); Alkaline Phosphatase 35 U/L (35-105); Anion Gap 19.3 (5-19); Aspartate Amino Transferase 17 U/L (0-32); Blood Urea Nitrogen 28 mg/dL (8-23); Calcium 9.4 mg/dL (8.5-10.5); Carbon Dioxide 18 mmol/L (22-29); Chloride 102 mmol/L (98-107); Glucose 96 mg/dL (65-115); Osmolality Calculated 285 mOsm/kg (285-295); Potassium 4.3 mmol/L (3.5-5.1); Sodium 135 mmol/L (136-145); Total Bilirubin 0.9 mg/dL (0.15-1.2); Total Protein 7.1 g/dL (6.6-8.7)
--- NOTE | 2024-08-17 14:30 | US_ITS ---
WS: [id number] US pelvic limited [id number] HISTORY: Possible uterine fibroid or endometrial abnormality. COMPARISON: CT 08/02/2024 Patient was unable to tolerate transvaginal imaging. Urinary bladder was not distended for transabdom inal imaging. Imaging through the pelvis without a distended bladder demonstrated no abnormalities. T he uterus not identified. Neither ovary identified. No ascites. US/US pelvic limited [id number] IMPRESSION: 1. Transvaginal pelvic ultrasound was not performed due to patient's tolerance . 2. Transabdominal imaging through the nondistended bladder demonstrated no abn ormality. Neither uterus nor ovaries identified.
== END 2024-08-20 23:59 | disposition home or self-care (01) ==
LOC: RAD 08-18 → ONCMED 08-19 09:10
PROVIDERS: Nurse Practitioner Family; PCP Nurse Practitioner; Visit Provider Nurse Practitioner
DX: N85.8 Other specified noninflammatory disorders of uterus (principal)
CPT/HCPCS: 36415; 71260; 74177; 76857; 80053; 82378; 85025; 99214

== ENCOUNTER → 2024-09-13 15:09 | Outpatient (BNVA) | payer MEDICARE, OTHER, SELFPAY | PROVIDERS: PCP Nurse Practitioner; Visit Provider Nurse Practitioner | DX: F41.9 Anxiety disorder, unspecified (principal); I10 Essential (primary) hypertension | CPT/HCPCS: 80053; 82607; 84443; 85025 ==

== ENCOUNTER → 2024-09-29 15:02 | Outpatient (BNVA) | payer MEDICARE, OTHER, SELFPAY | PROVIDERS: PCP Nurse Practitioner; Visit Provider Podiatrist Foot & Ankle Surgery | DX: B35.1 Tinea unguium (principal) | CPT/HCPCS: 99203 ==

== ENCOUNTER → 2024-10-11 13:53 | Outpatient (BNVA) | payer MEDICARE, OTHER, SELFPAY | PROVIDERS: PCP Nurse Practitioner; Visit Provider Nurse Practitioner | DX: I10 Essential (primary) hypertension (principal); E78.2 Mixed hyperlipidemia | CPT/HCPCS: 80053; 84425; 85025 ==

== ENCOUNTER → 2024-10-12 13:53 | Outpatient (BNVA) | payer MEDICARE, OTHER, SELFPAY | PROVIDERS: PCP Nurse Practitioner; Visit Provider Nurse Practitioner | DX: I10 Essential (primary) hypertension (principal); E78.2 Mixed hyperlipidemia | CPT/HCPCS: 84425 ==